=== PATIENT | female | born 1965 | race Caucasian/White ===

== ENCOUNTER 2017-02-24 20:01 | Emergency (ER) | payer SELFPAY ==
[~2017-02-24] VITALS: Ht 162.6 cm; Wt 78.0 kg
[2017-02-24] MEDS ORDERED: KETOROLAC 30 MG/ML VIAL IVP ONE (20:15)
[2017-02-24] MEDS ORDERED: NS IV 1000 ML 1,000 ML IV ONE (20:15)
[2017-02-24] MEDS ORDERED: ASPIRIN 81 MG CHEW (CHILDREN'S ASA) PO ONE (20:15)
[2017-02-24 20:24] LABS: BASOPHILS % (AUTO) 0 % (0-10); EOSINOPHILS # (AUTO) 0.1 10^3/uL (0.0-0.3); EOSINOPHILS % (AUTO) 1 % (0-10); LYMPHOCYTES # (AUTO) 1.1 X 10^3 (1.0-4.0); LYMPHOCYTES % (AUTO) 8 % (12-44); MEAN CORPUSCULAR HEMOGLOBIN 30 PG (25-34); MEAN CORPUSCULAR HGB CONC 34 G/DL (32-36); MEAN CORPUSCULAR VOLUME 88 FL (80-99); MEAN PLATELET VOLUME 9.5 FL (7.4-10.4); MONOCYTES # (AUTO) 0.5 X 10^3 (0.0-1.0); MONOCYTES % (AUTO) 4 % (0-12); NEUTROPHILS # (AUTO) 11.5 X 10^3 (1.8-7.8); NEUTROPHILS % (AUTO) 87 % (42-75); PLATELET COUNT 338 10^3/uL (130-400); RED CELL DISTRIBUTION WIDTH 13.4 % (10.0-14.5); WHITE BLOOD COUNT 13.2 10^3/uL (4.3-11.0)
[2017-02-24 20:27] LABS: PROTHROMBIN TIME PATIENT 12.4 SEC (12.2-14.7)
[2017-02-24 20:37] LABS: ALANINE AMINOTRANSFERASE 21 U/L (0-55); ALBUMIN 4.6 G/DL (3.2-4.5); ANION GAP 15 MMOL/L (5-14); ASPARTATE AMINO TRANSFERASE 15 U/L (5-34); BILIRUBIN,TOTAL 0.7 MG/DL (0.1-1.0); BLOOD UREA NITROGEN 10 MG/DL (7-18); BUN/CREATININE RATIO 10; CALCIUM 9.6 MG/DL (8.5-10.1); CARBON DIOXIDE 20 MMOL/L (21-32); CHLORIDE 98 MMOL/L (98-107); CREATININE SERUM 0.96 MG/DL (0.60-1.30); GFR ESTIMATED > 60; GLUCOSE 385 MG/DL (70-105); MAGNESIUM 1.9 MG/DL (1.8-2.4); POTASSIUM 4.3 MMOL/L (3.6-5.0); SODIUM 133 MMOL/L (135-145); TOTAL PROTEIN 7.8 G/DL (6.4-8.2)
[2017-02-24 20:44] LABS: MYOGLOBIN SERUM 25.1 NG/ML (10.0-92.0)
[2017-02-24] MEDS ORDERED: METF1000 (20:53)
[2017-02-24] MEDS ORDERED: PRAV40TA2 (20:53)
[2017-02-24] MEDS ORDERED: GABA-488 (20:53)
[2017-02-24] MEDS ORDERED: LISI-556 (20:53)
[2017-02-24] MEDS ORDERED: GLIP5TAB26 (20:53)
[2017-02-24] MEDS ORDERED: ESTR0.3T (20:53)
[2017-02-24] MEDS ORDERED: MONT10TA24 (20:53)
[2017-02-24] MEDS ORDERED: CITA20TA7 (20:53)
[2017-02-24] MEDS ORDERED: MELO15TA39 (20:53)
--- NOTE | 2017-02-24 21:05 | Diagnostic Imaging Report ---
EXAMINATION: CHEST (PA AND LATERAL) CLINICAL INDICATION: 51-year-old female, chest pain. Cough. COMPARISON: None. FINDINGS: Heart size and mediastinal contours are unremarkable. There is no identified pneumothorax. There is no pleural effusion. There is somewhat of a focal area of increased attenuation where right-sided ribs overlap on the frontal view which measures 9 mm in size. There is a rounded area of increased attenuation projecting within breast tissue measuring 11 mm in size on the lateral view as well as an adjacent high attenuation nodular focus which measures 4 mm in size. These appear low in position to correlate with the finding on the frontal view. No additional potential focal airspace consolidation noted. IMPRESSION: 1. Focal area of increased attenuation where 2 right-sided ribs overlap at the level of the right midlung measuring 9 mm in size. This very well may relate to artifact and overlap of structures; however, pulmonary nodule would be difficult to exclude. 2. High attenuation nodular foci projecting within the breast on the lateral view. These correlate with benign calcifications on comparison mammography. 3. No definite acute cardiopulmonary abnormality. Dictated by: Dictated on workstation # [id number]
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
[2017-02-24] MEDS ORDERED: AZITHROMYCIN 250 MG TAB (ZITHROMAX) PO ONE (21:30)
[2017-02-24] MEDS ORDERED: HYDROcodone/APAP 5 MG/325 MG (LORTAB) TAB PO ONE (21:30)
[2017-02-24] MEDS ORDERED: AZIT250T5 PO (21:36)
[2017-02-24 21:44] VITALS: BP 131/72
== END 2017-02-24 21:44 | disposition home or self-care (01) ==
LOC: EDUNIT# 20:01 → ER 20:06
DX: R07.89 Other chest pain (principal); D72.829 Elevated white blood cell count, unspecified; R91.1 Solitary pulmonary nodule; R50.9 Fever, unspecified; I10 Essential (primary) hypertension; J44.9 Chronic obstructive pulmonary disease, unspecified; E11.9 Type 2 diabetes mellitus without complications; F17.210 Nicotine dependence, cigarettes, uncomplicated; Z79.84 Long term (current) use of oral hypoglycemic drugs; Z79.899 Other long term (current) drug therapy; Z77.22 Contact with and (suspected) exposure to environmental tobacco smoke (acute) (chronic)
CPT/HCPCS: 36415; 71020; 80053; 83735; 83874; 84484; 85025; 85379; 85610; 85730; 87804; 93005; 93041; 96374

== ENCOUNTER 2017-06-28 22:43 | Emergency (ER) | payer OTHER ==
[~2017-06-28] VITALS: Ht 162.6 cm; Wt 78.0 kg
[~2017-06-28 22:43] MED LIST: AZIT250T5 PO; CITA20TA7; ESTR0.3T; GABA-488; GLIP5TAB26; LISI-556; MELO15TA39; METF1000; MONT10TA24; PRAV40TA2
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
[2017-06-28] MEDS ORDERED: PRD20T PO (23:22)
[2017-06-28 23:36] VITALS: BP 126/85
--- OUTSIDE RECORDS SUMMARY | 2017-06-29 12:24 | XMS REPORT | Continuity of Care Document ---
Author Author [employer] Organization [facility] Address Unknown Phone Unavailable Care Team Providers Care Sanitation Director Name Role Phone [employer] Unavailable Unavailable Problems Problem Status Onset Date Classification Date Reported Comments Source No data available for this section [facility] Medications Medication Details Route Status Patient Instructions Ordering Provider Order Date Source No Known Medications No known medications Active [employer] Allergies, Adverse Reactions, Alerts Substance Category Reaction Severity Reaction type Status Date Reported Comments Source Sulfadiazine Assertion hives , swelling Drug allergy [facility] Immunizations Immunization Date Given Site Status Last Updated Comments Source No data available for this section No data available for this section [facility] [email or web address] Results Vital Signs Encounters Location Location Details Encounter Type Encounter Number Reason For Visit Attending Provider ADM Date DC Date Status Source [facility] [id number] Emergency [id number] Torres Jiménez 09/11/2015 09/11/2015 Active [employer]. Procedures Procedure Code Date Perfomer Comments Source bra[place]io [facility] [place] total hysterectomy [facility] [email or web address] [facility] Plan of Care Social History Assessment and Plan Family History Value Date Source Advance Directives Order Name Results Value Date Source
== END 2017-06-28 23:34 | disposition home or self-care (01) ==
LOC: EDUNIT# 22:43 → ER 22:46
DX: M25.512 Pain in left shoulder (principal); I10 Essential (primary) hypertension; E11.9 Type 2 diabetes mellitus without complications; F32.9 Major depressive disorder, single episode, unspecified; K21.9 Gastro-esophageal reflux disease without esophagitis; J44.9 Chronic obstructive pulmonary disease, unspecified; I25.2 Old myocardial infarction; E78.00 Pure hypercholesterolemia, unspecified; F17.210 Nicotine dependence, cigarettes, uncomplicated; Z87.442 Personal history of urinary calculi; Z90.710 Acquired absence of both cervix and uterus; Z82.49 Family history of ischemic heart disease and other diseases of the circulatory system; Z87.820 Personal history of traumatic brain injury; Z98.51 Tubal ligation status; Z90.89 Acquired absence of other organs; Z79.84 Long term (current) use of oral hypoglycemic drugs
CPT/HCPCS: 99282

== ENCOUNTER 2018-03-09 23:09 | Emergency (ER) | payer OTHER ==
[~2018-03-09] VITALS: Ht 165.1 cm; Wt 81.6 kg
[~2018-03-09 23:09] MED LIST changes: +AZIT250T12 PO; -AZIT250T5 PO; -CITA20TA7; +CITA20TA9; -METF1000; +METF10002; +PRD20T PO
[2018-03-10] MEDS ORDERED: GABAPENTIN 300 MG (NEURONTIN) CAP PO ONE
[2018-03-10] MEDS ORDERED: GABA-488 PO (00:03)
[2018-03-10] MEDS ORDERED: PRD20T PO (00:03)
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
[2018-03-10 00:19] VITALS: BP 143/89
== END 2018-03-10 00:19 | disposition home or self-care (01) ==
LOC: EDUNIT# 23:09 → ER 23:10
DX: M25.512 Pain in left shoulder (principal); J44.9 Chronic obstructive pulmonary disease, unspecified; I25.2 Old myocardial infarction; E78.00 Pure hypercholesterolemia, unspecified; I10 Essential (primary) hypertension; K21.9 Gastro-esophageal reflux disease without esophagitis; E11.9 Type 2 diabetes mellitus without complications; F32.9 Major depressive disorder, single episode, unspecified; Z87.442 Personal history of urinary calculi; Z87.19 Personal history of other diseases of the digestive system; Z85.43 Personal history of malignant neoplasm of ovary; Z88.2 Allergy status to sulfonamides; Z79.52 Long term (current) use of systemic steroids; Z77.22 Contact with and (suspected) exposure to environmental tobacco smoke (acute) (chronic); Z90.710 Acquired absence of both cervix and uterus; Z90.89 Acquired absence of other organs; Z98.51 Tubal ligation status
CPT/HCPCS: 99283

== ENCOUNTER 2018-05-06 21:05 | Inpatient (IN) | payer OTHER ==
[~2018-05-06] VITALS: Ht 165.1 cm; Wt 79.8 kg
[~2018-05-06 21:05] MED LIST changes: +GABA-488 PO
[2018-05-06 21:27] LABS: BASOPHILS % (AUTO) 0 % (0-10); EOSINOPHILS # (AUTO) 0.1 10^3/uL (0.0-0.3); EOSINOPHILS % (AUTO) 1 % (0-10); HEMATOCRIT 44 % (35-52); HEMOGLOBIN 15.3 G/DL (11.5-16.0); LYMPHOCYTES # (AUTO) 2.4 X 10^3 (1.0-4.0); LYMPHOCYTES % (AUTO) 16 % (12-44); MEAN CORPUSCULAR HEMOGLOBIN 31 PG (25-34); MEAN CORPUSCULAR HGB CONC 35 G/DL (32-36); MEAN CORPUSCULAR VOLUME 88 FL (80-99); MEAN PLATELET VOLUME 9.6 FL (7.4-10.4); MONOCYTES % (AUTO) 7 % (0-12); NEUTROPHILS # (AUTO) 11.3 X 10^3 (1.8-7.8); NEUTROPHILS % (AUTO) 76 % (42-75); PLATELET COUNT 331 10^3/uL (130-400); RED BLOOD COUNT 5.01 10^6/uL (4.35-5.85); RED CELL DISTRIBUTION WIDTH 13.4 % (10.0-14.5); WHITE BLOOD COUNT 14.8 10^3/uL (4.3-11.0)
[2018-05-06] MEDS ORDERED: ASPIRIN 81 MG CHEW (CHILDREN'S ASA) PO ONE (21:30)
[2018-05-06] MEDS ORDERED: morphine INJ 10 MG/ML 1ML (SYR OR VIAL) IVP STA ×3 (21:31→22:01)
[2018-05-06] MEDS ORDERED: morphine INJ 10 MG/ML 1ML (SYR OR VIAL) ONE (21:32)
[2018-05-06] MEDS ORDERED: HEParin 1000 UNIT/ML (10ML VIAL) FOR BOLUS ONE ×2 (21:32→22:25)
[2018-05-06] MEDS ORDERED: ONDANSETRON 4 MG/2 ML (SDV) Z0FRAN ONE ×2 (21:32→23:06)
[2018-05-06] MEDS ORDERED: HEParin DRIP 25000 UNIT/500ML 500 ML IV ONE (21:33)
[2018-05-06] MEDS ORDERED: CLOPIDOGREL 300 MG (PLAVIX) TABLET PO ONE (21:33)
[2018-05-06] MEDS ORDERED: NITROGLYCERIN 0.4 MG SL TABS BTL 25'S SL ONE (21:35)
[2018-05-06] MEDS: NITROGLYCERIN 0.4 MG SL TABS BTL 25'S SL PRN ×2 (21:41→22:01)
[2018-05-06 21:43] LABS: BAND NEUTROPHILS 2 %; BASOPHILS % (MANUAL) 0 %; EOSINOPHILS % (MANUAL) 0 %; LYMPHOCYTES % (MANUAL) 18 %; MONOCYTES % (MANUAL) 5 %; NEUTROPHILS % (MANUAL) 75 %; RBC MORPH NORMAL
[2018-05-06] MEDS ORDERED: ONDANSETRON 4 MG/2 ML (SDV) Z0FRAN IVP ONE (21:45)
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
[2018-05-06] MEDS ORDERED: TICAGRELOR 90 MG TABLET (BRILINTA) PO ONE ×2 (21:49→22:00)
--- NOTE | 2018-05-06 21:49 | Diagnostic Imaging Report ---
CHEST 1 VIEW, AP/PA ONLY Indication: Chest pain Comparison: 02/24/2017 Findings: No focal airspace disease in the visualized lungs. Please note that the posterior lower lobes are poorly evaluated by portable radiography. No pleural effusion or pneumothorax. Normal cardiomediastinal silhouette. Impression: No acute cardiopulmonary process by portable radiography. Dictated by: Dictated on workstation # [id number]
[2018-05-06 21:51] LABS: ALANINE AMINOTRANSFERASE 21 U/L (0-55); ALBUMIN 4.3 GM/DL (3.2-4.5); ALKALINE PHOSPHATASE 90 U/L (40-136); AMYLASE 38 U/L (25-125); BILIRUBIN,TOTAL 0.5 MG/DL (0.1-1.0); BUN/CREATININE RATIO 13; CALCIUM 9.7 MG/DL (8.5-10.1); CARBON DIOXIDE 22 MMOL/L (21-32); CHLORIDE 100 MMOL/L (98-107); CREATINE KINASE 71 U/L (29-168); CREATININE SERUM 0.93 MG/DL (0.60-1.30); GFR ESTIMATED > 60; MAGNESIUM 1.7 MG/DL (1.8-2.4); POTASSIUM 4.1 MMOL/L (3.6-5.0); SODIUM 134 MMOL/L (135-145)
[2018-05-06 21:54] LABS: CREATINE KINASE MB 1.7 NG/ML (<6.6); GLUCOSE 433 MG/DL (70-105)
[2018-05-06] MEDS ORDERED: NS IV 1000 ML 1,000 ML IV ONE (21:54)
[2018-05-06] MEDS ORDERED: inSUlin (REGULAR) HUMAN 1 UNIT/0.01 ML (CHARGE PER UNIT) IV ONE (22:00)
[2018-05-06] MEDS ORDERED: HEParin 1000 UNIT/ML (10ML VIAL) FOR BOLUS IV ONE (22:00)
[2018-05-06] MEDS ORDERED: inSUlin (REGULAR) HUMAN 1 UNIT/0.01 ML (CHARGE PER UNIT) ONE (22:02)
[2018-05-06] MEDS ORDERED: MIDAZOLAM 5 MG/5 ML (VERSED) VIAL ONE (22:06)
[2018-05-06] MEDS ORDERED: fentaNYL INJECTION 100 MCG/2 ML AMP ONE (22:06)
[2018-05-06 22:09] LABS: LIPASE 29 U/L (8-78)
[2018-05-06] MEDS ORDERED: ATROPINE INJECTION 1 MG/10 ML SYR (ABBOTT) ONE (22:42)
[2018-05-06] MEDS ORDERED: EPTIFIBATIDE BOLUS 20 ML IV ONE (22:43)
[2018-05-06] MEDS ORDERED: DOPamine DRIP 250 ML IV ONE (22:57)
--- NOTE | 2018-05-06 23:18 | History & Physicial-Cardiolgy ---
HPI-Cardiology Cardiology Consultation: Date of Consultation 05/06/18 Date of Admission Attending Physician Shayla Olivares MD Admitting Physician Amanda Pugh MD Consulting Physician Shayla OLIVARES MD HPI: Time Seen by Provider: 10:15 Chief Complaint: Chest pain This is a 53-year-old lady with active smoking and diabetes who presented with chest pain for at least one hour. She denied any other symptoms. Chest pain was substernal with no radiation. There were no exacerbating or relieving factors. Chest pain was at least 3/10 in the catheter lab. Review of Systems-Cardiology Review of Systems Constitutional: As described under HPI; No As described under HPI, No no symptoms reported, No chills, No fever, No lightheadedness Eyes: No As described under HPI, No no symptoms reported, No blindness, No blurred vision, No contact lenses, No drainage, No decreased acuity, No foreign body sensation, No pain, No vision change Ears/Nose/Throat: No As described under HPI, No no symptoms reported, No chronic hearing loss, No ear discharge, No ear pain, No nasal drainage, No ulcerations Respiratory: No no symptoms reported; As described under HPI; No As described under HPI, No cough, No orthopnea, No shortness of breath, No SOB with excertion Cardiovascular: No no symptoms reported; As described under HPI; No As described under HPI; chest pain; No edema, No irregular heart rate, No lightheadedness, No palpitations Gastrointestinal: No no symptoms reported, No As described under HPI, No abdomen distended, No abdominal pain, No blood streaked bowels, No constipation , No diarrhea, No nausea, No vomiting, No stool coloration changes Genitourinary: No As described under HPI, No burning, No dysuria, No discharge , No frequency, No flank pain, No hematuria, No urgency : Yes : No Skin: No rash, No skin related problems, No ulcerations Psychiatric/Neurological: No anxiety, No depression, No seizure, No focal weakness, No syncope Hematologic: No bleeding abnormalities OEM-Lilxbc-Faqeiu Hx Patient Social History Alcohol Use: Occasionally Uses Recreational Drug Use: No Type Used: Cigarettes 2nd Hand Smoke Exposure: Yes Recent Infectious Disease Expo: No Hospitalization with Isolation: Denies Past Medical History PMH As described under Assessment. Allergies and Home Medications Allergies Uncoded Allergies: SULFA (Adverse Reaction, Severe, Anaphylaxis, 02/24/17) Home Medications Azithromycin 250 Mg Tablet, 250 MG PO DAILY Prescribed by: MONICA UP on 02/24/172135 Gabapentin 300 Mg Capsule, 300 MG PO TID PRN for PAIN-MODERATE TO SEVERE Prescribed by: MONICA UP on 03/10/18 0003 Prednisone 20 Mg Tab, 20 MG PO DAILY Prescribed by: GABRIELA MCINTOSH on 06/28/172321 Prednisone 20 Mg Tab, 20 MG PO DAILY Prescribed by: MONICA UP on 03/10/18 0003 Patient Home Medication List Home Medication List Reviewed: Yes Physical Exam-Cardiology Physical Exam Vital Signs/I&O 05/06/18 05/06/18 05/06/18 05/06/18 21:05 21:05 21:15 22:12 Temp 99.7 99.6 Pulse 86 Resp 16 B/P (MAP) 137/84 (101) 103/63 Pulse Ox 95 96 O2 Delivery Room Air Room Air Nasal Cannula Nasal Cannula O2 Flow Rate 2.00 2.00 Capillary Refill : Less Than 3 Seconds Constitutional: appears stated age; No apparent distress; well-developed, well- nourished HEENT: PERRL; No discharge; hearing is well preserved, oral hygience is good; No ulceration, No xanthelasmas are seen Neck: No carotid bruit; carotid pulses are 2 + bilaterally Respiratory: chest is bilaterally symmetric, lungs clear to auscultation Cardiovascular: regular rate-rhythm, S1 and S2 Gastrointestinal: No tender, No soft, No round, No distended, No pulsatile mass , No organomegaly, No guarding, No rebound, No tenderness, No hernia, No mass, No audible bowel sounds, No abnormal bowel sounds, No abdominal bruits, No spleenomegaly, No other Rectal: deferred Extremities: No normal range of motion, No non-tender, No normal inspection, No pedal edema, No calf tenderness, No normal capillary refill, No pelvis stable , No calf tenderness, No inflammation, No pedal edema, No slow capillary refill , No swelling, No other, No abrasion, No clubbing, No cyanosis, No ecchymosis, No laceration, No no lower extremity edema bilateral, No significant edema, No tenderness, No wound Neurologic/Psychiatric: no motor/sensory deficits, alert, normal mood/affect, oriented x 3, power is 5/5 both on sides Skin: No normal color, No warm/dry, No cyanosis, No cool, No diaphoresis, No damp, No ecchymosis, No jaundice, No mottled, No pallor, No rash, No tattoos/ piercings, No ulcerations, No rash on exposed areas, No ulcerations on exposed areas, No other Data Review Labs Laboratory Tests 05/06/18 21:15: White Blood Count 14.8H, Red Blood Count 5.01, Hemoglobin 15.3, Hematocrit 44, Mean Corpuscular Volume 88, Mean Corpuscular Hemoglobin 31, Mean Corpuscular Hemoglobin Concent 35, Red Cell Distribution Width 13.4, Platelet Count 331, Mean Platelet Volume 9.6, Neutrophils (%) (Auto) 76H, Lymphocytes (%) (Auto) 16 , Monocytes (%) (Auto) 7, Eosinophils (%) (Auto) 1, Basophils (%) (Auto) 0, Neutrophils # (Auto) 11.3H, Lymphocytes # (Auto) 2.4, Monocytes # (Auto) 1.0, Eosinophils # (Auto) 0.1, Basophils # (Auto) 0.0, Neutrophils % (Manual) 75, Lymphocytes % (Manual) 18, Monocytes % (Manual) 5, Eosinophils % (Manual) 0, Basophils % (Manual) 0, Band Neutrophils 2, Blood Morphology Comment NORMAL, Prothrombin Time 13.0, INR Comment 1.0, Activated Partial Thromboplast Time 24, Sodium Level 134L, Potassium Level 4.1, Chloride Level 100, Carbon Dioxide Level 22, Anion Gap 12, Blood Urea Nitrogen 12, Creatinine 0.93, Estimat Glomerular Filtration Rate > 60, BUN/Creatinine Ratio 13, Glucose Level 433*H, Calcium Level 9.7, Magnesium Level 1.7L, Total Bilirubin 0.5, Aspartate Amino Transf (AST/SGOT) 16, Alanine Aminotransferase (ALT/SGPT) 21, Alkaline Phosphatase 90, Total Creatine Kinase 71, Creatine Kinase MB 1.7, Troponin I < 0.30, B-Type Natriuretic Peptide 17.1, Total Protein 7.0, Albumin 4.3, Amylase Level 38, Lipase 29 ECG Impression ECG Initial ECG Impression: Acute CO A/P-Cardiology Assessment/Admission Diagnosis Cardiac shock, transient 2:1 AV block, acute inferior ST elevation CO. Active smoking, diabetes Admission Status: Inpatient Order (span 2 midnights) Reason for Inpatient Admission: Acute inferior CO, cardiac shock Plan Emergent coronary angiography and PCI. IV heparin bolus given. Aspirin and Brilinta bolus given. Patient also received morphine and nitroglycerin. Discussed at length with the patient and all risks and complication explained. Medical consultation for uncontrolled diabetes. Shayla OLIVARES MD May 06, 2018 23:18
--- NOTE | 2018-05-06 23:21 | Cardiac Procedure Note-CS/ASA ---
Pre-Procedure Note Pre-Op Procedure Note H&P Reviewed The H&P was reviewed, patient examined and no changes noted. Date H&P Reviewed: May 06, 2018 Time H&P Reviewed: 10:15 Conscious Sedation Pre-Proced Time Reviewed: 10:15 ASA Class: 3 Airway Mallampati Classification: ([place] appropriate class) I. II. III, IV Lungs Heart ASA score ASA 1: a normal healthy patient ASA 2: a patient with a mild systemic disease (mid diabetes, controlled hypertension, obesity ASA 3: a patient with a severe systemic disease that limits activity (angina , COPD, prior Myocardial infarction) ASA 4: a patient with an incapacitating disease that is a constant threat to life (CHF, renal failure) ASA 5: a moribund patient not expected to survive 24 hrs. (ruptured aneurysm) ASA 6: a declared brain patient whose organs are being harvested. For emergent operations, add the letter E after the classification Grade 1 Sedation Plan: Analgesia, Amnesia, Plan communicated to team members, Discussed options with patient/fam, Discussed risks with patient/fam Note The patient is an appropriate candidate to undergo the planned procedure, sedation, and anesthesia. The patient immediately re-assessed prior to indication. Shayla FLORES MD May 06, 2018 23:21
[2018-05-06] MEDS ORDERED: NITRO DRIP 25000 MCG/D5W 250 ML IV ONE (23:23)
[2018-05-06] MEDS ORDERED: PATIENT MAY USE OWN MEDS, ALL PO SCH (23:30)
--- NOTE | 2018-05-06 23:37 | Coronary Angiography & PCI ---
Coronary Angiography & PCI DATE OF PROCEDURE: 05/06/18 INDICATION: Cardiogenic shock, acute inferior wall TN PREOPERATIVE DIAGNOSIS: Cardiac shock, acute inferior wall TN POSTOPERATIVE DIAGNOSIS: Primary PCI to the proximal RCA. HISTORY: This is a 53-year-old lady with history of diabetes, active smoking who presented with chest burning and chest pain for at least one hour before presentation. Initial EKG showed nondiagnostic ST elevation. This EKG was done at 9:11 p.m. the second EKG was done at 9:26 p.m. which was diagnostic for inferior ST elevation TN. Therefore, the patient was scheduled for coronary angiography. PROCEDURES PERFORMED: 1.Coronary angiography. 2.Left heart catheterization. 3. Aortic arch angiography. 4. PCI to the proximal RCA COMPLICATIONS: None. SPECIMENS: None. ESTIMATED BLOOD LOSS: 10 mL ANESTHESIA: Conscious sedation ANTICOAGULATION: IV heparin, IV Integrilin. CONTRAST: 130 mL. FLUOROSCOPY: 9 minutes. FLOUROSCOPY DOSE: 836 mgy. PROCEDURE DETAILS: The patient is a 53 female and was brought to the manager cath lab after informed consent was taken. All the risks and complications were explained in detail; this included the risk of bleeding, vascular damage, stroke , TN and even . The patient was draped and prepped in the usual sterile fashion. Access was gained in the right femoral artery with a 6 Croat[place] sheath. Primary PCI was done with a JR4 guide catheter. Left coronary angiography was done with a JR4 catheter. Left heart catheterization and arch angiography was performed with a pigtail catheter. FINDINGS: 1.Left main: Patent. 2.LAD: Mild to Moderate diffuse disease in the midsegment. 3.Left circumflex artery: No significant disease. 4.RCA: Total occlusion in the proximal segment. 5.Left heart catheterization: Aortic pressure 104/59 mmHg. LV pressure 86/2 mmHg. LVEDP 12 mmHg. Normal LV function with no gradient across the aortic valve. Mild basal inferior hypokinesis. 6. Aortic arch angiogram: Evidence of dissection or aneurysm. Patent proximal segments of the great arteries including brachycephalic artery, left common carotid artery, left subclavian artery. RECOMMENDATIONS: Primary PCI to the proximal RCA is recommended. INTERVENTION DETAILS: JR4 guide catheter, whisper guidewire, IV heparin and IV Integrilin double bolus for anticoagulation. ACT was done once which was 245 seconds. The lesion was crossed with the whisper wire and initial dilatation was done with a 2.0 x 12mm balloon at nominal pressures. Door to balloon time from diagnostic EKG which was at 9:26 p.m. was 63 minutes. Significant clot burden was noted. Clot burden was also noted in the PL branch. Double bolus of Integrilin was given. Patient received bolus Brilinta in the ER. We then took a Xience Alpine 2.75 x 38 mm stent and deployed it at 16 carlito for 20 seconds. Postdilatation was done by 3.0 noncompliant balloon at 14 and 16 carlito respectively. Excellent results were noted angiographically. During the procedure patient systolic blood pressure was 60 mmHg and she received bolus IV fluids and dopamine. She subsequently responded to dopamine which was then discontinued. This represents cardiogenic shock likely secondary to RV infarction. Patient also developed 2-1 AV block and received half milligram of atropine to which she responded well. At the end of the procedure patient was hemodynamically stable with systolic blood pressure of over 110 mmHg and heart rate sinus rhythm with 1:1 conduction over 60 BPM. Minx closure. CONCLUSIONS: 1. Primary PCI to proximal RCA with drug-eluting stent. Cardiogenic shock and RV infarction. 2. Dual antiplatelet therapy. Echocardiogram in the morning. High-dose Lipitor. Did not start beta christal or DANIEL inhibitor at this point in time. 3. EKG in the morning. Watch electrolytes. Continue IV fluids. Olvin Olivares MD, FACP, FACC, [facility] Interventional Cardiology Shayla OLIVARES MD May 06, 2018 23:37
[2018-05-06] MEDS: NS IV 1000 ML 1,000 ML IV SCH (23:45)
[2018-05-06 23:46] VITALS: BP 104/61
[2018-05-07] VITALS (23 sets, daily range): BP systolic 97–128; BP diastolic 52–77
[2018-05-07 03:42] LABS: HEMOGLOBIN 13.8 G/DL (11.5-16.0); MEAN PLATELET VOLUME 9.8 FL (7.4-10.4); RED BLOOD COUNT 4.62 10^6/uL (4.35-5.85); RED CELL DISTRIBUTION WIDTH 13.3 % (10.0-14.5); WHITE BLOOD COUNT 13.5 10^3/uL (4.3-11.0)
[2018-05-07 04:04] LABS: BUN/CREATININE RATIO 16; CALCIUM 9.1 MG/DL (8.5-10.1); CARBON DIOXIDE 21 MMOL/L (21-32); CHLORIDE 106 MMOL/L (98-107); CREATININE SERUM 0.68 MG/DL (0.60-1.30); GFR ESTIMATED > 60; GLUCOSE 262 MG/DL (70-105); POTASSIUM 4.3 MMOL/L (3.6-5.0); SODIUM 135 MMOL/L (135-145)
[2018-05-07] MEDS: TICAGRELOR 90 MG TABLET (BRILINTA) PO SCH ×2 (09:20→21:54)
[2018-05-07] MEDS: ASPIRIN E.C. 81 MG (ECOTRIN) TAB PO SCH (09:20)
[2018-05-07] MEDS: NS IV 1000 ML 1,000 ML IV SCH ×3 (10:08→22:03)
--- NOTE | 2018-05-07 10:12 | Consultation (CHS) ---
HPI History of Present Illness: Pt presented to ED last night with report of chest discomfort. Pt states she had been having indigestion for a few hours, and had gone upstairs to get ready for bed, but could not seem to get rid of her indigestion. It got a little worse after she ate pizza, beer, and pepsi. She reports that she asked her daughter to bring her to the ED when she was finished taking a bath and the patient went downstairs to have a cigarette, and when she got down to the bottom of the stairs, she began having pain that radiated to her back, she was nauseated, diaphoretic. She presented to the ED, brought by her daughter, and was found to have ST elevation in inferior leads. Dr. Olivares and cath team called for STEMI, promptly arrived, and patient was taken emergently to research laboratory technician. Cardiac Cath findings: 1.Left main: Patent. 2.LAD: Mild to Moderate diffuse disease in the midsegment. 3.Left circumflex artery: No significant disease. 4.RCA: Total occlusion in the proximal segment. 5.Left heart catheterization: Aortic pressure 104/59 mmHg. LV pressure 86/2 mmHg. LVEDP 12 mmHg. Normal LV function with no gradient across the aortic valve. Mild basal inferior hypokinesis. 6. No evidence of dissection. PCI and Angioplasty Performed to proximal RCA with TRAY placement. During the procedure patient systolic blood pressure was 60 mmHg and she received bolus IV fluids and dopamine. She subsequently responded to dopamine which was then discontinued. This represents cardiogenic shock likely secondary to RV infarction. Patient also developed 2-1 AV block and received half milligram of atropine to which she responded well. At the end of the procedure patient was hemodynamically stable with systolic blood pressure of over 110 mmHg and heart rate sinus rhythm with 1:1 conduction over 60 BPM. On arrival the patient's blood glucose was 433. She is a known insulin dependent diabetic, her last HgbA1C in the clinic on 02/27/18 was 8.7. Source: patient, RN/MD, RN notes reviewed, old records Exam Limitations: no limitations Date seen by provider: May 07, 2018 Time Seen by Provider: 13:45 Attending Physician Shayla Olivares MD PCP [place] Pugh MD Consult Date of Admission May 06, 2018 at 23:21 Home Medications Home Medications Reviewed patient Home Medication Reconciliation performed by pharmacy medication reconciliations vending technician and/or nursing. Patients Allergies have been reviewed. Allergies Coded Allergies: Sulfa (Sulfonamide Antibiotics) (Verified Allergy, Severe, ANAPHYLAXIS, 05/07/18) [id number] Hx Patient Social History Marrital Status: single Number of Children: 3 Number of living children: 3 Living Status: lives with daughter Employed/Student: employed Alcohol Use: Occasionally Uses Recreational Drug Use: No Smoking Status: Current Everyday Smoker (1-2 PPD) Type Used: Cigarettes (1-2 PPD) 2nd Hand Smoke Exposure: Yes Recent Foreign Travel: No Contact w/other who traveled: No Recent Hopitalizations: No Recent Infectious Disease Expo: No Physical Abuse Screen: No Sexual Abuse: No Immunizations Up To Date Tetanus Booster (TDap): Unknown Past Medical History CAD Myocardial Infarction - age 32, age 38, age 53 Type II Diabetes with Complication Arthritis Fibromyalgia Hyperlipidemia HTN Chronic Pain Depression Seasonal Allergies 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 Tobacco Abuse Medical Noncompliance Past Surgical Hx: Left Breast Biopsy - Age 15 Tumor Removal, Right Arm Cholecystectomy Tonsillectomy Bilateral Tubal Ligation Hysterectomy - 2005 Bilateral Bone Spurs removed from great toes Right Carpal Tunnel Surgery Left Mastoid Tumor Removed Cardiac Cath with PCI to RCA 05/06/2018 Family Medical History Significant Family History: Heart Disease, Cancer, Diabetes, Other Conditions/ Hx Family History: Cardiovascular disease 19 FATHER, 19 MOTHER, G8 BROTHER FH: esophageal cancer aunt Internal cardiac defibrillator G8 BROTHER Pacemaker G8 BROTHER Review of Systems ([facility]C) Constitutional: see HPI EENTM: no symptoms reported Respiratory: no symptoms reported Cardiovascular: see HPI Gastrointestinal: see HPI Genitourinary: no symptoms reported : No Musculoskeletal: no symptoms reported Skin: no symptoms reported Psychiatric/Neurological: No Symptoms Reported Reviewed Test Results Reviewed Test Results Lab Laboratory Tests Test 05/06/18 21:15 05/07/18 03:15 05/07/18 11:51 05/07/18 16:06 Range/Units White Blood Count 14.8 H 13.5 H 4.3-11.0 10^3/uL Red Blood Count 5.01 4.62 4.35-5.85 10^6/uL Hemoglobin 15.3 13.8 11.5-16.0 G/DL Hematocrit 44 41 35-52 % Mean Corpuscular Volume 88 89 80-99 FL Mean Corpuscular Hemoglobin 31 30 25-34 PG Mean Corpuscular Hemoglobin Concent 35 34 32-36 G/DL Red Cell Distribution Width 13.4 13.3 10.0-14.5 % Platelet Count 331 310 130-400 10^3/uL Mean Platelet Volume 9.6 9.8 7.4-10.4 FL Neutrophils (%) (Auto) 76 H 42-75 % Lymphocytes (%) (Auto) 16 12-44 % Monocytes (%) (Auto) 7 0-12 % Eosinophils (%) (Auto) 1 0-10 % Basophils (%) (Auto) 0 0-10 % Neutrophils # (Auto) 11.3 H 1.8-7.8 X 10^3 Lymphocytes # (Auto) 2.4 1.0-4.0 X 10^3 Monocytes # (Auto) 1.0 0.0-1.0 X 10^3 Eosinophils # (Auto) 0.1 0.0-0.3 10^3/uL Basophils # (Auto) 0.0 0.0-0.1 10^3/uL Neutrophils % (Manual) 75 % Lymphocytes % (Manual) 18 % Monocytes % (Manual) 5 % Eosinophils % (Manual) 0 % Basophils % (Manual) 0 % Band Neutrophils 2 % Blood Morphology Comment NORMAL Prothrombin Time 13.0 12.2-14.7 SEC INR Comment 1.0 0.8-1.4 Activated Partial Thromboplast Time 24 24-35 SEC Sodium Level 134 L 135 135-145 MMOL/L Potassium Level 4.1 4.3 3.6-5.0 MMOL/L Chloride Level 100 106 98-107 MMOL/L Carbon Dioxide Level 22 21 21-32 MMOL/L Anion Gap 12 8 5-14 MMOL/L Blood Urea Nitrogen 12 11 7-18 MG/DL Creatinine 0.93 0.68 0.60-1.30 MG/DL Estimat Glomerular Filtration Rate > 60 > 60 BUN/Creatinine Ratio 13 16 Glucose Level 433 *H 262 H 70-105 MG/DL Calcium Level 9.7 9.1 8.5-10.1 MG/DL Magnesium Level 1.7 L 1.8-2.4 MG/DL Total Bilirubin 0.5 0.1-1.0 MG/DL Aspartate Amino Transf (AST/SGOT) 16 5-34 U/L Alanine Aminotransferase (ALT/SGPT) 21 0-55 U/L Alkaline Phosphatase 90 40-136 U/L Total Creatine Kinase 71 29-168 U/L Creatine Kinase MB 1.7 <6.6 NG/ML Troponin I < 0.30 12.37 *H <0.30 NG/ML B-Type Natriuretic Peptide 17.1 <100.0 PG/ML Total Protein 7.0 6.4-8.2 GM/DL Albumin 4.3 3.2-4.5 GM/DL Amylase Level 38 25-125 U/L Lipase 29 8-78 U/L Serum Alcohol < 10 <10 MG/DL Glucometer 249 H 161 H 70-110 MG/DL Radiology Date of Exam: 05/06/18 CHEST 1 VIEW, AP/PA ONLY CHEST 1 VIEW, AP/PA ONLY Indication: Chest pain Comparison: 02/24/2017 Findings: No focal airspace disease in the visualized lungs. Please note that the posterior lower lobes are poorly evaluated by portable radiography. No pleural effusion or pneumothorax. Normal cardiomediastinal silhouette. Impression: No acute cardiopulmonary process by portable radiography. Physical Exam-([facility]) Physical Exam Vital Signs VS - Last 72 Hours, by Label 05/06/18 05/06/18 05/06/18 05/06/18 21:05 21:05 21:15 22:12 Temp 99.7 99.6 Pulse 86 Resp 16 B/P (MAP) 137/84 (101) 103/63 Pulse Ox 95 96 O2 Delivery Room Air Room Air Nasal Cannula Nasal Cannula O2 Flow Rate 2.00 2.00 05/06/18 05/06/18 05/06/18 05/07/18 23:45 23:46 23:50 00:00 Temp 98.4 Pulse 69 69 73 Resp 22 28 B/P (MAP) 104/61 (75) 104/61 (75) Pulse Ox 95 95 96 O2 Delivery Nasal Cannula Nasal Cannula Nasal Cannula O2 Flow Rate 2.00 2.00 2.00 05/07/18 05/07/18 05/07/18 05/07/18 00:00 00:15 00:30 00:45 Pulse 71 67 66 Resp 28 20 28 B/P (MAP) 99/58 (72) 99/63 (75) 102/54 (70) Pulse Ox 95 96 95 94 O2 Delivery Nasal Cannula Nasal Cannula Nasal Cannula Nasal Cannula O2 Flow Rate 2.00 2.00 2.00 2.00 05/07/18 05/07/18 05/07/18 05/07/18 01:00 01:00 01:15 01:30 Pulse 64 64 70 65 Resp 28 27 B/P (MAP) 116/59 (78) 113/54 (73) 102/57 (72) Pulse Ox 94 96 96 O2 Delivery Nasal Cannula Nasal Cannula Nasal Cannula O2 Flow Rate 2.00 2.00 2.00 05/07/18 05/07/18 05/07/18 05/07/18 01:45 02:00 02:15 03:00 Pulse 66 68 68 61 Resp 25 28 B/P (MAP) 110/57 (74) 107/58 (74) 118/59 (78) 107/58 (74) Pulse Ox 97 97 97 97 O2 Delivery Nasal Cannula Nasal Cannula Nasal Cannula Nasal Cannula O2 Flow Rate 2.00 2.00 2.00 2.00 05/07/18 05/07/18 05/07/18 05/07/18 04:00 04:00 05:00 06:00 Temp 97.6 Pulse 64 63 63 Resp 17 9 27 B/P (MAP) 97/58 (71) 100/55 (70) Pulse Ox 95 97 97 92 O2 Delivery Nasal Cannula Nasal Cannula Nasal Cannula Nasal Cannula O2 Flow Rate 2.00 2.00 2.00 2.00 05/07/18 05/07/18 05/07/18 05/07/18 07:00 08:00 08:00 08:45 Temp 97.9 Pulse 65 66 Resp 20 B/P (MAP) 110/57 (74) Pulse Ox 93 O2 Delivery Room Air Room Air Room Air O2 Flow Rate 05/07/18 05/07/18 05/07/18 05/07/18 09:00 10:00 11:00 12:00 Temp 98.7 Pulse 68 71 69 Resp 27 28 B/P (MAP) 98/52 (67) 117/62 (80) 116/65 (82) Pulse Ox 93 94 94 O2 Delivery Room Air Room Air Room Air Room Air O2 Flow Rate 05/07/18 05/07/18 05/07/18 05/07/18 12:00 12:00 13:00 13:02 Pulse 69 71 73 Resp 26 26 B/P (MAP) 128/69 (88) 120/66 (84) Pulse Ox 95 96 O2 Delivery Room Air Room Air Room Air 05/07/18 14:00 Pulse 87 Resp 14 B/P (MAP) 111/72 (85) Pulse Ox 90 O2 Delivery Room Air Capillary Refill : Less Than 3 Seconds General Appearance: WD/WN, no apparent distress Eyes: Bilateral Eye Normal Inspection, Bilateral Eye EOMI HEENT: normal ENT inspection; No scleral icterus (R), No scleral icterus (L), No photophobia Neck: non-tender, full range of motion, supple, normal inspection Respiratory: chest non-tender, no respiratory distress, no accessory muscle use , wheezing Cardiovascular: normal peripheral pulses, regular rate, rhythm, no edema, no gallop, no murmur Gastrointestinal: normal bowel sounds, non tender, soft, no organomegaly, no pulsatile mass Rectal: deferred Back: normal inspection, no CVA tenderness, no vertebral tenderness Extremities: normal range of motion, non-tender, normal inspection, no pedal edema, no calf tenderness, normal capillary refill Neurologic/Psychiatric: pluck trimmer II-XII nml as tested, no motor/sensory deficits, alert, normal mood/affect, oriented x 3 Skin: normal color, warm/dry Lymphatic: no adenopathy Assessment/Plan Assessment/Plan Assessment & Plan STEMI Right Ventricular Infarct Cardiogenic Shock - resolved AV Block - resolved s/p cardiac cath with TRAY to RCA Type II Diabetes Mellitus with Complication Penitentiary Insulin Use Tobacco Abuse HTN Hyperlipidemia CAD Chronic Pain Postmenopausal on Hormone Replacement Therapy -pt's medication list updated; pt gets many of her medications from the repository at the clinic and they have been filled recently -last HgbA1C 8.7 on 02/27/18 in clinic -hold metformin, glipizide while in the hospital -accuchecks AC and HS, sliding scale B with meals -continue home dose of levemir 50 units at HS -diabetic diet -pt's significant elevation in her sugar on admission likely due to her consumption of pizza, beer, and pepsi ~1 hour before arrival, and she had not taken her insulin yet; she is self admittedly not very compliant with diabetic diet -pt has follow up appt scheduled already with Dr. Pugh on 05/24/18 at 0920 -strongly encouraged pt on tobacco cessation -will defer lipid and blood pressure medications to Dr. Olivares -from a diabetic standpoint, pt is okay for discharge on medications as prior to arrival when cleared for discharge by cardiology and she should keep her appt as scheduled with Dr. Pugh for diabetes management on 05/24 We appreciate the consultation and will continue to see the patient daily until she is discharged. Care turned over to Dr. Ghotra at 1700. Clinical Quality Measures DVT/VTE Risk/Contraindication: Risk Factor Score Per Nursin RFS Level Per Nursing on Admit: 2=Moderate Copy Copies To 1: [place] PUGH MD, MARGARET E DO May 07, 2018 10:12
[2018-05-07] MEDS ORDERED: BENZ-36 PO (10:17)
[2018-05-07] MEDS ORDERED: LISI-556 PO (10:17)
[2018-05-07] MEDS ORDERED: GLIP5TAB26 PO (10:18)
[2018-05-07] MEDS ORDERED: ESTR0.3T PO (10:18)
[2018-05-07] MEDS ORDERED: PRAV40TA2 PO (10:18)
[2018-05-07] MEDS ORDERED: MELO15TA39 PO (10:19)
[2018-05-07] MEDS ORDERED: CITA20TA9 PO (10:20)
[2018-05-07] MEDS ORDERED: METF10002 PO (10:20)
[2018-05-07] MEDS ORDERED: GABA-488 PO (10:25)
[2018-05-07] MEDS ORDERED: MONT10TA24 PO (10:26)
--- NOTE | 2018-05-07 12:23 | Cardiology Progress Note ---
Cardiology SOAP Progress Note Subjective: No further chest pain Objective: I&O/Vital Signs 05/07/18 05/07/18 05/07/18 05/07/18 00:30 00:45 01:00 01:00 Pulse 67 66 64 64 Resp 20 28 26 B/P (MAP) 99/63 (75) 102/54 (70) 116/59 (78) Pulse Ox 95 94 94 O2 Delivery Nasal Cannula Nasal Cannula Nasal Cannula O2 Flow Rate 2.00 2.00 2.00 05/07/18 05/07/18 05/07/18 05/07/18 01:15 01:30 01:45 02:00 Pulse 70 65 66 68 Resp 28 27 26 28 B/P (MAP) 113/54 (73) 102/57 (72) 110/57 (74) 107/58 (74) Pulse Ox 96 96 97 97 O2 Delivery Nasal Cannula Nasal Cannula Nasal Cannula Nasal Cannula O2 Flow Rate 2.00 2.00 2.00 2.00 05/07/18 05/07/18 05/07/18 05/07/18 02:15 03:00 04:00 04:00 Temp 97.6 Pulse 68 61 64 Resp 28 17 B/P (MAP) 118/59 (78) 107/58 (74) 97/58 (71) Pulse Ox 97 97 95 97 O2 Delivery Nasal Cannula Nasal Cannula Nasal Cannula Nasal Cannula O2 Flow Rate 2.00 2.00 2.00 2.00 05/07/18 05/07/18 05/07/18 05/07/18 05:00 06:00 07:00 08:00 Temp 97.9 Pulse 63 63 65 Resp 9 27 B/P (MAP) 100/55 (70) Pulse Ox 97 92 O2 Delivery Nasal Cannula Nasal Cannula Room Air O2 Flow Rate 2.00 2.00 05/07/18 05/07/18 05/07/18 05/07/18 08:00 08:45 09:00 10:00 Pulse 66 68 71 Resp 20 25 27 B/P (MAP) 110/57 (74) 98/52 (67) 117/62 (80) Pulse Ox 93 93 94 O2 Delivery Room Air Room Air Room Air Room Air O2 Flow Rate 05/07/18 05/07/18 11:00 12:00 Pulse 69 Resp 28 B/P (MAP) 116/65 (82) Pulse Ox 94 O2 Delivery Room Air Room Air Weight (Pounds): 179 Weight (Ounces): 8.0 Weight (Calculated Kilograms): 81.196723 Constitutional: appears stated age; No apparent distress; well-developed, well- nourished Respiratory: chest is bilaterally symmetric, lungs clear to auscultation Cardiovascular: regular rate-rhythm, S1 and S2 Gastrointestional: No tender, No soft, No round, No distended, No pulsatile mass, No organomegaly, No guarding, No rebound, No tenderness, No hernia, No mass, No audible bowel sounds, No abnormal bowel sounds, No abdominal bruits, No spleenomegaly, No other Extremities: No normal range of motion, No non-tender, No normal inspection, No pedal edema, No calf tenderness, No normal capillary refill, No pelvis stable , No calf tenderness, No inflammation, No pedal edema, No slow capillary refill , No swelling, No other, No abrasion, No clubbing, No cyanosis, No ecchymosis, No laceration, No no lower extremity edema bilateral, No significant edema, No tenderness, No wound Neurologic/Psychiatric: no motor/sensory deficits, alert, normal mood/affect, oriented x 3, power is 5/5 both on sides Skin: No normal color, No warm/dry, No cyanosis, No cool, No diaphoresis, No damp, No ecchymosis, No jaundice, No mottled, No pallor, No rash, No tattoos/ piercings, No ulcerations, No rash on exposed areas, No ulcerations on exposed areas, No other Results/Procedures: Labs Laboratory Tests 05/06/18 21:15: White Blood Count 14.8H, Red Blood Count 5.01, Hemoglobin 15.3, Hematocrit 44, Mean Corpuscular Volume 88, Mean Corpuscular Hemoglobin 31, Mean Corpuscular Hemoglobin Concent 35, Red Cell Distribution Width 13.4, Platelet Count 331, Mean Platelet Volume 9.6, Neutrophils (%) (Auto) 76H, Lymphocytes (%) (Auto) 16 , Monocytes (%) (Auto) 7, Eosinophils (%) (Auto) 1, Basophils (%) (Auto) 0, Neutrophils # (Auto) 11.3H, Lymphocytes # (Auto) 2.4, Monocytes # (Auto) 1.0, Eosinophils # (Auto) 0.1, Basophils # (Auto) 0.0, Neutrophils % (Manual) 75, Lymphocytes % (Manual) 18, Monocytes % (Manual) 5, Eosinophils % (Manual) 0, Basophils % (Manual) 0, Band Neutrophils 2, Blood Morphology Comment NORMAL, Prothrombin Time 13.0, INR Comment 1.0, Activated Partial Thromboplast Time 24, Sodium Level 134L, Potassium Level 4.1, Chloride Level 100, Carbon Dioxide Level 22, Anion Gap 12, Blood Urea Nitrogen 12, Creatinine 0.93, Estimat Glomerular Filtration Rate > 60, BUN/Creatinine Ratio 13, Glucose Level 433*H, Calcium Level 9.7, Magnesium Level 1.7L, Total Bilirubin 0.5, Aspartate Amino Transf (AST/SGOT) 16, Alanine Aminotransferase (ALT/SGPT) 21, Alkaline Phosphatase 90, Total Creatine Kinase 71, Creatine Kinase MB 1.7, Troponin I < 0.30, B-Type Natriuretic Peptide 17.1, Total Protein 7.0, Albumin 4.3, Amylase Level 38, Lipase 29, Serum Alcohol < 10 05/07/18 03:15: White Blood Count 13.5H, Red Blood Count 4.62, Hemoglobin 13.8, Hematocrit 41, Mean Corpuscular Volume 89, Mean Corpuscular Hemoglobin 30, Mean Corpuscular Hemoglobin Concent 34, Red Cell Distribution Width 13.3, Platelet Count 310, Mean Platelet Volume 9.8, Sodium Level 135, Potassium Level 4.3, Chloride Level 106, Carbon Dioxide Level 21, Anion Gap 8, Blood Urea Nitrogen 11, Creatinine 0.68, Estimat Glomerular Filtration Rate > 60, BUN/Creatinine Ratio 16, Glucose Level 262H, Calcium Level 9.1, Troponin I 12.37*H 05/07/18 11:51: Glucometer 249H A/P: Assessment/Dx: Cardiac shock, transient 2:1 AV block, acute inferior ST elevation DC. Active smoking, diabetes Plan: Emergent coronary angiography and PCI done overnight with PCI with drug-eluting stent to the proximal RCA. Continue long-term aspirin and Brilinta. Continue high-dose statin therapy. Blood pressure still borderline with systolic blood pressure of 98 mmHg. Gradually improving RV infarction associated cardiac shock. Continue IV fluids. Once systolic blood pressure is over 110 mmHg we will gradually start beta christal and DANIEL inhibitor. Echocardiogram pending. Appreciate Dr Madison input about diabetes. Smoking cessation strongly recommended. Critical patient. Thank you for your consultation. Please call me if you have any questions. Olvin Olivares MD, FACP, FACC, FSCAI, FHRS, CCDS Interventional Cardiology Cardiac Electrophysiology Vascular Medicine and Endovascular Interventions Shayla OLIVARES MD May 07, 2018 12:22 pm
[2018-05-07] MEDS ORDERED: inSUlin ASPART (NovoLOG) 1 UNIT/0.01 ML (CHARGE PER UNIT) SC NR (12:30)
[2018-05-07] MEDS ORDERED: INSU100I29 SQ (16:04)
[2018-05-07] MEDS ORDERED: CITA40TA19 PO (16:04)
[2018-05-07] MEDS ORDERED: LIRA0.6P SQ (16:04)
[2018-05-07] MEDS: inSUlin ASPART (NovoLOG) 1 UNIT/0.01 ML (CHARGE PER UNIT) SC SCH ×2 (16:07→21:53)
[2018-05-07] MEDS ORDERED: ATORVASTATIN 80 MG (LIPITOR) TABLET PO SCH (21:00)
[2018-05-07] MEDS ORDERED: NON-FORMULARY MEDICATION 1 EA EA (Insulin Detemir (Levemir Flextouch) 50 UNIT) SQ SCH (21:00)
[2018-05-07] MEDS ORDERED: inSUlin DETERMIR 1 UNIT/0.01 ML (LEVEMIR) CHARGE PER UNIT SQ SCH (21:00)
[2018-05-07] MEDS: GABAPENTIN 300 MG (NEURONTIN) CAP PO SCH (21:54)
[2018-05-08 04:00] VITALS: BP 122/79
[2018-05-08 04:41] LABS: BASOPHILS % (AUTO) 0 % (0-10); EOSINOPHILS # (AUTO) 0.2 10^3/uL (0.0-0.3); EOSINOPHILS % (AUTO) 1 % (0-10); HEMATOCRIT 46 % (35-52); HEMOGLOBIN 15.5 G/DL (11.5-16.0); LYMPHOCYTES % (AUTO) 34 % (12-44); MEAN CORPUSCULAR HEMOGLOBIN 30 PG (25-34); MEAN CORPUSCULAR HGB CONC 33 G/DL (32-36); MEAN CORPUSCULAR VOLUME 90 FL (80-99); MEAN PLATELET VOLUME 9.6 FL (7.4-10.4); MONOCYTES # (AUTO) 1.2 X 10^3 (0.0-1.0); MONOCYTES % (AUTO) 10 % (0-12); NEUTROPHILS # (AUTO) 6.4 X 10^3 (1.8-7.8); NEUTROPHILS % (AUTO) 54 % (42-75); PLATELET COUNT 331 10^3/uL (130-400); RED BLOOD COUNT 5.17 10^6/uL (4.35-5.85); RED CELL DISTRIBUTION WIDTH 13.8 % (10.0-14.5); WHITE BLOOD COUNT 11.8 10^3/uL (4.3-11.0)
[2018-05-08 05:07] LABS: BUN/CREATININE RATIO 12; CALCIUM 9.3 MG/DL (8.5-10.1); CARBON DIOXIDE 23 MMOL/L (21-32); CHLORIDE 110 MMOL/L (98-107); CREATININE SERUM 0.77 MG/DL (0.60-1.30); GFR ESTIMATED > 60; GLUCOSE 82 MG/DL (70-105); MAGNESIUM 2.3 MG/DL (1.8-2.4); POTASSIUM 3.8 MMOL/L (3.6-5.0); SODIUM 143 MMOL/L (135-145)
[2018-05-08] MEDS: inSUlin ASPART (NovoLOG) 1 UNIT/0.01 ML (CHARGE PER UNIT) SC SCH (06:12)
[2018-05-08 08:00] VITALS: BP 108/53
[2018-05-08] MEDS ORDERED: MELOXICAM 7.5 MG (MOBIC) TABLET PO SCH (08:00)
[2018-05-08] MEDS ORDERED: NON-FORMULARY MEDICATION 1 EA EA (Citalopram Hydrobromide (Celexa) 40 MG) PO SCH (09:00)
[2018-05-08] MEDS ORDERED: MONTELUKAST 10 MG (SINGULAIR) TAB PO SCH (09:00)
[2018-05-08] MEDS ORDERED: NON-FORMULARY MEDICATION 1 EA EA (Meloxicam 15 MG) PO SCH (09:00)
[2018-05-08] MEDS ORDERED: lisINopril 5 MG (PRINIVIL) TABLET PO SCH (09:00)
[2018-05-08] MEDS: ASPIRIN E.C. 81 MG (ECOTRIN) TAB PO SCH (09:08)
[2018-05-08] MEDS: TICAGRELOR 90 MG TABLET (BRILINTA) PO SCH (09:08)
[2018-05-08] MEDS: GABAPENTIN 300 MG (NEURONTIN) CAP PO SCH ×2 (09:08→14:35)
--- NOTE | 2018-05-08 11:23 | Progress Note (SOAP) ---
Subjective Subjective/Events-last exam Feeling well. Wanting to go home. Review of Systems Date Seen by Provider: May 08, 2018 Time Seen by Provider: 10:00 Objective Exam Last Set of Vital Signs Vital Signs Date Time Temp Pulse Resp B/P (MAP) Pulse Ox O2 Delivery O2 Flow Rate FiO2 05/08/18 08:00 97.2 81 20 108/53 (71) 95 Room Air 05/07/18 09:00 Capillary Refill : Less Than 3 Seconds I&O Intake and Output 05/08/18 00:00 Intake Total 3890 ml Output Total 1400 ml Balance 2490 ml Intake Oral 2890 ml IV Total 1000 ml Output Urine Total 1400 ml # Voids 4 # Bowel Movements 2 Daily Weight Change Yes, 2-13 lbs General: Alert, Oriented X3, Cooperative Psych/Mental Status: Mental Status NL, Mood NL Results/Procedures Lab Laboratory Tests 05/07/18 11:51: Glucometer 249H 05/07/18 16:06: Glucometer 161H 05/07/18 21:14: Glucometer 282H 05/08/18 04:11: White Blood Count 11.8H, Red Blood Count 5.17, Hemoglobin 15.5, Hematocrit 46, Mean Corpuscular Volume 90, Mean Corpuscular Hemoglobin 30, Mean Corpuscular Hemoglobin Concent 33, Red Cell Distribution Width 13.8, Platelet Count 331, Mean Platelet Volume 9.6, Neutrophils (%) (Auto) 54, Lymphocytes (%) (Auto) 34, Monocytes (%) (Auto) 10, Eosinophils (%) (Auto) 1, Basophils (%) (Auto) 0, Neutrophils # (Auto) 6.4, Lymphocytes # (Auto) 4.0, Monocytes # (Auto) 1.2H, Eosinophils # (Auto) 0.2, Basophils # (Auto) 0.0, Sodium Level 143, Potassium Level 3.8, Chloride Level 110H, Carbon Dioxide Level 23, Anion Gap 10, Blood Urea Nitrogen 9, Creatinine 0.77, Estimat Glomerular Filtration Rate > 60, BUN/ Creatinine Ratio 12, Glucose Level 82, Calcium Level 9.3, Magnesium Level 2.3 05/08/18 05:54: Glucometer 93 Microbiology 05/07/18 MRSA Screen - Final, Complete MRSA not isolated Radiology Date of Exam: 05/06/18 CHEST 1 VIEW, AP/PA ONLY CHEST 1 VIEW, AP/PA ONLY Indication: Chest pain Comparison: 02/24/2017 Findings: No focal airspace disease in the visualized lungs. Please note that the posterior lower lobes are poorly evaluated by portable radiography. No pleural effusion or pneumothorax. Normal cardiomediastinal silhouette. Impression: No acute cardiopulmonary process by portable radiography. Assessment/Plan Assessment/Plan Assessment & Plan STEMI Right Ventricular Infarct Cardiogenic Shock - resolved AV Block - resolved s/p cardiac cath with TRAY to RCA Type II Diabetes Mellitus with Complication Custodial Insulin Use Tobacco Abuse HTN Hyperlipidemia CAD Chronic Pain Postmenopausal on Hormone Replacement Therapy -pt's medication list updated; pt gets many of her medications from the repository at the clinic and they have been filled recently -last HgbA1C 8.7 on 02/27/18 in clinic -hold metformin, glipizide while in the hospital -accuchecks AC and HS, sliding scale B with meals -continue home dose of levemir 50 units at HS -diabetic diet -pt's significant elevation in her sugar on admission likely due to her consumption of pizza, beer, and pepsi ~1 hour before arrival, and she had not taken her insulin yet; she is self admittedly not very compliant with diabetic diet -pt has follow up appt scheduled already with Dr. Pugh on 05/24/18 at 0920 -strongly encouraged pt on tobacco cessation -will defer lipid and blood pressure medications to Dr. Olivares -from a diabetic standpoint, pt is okay for discharge on medications as prior to arrival when cleared for discharge by cardiology and she should keep her appt as scheduled with Dr. Pugh for diabetes management on 05/24 We appreciate the consultation and will continue to see the patient daily until she is discharged. Care turned over to Dr. Perez at 1700. 05/08/18 - OK to DC from a medical standpoint. Clinical Quality Measures DVT/VTE Risk/Contraindication: Risk Factor Score Per Nursin RFS Level Per Nursing on Admit: 2=Moderate PINEDA PEREZ DO May 08, 2018 11:23
[2018-05-08 12:00] VITALS: BP 132/78
[2018-05-08] MEDS ORDERED: lisINopril 5 MG (PRINIVIL) TABLET PO NR (14:15)
[2018-05-08] MEDS ORDERED: CLOPIDOGREL 75 MG (PLAVIX) TABLET PO NR (14:15)
[2018-05-08] MEDS ORDERED: CLOP75TA69 PO (14:41)
[2018-05-08] MEDS ORDERED: METO-351 PO (14:43)
[2018-05-08 15:00] VITALS: BP 132/78
--- NOTE | 2018-05-08 16:40 | Discharge Inst-Post CATH ---
Discharge Inst-CATH Post Cardiac Cath D/C Inst Follow Up/Plan Follow-up with cardiology in one week. CARDIAC CATH DISCHARGE INSTRUCTIONS *Hold Metformin for 48 hours post heart cath. ACTIVITY * Go Home directly and rest. * Limit activity of the leg (or wrist if it was used) for 7 days including aerobics, swimming, jogging, bicycling, etc. * Restrict stair-climbing for 7 days if possible, if not, climb up with your non -cath leg, then bring together on the same step. * Avoid lifting, pushing, pulling or excessive movement of the affected extremity for 7 days. * Customary sexual activity may be resumed after 2 days-use caution not to use a position that strains or causes pain to the affected extremity. * No driving for 24 hours. * NO SMOKING. * Avoid straining for bowel movements for 7 days. * Gentle walking on level ground is allowed. * Returning to work will depend on the type of procedure and the results. Your doctor will discuss this with you. CALL YOUR DOCTOR FOR ANY OF THE FOLLOWING: *If bleeding from the puncture site occurs- Apply gentle pressure to site with clean cloth and call your doctor or EMS. * If a knot or lump forms under the skin, increases in size, or causes pain. * If bruising appears to be worsening or moving further down your leg instead of disappearing. * Temperature above 101 F. CARE OF YOUR GROIN INCISION; * Bruising or purple discoloration of the skin near the puncture site is common. * You may shower only, no bathtub bathing for 5 days. Be careful to avoid slipping as your leg may feel stiff. * If a closure device was used on your femoral artery, please see the attached guide regarding care of the device and your leg. * REMOVE the dressing from your groin the next day after your procedure in the shower. CARE OF YOUR WRIST INCISION; * Bruising or purple discoloration of the skin near the puncture site is common. * You may shower. * DO NOT submerge wrist. * Remove dressing in 24 hours. Shayla FLORES MD May 08, 2018 4:40 pm
--- NOTE | 2018-05-08 16:44 | Cardiology Discharge Summary ---
Diagnosis/Chief Complaint Date of Admission May 06, 2018 at 11:21 pm Date of Discharge May 08, 2018 Admission Diagnosis Cardiogenic shock, acute inferior WA Final/Discharge Diagnosis Acute WA Chief Complaint/HPI Chief Complaint/HPI This is a 53-year-old lady with active smoking and diabetes who presented with chest pain for at least one hour. She denied any other symptoms. Chest pain was substernal with no radiation. There were no exacerbating or relieving factors. Chest pain was at least 3/10 in the catheter lab. Discharge Summary Procedures Coronary angiography showed occluded proximal RCA treated with drug-eluting stent. Cardiogenic shock with systolic blood pressure 60 mmHg. Likely secondary to RV infarction. Improved with IV fluids and dopamine. Discharge Physical Examination Stable cardiovascular respiratory examination. Normal peripheral pulses. Hospital Course Patient gradually improved with EKG resolution. Improved hemodynamics. Will start on low dose beta christal and lisinopril. Pending Labs Laboratory Tests 05/08/18 11:29: Glucometer 212 Discussion & Recommendations Discussion Discharge took over 30 minutes to complete. Discharge instructions discussed at length with the patient including importance of aspirin and Plavix. Smoking cessation was strongly recommended. Follow-up with cardiology in one week. Treatment of diabetes was also recommended. Follow up appt.: Dr. Olivares in one week. Primary care physician in one week. Dicharge Diet: Cardiac Diet Activity as Tolerated: Yes Home Medications Reviewed patient Home Medication Reconciliation performed by pharmacy medication reconciliations tax map technician and/or nursing. Patients Allergies have been reviewed. Discharge Home Medications: Reviewed and agree with Discharge Medication list on patient's Discharge Instruction sheet Condition at discharge Stable. Instructions to patient/family Follow-up with cardiology in one week. Clinical Quality Measures DVT/VTE Risk/Contraindication: Risk Factor Score Per Nursin RFS Level Per Nursing on Admit: 2=Moderate Shayla OLIVARES MD May 08, 2018 4:44 pm
== END 2018-05-08 15:00 | disposition home or self-care (01) | DRG 246 ==
LOC: EDUNIT# 21:05 → ER 21:06 → CATH 21:41 → ICU 23:21 → 4TH 05-07 14:20
PROVIDERS: ADMIT Internal Medicine Interventional Cardiology; ATTEND Internal Medicine Interventional Cardiology
PROC: 027034Z Dilation of Coronary Artery, One Artery with Drug-eluting Intraluminal Device, Percutaneous Approach (ICD-10-PCS; principal; 2018-05-06)
PROC: 4A023N7 Measurement of Cardiac Sampling and Pressure, Left Heart, Percutaneous Approach (ICD-10-PCS; 2018-05-06)
PROC: B2101ZZ Fluoroscopy of Single Coronary Artery using Low Osmolar Contrast (ICD-10-PCS; 2018-05-06)
PROC: B3101ZZ Fluoroscopy of Thoracic Aorta using Low Osmolar Contrast (ICD-10-PCS; 2018-05-06)
DX: I21.19 ST elevation (STEMI) myocardial infarction involving other coronary artery of inferior wall (principal); R57.0 Cardiogenic shock; E11.9 Type 2 diabetes mellitus without complications; F17.210 Nicotine dependence, cigarettes, uncomplicated; J44.9 Chronic obstructive pulmonary disease, unspecified; I10 Essential (primary) hypertension; E78.00 Pure hypercholesterolemia, unspecified; Z85.43 Personal history of malignant neoplasm of ovary; K21.9 Gastro-esophageal reflux disease without esophagitis; K58.9 Irritable bowel syndrome, unspecified; M79.7 Fibromyalgia; M41.9 Scoliosis, unspecified; Z79.4 Long term (current) use of insulin; E78.5 Hyperlipidemia, unspecified; I25.10 Atherosclerotic heart disease of native coronary artery without angina pectoris; Z79.890 Hormone replacement therapy
CPT/HCPCS: 36221; 36415; 71045; 80048; 80053; 80320; 82150; 82550; 82553; 82962; 83690; 83735; 83880; 84484; 85007; 85025; 85027; 85347; 85610; 85730; 87081; 93005; 93041; 93306; 93458; 96374; 96375

== ENCOUNTER 2018-10-11 13:30 | Emergency (ER) | payer OTHER ==
[~2018-10-11] VITALS: Ht 165.1 cm; Wt 81.2 kg
[~2018-10-11 13:30] MED LIST changes: +BENZ-36 PO; +CITA20TA9 PO; +CITA40TA19 PO; +CLOP75TA69 PO; +ESTR0.3T PO; +GLIP5TAB26 PO; +INSU100I29 SQ; +LIRA0.6P SQ; +LISI-556 PO; +MELO15TA39 PO; +METF-399; +METF-399 PO; -METF10002; +METO-351 PO; +MONT10TA24 PO; +PRAV40TA2 PO
[2018-10-11] MEDS ORDERED: ASPIRIN 81 MG CHEW (CHILDREN'S ASA) PO ONE (13:45)
[2018-10-11 13:58] LABS: BASOPHILS % (AUTO) 0 % (0-10); EOSINOPHILS # (AUTO) 0.1 10^3/uL (0.0-0.3); EOSINOPHILS % (AUTO) 1 % (0-10); HEMATOCRIT 44 % (35-52); HEMOGLOBIN 15.2 G/DL (11.5-16.0); LYMPHOCYTES % (AUTO) 35 % (12-44); MEAN CORPUSCULAR HEMOGLOBIN 30 PG (25-34); MEAN CORPUSCULAR HGB CONC 34 G/DL (32-36); MEAN CORPUSCULAR VOLUME 89 FL (80-99); MEAN PLATELET VOLUME 9.2 FL (7.4-10.4); MONOCYTES # (AUTO) 0.8 X 10^3 (0.0-1.0); MONOCYTES % (AUTO) 9 % (0-12); NEUTROPHILS # (AUTO) 4.7 X 10^3 (1.8-7.8); NEUTROPHILS % (AUTO) 55 % (42-75); PLATELET COUNT 340 10^3/uL (130-400); RED CELL DISTRIBUTION WIDTH 13.6 % (10.0-14.5); WHITE BLOOD COUNT 8.5 10^3/uL (4.3-11.0)
[2018-10-11 14:08] LABS: INR 0.9 (0.8-1.4); PROTHROMBIN TIME PATIENT 12.2 SEC (12.2-14.7)
[2018-10-11 14:16] LABS: ALANINE AMINOTRANSFERASE 15 U/L (0-55); ALBUMIN 4.4 GM/DL (3.2-4.5); ALKALINE PHOSPHATASE 83 U/L (40-136); BILIRUBIN,TOTAL 0.3 MG/DL (0.1-1.0); BUN/CREATININE RATIO 13; CALCIUM 9.7 MG/DL (8.5-10.1); CARBON DIOXIDE 22 MMOL/L (21-32); CHLORIDE 105 MMOL/L (98-107); CREATININE SERUM 0.79 MG/DL (0.60-1.30); GFR ESTIMATED > 60; GLUCOSE 208 MG/DL (70-105); LIPASE 26 U/L (8-78); MAGNESIUM 1.8 MG/DL (1.8-2.4); POTASSIUM 4.1 MMOL/L (3.6-5.0); SODIUM 138 MMOL/L (135-145); TOTAL PROTEIN 7.2 GM/DL (6.4-8.2)
[2018-10-11 14:22] LABS: MYOGLOBIN SERUM 26.8 NG/ML (10.0-92.0)
--- NOTE | 2018-10-11 14:23 | Diagnostic Imaging Report ---
Portable erect AP chest at 1:53. Indication: Chest pain. Findings: The heart size is within normal limits and stable when compared to 05/06/2018. The small nodular density overlying the right midlung seen previously is again evident and no different. This finding also seems unchanged when compared to the prior exam of 02/24/2017. Consequently I do suspect that this is a benign process. If further imaging is desired, then CT of the chest would be recommended. If the CT chest exam is not performed, then a short-term (6 month) followup chest exam should be obtained. There is no evidence for failure, pneumonia or pleural effusion. Mediastinum is not widened. The osseous structures are intact. Impression: 1. There is no evidence for an acute cardiopulmonary abnormality. 2. The nodular density overlying the periphery of the right midlung seen previously is again evident and no different. Considerations and recommendations as above. Dictated by: Dictated on workstation # [id number]
[2018-10-11] MEDS ORDERED: KETOROLAC 30 MG/ML VIAL IVP ONE (16:00)
--- NOTE | 2018-10-11 16:24 | ED Chest Pain ---
General Chief Complaint: Chest Pain Stated Complaint: CHEST PAIN Nursing Triage Note: Pt has cc of chest pain. Pt stated she was lifting groceries at the time the chest pain started. She stated it is midline on upper part of chest. Pt stated she had heart attack may 06 of this year. Pt stated that her pain is at 6.5 and she has a headache. Nursing Sepsis Screen: No Definite Risk Source: patient Exam Limitations: no limitations History of Present Illness Date Seen by Provider: Oct 11, 2018 Time Seen by Provider: 13:33 Initial Comments This 53-year-old woman presents to the emergency room with complaints of chest pain started about one hour prior to arrival. Pain is across her chest and into her back. It is worse with deep breathing and with palpation. Pain started while she was picking up a case of water. Patient is rather concerned about her pain because she had an [place] in May. She was instructed to present to the emergency room promptly if she ever had any chest pain again. Patient continues to smoke. She denies cough or fever. Allergies and Home Medications Allergies Coded Allergies: Sulfa (Sulfonamide Antibiotics) (Verified Allergy, Severe, ANAPHYLAXIS, 05/07/18) Home Medications Benzonatate 100 Mg Capsule, 100 MG PO TID, (Reported) Citalopram Hydrobromide 40 Mg Tablet, 40 MG PO DAILY, (Reported) Clopidogrel Bisulfate 75 Mg Tablet, 75 MG PO DAILY Prescribed by: NASIMA GOMZE on 05/08/18 1441 Estrogens, Conjugated 0.3 Mg Tablet, 0.3 MG PO DAILY, (Reported) Gabapentin 300 Mg Capsule, 300 MG PO TID, (Reported) Glipizide 5 Mg Tab.er.24, 5 MG PO DAILY, (Reported) Insulin Detemir 100 Unit/1 Ml Insuln.pen, 50 UNIT SQ HS, (Reported) Liraglutide 0.6 Mg/0.1 Ml Pen.injctr, 1.8 MG SQ DAILY, (Reported) Lisinopril 5 Mg Tablet, 5 MG PO DAILY, (Reported) Meloxicam 15 Mg Tablet, 15 MG PO DAILY, (Reported) Metformin HCl 1,000 Mg Tablet, 1,000 MG PO BID, (Reported) Metoprolol Succinate 25 Mg Tab.er.24h, 12.5 MG PO DAILY Prescribed by: NASIMA GOMEZ on 05/08/18 1443 Montelukast Sodium 10 Mg Tablet, 10 MG PO DAILY, (Reported) Pravastatin Sodium 40 Mg Tablet, 40 MG PO HS, (Reported) Patient Home Medication List Home Medication List Reviewed: Yes Review of Systems Review of Systems Constitutional: no symptoms reported EENTM: No Symptoms Reported Respiratory: See HPI Cardiovascular: No Symptoms Reported Gastrointestinal: No Symptoms Reported Genitourinary: No Symptoms Reported Musculoskeletal: see HPI Skin: no symptoms reported Psychiatric/Neurological: No Symptoms Reported Endocrine: No Symptoms Reported Hematologic/Lymphatic: No Symptoms Reported Past Kkcnzyh-Icmzxr-Ukgavt Hx Past Med/Social Hx: Reviewed and Corrections made Patient Social History Alcohol Use: Denies Use Recreational Drug Use: No Type Used: Cigarettes 2nd Hand Smoke Exposure: Yes Recent Foreign Travel: No Contact w/Someone Who Travel: No Recent Infectious Disease Expo: No Recent Hopitalizations: No Physical Abuse: No Sexual Abuse: No Mistreated: No Fear: No Immunizations Up To Date Tetanus Booster (TDap): Unknown PED Vaccines UTD: No Seasonal Allergies Seasonal Allergies: Yes Past Medical History Surgeries: Yes (Heart cath, Hammer toes, Mastoid Tumor, R Carpal Tunnel ; HYST/ BSO) Cardiac, Coronary Stent, Gallbladder, Hysterectomy, Oophorectomy, Orthopedic, Tonsillectomy, Tubal Ligation Respiratory: Yes Asthma, COPD Currently Using CPAP: No Currently Using BIPAP: No Cardiac: Yes Coronary Artery Disease, Heart Attack, High Cholesterol, Hypertension Neurological: Yes (Head injury from baseball bat/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 ) Concussion 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 (Ovarian CA) 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, 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 Genitourinary: Yes Kidney Stones Gastrointestinal: Yes Gastroesophageal Reflux, Irritable Bowel Musculoskeletal: Yes Arthritis, Fibromyalgia, Scoliosis, Chronic Back Pain Endocrine: Yes (DM Type II) Diabetes, Non-Insulin dep HEENT: Yes (MASTOID TUMOR) Hearing Impairment: Deaf Cancer: Yes (mastoid tumor) Ovarian Did You Recieve Any Treatments: Yes What Type of Treatment Did You: Surgical Intervention Psychosocial: Yes Depression Integumentary: No Blood Disorders: No Family Medical History Cardiovascular disease 19 FATHER, 19 MOTHER, G8 BROTHER FH: esophageal cancer aunt Internal cardiac defibrillator G8 BROTHER Pacemaker G8 BROTHER Heart Disease, Cancer, Diabetes, Other Conditions/Hx Physical Exam Vital Signs Vital Signs - First Documented 10/11/18 13:35 Temp 98.7 Pulse 97 Resp 14 B/P (MAP) 129/81 (97) Pulse Ox 98 O2 Delivery Room Air Capillary Refill : Less Than 3 Seconds Height, Weight, BMI Height: 5'5.00" Weight: 179lbs. 0.0oz. 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 II-XII Norm as Tested Skin: Normal Color, Warm/Dry Progress/Results/Core Measures Results/Orders Lab Results Laboratory Tests Test 10/11/18 13:43 Range/Units White Blood Count 8.5 4.3-11.0 10^3/uL Red Blood Count 5.00 4.35-5.85 10^6/uL Hemoglobin 15.2 11.5-16.0 G/DL Hematocrit 44 35-52 % Mean Corpuscular Volume 89 80-99 FL Mean Corpuscular Hemoglobin 30 25-34 PG Mean Corpuscular Hemoglobin Concent 34 32-36 G/DL Red Cell Distribution Width 13.6 10.0-14.5 % Platelet Count 340 130-400 10^3/uL Mean Platelet Volume 9.2 7.4-10.4 FL Neutrophils (%) (Auto) 55 42-75 % Lymphocytes (%) (Auto) 35 12-44 % Monocytes (%) (Auto) 9 0-12 % Eosinophils (%) (Auto) 1 0-10 % Basophils (%) (Auto) 0 0-10 % Neutrophils # (Auto) 4.7 1.8-7.8 X 10^3 Lymphocytes # (Auto) 3.0 1.0-4.0 X 10^3 Monocytes # (Auto) 0.8 0.0-1.0 X 10^3 Eosinophils # (Auto) 0.1 0.0-0.3 10^3/uL Basophils # (Auto) 0.0 0.0-0.1 10^3/uL Prothrombin Time 12.2 12.2-14.7 SEC INR Comment 0.9 0.8-1.4 Activated Partial Thromboplast Time 26 24-35 SEC D-Dimer 0.33 0.00-0.49 UG/ML Sodium Level 138 135-145 MMOL/L Potassium Level 4.1 3.6-5.0 MMOL/L Chloride Level 105 98-107 MMOL/L Carbon Dioxide Level 22 21-32 MMOL/L Anion Gap 11 5-14 MMOL/L Blood Urea Nitrogen 10 7-18 MG/DL Creatinine 0.79 0.60-1.30 MG/DL Estimat Glomerular Filtration Rate > 60 BUN/Creatinine Ratio 13 Glucose Level 208 H 70-105 MG/DL Calcium Level 9.7 8.5-10.1 MG/DL Corrected Calcium 9.4 8.5-10.1 MG/DL Magnesium Level 1.8 1.8-2.4 MG/DL Total Bilirubin 0.3 0.1-1.0 MG/DL Aspartate Amino Transf (AST/SGOT) 10 5-34 U/L Alanine Aminotransferase (ALT/SGPT) 15 0-55 U/L Alkaline Phosphatase 83 40-136 U/L Myoglobin 26.8 10.0-92.0 NG/ML Troponin I < 0.30 <0.30 NG/ML C-Reactive Protein High Sensitivity 0.19 0.00-0.50 MG/DL B-Type Natriuretic Peptide 65.9 <100.0 PG/ML Total Protein 7.2 6.4-8.2 GM/DL Albumin 4.4 3.2-4.5 GM/DL Lipase 26 8-78 U/L My Orders Orders - MONICA OLIVEIRA MD [facility] C Reactive Protein (10/11/18 14:49) Fibrin Degradation Products (10/11/18 14:49) Ketorolac Injection (Toradol Injection) (10/11/18 16:00) Medications Given in ED Current Medications Medications Dose Ordered Sig/Virgil Route Start Time Stop Time Status Last Admin Dose Admin Aspirin 324 mg ONCE ONCE PO 10/11/18 13:45 10/11/18 13:46 DC 10/11/18 13:55 324 MG Ketorolac Tromethamine 15 mg ONCE ONCE IVP 10/11/18 16:00 10/11/18 16:01 DC 10/11/18 16:19 15 MG Vital Signs/I&O 10/11/18 10/11/18 10/11/18 13:35 13:35 16:31 Temp 98.7 98.7 Pulse 97 83 Resp 14 20 B/P (MAP) 129/81 (97) 135/51 (79) Pulse Ox 98 96 O2 Delivery Room Air Room Air Room Air Blood Pressure Mean: 97 Progress Progress Note : Progress Note Nature of patient's pain was non-cardiac. Cardiopulmonary workup was negative except for presence of pulmonary nodule which appears stable from prior imaging. This was discussed with patient and follow-up was recommended. Toradol was given for patient's pain. Initial ECG Impression Date: Oct 11, 2018 Initial ECG Impression Time: 13:33 Initial ECG Rate: 98 Initial ECG Rhythm: Normal Sinus Initial ECG Intervals: Normal Comment Normal sinus rhythm with no ST elevation or depression. No abnormal intervals or axis deviation. Diagnostic Imaging Diagonstic Imaging: Xray Plain Films/CT/US/NM/MRI: chest Comments Chest x-ray viewed by me and report reviewed. See report below: NAME: LUZ DE GUZMAN [facility] REC#: [id number] PT STATUS: REG ER : 1965 PHYSICIAN: YARA SINGLETON APRN ADMIT DATE: 10/11/18/ER Draft Date of Exam:10/11/18 CHEST 1 VIEW, AP/PA ONLY Portable erect AP chest at 1:53. Indication: Chest pain. Findings: The heart size is within normal limits and stable when compared to 05/06/2018. The small nodular density overlying the right midlung seen previously is again evident and no different. This finding also seems unchanged when compared to the prior exam of 02/24/2017. Consequently I do suspect that this is a benign process. If further imaging is desired, then CT of the chest would be recommended. If the CT chest exam is not performed, then a short-term (6 month) followup chest exam should be obtained. There is no evidence for failure, pneumonia or pleural effusion. Mediastinum is not widened. The osseous structures are intact. Impression: 1. There is no evidence for an acute cardiopulmonary abnormality. 2. The nodular density overlying the periphery of the right midlung seen previously is again evident and no different. Considerations and recommendations as above. Dictated on workstation # [id number] Dict: 10/11/18 1412 Trans: 10/11/18 1423 [facility] [id number] Interpreted by: NANETTE ZUNIGA MD Departure Impression Primary Impression: Chest wall pain Additional Impression: Pulmonary nodule Disposition: HOME, SELF-CARE Condition: Improved Departure-Patient Inst. Decision time for Depature: 16:21 Referrals: [place] PEREZ MD (PCP/Family) Primary Care Physician Patient Instructions: Chest Pain That Is Not Caused by the Heart (DC), Single Pulmonary Nodule Add. Discharge Instructions: The nature of your chest pain is not consistent with chest pain caused by heart disease. Follow-up with your associate professor of medicine for further evaluation. You have a stable pulmonary nodule identified on your chest x-ray which was also present 2017. This has not changed and is likely benign. However, you should discuss this finding with your primary care provider. At a minimum, a repeat chest x-ray should be performed in 6 months to assess stability. Please make an appointment to see your primary care provider within the next 1-2 weeks. Return to care if you have worsening symptoms. You may treat your pain with ibuprofen up to 600 mg every 6 hours as needed. Take with food or milk to avoid stomach irritation. For pain not controlled by ibuprofen, consider adding Tylenol (acetaminophen) up to 1000 mg every 6 hours as needed. All discharge instructions reviewed with patient and/or family. Voiced understanding. Copy Copies To 1: Shayla FLORES MD Copies To 2: [place] PEREZ MD, JOSHUA T MD Oct 11, 2018 16:24
[2018-10-11 16:31] VITALS: BP 135/51
== END 2018-10-11 16:31 | disposition home or self-care (01) ==
LOC: EDUNIT# 13:30 → ER 13:31
DX: R07.89 Other chest pain (principal); R91.8 Other nonspecific abnormal finding of lung field; J44.9 Chronic obstructive pulmonary disease, unspecified; I25.10 Atherosclerotic heart disease of native coronary artery without angina pectoris; I25.2 Old myocardial infarction; I10 Essential (primary) hypertension; E78.00 Pure hypercholesterolemia, unspecified; E11.9 Type 2 diabetes mellitus without complications; F32.9 Major depressive disorder, single episode, unspecified; K21.9 Gastro-esophageal reflux disease without esophagitis; Z85.43 Personal history of malignant neoplasm of ovary; Z87.19 Personal history of other diseases of the digestive system; Z82.49 Family history of ischemic heart disease and other diseases of the circulatory system; Z79.4 Long term (current) use of insulin; Z79.02 Long term (current) use of antithrombotics/antiplatelets; Z80.0 Family history of malignant neoplasm of digestive organs; Z88.2 Allergy status to sulfonamides; Z87.442 Personal history of urinary calculi; Z77.22 Contact with and (suspected) exposure to environmental tobacco smoke (acute) (chronic); Z98.890 Other specified postprocedural states; Z95.5 Presence of coronary angioplasty implant and graft; Z95.9 Presence of cardiac and vascular implant and graft, unspecified; Z90.710 Acquired absence of both cervix and uterus; Z98.51 Tubal ligation status; Z90.89 Acquired absence of other organs
CPT/HCPCS: 36415; 71045; 80053; 83690; 83735; 83874; 83880; 84484; 85025; 85379; 85610; 85730; 86141; 93005; 93041; 96374

== ENCOUNTER 2018-11-20 21:24 | Emergency (ER) | payer OTHER ==
--- OUTSIDE RECORDS SUMMARY | 2018-11-20 21:30 | XMS REPORT ---
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 Active 406060437 Problem Type 2 diabetes mellitus with unspecified complications E11.8 Active 74749981 Problem Diabetes E11.[address] elevation myocardial infarction (STEMI), unspecified artery I21.[address] elevation myocardial infarction involving right coronary artery I21.11 Active 769914418 Problem Tobacco use Z72.0 Active 523353098 Problem Essential hypertension I10 Active 68258284 Problem Pain of left shoulder joint on movement M25.512 Active 508438820 Problem Moderate episode of recurrent major depressive disorder F33.1 Active 180252864 Problem Osteoarthritis M19.90 Active 525684751 Problem HTN (hypertension) I10 Active 88954272 Problem History of postmenopausal HRT Z92.29 Active 422753373 Problem Chronic diarrhea K52.9 Active 187307634 Problem Primary insomnia F51.01 Active 5551851 Problem Environmental allergies Z91.09 Active 591365446 Problem Depressed F32.9 Active 83728143 Problem Hyperlipidemia, unspecified hyperlipidemia type E78.5 Active 40235789 Problem Fibromyalgia M79.7 Active 55800256 Problem Other chronic pain G89.29 Active 40712742 ALLERGIES No Information ENCOUNTERS Encounter Location Date Diagnosis [facility] [id number] [address] Oct, [facility] [id number] [address] Sep, [facility] [id number] [place] [address] 71861- 8138 Sep, [facility] [id number] [place] [address] 50478- 1503 Sep, Diabetes E11.9 ; Gastroenteritis K52.9 and Unspecified abdominal pain R10.9 [facility] [id number] [place] [address] 60531- 4502 Aug, Encounter for immunization Z23 [place] [address] [address] Aug, Coronary artery disease with other form of angina pectoris, unspecified vessel or lesion type, unspecified whether [place] or transplanted heart I25.118 and Hyperlipidemia, unspecified hyperlipidemia type E78.5 [facility] [id number] [place] [address] 87308- 8142 Jun, [place] [address] [address]43- 1721 Jun, Type 2 diabetes mellitus with unspecified complications E11.8 [facility] [id number] [place] [address] 73231- 9713 May, Diabetes E11.9 [facility] [place] [id number] [place] [address] 71193- 9015 May, Diabetes E11.9 [facility] [place] [id number] [place] [address] 92569- 4118 May, [facility] [place] [id number] [place] [address] 23141- 0444 May, Pain in left shoulder M25.512 [facility] [place] [id number] [place] [address] 66605- 5729 May, Type 2 diabetes mellitus with unspecified complications E11.[address] elevation myocardial infarction involving right coronary artery I21.11 [place] [id number] [place] [address] 12816- 4447 May, [facility] [address] [address] March, Pelvic pain R10.2 [place] [id number] [place] [address] 72683- 0741 March, Type 2 diabetes mellitus with unspecified complications E11.8 ; Mixed hyperlipidemia E78.2 ; Essential hypertension I10 and Other chronic pain G89.29 [facility] [id number] [place] [address] 42569- 9696 March, Pain of left shoulder joint on movement M25.512 ; Type 2 diabetes mellitus with unspecified complications E11.8 ; FCI 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 ; Tobacco use Z72.0 and Moderate episode of recurrent major depressive disorder F33.1 [facility] [id number] [place] [address] 88962- 5314 March, [facility] [id number] [place] [address] 56755- 8023 Jan, Type 2 diabetes mellitus with unspecified complications E11.8 ; Mixed hyperlipidemia E78.2 and Essential hypertension I10 [facility] [id number] [place] [address] 24555- 2487 Dec, [facility] [id number] [place] [address] 21455- 3455 Nov, [facility] [place] [id number] [place] [address] 40468- 7026 Nov, Acute nasopharyngitis J00 [place] [id number] [place] [address] 95001- 0700 Sep, 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 ; Type 2 diabetes mellitus with unspecified complications E11.8 ; Mixed hyperlipidemia E78.2 ; Essential hypertension I10 ; Pain in left shoulder M25.512 ; Other chronic pain G89.29 ; Tobacco use Z72.0 and Depressed F32.9 [place] [id number] [place] [address] 67276- 4198 Sep, Encounter for immunization Z23 [facility] [id number] [address] 9589 Aug, Environmental allergies Z91.09 [facility] [address] [address] 98[address] Aug, [facility] [address], [place] [address] Jul, [facility] [id number] [place] [address] 60755- 1252 Jun, Diabetes E11.9 [facility] [id number] [place] [address] 90840- 9049 Jun, Acute pain of left shoulder M25.512 [facility] [address], [place] [address] 118[address] March, Diabetes E11.9 ; Abnormal chest xray R93.8 ; HTN ( hypertension) I10 ; Fibromyalgia M79.7 ; Primary insomnia F51.01 ; Osteoarthritis M19.90 ; Depressed F32.9 ; Postmenopausal HRT (hormone replacement therapy) Z79.890 ; Environmental allergies Z91.09 and Hyperlipidemia , unspecified hyperlipidemia type E78.5 [place] [id number] [place] [address] 13917- 2253 March, Diabetes E11.9 [facility] [address], [place] [address] 0679 March, Diabetes E11.9 [facility] [address], [place] [address] 5[address] Jan, Diabetes E11.9 ; HTN (hypertension) I10 ; Fibromyalgia M79.7 ; Primary insomnia F51.01 ; Osteoarthritis M19.90 ; Depressed F32.9 ; Postmenopausal HRT (hormone replacement therapy) Z79.890 ; Environmental allergies Z91.09 ; Hyperlipidemia, unspecified hyperlipidemia type E78.5 and Abnormal chest xray R93.8 [facility] [address], [place] [address] 67[address] Jan, [facility] [id number] [place] [address] 89684- 4987 Sep, Diabetes E11.9 ; Osteoarthritis M19.90 ; HTN (hypertension) I10 ; History of postmenopausal HRT Z92.29 ; Joint pain M25.50 ; Fatigue R53.83 ; Depressed F32.9 ; Chronic diarrhea K52.9 ; Fibromyalgia M79.7 ; Primary insomnia F51.01 ; Environmental allergies Z91.09 and Exhaustion R53.83 [address] [id number] [place] [address] 76888- 6541 Aug, Viral gastroenteritis A08.[address] 13685- 5276 May, [address] [address]28- 5511 May, Bronchitis J40 ; Diabetes E11.9 and HTN (hypertension) I10 [address] 25328- 6572 March, Joint pain M25.50 [address] [id number] [place] [address] 50749- 9621 March, Diabetes E11.9 ; HTN (hypertension) I10 ; Osteoarthritis M19.90 ; History of postmenopausal HRT Z92.29 ; Joint pain M25.50 ; Fatigue R53.83 ; Depressed F32.9 ; Postmenopausal HRT (hormone replacement therapy) Z79.890 ; Fibromyalgia M79.7 ; Shoulder pain M25.519 ; Environmental allergies Z91.09 and Primary insomnia F51.01 [id number] [place] [address] 48794- 8949 March, [address] 71922- 5491 Jan, [place] [id number] [place] [address] 93026- 0193 Jan, Joint pain M25.[address] 05068- 1213 Jan, 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 and Impingement syndrome, shoulder, left M75.42 [place] [id number] [place] [address] 86280- 3637 31 Jan, 2016 [facility] [id number] [place] [address] 60576- 5691 Dec, [facility] [id number] [place] [address] 22766- 9260 Dec, Joint pain M25.50 and Shoulder pain M25.519 [facility] [place] [id number] [place] [address] 67059- 5632 Dec, [place] [id number] [place] [address] 11618- 9824 Dec, [place] [id number] [place] [address] 16425- 0644 Dec, Upper respiratory infection J06.9 ; Shoulder pain, left M25.512 and Cold sore B00.1 [place] [id number] [place] [address] 53586- 5980 Dec, Shoulder pain, left M25.512 [facility] [id number] [place] [address] 94934- 5703 15 Dec, 2015 Left hip pain M25.552 ; HTN (hypertension) I10 ; Diabetes E11.9 ; Osteoarthritis M19.90 ; History of postmenopausal HRT Z92.29 ; Depressed F32.9 ; Postmenopausal HRT (hormone replacement therapy) Z79.890 ; Fibromyalgia M79.7 and Sciatica of left side M54.32 [facility] [address] [place] [address] 66732- 5841 Dec, HTN (hypertension) I10 ; Diabetes E11.9 ; Osteoarthritis M19.90 ; History of postmenopausal HRT Z92.29 ; Joint pain M25.50 ; Depressed F32.9 ; Chronic diarrhea K52.9 ; Postmenopausal HRT (hormone replacement therapy ) Z79.890 and Fibromyalgia M79.7 [place] [id number] [place] [address] 39477- 2904 07 Nov, 2015 [place] [address] 36129- 7833 Oct, [place] [id number] [place] [address] 64873- 6874 Oct, Elevated glucose R73.09 [place] [address] 77181- 8201 Oct, Elevated glucose R73.09 and Vitamin D deficiency E55.[address] 81685- 3020 Oct, Diabetes E11.9 ; HTN (hypertension) I10 ; Osteoarthritis M19.90 ; History of postmenopausal HRT Z92.29 ; Joint pain M25.50 ; Fatigue R53.83 ; Depressed F32.9 ; Hypercholesteremia E78.0 and COPD (chronic obstructive pulmonary disease) J44.9 [place] [id number] [place] [address] 37784- 4049 16 Aug, 2015 [place] [id number] [place] [address] 74097- 1470 Jul, Other specified menopausal and postmenopausal disorder 627.8 ; Obstructive chronic bronchitis, with (acute) exacerbation 491.21 ; Other and unspecified hyperlipidemia 272.4 ; Diarrhea 787.91 ; Diabetes mellitus without mention of complication, type II or unspecified type, not stated as uncontrolled 250.00 ; Hormone replacement therapy V07.4 ; Insomnia 780.52 ; Hypercholesterolemia 272.0 and Chronic pain 338.29 [place] [id number] [place] [address] 63263- 0939 Jul, [place] [id number] [place] [address] 64799- 4821 Apr, Unspecified breast screening V76.10 [address] [id number] [place] [address] 52884- 9976 14 Jan, 2015 [facility] [place] [facility] [address] [id number] [place] [address]- 8022 Jan, [facility] [place] [facility] [address] [id number] [place] [address]- 7629 Dec, [facility] [place] [facility] [address] [id number] [place] [address]- 8156 Dec, 2014 [facility] [place] [facility] [address] [id number] [place] [address]- 0800 Dec, 2014 [facility] [place] [facility] [address] [id number] [place] [address]- 8870 Dec, [facility] [place] [facility] [address] [id number] [place] [address]- 0266 Dec, [facility] [place] [facility] [address] [facility] [id number] [place] [address]- 0786 Dec, [facility] [place] [facility] [address] [id number] [place] [address]- 1006 Dec, 2014 [facility] [place] [facility] [address] [id number] [place] [address]- 3598 Dec, [facility] [place] [facility] [address] [facility] [id number] [place] [address]- 9709 Nov, [facility] [place] [facility] [address] [facility] [id number] [place] [address]- 1761 Nov, [facility] [place] [facility] [address] [id number] [place] [address]- 4218 Oct, [facility] [place] [facility] [address] [id number] [place] [address]- 2811 Oct, [facility] [place] [facility] [address] [id number] [place] [address]- 8022 Sep, [facility] [place] [facility] [address] [id number] [place] [address]- 8391 Sep, [facility] [place] [facility] [address] [id number] [place] [address]- 8945 Sep, [facility] [place] [facility] [address] [id number] [place] 4443 Sep, [facility] [place] [facility] [address] [id number] [place] [address]- 9617 May, [facility] [place] [facility] [address] [id number] [place] [address]- 8360 May, [facility] [place] [facility] [address] [id number] [place] [address]- 5983 May, [facility] [place] [facility] [address] [id number] [place] [address]- 0984 May, [facility] [place] [facility] [address] [id number] [place] [address]- 7840 Apr, [facility] [place] [facility] [address] [id number] [place] [address]- 3259 Apr, [facility] [place] [facility] [address] [id number] [place] [address]- 4484 Apr, [facility] [place] [facility] [address] [id number] [place] [address]- 3395 Apr, [facility] [place] [facility] [address] [id number] [place] [address]- 3781 Apr, [facility] [place] [facility] [address] [id number] [place] [address]- 7232 Apr, [facility] [place] [facility] [address] [id number] [place] [address]- 9968 Apr, [facility] [place] [facility] [address] [id number] [place] [address] March, [facility] [place] [facility] [address] [id number] [place] [address]- 5159 March, [facility] [place] [facility] [address] [id number] [place] [address]- 6795 March, [facility] [place] [facility] [address] [id number] [place] [address] 2546 Dec, [facility] [place] [facility] [address] [id number] [place] [address]- 7526 Dec, [facility] [place] [facility] [address] [id number] [place] [address]- 4926 Nov, [facility] [place] [facility] [address] [id number] [place] [address]- 3831 Nov, [facility] [place] [facility] [address] [id number] [place] [address]- 4824 Nov, [facility] [place] [facility] [address] [id number] [place] [address]- 4611 Nov, [facility] [place] [facility] [address] [id number] [place] [address]- 8522 Sep, [facility] [place] [facility] [address] [id number] [place] [address]- 3852 Sep, [facility] [place] [facility] [address] [id number] [place] [address]- 8713 Jul, [facility] [place] [facility] [address] [id number] [place] [address]- 9637 Jun, [facility] [place] [facility] [address] [id number] [place] [address]- 9568 Jun, [facility] [place] [facility] [address] [id number] [place] [address]- 0427 Jun, [facility] [place] [facility] [address] [id number] [place] [address]- 2166 Jun, [facility] [place] [facility] [address] [id number] [place] [address]- 7456 Jun, [facility] [place] [facility] [address] [id number] [place] [address]- 2546 Jun, [facility] [place] [facility] [address] [id number] [place] [address]- 0220 May, [facility] [address] [facility] [id number] [place] [address]- 7140 May, [facility] [address] [facility] [id number] [address]- 7820 May, [facility] [address] [facility] [id number], [place] [address]- 5544 May, [facility] [address] [facility] [id number], [place] [address]- 2533 May, IMMUNIZATIONS No Known Immunizations SOCIAL HISTORY Never Assessed REASON FOR VISIT Case Mgmt note PLAN OF CARE VITAL SIGNS MEDICATIONS Unknown Medications RESULTS No Results PROCEDURES No Known procedures INSTRUCTIONS MEDICATIONS ADMINISTERED No Known Medications MEDICAL (GENERAL) HISTORY Type Description Date Medical History coronary artery disease Medical History myocardial infarction ages 32 & 38 Medical History type II diabetes Medical History Arthritis Medical History fibromyalgia Medical History hyperlipidemia Surgical History left breast biopsy age 15 Surgical History tumor removed from right arm Surgical History cholecystectomy Surgical History tonsillectomy Surgical History tubal ligation Surgical History hysterectomy 2005 Surgical History orthopedic surgery-bone spurs (B) great toes Surgical History right carpal tunnel Surgical History left mastoid tumor removed Surgical History Cath with stent placement 05/2018 Hospitalization History surgeries Hospitalization History Heart attack 05/2018
--- OUTSIDE RECORDS SUMMARY | 2018-11-20 21:31 | XMS REPORT ---
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 Active 522471719 Problem Type 2 diabetes mellitus with unspecified complications E11.8 Active 85704866 Problem Diabetes E11.[address] elevation myocardial infarction (STEMI), unspecified artery I21.[address] elevation myocardial infarction involving right coronary artery I21.11 Active 612230123 Problem Tobacco use Z72.0 Active 455007777 Problem Essential hypertension I10 Active 97509213 Problem Pain of left shoulder joint on movement M25.512 Active 302941737 Problem Moderate episode of recurrent major depressive disorder F33.1 Active 237449054 Problem Osteoarthritis M19.90 Active 533521612 Problem HTN (hypertension) I10 Active 69139020 Problem History of postmenopausal HRT Z92.29 Active 183898943 Problem Chronic diarrhea K52.9 Active 198184878 Problem Primary insomnia F51.01 Active 7468473 Problem Environmental allergies Z91.09 Active 993232177 Problem Depressed F32.9 Active 69764080 Problem Hyperlipidemia, unspecified hyperlipidemia type E78.5 Active 12325567 Problem Fibromyalgia M79.7 Active 18482893 Problem Other chronic pain G89.29 Active 58963316 ALLERGIES Substance Reaction Event Type Date Status Sulfamethoxazole-Trimethoprim Unknown Drug Allergy Sep, Active Pravastatin Sodium Myalgias/takes med anyway Drug Allergy Sep, Active ENCOUNTERS Encounter Location Date Diagnosis [facility] [address] [facility] [id number] [address] Sep, [facility] [id number] [place] [address] 36382- 8939 Sep, [place] [id number] [place] [address] 72602- 1489 Sep, Diabetes E11.9 ; Gastroenteritis K52.9 and Unspecified abdominal pain R10.9 [place] [id number] [place] [address] 45012- 3682 Aug, Encounter for immunization Z23 [place] [address] [address]- [address] Aug, Coronary artery disease with other form of angina pectoris, unspecified vessel or lesion type, unspecified whether mechoopda or transplanted heart I25.118 and Hyperlipidemia, unspecified hyperlipidemia type E78.5 [place] [address] 9[address]92- 9805 Jun, [place] [address] 01533- 9071 Jun, Type 2 diabetes mellitus with unspecified complications E11.8 [place] [id number] [place] [address] 02670- 0305 May, Diabetes E11.9 [place] [id number] [place] [address] 01668- 7314 May, Diabetes E11.9 [place] [id number] [place] [address] 66436- 3228 May, [place] [id number] [place] [address] 02538- 8392 May, Pain in left shoulder M25.512 [place] [id number] [place] [address] 76474- 9477 May, Type 2 diabetes mellitus with unspecified complications E11.[address] elevation myocardial infarction involving right coronary artery I21.11 [place] [id number] [place] [address] 24569- 4632 May, [facility] [id number] [place] [address] 95280 -6052 March, Pelvic pain R10.2 [place] [id number] [place] [address] 33865- 0942 March, Type 2 diabetes mellitus with unspecified complications E11.8 ; Mixed hyperlipidemia E78.2 ; Essential hypertension I10 and Other chronic pain G89.29 [place] [address] 41323- [address] March, Pain of left shoulder joint on movement M25.512 ; Type 2 diabetes mellitus with unspecified complications E11.8 ; FPC 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 ; Tobacco use Z72.0 and Moderate episode of recurrent major depressive disorder F33.1 [place] [address] 43001- 7997 March, [place] [id number] [place] [address] 00015- 5544 Jan, Type 2 diabetes mellitus with unspecified complications E11.8 ; Mixed hyperlipidemia E78.2 and Essential hypertension I10 [place] [id number] [place] [address] 47416- 6261 Dec, [place] [id number] [place] [address] 34340- 7455 Nov, [place] [id number] [place] [address] 53550- 2519 Nov, Acute nasopharyngitis J00 [place] [address] 42266- 0458 Sep, FPC 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 ; Type 2 diabetes mellitus with unspecified complications E11.8 ; Mixed hyperlipidemia E78.2 ; Essential hypertension I10 ; Pain in left shoulder M25.512 ; Other chronic pain G89.29 ; Tobacco use Z72.0 and Depressed F32.9 [place] [id number] [place] [address] 68559- 1941 Sep, Encounter for immunization Z23 [place] [address] [address] Aug, Environmental allergies Z91.09 [facility] [id number] [place] [address] 13846- 0932 Aug, [facility] [address] [address] Jul, [facility] [id number] [place] [address] 29479- 0678 Jun, Diabetes E11.9 [facility] [address] [place] [address] 70901- 1961 Jun, Acute pain of left shoulder M25.512 [place] [address] [place] [address] 92589- 6041 March, Diabetes E11.9 ; Abnormal chest xray R93.8 ; HTN ( hypertension) I10 ; Fibromyalgia M79.7 ; Primary insomnia F51.01 ; Osteoarthritis M19.90 ; Depressed F32.9 ; Postmenopausal HRT (hormone replacement therapy) Z79.890 ; Environmental allergies Z91.09 and Hyperlipidemia , unspecified hyperlipidemia type E78.5 [place] [address] [place] [address] 21305- 8479 March, Diabetes E11.9 [place] [address] [place] [address] 11105- 6928 March, [address]9 [facility] [address] [place] [address] 67886- 3519 Jan, Diabetes E11.9 ; HTN (hypertension) I10 ; Fibromyalgia M79.7 ; Primary insomnia F51.01 ; Osteoarthritis M19.90 ; Depressed F32.9 ; Postmenopausal HRT (hormone replacement therapy) Z79.890 ; Environmental allergies Z91.09 ; Hyperlipidemia, unspecified hyperlipidemia type E78.5 and Abnormal chest xray R93.8 [place] [address] [address] Jan, [place] [id number] [place] [address] 53705- 3574 Sep, Diabetes E11.9 ; Osteoarthritis M19.90 ; HTN (hypertension) I10 ; History of postmenopausal HRT Z92.29 ; Joint pain M25.50 ; Fatigue R53.83 ; Depressed F32.9 ; Chronic diarrhea K52.9 ; Fibromyalgia M79.7 ; Primary insomnia F51.01 ; Environmental allergies Z91.09 and Exhaustion R53.83 [place] [address] 77259- 5770 Aug, Viral gastroenteritis A08.[address] 22655- 3428 May, [place] [address] 69625- 9467 May, Bronchitis J40 ; Diabetes E11.9 and HTN (hypertension) I10 [address] 90057- 7629 March, Joint pain M25.[address] 05598- 0767 March, Diabetes E11.9 ; HTN (hypertension) I10 ; Osteoarthritis M19.90 ; History of postmenopausal HRT Z92.29 ; Joint pain M25.50 ; Fatigue R53.83 ; Depressed F32.9 ; Postmenopausal HRT (hormone replacement therapy) Z79.890 ; Fibromyalgia M79.7 ; Shoulder pain M25.519 ; Environmental allergies Z91.09 and Primary insomnia F51.01 [place] [id number] [place] [address] 69041- 1351 March, [place] [address] 03541- 7200 Jan, [place] [id number] [place] [address] 90581- 1207 Jan, Joint pain M25.50 [place] [address] 41887- 6591 Jan, 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 and Impingement syndrome, shoulder, left M75.42 [place] [id number] [place] [address] 41115- 6253 31 Jan, 2016 [place] [id number] [place] [address] 32572- 6415 Dec, [place] [address] 00736- 3621 Dec, Joint pain M25.50 and Shoulder pain M25.519 [place] [id number] [place] [address] 21351- 9742 Dec, [place] [address] 90387- 9238 Dec, [place] [address] 02415- 6944 Dec, Upper respiratory infection J06.9 ; Shoulder pain, left M25.512 and Cold sore B00.1 [place] [id number] [place] [address] 31065- 8343 Dec, Shoulder pain, left M25.512 [place] [id number] [place] [address] 80910- 1099 15 Dec, 2015 Left hip pain M25.552 ; HTN (hypertension) I10 ; Diabetes E11.9 ; Osteoarthritis M19.90 ; History of postmenopausal HRT Z92.29 ; Depressed F32.9 ; Postmenopausal HRT (hormone replacement therapy) Z79.890 ; Fibromyalgia M79.7 and Sciatica of left side M54.32 [place] [id number] [place] [address] 78209- 8322 Dec, HTN (hypertension) I10 ; Diabetes E11.9 ; Osteoarthritis M19.90 ; History of postmenopausal HRT Z92.29 ; Joint pain M25.50 ; Depressed F32.9 ; Chronic diarrhea K52.9 ; Postmenopausal HRT (hormone replacement therapy ) Z79.890 and Fibromyalgia M79.7 [place] [id number] [place] [address] 48330- 0619 Nov, [place] [address] 73256- 3001 Oct, [place] [address] 82465- 5486 Oct, Elevated glucose R73.[address] 70801- 7569 Oct, Elevated glucose R73.09 and Vitamin D deficiency E55.[address] 71889- 7254 Oct, Diabetes E11.9 ; HTN (hypertension) I10 ; Osteoarthritis M19.90 ; History of postmenopausal HRT Z92.29 ; Joint pain M25.50 ; Fatigue R53.83 ; Depressed F32.9 ; Hypercholesteremia E78.0 and COPD (chronic obstructive pulmonary disease) J44.9 [place] [id number] [place] [address] 31645- 2989 16 Aug, [address] 52632- 2125 Jul, Other specified menopausal and postmenopausal disorder 627.8 ; Obstructive chronic bronchitis, with (acute) exacerbation 491.21 ; Other and unspecified hyperlipidemia 272.4 ; Diarrhea 787.91 ; Diabetes mellitus without mention of complication, type II or unspecified type, not stated as uncontrolled 250.00 ; Hormone replacement therapy V07.4 ; Insomnia 780.52 ; Hypercholesterolemia 272.0 and Chronic pain 338.29 [place] [id number] [place] [address] 93808- 2802 Jul, [address] 87447- 8047 Apr, Unspecified breast screening V76.[address] 53576- 0239 14 Jan, 2015 [facility] [place] [facility] [address] [id number] [place] [address]- [address] 13 Jan, 2015 [facility] [place] [facility] [address] [id number] [place] [address]- 6879 Dec, [facility] [place] [facility] [address] [id number] [place] [address]- 0076 Dec, [facility] [place] [facility] [address] [id number] [place] [address]- 8933 Dec, [facility] [place] [facility] [address] [id number] [place] [address]- 1677 Dec, [facility] [place] [facility] [address] [id number] [place] [address]- 5355 Dec, [facility] [place] [facility] [address] [id number] [place] [address]- 0847 Dec, [facility] [place] [facility] [address] [id number] [place] [address]- 6413 Dec, [facility] [place] [facility] [address] [id number] [place] [address]- 1154 Dec, [facility] [place] [facility] [address] [id number] [place] [address]- 1279 Nov, [facility] [place] [facility] [address] [id number] [place] [address]- 4031 Nov, [facility] [place] [facility] [address] [id number] [place] [address]- 0765 Oct, [facility] [place] [facility] [address] [id number] [place] [address]- 4829 Oct, [facility] [place] [facility] [address] [id number] [place] [address]- 5428 Sep, [facility] [place] [facility] [address] [id number] [place] [address]- 4141 Sep, [facility] [place] [facility] [address] [id number] [place] [address]- 5918 Sep, [facility] [place] [facility] [address] [id number] [place] [address]- 9076 Sep, [facility] [place] [facility] [address] [id number] [place] [address]- 7639 May, [facility] [place] [facility] [address] [id number] [place] [address]- 5428 May, [facility] [place] [facility] [address] [id number] [place] [address]- 1150 May, [facility] [place] [facility] [address] [id number] [place] [address]- 1715 May, [facility] [place] [facility] [address] [id number] [place] [address]- 8532 Apr, [facility] [place] [facility] [address] [id number] [place] [address]- 9657 Apr, [facility] [place] [facility] [address] [id number] [place] [address]- 8492 Apr, [facility] [place] [facility] [address] [id number] [place] [address]- 9461 Apr, [facility] [place] [facility] [address] [id number] [place] [address]- 8795 Apr, [facility] [place] [facility] [address] [id number] [place] [address]- 8687 Apr, [facility] [place] [facility] [address] [id number] [place] [address]- 0781 Apr, [facility] [place] [facility] [address] [id number] [place] [address]- 9705 March, [facility] [place] [facility] [address] [id number] [place] [address]- 1159 March, [facility] [place] [facility] [address] [id number] [place] [address]- 0059 March, [facility] [place] [facility] [address] [id number] [place] [address]- 3343 Dec, [facility] [place] [facility] [address] [id number] [place] [address]- 8077 Dec, [facility] [place] [facility] [address] [id number] [place] [address]- 0961 Nov, [facility] [place] [facility] [address] [id number] [place] [address]- 4996 Nov, [facility] [place] [facility] [address] [id number] [place] [address]- 1892 Nov, [facility] [place] [facility] [address] [id number] [place] [address]- 6323 Nov, [facility] [place] [facility] [address] [id number] [place] [address]- 5795 Sep, [facility] [place] [facility] [address] [id number] [place] [address]- 2945 Sep, [facility] [place] [facility] [address] [id number] [place] [address]- 0390 Jul, [facility] [place] [facility] [address] [id number] [place] [address]- 1074 Jun, [facility] [place] [facility] [address] [id number] [place] [address]- 1764 Jun, [facility] [place] [facility] [address] [id number] [place] [address]- 7395 Jun, [facility] [place] [facility] [address] [id number] [place] [address]- 0001 Jun, [facility] [place] [facility] [address] [id number] [place] [address]- 1591 Jun, [facility] [place] [facility] [address] [id number] [place] [address]- 5691 Jun, [facility] [place] [facility] [address] [id number] [place] [address]- 2032 May, [facility] [address] [facility] [id number] [address] May, [facility] [address] [facility] [id number] [address] 8832 May, [facility] [address] [facility] [id number], [place] [address]- [address]151 May, [facility] [address] [facility] [id number], [place] [address]- 7679 May, IMMUNIZATIONS No Known Immunizations SOCIAL HISTORY Never Assessed REASON FOR VISIT Diarrhea x2days Jose GOODWIN , no energy/ headache x 2days Jose GOODWIN , A1C done in visit Jose GOODWIN PLAN OF CARE Activity Details Follow Up 3 Months Reason: VITAL SIGNS Height 64 in 2018-09-16 Weight 177.1 lbs 2018-09-16 Temperature 97.7 degrees Fahrenheit 2018-09-16 Heart Rate 108 bpm 2018-09-16 Respiratory Rate 20 2018-09-16 BMI 30.40 kg/m2 2018-09-16 Blood pressure systolic 138 mmHg 2018-09-16 Blood pressure diastolic 82 mmHg 2018-09-16 MEDICATIONS Medication Instructions Dosage Frequency Start Date End Date Duration Status Metoprolol Succinate ER Active Glucocard Expression Test - subcutaneously 3 times a day to check blood sugar 8h Jul, Active Victoza 18 MG/3ML Subcutaneous Once a day 1.8 24h 90 days Active Aspirin 81 81 MG Orally Once a day 1 tablet 24h Active Clopidogrel Bisulfate 75 MG Orally daily 1 tablet 24h Active Mucinex 600 MG Orally every 12 hrs 1 tablet as needed 12h Not- Taking Glucocard Expression Monitor w/Device as directed Jul, Active Gabapentin 100 mg Orally 2 times a day 2 capsules 12h March, 30 days Active GlipiZIDE ER 5 mg Orally Once a day TAKE ONE TABLET BY MOUTH ONCE DAILY 24h Active Levemir FlexTouch 100 UNIT/ML Subcutaneous twice a day inject 25 units 12h March, Active NovoFine 32G X 6 MM subcutaneously 3 times a day as directed 8h Jun, 90 days Active NyQuil Not-Taking Premarin 0.3 MG TAKE ONE TABLET BY MOUTH ONCE DAILY (MUST HAVE APPOINTMENT FOR REFILL) Active Celexa 40 MG Orally Once a day 1 tablet 24h 30 days Active Atorvastatin Calcium Active Lisinopril 5 mg Orally daily TAKE ONE TABLET BY MOUTH ONCE DAILY 24h Active Meloxicam 15 MG TAKE ONE TABLET BY MOUTH ONCE DAILY (MUST HAVE APPOINTMENT FOR REFILL) 30 Active Montelukast Sodium 10 mg TAKE ONE TABLET BY MOUTH ONCE DAILY (MUST HAVE APPOINTMENT FOR REFILL) 30 Active Metformin HCl 1000 MG Orally 2 times a day TAKE ONE TABLET BY MOUTH TWICE DAILY WITH MEALS 12h 30 Active RESULTS Name Result Date Reference Range A1C (IN HOUSE) 2018-09-16 A1C IN HOUSE 8.2 4.3 - 5.6 % Previous A1c 12.2 Lot [id number] Exp date 01/2020 PROCEDURES Procedure Date Ordered Result Body Site GLYCATED HEMOGLOBIN TEST Sep 16, 2018 INSTRUCTIONS MEDICATIONS ADMINISTERED No Known Medications MEDICAL [...]
--- OUTSIDE RECORDS SUMMARY | 2018-11-20 21:31 | XMS REPORT ---
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 Active 675086942 Problem Type 2 diabetes mellitus with unspecified complications E11.8 Active 95010792 Problem Diabetes E11.[address] elevation myocardial infarction (STEMI), unspecified artery I21.[address] elevation myocardial infarction involving right coronary artery I21.11 Active 141047910 Problem Tobacco use Z72.0 Active 036743956 Problem Essential hypertension I10 Active 57552671 Problem Pain of left shoulder joint on movement M25.512 Active 495356960 Problem Moderate episode of recurrent major depressive disorder F33.1 Active 731908874 Problem Osteoarthritis M19.90 Active 362953452 Problem HTN (hypertension) I10 Active 74935214 Problem History of postmenopausal HRT Z92.29 Active 869619682 Problem Chronic diarrhea K52.9 Active 820269474 Problem Primary insomnia F51.01 Active 9667765 Problem Environmental allergies Z91.09 Active 725274099 Problem Depressed F32.9 Active 68890168 Problem Hyperlipidemia, unspecified hyperlipidemia type E78.5 Active 14035803 Problem Fibromyalgia M79.7 Active 28053939 Problem Other chronic pain G89.29 Active 10639565 ALLERGIES No Information ENCOUNTERS Encounter Location Date Diagnosis [facility] [id number], [place] [address] Sep, [facility] [id number], [place] [address] Sep, [facility] [id number] [place] [address] 97338- 8448 Sep, Diabetes E11.9 ; Gastroenteritis K52.9 and Unspecified abdominal pain R10.9 [facility] [id number] [place] [address] 17997- 5877 Aug, Encounter for immunization Z23 [facility] [id number] [place] [address] 45235- 2351 Aug, Coronary artery disease with other form of angina pectoris, unspecified vessel or lesion type, unspecified whether [place] or transplanted heart I25.118 and Hyperlipidemia, unspecified hyperlipidemia type E78.5 [facility] [id number] [place] [address] 05459- 4206 Jun, [facility] [id number] [place] [address] 21703- 1663 Jun, Type 2 diabetes mellitus with unspecified complications E11.8 [place] [address] [address]- 2037 May, Diabetes E11.9 [facility] [id number] [place] [address] 69093- 1309 May, Diabetes E11.9 [facility] [id number] [place] [address] 99993- 8597 May, [facility] [id number] [place] [address] 77976- 0987 May, Pain in left shoulder M25.512 [facility] [id number] [place] [address] 90449- 4345 May, Type 2 diabetes mellitus with unspecified complications E11.[address] elevation myocardial infarction involving right coronary artery I21.11 [facility] [id number] [place] [address] 13548- 3424 09 May, 2018 [facility] [id number] [place] [address] 59602 -8659 March, Pelvic pain R10.2 [facility] [address] [address]- 6682 March, Type 2 diabetes mellitus with unspecified complications E11.8 ; Mixed hyperlipidemia E78.2 ; Essential hypertension I10 and Other chronic pain G89.29 [place] [address] 60266- 9799 March, Pain of left shoulder joint on movement M25.512 ; Type 2 diabetes mellitus with unspecified complications E11.8 ; 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 ; Tobacco use Z72.0 and Moderate episode of recurrent major depressive disorder F33.1 [place] [address] 45251- 1705 March, [place] [address] 36225- 0502 Jan, Type 2 diabetes mellitus with unspecified complications E11.8 ; Mixed hyperlipidemia E78.2 and Essential hypertension I10 [place] [address] 46013- 4594 Dec, [place] [address] 43870- 5601 Nov, [place] [address] 52248- 5350 Nov, Acute nasopharyngitis J00 [place] [address] 75023- 5720 Sep, alf 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 ; Type 2 diabetes mellitus with unspecified complications E11.8 ; Mixed hyperlipidemia E78.2 ; Essential hypertension I10 ; Pain in left shoulder M25.512 ; Other chronic pain G89.29 ; Tobacco use Z72.0 and Depressed F32.9 [place] [address] 63753- 7089 Sep, Encounter for immunization Z23 [place] [address] 30417- 7646 Aug, Environmental allergies Z91.09 [place] [address], [place] [address] Aug, [facility] [address], [place] [address] Jul, [facility] [address], [place] [address] 6886 Jun, Diabetes E11.9 [facility] [id number] [address] Jun, Acute pain of left shoulder M25.512 [facility] [address], [place] [address] 13[address] March, Diabetes E11.9 ; Abnormal chest xray R93.8 ; HTN ( hypertension) I10 ; Fibromyalgia M79.7 ; Primary insomnia F51.01 ; Osteoarthritis M19.90 ; Depressed F32.9 ; Postmenopausal HRT (hormone replacement therapy) Z79.890 ; Environmental allergies Z91.09 and Hyperlipidemia , unspecified hyperlipidemia type E78.5 [facility] [address], [place] [address] 7448 March, Diabetes E11.9 [facility] [address], [place] [address] 9074 March, Diabetes E11.9 [facility] [address] [place] [address] Jan, Diabetes E11.9 ; HTN (hypertension) I10 ; Fibromyalgia M79.7 ; Primary insomnia F51.01 ; Osteoarthritis M19.90 ; Depressed F32.9 ; Postmenopausal HRT (hormone replacement therapy) Z79.890 ; Environmental allergies Z91.09 ; Hyperlipidemia, unspecified hyperlipidemia type E78.5 and Abnormal chest xray R93.8 [facility] [address], [place] [address] 5[address] Jan, [facility] [id number], [place] [address] 4177 Sep, Diabetes E11.9 ; Osteoarthritis M19.90 ; HTN (hypertension) I10 ; History of postmenopausal HRT Z92.29 ; Joint pain M25.50 ; Fatigue R53.83 ; Depressed F32.9 ; Chronic diarrhea K52.9 ; Fibromyalgia M79.7 ; Primary insomnia F51.01 ; Environmental allergies Z91.09 and Exhaustion R53.83 [place] [id number] [place] [address] 74508- 8942 Aug, Viral gastroenteritis A08.[address] [address]- 9076 May, [place] [address] 83229- 6502 May, Bronchitis J40 ; Diabetes E11.9 and HTN (hypertension) I10 [id number] [place] [address] 41686- 7290 March, Joint pain M25.[address] 5[address]25- 1053 March, Diabetes E11.9 ; HTN (hypertension) I10 ; Osteoarthritis M19.90 ; History of postmenopausal HRT Z92.29 ; Joint pain M25.50 ; Fatigue R53.83 ; Depressed F32.9 ; Postmenopausal HRT (hormone replacement therapy) Z79.890 ; Fibromyalgia M79.7 ; Shoulder pain M25.519 ; Environmental allergies Z91.09 and Primary insomnia F51.01 [place] [id number] [place] [address] 08604- 5997 March, [place] [facility] [id number] [place] [address] 93478- 3370 Jan, [place] [address] 51212- 0327 Jan, Joint pain M25.50 [facility] [id number] [place] [address] 96281- 1441 Jan, 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 and Impingement syndrome, shoulder, left M75.42 [place] [address], [place] [address]- 95[address] 31 Jan, 2016 [facility] [id number] [place] [address] 87967- 7233 28 Jan, 2016 [facility] [address] [place] [address] 62263- 7536 Dec, Joint pain M25.50 and Shoulder pain M25.519 [place] [id number] [place] [address] 96959- 7420 Dec, [place] [facility] [id number] [place] [address] 35464- 2761 Dec, [place] [id number] [place] [address] 56939- 0263 Dec, Upper respiratory infection J06.9 ; Shoulder pain, left M25.512 and Cold sore B00.1 [place] [address] [place] [address] 52045- 9191 Dec, Shoulder pain, left M25.512 [place] [address] [place] [address] 88648- 6549 15 Dec, 2015 Left hip pain M25.552 ; HTN (hypertension) I10 ; Diabetes E11.9 ; Osteoarthritis M19.90 ; History of postmenopausal HRT Z92.29 ; Depressed F32.9 ; Postmenopausal HRT (hormone replacement therapy) Z79.890 ; Fibromyalgia M79.7 and Sciatica of left side M54.32 [facility] [address] [place] [address] 47196- 6581 02 Dec, 2015 HTN (hypertension) I10 ; Diabetes E11.9 ; Osteoarthritis M19.90 ; History of postmenopausal HRT Z92.29 ; Joint pain M25.50 ; Depressed F32.9 ; Chronic diarrhea K52.9 ; Postmenopausal HRT (hormone replacement therapy ) Z79.890 and Fibromyalgia M79.7 [place] [address] [place] [address] 19639- 0739 Nov, [place] [address] [place] [address] 71884- 3258 Oct, [address] 81911- 2121 Oct, Elevated glucose R73.09 [place] [id number] [place] [address] 87540- 4286 Oct, Elevated glucose R73.09 and Vitamin D deficiency E55.9 [place] [address] [place] [address] 70443- 0711 Oct, Diabetes E11.9 ; HTN (hypertension) I10 ; Osteoarthritis M19.90 ; History of postmenopausal HRT Z92.29 ; Joint pain M25.50 ; Fatigue R53.83 ; Depressed F32.9 ; Hypercholesteremia E78.0 and COPD (chronic obstructive pulmonary disease) J44.[address] 88077- 9589 Aug, [address] [id number] [place] [address] 49752- 0445 Jul, Other specified menopausal and postmenopausal disorder 627.8 ; Obstructive chronic bronchitis, with (acute) exacerbation 491.21 ; Other and unspecified hyperlipidemia 272.4 ; Diarrhea 787.91 ; Diabetes mellitus without mention of complication, type II or unspecified type, not stated as uncontrolled 250.00 ; Hormone replacement therapy V07.4 ; Insomnia 780.52 ; Hypercholesterolemia 272.0 and Chronic pain 338.29 [place] [address] [place] [address] 37906- 3812 11 Jul, 2015 [place] [id number] [place] [address] 49743- 6173 Apr, Unspecified breast screening V76.10 [place] [id number] [place] [address] 50593- 6198 14 Jan, 2015 [place] [id number] [place] [address] 18359- 6757 13 Jan, 2015 [facility] [place] [facility] [address] [id number] [place] [address]- 1720 Dec, 2014 [facility] [place] [facility] [address] [id number] [place] [address]- 2377 Dec, 2014 [facility] [place] [facility] [address] [id number] [place] [address]- 8946 Dec, 2014 [facility] [place] [facility] [address] [id number] [place] [address]- 8787 Dec, 2014 [facility] [place] [facility] [address] [id number] [place] [address]- 7500 Dec, 2014 [facility] [place] [facility] [address] [id number] [place] [address]- 1415 Dec, 2014 [facility] [place] [facility] [address] [id number] [place] 9520 Dec, 2014 [facility] [place] [facility] [address] [id number] [place] [address]- 8234 Dec, [facility] [place] [facility] [address] [id number] [place] [address]- 6663 Nov, [facility] [place] [facility] [address] [id number] [place] [address]- 4125 Nov, [facility] [place] [facility] [address] [facility] [id number] [place] [address]- 5842 Oct, [facility] [place] [facility] [address] [id number] [place] [address]- 9071 Oct, [facility] [place] [facility] [address] [id number] [place] [address]- 4112 Sep, [facility] [place] [facility] [address] [id number] [place] [address]- 4314 Sep, [facility] [place] [facility] [address] [facility] [id number] [place] [address]- 0263 Sep, [facility] [place] [facility] [address] [id number] [place] [address]- 6185 Sep, [facility] [place] [facility] [address] [id number] [place] [address]- 0341 May, [facility] [place] [facility] [address] [id number] [place] 3730 May, [facility] [place] [facility] [address] [id number] [place] [address]- 0778 May, [facility] [place] [facility] [address] [id number] [place] [address]- 9554 May, [facility] [place] [facility] [address] [id number] [place] [address]- 1420 Apr, [facility] [place] [facility] [address] [id number] [place] [address]- 7712 Apr, [facility] [place] [facility] [address] [id number] [place] [address]- 5671 Apr, [facility] [place] [facility] [address] [id number] [place] [address]- 2121 Apr, [facility] [place] [facility] [address] [id number] [place] [address]- 6845 Apr, [facility] [place] [facility] [address] [id number] [place] [address]- 1912 Apr, [facility] [place] [facility] [address] [id number] [place] [address]- 0648 Apr, [facility] [place] [facility] [address] [id number] [place] [address]- 1912 March, [facility] [place] [facility] [address] [id number] [place] [address]- 1836 March, [facility] [place] [facility] [address] [id number] [place] [address]- 7751 March, [facility] [place] [facility] [address] [id number] [place] [address]- 4804 Dec, [facility] [place] [facility] [address] [id number] [place] [address] 2545 Dec, [facility] [address] [id number] [place] [address]- 7566 Nov, [facility] [place] [facility] [address] [id number] [place] [address] 2546 Nov, [facility] [place] [facility] [address] [id number] [place] [address]- 5847 Nov, [facility] [place] [facility] [address] [id number] [place] [address]- 3041 Nov, [facility] [place] [facility] [address] [id number] [place] [address]- 9918 Sep, [facility] [place] [facility] [address] [id number] [place] [address]- 8836 Sep, [facility] [place] [facility] [address] [id number] [place] [address]- 9872 Jul, [facility] [place] [facility] [address] [id number] [place] [address]- 1527 Jun, [facility] [place] [facility] [address] [id number] [place] [address]- 2301 Jun, [facility] [place] [facility] [address] [id number] [place] [address]- 9324 Jun, [facility] [place] [facility] [address] [id number] [place] [address]- 3793 Jun, [facility] [place] [facility] [address] [id number] [place] [address]- 1784 Jun, [facility] [place] [facility] [address] [id number] [place] [address]- 0760 Jun, [facility] [place] [facility] [address] [id number] [place] [address]- 2546 May, [facility] [place] [facility] [address] [id number] [place] [address]- 1644 May, [facility] [address] [facility] [id number] [place] [address]- 7368 May, [facility] [address] [facility] [id number] [address]- 1640 May, [facility] [address] [facility] [id number] [place] [address]- 4446 May, IMMUNIZATIONS No Known Immunizations SOCIAL HISTORY Never Assessed REASON FOR VISIT PLAN OF CARE VITAL SIGNS MEDICATIONS Medication Instructions Dosage Frequency Start Date End Date Duration Status Glucocard Expression Test - subcutaneously 3 times a day DX: E11.8 to check blood sugar Jul, Active RESULTS No Results PROCEDURES No Known procedures [...] Surgical History tubal ligation Surgical History hysterectomy 2006 Surgical History orthopedic surgery-bone spurs (B) great toes Surgical History right carpal tunnel Surgical History left mastoid tumor removed Surgical History Cath with stent placement 05/2018 Hospitalization History surgeries Hospitalization History Heart attack 05/2018
--- OUTSIDE RECORDS SUMMARY | 2018-11-20 21:32 | XMS REPORT ---
Author Author CANDELARIO FRAZIER Organization [facility] Address [address] 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 312373389 Problem Other chronic pain G89.29 Active 44169328 Problem Tobacco use Z72.[address] elevation myocardial infarction involving right coronary artery I21.11 Active 622676852 Problem Moderate episode of recurrent major depressive disorder F33.1 Active 614330590 Problem Type 2 diabetes mellitus with unspecified complications E11.8 Active 82985085 Problem Mixed hyperlipidemia E78.2 Active 214490977 Problem Pain of left shoulder joint on movement M25.512 Active 302789987 Problem Essential hypertension I10 Active 95591717 Problem Chronic diarrhea K52.9 Active 119803228 Problem Osteoarthritis M19.[address] elevation myocardial infarction (STEMI), unspecified artery I21.3 Active 523667835 Problem History of postmenopausal HRT Z92.29 Active 992976806 Problem Fibromyalgia M79.7 Active 69404564 Problem Primary insomnia F51.01 Active 8963760 Problem HTN (hypertension) I10 Active 93930664 Problem Environmental allergies Z91.09 Active 470711866 Problem Depressed F32.9 Active 60929175 Problem Hyperlipidemia, unspecified hyperlipidemia type E78.5 Active 32359762 ALLERGIES No Information ENCOUNTERS Encounter Location Date Diagnosis [facility] [address] [place] [address]208- 4216 Aug, Coronary artery disease with other form of angina pectoris, unspecified vessel or lesion type, unspecified whether [place] or transplanted heart I25.118 and Hyperlipidemia, unspecified hyperlipidemia type E78.5 [facility] [id number] [address] Jun, [facility] [address] [place] [address] Jun, Type 2 diabetes mellitus with unspecified complications E11.8 [facility] [id number] [place] [address] 64843- 9388 May, Diabetes E11.9 [facility] [id number] [place] [address] 62877- 8435 May, Diabetes E11.9 [facility] [id number] [place] [address] 89446- 6540 May, [facility] [id number] [place] [address] 83905- 4185 May, Pain in left shoulder M25.512 [facility] [id number] [place] [address] 49984- 1384 May, Type 2 diabetes mellitus with unspecified complications E11.[address] elevation myocardial infarction involving right coronary artery I21.11 [facility] [id number] [place] [address] 12782- 0048 May, [facility] [id number] [place] [address] 43845 -8924 March, Pelvic pain R10.2 [facility] [address], [place] [address] March, Type 2 diabetes mellitus with unspecified complications E11.8 ; Mixed hyperlipidemia E78.2 ; Essential hypertension I10 and Other chronic pain G89.29 [facility] [address] [place] [address] 59037- 4730 March, Pain of left shoulder joint on movement M25.512 ; Type 2 diabetes mellitus with unspecified complications E11.8 ; 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 ; Tobacco use Z72.0 and Moderate episode of recurrent major depressive disorder F33.1 [facility] [address] [place] [address] 27635- 2263 March, [facility] [address] [place] [address] 63154- 9539 Jan, Type 2 diabetes mellitus with unspecified complications E11.8 ; Mixed hyperlipidemia E78.2 and Essential hypertension I10 [facility] [id number] [place] [address] 28223- 5328 Dec, [facility] [id number] [place] [address] 41861- 3633 Nov, [facility] [id number] [place] [address] 37345- 4972 Nov, Acute nasopharyngitis J00 [facility] [id number] [place] [address] 69752- 3193 Sep, half-way 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 ; Type 2 diabetes mellitus with unspecified complications E11.8 ; Mixed hyperlipidemia E78.2 ; Essential hypertension I10 ; Pain in left shoulder M25.512 ; Other chronic pain G89.29 ; Tobacco use Z72.0 and Depressed F32.9 [facility] [id number] [place] [address] 69345- 3847 10 Sep, 2017 Encounter for immunization Z23 [facility] [id number] [place] [address] 86684- 0565 11 Aug, 2017 Environmental allergies Z91.09 [facility] [id number] [place] [address] 90399- 2380 Aug, [facility] [id number] [place] [address] 07062- 6887 Jul, [facility] [id number] [place] [address] 06342- 6691 Jun, Diabetes E11.9 [facility] [id number] [place] [address] 76744- 0899 Jun, Acute pain of left shoulder M25.512 [facility] [id number] [place] [address] 34359- 0126 March, Diabetes E11.9 ; Abnormal chest xray R93.8 ; HTN ( hypertension) I10 ; Fibromyalgia M79.7 ; Primary insomnia F51.01 ; Osteoarthritis M19.90 ; Depressed F32.9 ; Postmenopausal HRT (hormone replacement therapy) Z79.890 ; Environmental allergies Z91.09 and Hyperlipidemia , unspecified hyperlipidemia type E78.5 [facility] [id number] [place] [address] 33458- 9044 March, Diabetes E11.9 [place] [facility] [address] 55782- 3565 March, Diabetes E11.9 [place] [facility] [address] 36243- 3066 Jan, Diabetes E11.9 ; HTN (hypertension) I10 ; Fibromyalgia M79.7 ; Primary insomnia F51.01 ; Osteoarthritis M19.90 ; Depressed F32.9 ; Postmenopausal HRT (hormone replacement therapy) Z79.890 ; Environmental allergies Z91.09 ; Hyperlipidemia, unspecified hyperlipidemia type E78.5 and Abnormal chest xray R93.8 [place] [address] 94215- 6487 Jan, [place] [facility] [address] 81108- 5778 Sep, Diabetes E11.9 ; Osteoarthritis M19.90 ; HTN (hypertension) I10 ; History of postmenopausal HRT Z92.29 ; Joint pain M25.50 ; Fatigue R53.83 ; Depressed F32.9 ; Chronic diarrhea K52.9 ; Fibromyalgia M79.7 ; Primary insomnia F51.01 ; Environmental allergies Z91.09 and Exhaustion R53.83 [place] [address] 71329- 4652 Aug, Viral gastroenteritis A08.4 [id number] [place] [address] 89548- 2070 May, [place] [address] 92840- 7161 May, Bronchitis J40 ; Diabetes E11.9 and HTN (hypertension) I10 [facility] [id number] [place] [address] 27279- 8349 March, Joint pain M25.50 [facility] [id number] [place] [address] 18625- 1017 March, Diabetes E11.9 ; HTN (hypertension) I10 ; Osteoarthritis M19.90 ; History of postmenopausal HRT Z92.29 ; Joint pain M25.50 ; Fatigue R53.83 ; Depressed F32.9 ; Postmenopausal HRT (hormone replacement therapy) Z79.890 ; Fibromyalgia M79.7 ; Shoulder pain M25.519 ; Environmental allergies Z91.09 and Primary insomnia F51.01 [facility] [id number] [place] [address] 42992- 4881 March, [place] [address] 37564- 9890 Jan, [facility] [id number] [place] [address] 97770- 4115 Jan, Joint pain M25.50 [facility] [address] 64919- 9820 Jan, 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512 and Cold sore B00.1 [place] [address] [place] [address] 27548- 8212 Dec, Shoulder pain, left M25.512 [facility] [id number] [place] [address] 68432- 5863 15 Dec, 2015 Left hip pain M25.552 ; HTN (hypertension) I10 ; Diabetes E11.9 ; Osteoarthritis M19.90 ; History of postmenopausal HRT Z92.29 ; Depressed F32.9 ; Postmenopausal HRT (hormone replacement therapy) Z79.890 ; Fibromyalgia M79.7 and Sciatica of left side M54.32 [id number] [place] [address] 09488- 2946 Dec, HTN (hypertension) I10 ; Diabetes E11.9 ; Osteoarthritis M19.90 ; History of postmenopausal HRT Z92.29 ; Joint pain M25.50 ; Depressed F32.9 ; Chronic diarrhea K52.9 ; Postmenopausal HRT (hormone replacement therapy ) Z79.890 and Fibromyalgia M79.7 [place] [address] [place] [address] 87828- 0619 Nov, [facility] [id number] [place] [address] 81877- 8211 Oct, [facility] [id number] [place] [address] 96273- 0160 Oct, Elevated glucose R73.[address] 42099- 2278 Oct, Elevated glucose R73.09 and Vitamin D deficiency E55.9 [facility] [id number] [place] [address] 75244- 7648 Oct, Diabetes E11.9 ; HTN (hypertension) I10 ; Osteoarthritis M19.90 ; History of postmenopausal HRT Z92.29 ; Joint pain M25.50 ; Fatigue R53.83 ; Depressed F32.9 ; Hypercholesteremia E78.0 and COPD (chronic obstructive pulmonary disease) J44.9 [facility] [id number] [place] [address] 15570- 6862 16 Aug, 2015 [place] [id number] [place] [address] 49537- 3510 Jul, Other specified menopausal and postmenopausal disorder 627.8 ; Obstructive chronic bronchitis, with (acute) exacerbation 491.21 ; Other and unspecified hyperlipidemia 272.4 ; Diarrhea 787.91 ; Diabetes mellitus without mention of complication, type II or unspecified type, not stated as uncontrolled 250.00 ; Hormone replacement therapy V07.4 ; Insomnia 780.52 ; Hypercholesterolemia 272.0 and Chronic pain 338.29 [place] [address] 91264- 6626 Jul, [place] [address] 66230- 6360 Apr, Unspecified breast screening V76.10 [place] [id number] [place] [address] 02447- 0599 14 Jan, 2015 [place] [id number] [place] [address] 96610- 8772 Jan, [facility] [place] [id number] [place] [address] 32356- 8779 Dec, [place] [place] [id number] [place] [address] 92210- 8377 Dec, [place] [address] 06907- 8062 Dec, [place] [place] [id number] [place] [address] 19947- 0373 Dec, [place] [id number] [place] [address] 73803- 5096 Dec, [facility] [place] [facility] [address] [id number] [place] [address]- 1630 Dec, [facility] [place] [facility] [address] [id number] [place] [address]- 0990 Dec, [facility] [place] [facility] [address] [id number] [place] [address]- 2805 Dec, [facility] [place] [facility] [address] [id number] [place] [address]- 6808 Nov, [facility] [place] [facility] [address] [id number] [place] [address]- 6370 Nov, [facility] [place] [facility] [address] [id number] [place] [address]- 5594 Oct, [facility] [place] [facility] [address] [id number] [place] [address]- 2246 Oct, [facility] [place] [facility] [address] [id number] [place] [address]- 0705 Sep, [facility] [place] [facility] [address] [id number] [place] [address]- 2652 Sep, [facility] [place] [facility] [address] [id number] [place] [address]- 5589 Sep, [facility] [place] [facility] [address] [id number] [place] [address]- 7144 Sep, [facility] [place] [facility] [address] [id number] [place] [address]- 3313 May, [facility] [place] [facility] [address] [id number] [place] [address]- 1347 May, [facility] [place] [facility] [address] [id number] [place] [address]- 2474 May, [facility] [place] [facility] [address] [id number] [place] [address]- 9079 May, [facility] [place] [facility] [address] [id number] [place] [address]- 3690 Apr, [facility] [place] [facility] [address] [id number] [place] [address]- 9402 Apr, [facility] [place] [facility] [address] [id number] [place]- 0846 Apr, [facility] [place] [facility] [address] [id number] [place] [address]- 8570 Apr, [facility] [place] [facility] [address] [id number] [place] [address]- 7083 Apr, [facility] [place] [facility] [address] [id number] [place] [address]- 7340 Apr, [facility] [place] [facility] [address] [id number] [place] [address]- 7549 Apr, [facility] [place] [facility] [address] [id number] [place] [address]- 4995 March, [facility] [place] [facility] [address] [id number] [place] [address]- 2669 March, [facility] [place] [facility] [address] [id number] [place] [address]- 2485 March, [facility] [place] [facility] [address] [id number] [place] [address]- 0968 Dec, [facility] [place] [facility] [address] [id number] [place] [address]- 5439 Dec, [facility] [place] [facility] [address] [id number] [place] [address]- 2083 Nov, [facility] [place] [facility] [address] [id number] [place] [address]- 2032 Nov, [facility] [place] [facility] [address] [id number] [place] [address]- 2293 Nov, [facility] [place] [facility] [address] [id number] [place] [address]- 7508 Nov, [facility] [place] [facility] [address] [place] [address] 2546 Sep, [facility] [address] [place] [address]- 7299 Sep, [facility] [address] [place] [address]- 4466 Jul, [facility] [address] [place] [address]- 4721 Jun, [facility] [address] [place] [address]- 0137 Jun, [facility] [address] [place] [address] 40593- 9407 Jun, [facility] [address] [place] [address]- 1261 Jun, [facility] [address] [place] [address] 75938- 9395 Jun, [facility] [address] [place] [address]- 6898 Jun, [facility] [address] [place] [address]- 6028 May, [facility] [address] [place] [address]- 0369 May, [facility] [address] [place] [address]- 4222 May, [facility] [address] [place] [address]- 4550 May, [facility] [address] 8352 May, IMMUNIZATIONS No Known Immunizations SOCIAL HISTORY Never Assessed REASON FOR VISIT PT Evaluation PLAN OF CARE Activity Details Follow Up 1 Week Reason:F/U PT VITAL SIGNS MEDICATIONS Unknown Medications RESULTS No Results PROCEDURES Procedure Date Ordered Result Body Site THERAPEUTIC EXERCISES May 17, 2018 PT EVAL LOW COMPLEX 20 MIN May 17, 2018 INSTRUCTIONS MEDICATIONS ADMINISTERED No Known Medications [...]
--- OUTSIDE RECORDS SUMMARY | 2018-11-20 21:32 | XMS REPORT ---
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 Active 043277874 Problem Moderate episode of recurrent major depressive disorder F33.1 Active 936478454 Problem Pain of left shoulder joint on movement M25.512 Active 725938930 Problem Mixed hyperlipidemia E78.2 Active 408003110 Problem Other chronic pain G89.29 Active 85295943 Problem Essential hypertension I10 Active 96196078 Problem Type 2 diabetes mellitus with unspecified complications E11.8 Active 38650323 Problem History of postmenopausal HRT Z92.29 Active 846575350 Problem Chronic diarrhea K52.9 Active 490411388 Problem Depressed F32.9 Active 12474804 Problem Fibromyalgia M79.7 Active 29445827 Problem Osteoarthritis M19.90 Active 496034223 Problem Primary insomnia F51.01 Active 7432642 Problem HTN (hypertension) I10 Active 32416624 Problem Environmental allergies Z91.09 Active 372270397 ALLERGIES No Information ENCOUNTERS Encounter Location Date Diagnosis [facility] [id number], [place] [address] Aug, [facility] [address], [place] [address] Jun, [facility] [address], [place] [address] 14 Jun, 2018 Type 2 diabetes mellitus with unspecified complications E11.8 [facility] [id number], [place] [address] May, Diabetes E11.9 [facility] [address], [place] [address] May, Diabetes E11.9 [facility] [address], [place] [address] May, [facility] [address] [place] [address] May, [facility] [id number] [place] [address]- 2449 May, Type 2 diabetes mellitus with unspecified complications E11.8 [facility] [id number] [place] [address]393- 8007 May, [facility] [id number] [place] [address] March, Pelvic pain R10.2 [facility] [id number] [place] [address]39- 1686 March, Type 2 diabetes mellitus with unspecified complications E11.8 ; Mixed hyperlipidemia E78.2 ; Essential hypertension I10 and Other chronic pain G89.29 [place] [id number] [place] [address]241- 4016 March, Pain of left shoulder joint on movement M25.512 ; Type 2 diabetes mellitus with unspecified complications E11.8 ; termination clerk 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 ; Tobacco use Z72.0 and Moderate episode of recurrent major depressive disorder F33.1 [place] [facility] [address], [place] [address] March, [facility] [id number] [place] [address] 40570- 8461 Jan, Type 2 diabetes mellitus with unspecified complications E11.8 ; Mixed hyperlipidemia E78.2 and Essential hypertension I10 [place] [facility] [address] [place] [address] 26950- 0570 Dec, [facility] [id number] [place] [address] 13214- 6882 Nov, [facility] [facility] [address] [address] Nov, Acute nasopharyngitis J00 [facility] [facility] [id number] [place] [address]32- 0225 Sep, half-way 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 ; Type 2 diabetes mellitus with unspecified complications E11.8 ; Mixed hyperlipidemia E78.2 ; Essential hypertension I10 ; Pain in left shoulder M25.512 ; Other chronic pain G89.29 ; Tobacco use Z72.0 and Depressed F32.9 [place] [address] [address]- [address] Sep, Encounter for immunization Z23 [address] [address] [address]- 2794 Aug, Environmental allergies Z91.09 [address] [address] [address]- 1655 Aug, [facility] [facility] [address] [address]- [address] Jul, [facility] [id number] [place] [address]23- 6976 Jun, Diabetes E11.9 [place] [address] [address]- [address]2 Jun, Acute pain of left shoulder M25.512 [place] [address] [address]- 95[address] March, Diabetes E11.9 ; Abnormal chest xray R93.8 ; HTN ( hypertension) I10 ; Fibromyalgia M79.7 ; Primary insomnia F51.01 ; Osteoarthritis M19.90 ; Depressed F32.9 ; Postmenopausal HRT (hormone replacement therapy) Z79.890 ; Environmental allergies Z91.09 and Hyperlipidemia , unspecified hyperlipidemia type E78.5 [place] [address] [place] [address] March, Diabetes E11.9 [facility] [id number] [place] [address] 63342- 6326 March, Diabetes E11.9 [facility] [facility] [id number] [place] [address] 19026- 3744 Jan, Diabetes E11.9 ; HTN (hypertension) I10 ; Fibromyalgia M79.7 ; Primary insomnia F51.01 ; Osteoarthritis M19.90 ; Depressed F32.9 ; Postmenopausal HRT (hormone replacement therapy) Z79.890 ; Environmental allergies Z91.09 ; Hyperlipidemia, unspecified hyperlipidemia type E78.5 and Abnormal chest xray R93.8 [facility] [id number] [place] [address] 97994- 4778 Jan, [facility] [facility] [id number] [place] [address] 24873- 3916 Sep, Diabetes E11.9 ; Osteoarthritis M19.90 ; HTN (hypertension) I10 ; History of postmenopausal HRT Z92.29 ; Joint pain M25.50 ; Fatigue R53.83 ; Depressed F32.9 ; Chronic diarrhea K52.9 ; Fibromyalgia M79.7 ; Primary insomnia F51.01 ; Environmental allergies Z91.09 and Exhaustion R53.83 [facility] [facility] [id number] [place] [address] 46326- 7659 Aug, Viral gastroenteritis A08.4 [facility] [id number] [place] [address] 39271- 5457 May, [facility] [id number] [place] [address] 9[address]98- 9610 May, Bronchitis J40 ; Diabetes E11.9 and HTN (hypertension) I10 [place] [id number] [place] [address] 19922- 8872 March, Joint pain M25.50 [facility] [facility] [id number] [place] [address] 86259- 5060 March, Diabetes E11.9 ; HTN (hypertension) I10 ; Osteoarthritis M19.90 ; History of postmenopausal HRT Z92.29 ; Joint pain M25.50 ; Fatigue R53.83 ; Depressed F32.9 ; Postmenopausal HRT (hormone replacement therapy) Z79.890 ; Fibromyalgia M79.7 ; Shoulder pain M25.519 ; Environmental allergies Z91.09 and Primary insomnia F51.01 [address] [address] [address]- 0819 March, [place] [address] [address]- 9884 Jan, [place] [address] 8[address]- 9019 Jan, Joint pain M25.50 [place] [address] [address]- 2893 Jan, 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 and Impingement syndrome, shoulder, left M75.42 [place] [address] [address]283- 8846 Dec, [place] [address] 81262- 9106 Dec, [place] [address] 02775- 3754 Dec, Joint pain M25.50 and Shoulder pain M25.519 [address] [address] [address]13- 8212 Dec, [place] [facility] [address] 17467- 6109 Dec, [place] [address] 36018- 9453 Dec, Upper respiratory infection J06.9 ; Shoulder pain, left M25.512 and Cold sore B00.1 [place] [address] 0[address]89- 0710 Dec, Shoulder pain, left M25.512 [place] [id number] [place] [address] 39871- 5686 15 Dec, 2015 Left hip pain M25.552 ; HTN (hypertension) I10 ; Diabetes E11.9 ; Osteoarthritis M19.90 ; History of postmenopausal HRT Z92.29 ; Depressed F32.9 ; Postmenopausal HRT (hormone replacement therapy) Z79.890 ; Fibromyalgia M79.7 and Sciatica of left side M54.32 [place] [address] 240[address]- 8120 02 Dec, 2015 HTN (hypertension) I10 ; Diabetes E11.9 ; Osteoarthritis M19.90 ; History of postmenopausal HRT Z92.29 ; Joint pain M25.50 ; Depressed F32.9 ; Chronic diarrhea K52.9 ; Postmenopausal HRT (hormone replacement therapy ) Z79.890 and Fibromyalgia M79.[address] [address]- [address] Nov, [place] [address] 76992- 0382 Oct, [place] [address] 67379- 8559 Oct, Elevated glucose R73.[address] [address]- 4996 Oct, Elevated glucose R73.09 and Vitamin D deficiency E55.9 [place] [address] 49370- 4304 Oct, Diabetes E11.9 ; HTN (hypertension) I10 ; Osteoarthritis M19.90 ; History of postmenopausal HRT Z92.29 ; Joint pain M25.50 ; Fatigue R53.83 ; Depressed F32.9 ; Hypercholesteremia E78.0 and COPD (chronic obstructive pulmonary disease) J44.9 [place] [address] [address] 29882- 7888 Aug, [place] [address] [address] [address] Jul, Other specified menopausal and postmenopausal disorder 627.8 ; Obstructive chronic bronchitis, with (acute) exacerbation 491.21 ; Other and unspecified hyperlipidemia 272.4 ; Diarrhea 787.91 ; Diabetes mellitus without mention of complication, type II or unspecified type, not stated as uncontrolled 250.00 ; Hormone replacement therapy V07.4 ; Insomnia 780.52 ; Hypercholesterolemia 272.0 and Chronic pain 338.29 [facility] [id number] [place] [address] 16593- 8236 11 Jul, 2015 [facility] [id number] [place] [address] 85498- 3754 Apr, Unspecified breast screening V76.10 [facility] [id number] [place] [address] 60144- 4392 14 Jan, 2015 [facility] [id number] [place] [address] 56511- 5797 Jan, [facility] [id number] [place] [address] 52110- 7280 Dec, [facility] [id number] [place] [address] 83304- 8132 Dec, [facility] [id number] [place] [address] 64953257- 2976 Dec, [facility] [address] [place] [address] 44949- 5716 Dec, [facility] [id number] [place] [address] [id number]- 5292 Dec, [facility] [id number] [place] [address] 66498- 6272 Dec, [facility] [id number] [place] [address] 305485- 4356 Dec, [facility] [address] [place] [address] 18326- 8756 Dec, [facility] [place] [facility] [address] [id number] [place] [address]- 5528 Nov, [facility] [place] [facility] [address] [id number] [place] [address]- 5365 Nov, [facility] [place] [facility] [address] [id number] [place] [address]- 5102 Oct, [facility] [place] [facility] [address] [id number] [place] [address]- 4107 Oct, [facility] [place] [facility] [address] [id number] [place] [address]- 2643 Sep, [facility] [place] [facility] [address] [id number] [place] [address]- 0839 Sep, [facility] [place] [facility] [address] [id number] [place] [address]- 5596 Sep, [facility] [place] [facility] [address] [id number] [place] [address]- 6892 Sep, [facility] [place] [facility] [address] [id number] [place] [address]- 2562 May, [facility] [place] [facility] [address] [id number] [place] [address]- 2540 May, [facility] [place] [facility] [address] [id number] [place] [address]- 2941 May, [facility] [place] [facility] [address] [id number] [place] [address]- 1727 May, [facility] [place] [facility] [address] [id number] [place] [address]- 2875 Apr, [facility] [place] [facility] [address] [id number] [place] [address]- 8643 Apr, [facility] [place] [facility] [address] [id number] [place] [address]- 8536 Apr, [facility] [place] [facility] [address] [id number] [place] [address]- 8446 Apr, [facility] [place] [facility] [address] [id number] [place] [address] Apr, [facility] [place] [facility] [address] [id number] [place] [address]- 5877 Apr, [facility] [place] [facility] [address] [id number] [place] [address]- 3227 Apr, [facility] [place] [facility] [address] [id number] [place] [address]- 8328 March, [facility] [place] [facility] [address] [id number] [place] [address]- 2992 March, [facility] [place] [facility] [address] [id number] [place] [address]- 9498 March, [facility] [place] [facility] [address] [id number] [place] [address]- 1200 Dec, [facility] [place] [facility] [address] [id number] [place] [address]- 5256 Dec, [facility] [place] [facility] [address] [id number] [place] [address]- 8671 Nov, [facility] [place] [facility] [address] [id number] [place] [address]- 3818 Nov, [facility] [place] [facility] [address] [id number] [place] [address]- 3852 Nov, [facility] [place] [facility] [address] [id number] [place] [address]- 7223 Nov, [facility] [place] [facility] [address] [id number] [place] [address]- 0969 Sep, [facility] [place] [facility] [address] [id number] [place] [address]- 9487 Sep, [facility] [place] [facility] [address] [id number] [place] [address]- 8929 Jul, [facility] [place] [facility] [id number], [place] [address]- 4448 Jun, [facility] [id number], [place] [address]- 8969 Jun, [facility] [address], [place] [address]- 7401 Jun, [facility] [address], [place] [address]- 3666 Jun, [facility] [address], [place] [address]- 1512 Jun, [facility] [address], [place] [address]- 7026 Jun, [facility] [address], [place] [address]- 0665 May, [facility] [address], [place] [address]- 1303 May, [facility] [address], [place] [address]- 0638 May, [facility] [address], [place] [address]- 5614 May, [facility] [id number], [place] [address]- 5148 May, IMMUNIZATIONS No Known Immunizations SOCIAL HISTORY Never Assessed REASON FOR VISIT Refill request PLAN OF CARE VITAL SIGNS MEDICATIONS Medication Instructions Dosage Frequency Start Date End Date Duration Status Gabapentin 100 mg Orally 2 times a day 2 capsules 12h March, 30 days Active RESULTS No Results PROCEDURES No Known [...]
--- OUTSIDE RECORDS SUMMARY | 2018-11-20 21:32 | XMS REPORT ---
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 Active 255380361 Problem Type 2 diabetes mellitus with unspecified complications E11.8 Active 19889895 Problem Diabetes E11.[address] elevation myocardial infarction (STEMI), unspecified artery I21.[address] elevation myocardial infarction involving right coronary artery I21.11 Active 098502944 Problem Tobacco use Z72.0 Active 857691832 Problem Essential hypertension I10 Active 72411349 Problem Pain of left shoulder joint on movement M25.512 Active 292512470 Problem Moderate episode of recurrent major depressive disorder F33.1 Active 304150277 Problem Osteoarthritis M19.90 Active 976350367 Problem HTN (hypertension) I10 Active 10730876 Problem History of postmenopausal HRT Z92.29 Active 445245697 Problem Chronic diarrhea K52.9 Active 919593840 Problem Primary insomnia F51.01 Active 3931061 Problem Environmental allergies Z91.09 Active 380234332 Problem Depressed F32.9 Active 52940423 Problem Hyperlipidemia, unspecified hyperlipidemia type E78.5 Active 92334419 Problem Fibromyalgia M79.7 Active 58771235 Problem Other chronic pain G89.29 Active 20641073 ALLERGIES No Information ENCOUNTERS Encounter Location Date Diagnosis [facility] [address] [facility] [id number] [address] Sep, [facility] [address] [facility] [id number] [address] Sep, Diabetes E11.9 ; Gastroenteritis K52.9 and Unspecified abdominal pain R10.9 [place] [id number] [address] Aug, Encounter for immunization Z23 [place] [address] [place] [id number] [place] [address]- [address] Aug, Coronary artery disease with other form of angina pectoris, unspecified vessel or lesion type, unspecified whether mechoopda or transplanted heart I25.118 and Hyperlipidemia, unspecified hyperlipidemia type E78.5 [place] [address] [place] [id number] [place] [address] 98466- 4955 Jun, [place] [address] [place] [id number] [place] [address] 62219- 8150 Jun, Type 2 diabetes mellitus with unspecified complications E11.8 [place] [address] [place] [id number] [place] [address] 19872- 4794 May, Diabetes E11.9 [place] [address] [place] [id number] [place] [address] 93731- 2482 May, Diabetes E11.9 [place] [address] [place] [id number] [place] [address] 24531- 5282 May, [place] [address] [place] [id number] [place] [address] 39145- 8301 May, Pain in left shoulder M25.512 [place] [address] [place] [id number] [place] [address] 44864- 9385 May, Type 2 diabetes mellitus with unspecified complications E11.[address] elevation myocardial infarction involving right coronary artery I21.11 [place] [address] [address] May, [facility] [address] [place] [id number] [place] [address]10 -6240 March, Pelvic pain R10.2 [facility] [id number] [place] [address] 96065- 7018 March, Type 2 diabetes mellitus with unspecified complications E11.8 ; Mixed hyperlipidemia E78.2 ; Essential hypertension I10 and Other chronic pain G89.29 [place] [address] [address]- [address] March, Pain of left shoulder joint on movement M25.512 ; Type 2 diabetes mellitus with unspecified complications E11.8 ; [facility] 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 ; Tobacco use Z72.0 and Moderate episode of recurrent major depressive disorder F33.1 [place] [address] 8[address]82- 1284 March, [place] [address] 56957- 8651 Jan, Type 2 diabetes mellitus with unspecified complications E11.8 ; Mixed hyperlipidemia E78.2 and Essential hypertension I10 [place] [address] 46054- 6239 Dec, [place] [address] 40385- 8798 Nov, [place] [address] 67233- 6150 Nov, Acute nasopharyngitis J00 [place] [address] 58322- 3487 Sep, [facility] 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 ; Type 2 diabetes mellitus with unspecified complications E11.8 ; Mixed hyperlipidemia E78.2 ; Essential hypertension I10 ; Pain in left shoulder M25.512 ; Other chronic pain G89.29 ; Tobacco use Z72.0 and Depressed F32.9 [place] [address] 71572- 5375 Sep, Encounter for immunization Z23 [place] [address] 43691- 0893 Aug, Environmental allergies Z91.09 [place] [address] 50296- 7319 Aug, [place] [address] [address] Jul, [place] [id number] [place] [address] 30262- 0146 Jun, Diabetes E11.9 [place] [id number] [place] [address] 98272- 9849 Jun, Acute pain of left shoulder M25.512 [place] [address] [place] [address] 82798- 5275 March, Diabetes E11.9 ; Abnormal chest xray R93.8 ; HTN ( hypertension) I10 ; Fibromyalgia M79.7 ; Primary insomnia F51.01 ; Osteoarthritis M19.90 ; Depressed F32.9 ; Postmenopausal HRT (hormone replacement therapy) Z79.890 ; Environmental allergies Z91.09 and Hyperlipidemia , unspecified hyperlipidemia type E78.5 [place] [address] [place] [id number] [place] [address] 40135- 2660 March, Diabetes E11.9 [place] [address] [place] [address] 91905- 6547 March, Diabetes E11.9 [place] [address] [place] [address] 37058- 2509 Jan, Diabetes E11.9 ; HTN (hypertension) I10 ; Fibromyalgia M79.7 ; Primary insomnia F51.01 ; Osteoarthritis M19.90 ; Depressed F32.9 ; Postmenopausal HRT (hormone replacement therapy) Z79.890 ; Environmental allergies Z91.09 ; Hyperlipidemia, unspecified hyperlipidemia type E78.5 and Abnormal chest xray R93.8 [place] [address] [address] Jan, [place] [address] [place] [id number] [place] [address] 26962- 4899 Sep, Diabetes E11.9 ; Osteoarthritis M19.90 ; HTN (hypertension) I10 ; History of postmenopausal HRT Z92.29 ; Joint pain M25.50 ; Fatigue R53.83 ; Depressed F32.9 ; Chronic diarrhea K52.9 ; Fibromyalgia M79.7 ; Primary insomnia F51.01 ; Environmental allergies Z91.09 and Exhaustion R53.83 [place] [address] 99187- 5759 Aug, Viral gastroenteritis A08.4 [place] [address] [place] [id number] [place] [address] 35973- 8003 May, [place] [address] 58838- 0992 May, Bronchitis J40 ; Diabetes E11.9 and HTN (hypertension) I10 [address] [address]- [address] March, Joint pain M25.50 [place] [address] 90108- 6264 March, Diabetes E11.9 ; HTN (hypertension) I10 ; Osteoarthritis M19.90 ; History of postmenopausal HRT Z92.29 ; Joint pain M25.50 ; Fatigue R53.83 ; Depressed F32.9 ; Postmenopausal HRT (hormone replacement therapy) Z79.890 ; Fibromyalgia M79.7 ; Shoulder pain M25.519 ; Environmental allergies Z91.09 and Primary insomnia F51.01 [place] [address] [place] [id number] [place] [address] 48985- 9283 March, [place] [address] 71229- 4171 Jan, [place] [address] 19825- 6851 Jan, Joint pain M25.50 [place] [address] 45818- 3622 Jan, 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 and Impingement syndrome, shoulder, left M75.42 [place] [address] [place] [id number] [place] [address] 55112- 7810 Dec, [place] [address] [address] Dec, [facility] [address] [place] [id number] [place] [address] 58947- 3105 Dec, Joint pain M25.50 and Shoulder pain M25.519 [facility] [address] [place] [id number] [place] [address] 61362- 3659 Dec, [facility] [address] [place] [id number] [place] [address] 68221- 4923 Dec, [facility] [address] [place] [id number] [place] [address] 80170- 6043 Dec, Upper respiratory infection J06.9 ; Shoulder pain, left M25.512 and Cold sore B00.1 [place] [address] [place] [id number] [place] [address] 51280- 9705 Dec, Shoulder pain, left M25.512 [facility] [address] [place] [id number] [place] [address] 77100- 2528 15 Dec, 2015 Left hip pain M25.552 ; HTN (hypertension) I10 ; Diabetes E11.9 ; Osteoarthritis M19.90 ; History of postmenopausal HRT Z92.29 ; Depressed F32.9 ; Postmenopausal HRT (hormone replacement therapy) Z79.890 ; Fibromyalgia M79.7 and Sciatica of left side M54.32 [place] [address] [place] [address] 38590- 8013 Dec, HTN (hypertension) I10 ; Diabetes E11.9 ; Osteoarthritis M19.90 ; History of postmenopausal HRT Z92.29 ; Joint pain M25.50 ; Depressed F32.9 ; Chronic diarrhea K52.9 ; Postmenopausal HRT (hormone replacement therapy ) Z79.890 and Fibromyalgia M79.7 [facility] [address] [place] [address] 04180- 8226 Nov, [facility] [address] [place] [address] 23955- 9340 Oct, [place] [id number] [place] [address] 53799- 3569 Oct, Elevated glucose R73.[address] 62763- 4309 Oct, Elevated glucose R73.09 and Vitamin D deficiency E55.[address] 70395- 3451 Oct, Diabetes E11.9 ; HTN (hypertension) I10 ; Osteoarthritis M19.90 ; History of postmenopausal HRT Z92.29 ; Joint pain M25.50 ; Fatigue R53.83 ; Depressed F32.9 ; Hypercholesteremia E78.0 and COPD (chronic obstructive pulmonary disease) J44.[address] 85498- 5421 16 Aug, [address] 87094- 0394 Jul, Other specified menopausal and postmenopausal disorder 627.8 ; Obstructive chronic bronchitis, with (acute) exacerbation 491.21 ; Other and unspecified hyperlipidemia 272.4 ; Diarrhea 787.91 ; Diabetes mellitus without mention of complication, type II or unspecified type, not stated as uncontrolled 250.00 ; Hormone replacement therapy V07.4 ; Insomnia 780.52 ; Hypercholesterolemia 272.0 and Chronic pain 338.29 [place] [id number] [place] [address] 89481- 1551 Jul, [address] 68186- 1130 Apr, Unspecified breast screening V76.[address] 61982- 9106 14 Jan, [address] 53573- 7852 13 Jan, 2015 [place] [id number] [place] [address] 05081- 3873 Dec, [facility] [place] [facility] [address] [id number] [place] [address]- 4641 Dec, 2014 [facility] [place] [facility] [address] [id number] [place] [address] Dec, 2014 [facility] [place] [facility] [address] [id number] [place] [address]- 7627 Dec, 2014 [facility] [place] [facility] [address] [id number] [place] [address]- 9553 Dec, 2014 [facility] [place] [facility] [address] [id number] [place] [address]- 6958 Dec, 2014 [facility] [place] [facility] [address] [id number] [place] [address]- 0165 Dec, 2014 [facility] [place] [facility] [address] [id number] [place] [address]- 2381 Dec, 2014 [facility] [place] [facility] [address] [id number] [place] [address]- 7632 Nov, [facility] [place] [facility] [address] [id number] [place] [address]- 1136 Nov, [facility] [place] [facility] [address] [id number] [place] [address]- 2672 Oct, [facility] [place] [facility] [address] [id number] [place] [address]- 0643 Oct, [facility] [place] [facility] [address] [id number] [place] [address]- 2884 Sep, [facility] [place] [facility] [address] [id number] [place] [address]- 9126 Sep, [facility] [place] [facility] [address] [id number] [place] [address]- 9803 Sep, [facility] [place] [facility] [address] [id number] [place] [address]- 1865 Sep, [facility] [place] [facility] [address] [id number] [place] [address]- 0009 May, [facility] [place] [facility] [address] [id number] [place] [address]- 7440 May, [facility] [place] [facility] [address] [id number] [place] 288[address] May, [facility] [place] [facility] [address] [id number] [place] [address]- 3288 May, [facility] [place] [facility] [address] [id number] [place] [address]- 7781 Apr, [facility] [place] [facility] [address] [id number] [place] [address]- 1298 Apr, [facility] [place] [facility] [address] [id number] [place] [address]- 7215 Apr, [facility] [place] [facility] [address] [id number] [place] [address]- 5765 Apr, [facility] [place] [facility] [address] [id number] [place] [address]- 6965 Apr, [facility] [place] [facility] [address] [id number] [place] [address]- 4681 Apr, [facility] [place] [facility] [address] [id number] [place] [address]- 6942 Apr, [facility] [place] [facility] [address] [id number] [place] [address]- 5961 March, [facility] [place] [facility] [address] [id number] [place] [address]- 0899 March, [facility] [place] [facility] [address] [id number] [place] [address]- 1404 March, [facility] [place] [facility] [address] [id number] [place] 7190 Dec, [facility] [place] [facility] [address] [id number] [place] [address]- 6876 Dec, [facility] [place] [facility] [address] [id number] [place] [address]- 1687 Nov, [facility] [address] [id number] [place] [address]- 8176 Nov, [facility] [place] [facility] [address] [id number] [place] [address]- 2899 Nov, [facility] [place] [facility] [address] [id number] [place] [address]- 9138 Nov, [facility] [place] [facility] [address] [id number] [place] [address]- 8515 Sep, [facility] [place] [facility] [address] [id number] [place] [address]- 8915 Sep, [facility] [place] [facility] [address] [id number] [place] [address]- 7685 Jul, [facility] [place] [facility] [address] [id number] [place] [address]- 3329 Jun, [facility] [place] [facility] [address] [id number] [place] [address]- 9987 Jun, [facility] [place] [facility] [address] [id number] [place] [address]- 9667 Jun, [facility] [place] [facility] [address] [id number] [place] [address]- 8516 Jun, [facility] [place] [facility] [address] [id number] [place] [address]- 8346 Jun, [facility] [place] [facility] [address] [id number] [place] [address]- 6116 Jun, [facility] [place] [facility] [address] [id number] [place] [address]- 1284 May, [facility] [place] [facility] [address] [id number] [place] [address]- 2546 May, [facility] [place] [facility] [address] [id number] [place] [address]- 3791 May, [facility] [address] [facility] [id number] [place] [address]- 3053 May, [facility] [address] [facility] [id number] [place] [address]- 3166 May, IMMUNIZATIONS No Known Immunizations SOCIAL HISTORY Never Assessed REASON FOR VISIT Medication refill request PLAN OF CARE VITAL SIGNS MEDICATIONS [...]
--- OUTSIDE RECORDS SUMMARY | 2018-11-20 21:33 | XMS REPORT ---
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 Active 775633239 Problem Moderate episode of recurrent major depressive disorder F33.1 Active 265534555 Problem Pain of left shoulder joint on movement M25.512 Active 562628751 Problem Mixed hyperlipidemia E78.2 Active 181346112 Problem Other chronic pain G89.29 Active 12538494 Problem Essential hypertension I10 Active 84155981 Problem Type 2 diabetes mellitus with unspecified complications E11.8 Active 89920411 Problem History of postmenopausal HRT Z92.29 Active 084233610 Problem Chronic diarrhea K52.9 Active 979987732 Problem Depressed F32.9 Active 03944361 Problem Fibromyalgia M79.7 Active 04279599 Problem Osteoarthritis M19.90 Active 834650679 Problem Primary insomnia F51.01 Active 2331319 Problem HTN (hypertension) I10 Active 56860725 Problem Environmental allergies Z91.09 Active 519365201 ALLERGIES No Information ENCOUNTERS Encounter Location Date Diagnosis [facility] [id number], [place] [address] Aug, [facility] [address], [place] [address] Jun, [facility] [address], [place] [address] 14 Jun, 2018 Type 2 diabetes mellitus with unspecified complications E11.8 [facility] [address], [place] [address] May, Diabetes E11.9 [facility] [address], [place] [address] May, Diabetes E11.9 [facility] [address], [place] [address] May, [facility] [address], [place] [address] May, [facility] [id number] [place] [address]27- 1448 May, Type 2 diabetes mellitus with unspecified complications E11.8 [place] [id number] [place] [address]- [address] May, [facility] [id number] [place] [address] March, Pelvic pain R10.2 [place] [id number] [place] [address] 84369- 9035 March, Type 2 diabetes mellitus with unspecified complications E11.8 ; Mixed hyperlipidemia E78.2 ; Essential hypertension I10 and Other chronic pain G89.29 [place] [address] [place] [address] 48696- 6355 March, Pain of left shoulder joint on movement M25.512 ; Type 2 diabetes mellitus with unspecified complications E11.8 ; 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 ; Tobacco use Z72.0 and Moderate episode of recurrent major depressive disorder F33.1 [place] [address], [place] [address] March, [facility] [id number] [place] [address] 58167- 8985 Jan, Type 2 diabetes mellitus with unspecified complications E11.8 ; Mixed hyperlipidemia E78.2 and Essential hypertension I10 [place] [address] [place] [address] 83036- 8740 Dec, [place] [id number] [place] [address] 87734- 8037 Nov, [place] [address] [address]- [address] Nov, Acute nasopharyngitis J00 [place] [id number] [place] [address] 01090- 2926 Sep, skilled nursing 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 ; Type 2 diabetes mellitus with unspecified complications E11.8 ; Mixed hyperlipidemia E78.2 ; Essential hypertension I10 ; Pain in left shoulder M25.512 ; Other chronic pain G89.29 ; Tobacco use Z72.0 and Depressed F32.9 [place] [address] [address]- [address] Sep, Encounter for immunization Z23 [place] [address] [address]- [address] Aug, Environmental allergies Z91.09 [place] [address] [address]- 7427 Aug, [place] [address] [address]- 77[address] Jul, [place] [id number] [place] [address] 05389- 0809 Jun, Diabetes E11.9 [place] [address] 74854- 1727 Jun, Acute pain of left shoulder M25.512 [place] [address] [address]- 9616 March, Diabetes E11.9 ; Abnormal chest xray R93.8 ; HTN ( hypertension) I10 ; Fibromyalgia M79.7 ; Primary insomnia F51.01 ; Osteoarthritis M19.90 ; Depressed F32.9 ; Postmenopausal HRT (hormone replacement therapy) Z79.890 ; Environmental allergies Z91.09 and Hyperlipidemia , unspecified hyperlipidemia type E78.5 [place] [address] [place] [address] March, Diabetes E11.9 [place] [id number] [place] [address] 60930- 7018 March, Diabetes E11.9 [place] [id number] [place] [address] 73450- 2872 Jan, Diabetes E11.9 ; HTN (hypertension) I10 ; Fibromyalgia M79.7 ; Primary insomnia F51.01 ; Osteoarthritis M19.90 ; Depressed F32.9 ; Postmenopausal HRT (hormone replacement therapy) Z79.890 ; Environmental allergies Z91.09 ; Hyperlipidemia, unspecified hyperlipidemia type E78.5 and Abnormal chest xray R93.8 [place] [id number] [place] [address] 71380- 2074 Jan, [place] [id number] [place] [address] 00933- 0183 Sep, Diabetes E11.9 ; Osteoarthritis M19.90 ; HTN (hypertension) I10 ; History of postmenopausal HRT Z92.29 ; Joint pain M25.50 ; Fatigue R53.83 ; Depressed F32.9 ; Chronic diarrhea K52.9 ; Fibromyalgia M79.7 ; Primary insomnia F51.01 ; Environmental allergies Z91.09 and Exhaustion R53.83 [place] [id number] [place] [address] 12760- 1473 Aug, Viral gastroenteritis A08.4 [place] [id number] [place] [address] 85531- 6640 May, [place] [id number] [place] [address] 73265- 4342 May, Bronchitis J40 ; Diabetes E11.9 and HTN (hypertension) I10 [place] [id number] [place] [address] 67581- 7334 March, Joint pain M25.50 [place] [id number] [place] [address] 01708- 0374 March, Diabetes E11.9 ; HTN (hypertension) I10 ; Osteoarthritis M19.90 ; History of postmenopausal HRT Z92.29 ; Joint pain M25.50 ; Fatigue R53.83 ; Depressed F32.9 ; Postmenopausal HRT (hormone replacement therapy) Z79.890 ; Fibromyalgia M79.7 ; Shoulder pain M25.519 ; Environmental allergies Z91.09 and Primary insomnia F51.01 [place] [address] [address]- [address] March, [place] [address] [address]84- 9808 Jan, [place] [address] 01696- 6932 Jan, Joint pain M25.50 [place] [address] [address]89- 9400 Jan, 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 and Impingement syndrome, shoulder, left M75.42 [place] [address] 42[address]- 3647 Dec, [place] [address] 33175- 0600 Dec, [place] [address] 61327- 7776 Dec, Joint pain M25.50 and Shoulder pain M25.519 [place] [address] 69456- 3441 Dec, [place] [address] 96153- 1307 Dec, [place] [address] 57955- 8351 Dec, Upper respiratory infection J06.9 ; Shoulder pain, left M25.512 and Cold sore B00.1 [place] [address] 54539- 1495 Dec, Shoulder pain, left M25.512 [place] [id number] [place] [address] 18800- 9184 15 Dec, 2015 Left hip pain M25.552 ; HTN (hypertension) I10 ; Diabetes E11.9 ; Osteoarthritis M19.90 ; History of postmenopausal HRT Z92.29 ; Depressed F32.9 ; Postmenopausal HRT (hormone replacement therapy) Z79.890 ; Fibromyalgia M79.7 and Sciatica of left side M54.32 [place] [address] 99937- 1445 02 Dec, 2015 HTN (hypertension) I10 ; Diabetes E11.9 ; Osteoarthritis M19.90 ; History of postmenopausal HRT Z92.29 ; Joint pain M25.50 ; Depressed F32.9 ; Chronic diarrhea K52.9 ; Postmenopausal HRT (hormone replacement therapy ) Z79.890 and Fibromyalgia M79.[address] [address]- [address]69 Nov, [place] [address] 80486- 3080 Oct, [place] [address] 54081- 7781 Oct, Elevated glucose R73.[address] [address]857- 3356 Oct, Elevated glucose R73.09 and Vitamin D deficiency E55.9 [place] [address] 41388- 9146 Oct, Diabetes E11.9 ; HTN (hypertension) I10 ; Osteoarthritis M19.90 ; History of postmenopausal HRT Z92.29 ; Joint pain M25.50 ; Fatigue R53.83 ; Depressed F32.9 ; Hypercholesteremia E78.0 and COPD (chronic obstructive pulmonary disease) J44.9 [place] [address] [address]97- 3[address] Aug, [place] [address] Jul, Other specified menopausal and postmenopausal disorder 627.8 ; Obstructive chronic bronchitis, with (acute) exacerbation 491.21 ; Other and unspecified hyperlipidemia 272.4 ; Diarrhea 787.91 ; Diabetes mellitus without mention of complication, type II or unspecified type, not stated as uncontrolled 250.00 ; Hormone replacement therapy V07.4 ; Insomnia 780.52 ; Hypercholesterolemia 272.0 and Chronic pain 338.29 [facility] [id number] [place] [address] 72661- 9200 11 Jul, 2015 [facility] [id number] [place] [address] 31390- 5636 Apr, Unspecified breast screening V76.10 [facility] [id number] [place] [address] 43904- 7237 14 Jan, 2015 [facility] [id number] [place] [address] 72710- 5720 Jan, [facility] [id number] [place] [address] 92915- 1729 Dec, [facility] [id number] [place] [address] 88548- 1004 Dec, [facility] [id number] [place] [address] 20647289- 1186 Dec, [facility] [address] [place] [address] 94855- 0476 Dec, [facility] [id number] [place] [address] [id number]- 5948 Dec, [facility] [id number] [place] [address] 67199- 7491 Dec, [facility] [id number] [place] [address] 479453- 6536 Dec, [facility] [address] [place] [address] 20611- 8716 Dec, [facility] [place] [facility] [address] [id number] [place] [address]- 4687 Nov, [facility] [place] [facility] [address] [id number] [place] [address]- 5156 Nov, [facility] [place] [facility] [address] [id number] [place] [address]- 0378 Oct, [facility] [place] [facility] [address] [id number] [place] [address]- 1377 Oct, [facility] [place] [facility] [address] [id number] [place] [address]- 6899 Sep, [facility] [place] [facility] [address] [id number] [place] [address]- 9610 Sep, [facility] [place] [facility] [address] [id number] [place] [address]- 5511 Sep, [facility] [place] [facility] [address] [id number] [place] [address]- 3294 Sep, [facility] [place] [facility] [address] [id number] [place] [address]- 5326 May, [facility] [place] [facility] [address] [id number] [place] [address]- 0017 May, [facility] [place] [facility] [address] [id number] [place] [address]- 5499 May, [facility] [place] [facility] [address] [id number] [place] [address]- 6251 May, [facility] [place] [facility] [address] [id number] [place] [address]- 0137 Apr, [facility] [place] [facility] [address] [id number] [place] [address]- 9739 Apr, [facility] [place] [facility] [address] [id number] [place] [address]- 1112 Apr, [facility] [place] [facility] [address] [id number] [place] [address]- 5876 Apr, [facility] [place] [facility] [address] [id number] [place] [address] Apr, [facility] [place] [facility] [address] [id number] [place] [address]- 5052 Apr, [facility] [place] [facility] [address] [id number] [place] [address]- 2922 Apr, [facility] [place] [facility] [address] [id number] [place] [address]- 3989 March, [facility] [place] [facility] [address] [id number] [place] [address]- 9222 March, [facility] [place] [facility] [address] [id number] [place] [address]- 6175 March, [facility] [place] [facility] [address] [id number] [place] [address]- 5244 Dec, [facility] [place] [facility] [address] [id number] [place] [address]- 1820 Dec, [facility] [place] [facility] [address] [id number] [place] [address]- 1401 Nov, [facility] [place] [facility] [address] [id number] [place] [address]- 2527 Nov, [facility] [place] [facility] [address] [id number] [place] [address]- 3055 Nov, [facility] [place] [facility] [address] [id number] [place] [address]- 3787 Nov, [facility] [place] [facility] [address] [id number] [place] [address]- 8699 Sep, [facility] [place] [facility] [address] [id number] [place] [address]- 6224 Sep, [facility] [place] [facility] [address] [id number] [place] [address]- 7221 Jul, [facility] [place] [facility] [address] [facility] [id number], [place] [address]- 7193 Jun, [facility] [address] [facility] [id number], [place] [address]- 8180 Jun, [facility] [address] [facility] [id number], [place] [address]- 2818 Jun, [facility] [address] [facility] [id number], [place] [address]- 9623 Jun, [facility] [address] [facility] [id number], [place] [address]- 6916 Jun, [facility] [address] [facility] [id number], [place] [address]- 7996 Jun, [facility] [address] [facility] [id number], [place] [address]- 7149 May, [facility] [address], [place] [address]- 6263 May, [facility] [id number], [place] [address]- 1168 May, [facility] [id number], [place] [address]- 7938 May, [facility] [id number], [place] [address]- 6016 May, IMMUNIZATIONS No Known Immunizations SOCIAL HISTORY Never Assessed REASON FOR VISIT PALS IN-Yun/Roberto PLAN OF CARE VITAL SIGNS MEDICATIONS Unknown [...]
--- OUTSIDE RECORDS SUMMARY | 2018-11-20 21:33 | XMS REPORT ---
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 Active 132231650 Problem Moderate episode of recurrent major depressive disorder F33.1 Active 857964482 Problem Pain of left shoulder joint on movement M25.512 Active 927178211 Problem Mixed hyperlipidemia E78.2 Active 442452391 Problem Other chronic pain G89.29 Active 28030264 Problem Essential hypertension I10 Active 92507583 Problem Type 2 diabetes mellitus with unspecified complications E11.8 Active 68789285 Problem History of postmenopausal HRT Z92.29 Active 584345672 Problem Chronic diarrhea K52.9 Active 415831106 Problem Depressed F32.9 Active 38351686 Problem Fibromyalgia M79.7 Active 66932418 Problem Osteoarthritis M19.90 Active 271248118 Problem Primary insomnia F51.01 Active 0602913 Problem HTN (hypertension) I10 Active 42655569 Problem Environmental allergies Z91.09 Active 202152382 ALLERGIES No Information ENCOUNTERS Encounter Location Date Diagnosis [facility] [id number] [address] Aug, [facility] [address], [place] [address] Jun, [facility] [address], [place] [address] 14 Jun, 2018 Type 2 diabetes mellitus with unspecified complications E11.8 [facility] [address], [place] [address] May, Diabetes E11.9 [facility] [address] [address] May, Diabetes E11.9 [facility] [address] [address] May, [facility] [address] [address] May, [facility] [id number] [place] [address]903- 6677 May, Type 2 diabetes mellitus with unspecified complications E11.8 [facility] [id number] [place] [address] 98400- 8958 May, [facility] [address] [place] [address]199 March, Pelvic pain R10.2 [facility] [id number] [place] [address]88- 9765 March, Type 2 diabetes mellitus with unspecified complications E11.8 ; Mixed hyperlipidemia E78.2 ; Essential hypertension I10 and Other chronic pain G89.29 [facility] [address] [place] [address] 85557- 4849 March, Pain of left shoulder joint on movement M25.512 ; Type 2 diabetes mellitus with unspecified complications E11.8 ; light industrial 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 ; Tobacco use Z72.0 and Moderate episode of recurrent major depressive disorder F33.1 [facility] [address] [address] March, [facility] [id number] [place] [address] 04841- 7740 Jan, Type 2 diabetes mellitus with unspecified complications E11.8 ; Mixed hyperlipidemia E78.2 and Essential hypertension I10 [facility] [address] [place] [address] 38181- 3831 Dec, [facility] [id number] [place] [address] 48485- 1175 Nov, [facility] [address] [address] Nov, Acute nasopharyngitis J00 [facility] [id number] [place] [address] 26284- 5407 Sep, residential 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 ; Type 2 diabetes mellitus with unspecified complications E11.8 ; Mixed hyperlipidemia E78.2 ; Essential hypertension I10 ; Pain in left shoulder M25.512 ; Other chronic pain G89.29 ; Tobacco use Z72.0 and Depressed F32.9 [facility] [address] [address]- [address] Sep, Encounter for immunization Z23 [facility] [address] [address]- [address] Aug, Environmental allergies Z91.09 [facility] [address] [address]- 6721 Aug, [facility] [address] [address]- 4217 Jul, [facility] [id number] [place] [address] 52918- 8868 Jun, Diabetes E11.9 [facility] [address] 07704- 7264 Jun, Acute pain of left shoulder M25.512 [facility] [address] 83475- 1258 March, Diabetes E11.9 ; Abnormal chest xray R93.8 ; HTN ( hypertension) I10 ; Fibromyalgia M79.7 ; Primary insomnia F51.01 ; Osteoarthritis M19.90 ; Depressed F32.9 ; Postmenopausal HRT (hormone replacement therapy) Z79.890 ; Environmental allergies Z91.09 and Hyperlipidemia , unspecified hyperlipidemia type E78.5 [facility] [address] [place] [address] March, Diabetes E11.9 [facility] [id number] [place] [address] 68196- 6076 March, Diabetes E11.9 [facility] [id number] [place] [address] 61217- 7944 Jan, Diabetes E11.9 ; HTN (hypertension) I10 ; Fibromyalgia M79.7 ; Primary insomnia F51.01 ; Osteoarthritis M19.90 ; Depressed F32.9 ; Postmenopausal HRT (hormone replacement therapy) Z79.890 ; Environmental allergies Z91.09 ; Hyperlipidemia, unspecified hyperlipidemia type E78.5 and Abnormal chest xray R93.8 [facility] [id number] [place] [address] 42775- 9041 Jan, [facility] [id number] [place] [address] 20180- 0231 Sep, Diabetes E11.9 ; Osteoarthritis M19.90 ; HTN (hypertension) I10 ; History of postmenopausal HRT Z92.29 ; Joint pain M25.50 ; Fatigue R53.83 ; Depressed F32.9 ; Chronic diarrhea K52.9 ; Fibromyalgia M79.7 ; Primary insomnia F51.01 ; Environmental allergies Z91.09 and Exhaustion R53.83 [facility] [id number] [place] [address] 96691- 2285 Aug, Viral gastroenteritis A08.4 [facility] [id number] [place] [address] 01743- 0914 May, [facility] [id number] [place] [address] 34510- 7599 May, Bronchitis J40 ; Diabetes E11.9 and HTN (hypertension) I10 [facility] [id number] [place] [address] 85725- 3323 March, Joint pain M25.50 [facility] [id number] [place] [address] 28547- 9559 March, Diabetes E11.9 ; HTN (hypertension) I10 ; Osteoarthritis M19.90 ; History of postmenopausal HRT Z92.29 ; Joint pain M25.50 ; Fatigue R53.83 ; Depressed F32.9 ; Postmenopausal HRT (hormone replacement therapy) Z79.890 ; Fibromyalgia M79.7 ; Shoulder pain M25.519 ; Environmental allergies Z91.09 and Primary insomnia F51.01 [address] [facility] [address] 9[address]34- 2254 March, [facility] [address] 03775- 6557 Jan, [facility] [address] 07929- 4390 Jan, Joint pain M25.50 [facility] [address] 38251- 8246 Jan, 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 and Impingement syndrome, shoulder, left M75.42 [facility] [address] 94575- 1483 Dec, [facility] [address] 41[address]- 5552 Dec, [facility] [address] 07522- 3812 Dec, Joint pain M25.50 and Shoulder pain M25.519 [facility] [address] 25729- 9365 Dec, [facility] [address] 32652- 4491 Dec, [facility] [address] 42596- 6627 Dec, Upper respiratory infection J06.9 ; Shoulder pain, left M25.512 and Cold sore B00.1 [facility] [address] 85863- 0540 Dec, Shoulder pain, left M25.512 [facility] [id number] [place] [address] 48371- 5419 15 Dec, 2015 Left hip pain M25.552 ; HTN (hypertension) I10 ; Diabetes E11.9 ; Osteoarthritis M19.90 ; History of postmenopausal HRT Z92.29 ; Depressed F32.9 ; Postmenopausal HRT (hormone replacement therapy) Z79.890 ; Fibromyalgia M79.7 and Sciatica of left side M54.32 [facility] [address] 82685- 2282 02 Dec, 2015 HTN (hypertension) I10 ; Diabetes E11.9 ; Osteoarthritis M19.90 ; History of postmenopausal HRT Z92.29 ; Joint pain M25.50 ; Depressed F32.9 ; Chronic diarrhea K52.9 ; Postmenopausal HRT (hormone replacement therapy ) Z79.890 and Fibromyalgia M79.[address] [address]- [address] Nov, [facility] [address] 28162- 9701 Oct, [facility] [address] 39443- 3234 Oct, Elevated glucose R73.[address] 8[address]50- 1103 Oct, Elevated glucose R73.09 and Vitamin D deficiency E55.9 [facility] [address] 87475- 1286 Oct, Diabetes E11.9 ; HTN (hypertension) I10 ; Osteoarthritis M19.90 ; History of postmenopausal HRT Z92.29 ; Joint pain M25.50 ; Fatigue R53.83 ; Depressed F32.9 ; Hypercholesteremia E78.0 and COPD (chronic obstructive pulmonary disease) J44.9 [address] 92953- 5529 Aug, [facility] [address] [address] Jul, Other specified menopausal and postmenopausal disorder 627.8 ; Obstructive chronic bronchitis, with (acute) exacerbation 491.21 ; Other and unspecified hyperlipidemia 272.4 ; Diarrhea 787.91 ; Diabetes mellitus without mention of complication, type II or unspecified type, not stated as uncontrolled 250.00 ; Hormone replacement therapy V07.4 ; Insomnia 780.52 ; Hypercholesterolemia 272.0 and Chronic pain 338.29 [facility] [id number] [place] [address] 99033- 2991 11 Jul, 2015 [facility] [id number] [place] [address] 92369- 5862 Apr, Unspecified breast screening V76.10 [facility] [id number] [place] [address] 13424- 1783 14 Jan, 2015 [facility] [id number] [place] [address] 88722- 8226 Jan, [facility] [id number] [place] [address] 51848- 2595 Dec, [facility] [id number] [place] [address] 00920- 9725 Dec, [facility] [id number] [place] [address] [id number]- 2696 Dec, [facility] [address] [place] [address] 04637- 6716 Dec, [facility] [id number] [place] [address] [id number]- 5944 Dec, [facility] [id number] [place] [address] 52722- 5855 Dec, [facility] [id number] [place] [address] 968162- 7656 Dec, [facility] [address] [place] [address] 74444- 9596 Dec, [facility] [place] [facility] [address] [id number] [place] [address]- 5279 Nov, [facility] [place] [facility] [address] [id number] [place] [address]- 1915 Nov, [facility] [place] [facility] [address] [id number] [place] [address]- 4442 Oct, [facility] [place] [facility] [address] [id number] [place] [address]- 2803 Oct, [facility] [place] [facility] [address] [id number] [place] [address]- 9180 Sep, [facility] [place] [facility] [address] [id number] [place] [address]- 6807 Sep, [facility] [place] [facility] [address] [id number] [place] [address]- 5256 Sep, [facility] [place] [facility] [address] [id number] [place] [address]- 7576 Sep, [facility] [place] [facility] [address] [id number] [place] [address]- 7177 May, [facility] [place] [facility] [address] [id number] [place] [address]- 3027 May, [facility] [place] [facility] [address] [id number] [place] [address]- 1196 May, [facility] [place] [facility] [address] [id number] [place] [address]- 8126 May, [facility] [place] [facility] [address] [id number] [place] [address]- 8984 Apr, [facility] [place] [facility] [address] [id number] [place] [address]- 4133 Apr, [facility] [place] [facility] [address] [id number] [place] [address]- 6450 Apr, [facility] [place] [facility] [address] [id number] [place] [address]- 4536 Apr, [facility] [place] [facility] [address] [id number] [place] [address] Apr, [facility] [place] [facility] [address] [id number] [place] [address]- 3273 Apr, [facility] [place] [facility] [address] [id number] [place] [address]- 5564 Apr, [facility] [place] [facility] [address] [id number] [place] [address]- 6471 March, [facility] [place] [facility] [address] [id number] [place] [address]- 8272 March, [facility] [place] [facility] [address] [id number] [place] [address]- 4686 March, [facility] [place] [facility] [address] [id number] [place] [address]- 1253 Dec, [facility] [place] [facility] [address] [id number] [place] [address]- 0345 Dec, [facility] [place] [facility] [address] [id number] [place] [address]- 7234 Nov, [facility] [place] [facility] [address] [id number] [place] [address]- 6921 Nov, [facility] [place] [facility] [address] [id number] [place] [address]- 8382 Nov, [facility] [place] [facility] [address] [id number] [place] [address]- 9155 Nov, [facility] [place] [facility] [address] [id number] [place] [address]- 9920 Sep, [facility] [place] [facility] [address] [id number] [place] [address]- 3081 Sep, [facility] [place] [facility] [address] [id number] [place] [address]- 5333 Jul, [facility] [place] [facility] [id number] [address]- 8114 Jun, [facility] [id number], [place] [address]- 7431 Jun, [facility] [address] [facility] [id number] [address]- 7652 Jun, [facility] [address] [place] [address]- 4780 Jun, [facility] [address] [place] [address]- 6459 Jun, [facility] [address] [place] [address]- 0512 Jun, [facility] [address] [place] [address]- 4032 May, [facility] [address], [place] [address]- 7170 May, [facility] [address] [place] [address]- 6573 May, [facility] [address] [place] [address]- 2553 May, [facility] [id number], [place] [address]- 2730 May, IMMUNIZATIONS No Known Immunizations SOCIAL HISTORY Never Assessed REASON FOR VISIT PALS PLAN OF CARE VITAL SIGNS MEDICATIONS Medication Instructions Dosage Frequency Start Date End Date Duration Status Victoza 18 MG/3ML Subcutaneous Once a day 1.8 24h 90 days Active NovoFine 32G X 6 MM subcutaneously 3 times a day as directed 8h Jun, 90 days Active Levemir FlexTouch 100 UNIT/ML Subcutaneous twice a day inject 25 units 12h March, Active RESULTS No Results PROCEDURES No Known [...]
--- OUTSIDE RECORDS SUMMARY | 2018-11-20 21:33 | XMS REPORT ---
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 890011064 Problem Moderate episode of recurrent major depressive disorder F33.1 Active 428808769 Problem Pain of left shoulder joint on movement M25.512 Active 336714180 Problem Mixed hyperlipidemia E78.2 Active 959532522 Problem Other chronic pain G89.29 Active 44490158 Problem Essential hypertension I10 Active 62042157 Problem Type 2 diabetes mellitus with unspecified complications E11.8 Active 55351253 Problem History of postmenopausal HRT Z92.29 Active 490204101 Problem Chronic diarrhea K52.9 Active 520663300 Problem Depressed F32.9 Active 04253917 Problem Fibromyalgia M79.7 Active 84441973 Problem Osteoarthritis M19.90 Active 957984620 Problem Primary insomnia F51.01 Active 9149942 Problem HTN (hypertension) I10 Active 96398520 Problem Environmental allergies Z91.09 Active [id number] ALLERGIES No Information ENCOUNTERS Encounter Location Date Diagnosis [facility] [id number], [place] [address] Aug, [facility] [address], [place] [address] Jun, [facility] [address], [place] [address] 14 Jun, 2018 Type 2 diabetes mellitus with unspecified complications E11.8 [facility] [address], [place] [address] May, Diabetes E11.9 [facility] [address], [place] [address] May, Diabetes E11.9 [facility] [address], [place] [address] May, [facility] [address], [place] [address] May, [facility] [id number] [place] [address]223- 5034 May, Type 2 diabetes mellitus with unspecified complications E11.8 [facility] [id number] [place] [address] 15348- 0961 May, [facility] [address] [place] [address]199 -[address] March, Pelvic pain R10.2 [facility] [id number] [place] [address] 50910- 4663 March, Type 2 diabetes mellitus with unspecified complications E11.8 ; Mixed hyperlipidemia E78.2 ; Essential hypertension I10 and Other chronic pain G89.29 [facility] [address] [place] [address] 14148- 1752 March, Pain of left shoulder joint on movement M25.512 ; Type 2 diabetes mellitus with unspecified complications E11.8 ; 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 ; Tobacco use Z72.0 and Moderate episode of recurrent major depressive disorder F33.1 [facility] [address], [place] [address] March, [facility] [id number] [place] [address] 84643- 4869 Jan, Type 2 diabetes mellitus with unspecified complications E11.8 ; Mixed hyperlipidemia E78.2 and Essential hypertension I10 [facility] [address] [place] [address] 84663- 1432 Dec, [facility] [id number] [place] [address] 19438- 6252 Nov, [facility] [address] [address]- [address] Nov, Acute nasopharyngitis J00 [facility] [id number] [place] [address] 33283- 7717 Sep, [facility] 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 ; Type 2 diabetes mellitus with unspecified complications E11.8 ; Mixed hyperlipidemia E78.2 ; Essential hypertension I10 ; Pain in left shoulder M25.512 ; Other chronic pain G89.29 ; Tobacco use Z72.0 and Depressed F32.9 [facility] [address] [address]- 2673 Sep, Encounter for immunization Z23 [facility] [facility] [address] [address]- [address] Aug, Environmental allergies Z91.09 [facility] [address] [address]16- 8099 Aug, [facility] [address] [address]32- 08[address] Jul, [facility] [id number] [place] [address] 43594- 5696 Jun, Diabetes E11.9 [facility] [address] 32031- 4858 Jun, Acute pain of left shoulder M25.512 [facility] [address] 35791- 7111 March, Diabetes E11.9 ; Abnormal chest xray R93.8 ; HTN ( hypertension) I10 ; Fibromyalgia M79.7 ; Primary insomnia F51.01 ; Osteoarthritis M19.90 ; Depressed F32.9 ; Postmenopausal HRT (hormone replacement therapy) Z79.890 ; Environmental allergies Z91.09 and Hyperlipidemia , unspecified hyperlipidemia type E78.5 [facility] [address] [place] [address] March, Diabetes E11.9 [facility] [id number] [place] [address] 75570- 2024 March, Diabetes E11.9 [facility] [id number] [place] [address] 82561- 1360 Jan, Diabetes E11.9 ; HTN (hypertension) I10 ; Fibromyalgia M79.7 ; Primary insomnia F51.01 ; Osteoarthritis M19.90 ; Depressed F32.9 ; Postmenopausal HRT (hormone replacement therapy) Z79.890 ; Environmental allergies Z91.09 ; Hyperlipidemia, unspecified hyperlipidemia type E78.5 and Abnormal chest xray R93.8 [facility] [id number] [place] [address] 62385- 4182 Jan, [facility] [id number] [place] [address] 01181- 1082 Sep, Diabetes E11.9 ; Osteoarthritis M19.90 ; HTN (hypertension) I10 ; History of postmenopausal HRT Z92.29 ; Joint pain M25.50 ; Fatigue R53.83 ; Depressed F32.9 ; Chronic diarrhea K52.9 ; Fibromyalgia M79.7 ; Primary insomnia F51.01 ; Environmental allergies Z91.09 and Exhaustion R53.83 [facility] [id number] [place] [address] 68952- 3102 Aug, Viral gastroenteritis A08.4 [facility] [id number] [place] [address] 42640- 0129 May, [facility] [id number] [place] [address] 20892- 2114 May, Bronchitis J40 ; Diabetes E11.9 and HTN (hypertension) I10 [facility] [id number] [place] [address] 05688- 5481 March, Joint pain M25.50 [facility] [id number] [place] [address] 79299- 6181 March, Diabetes E11.9 ; HTN (hypertension) I10 ; Osteoarthritis M19.90 ; History of postmenopausal HRT Z92.29 ; Joint pain M25.50 ; Fatigue R53.83 ; Depressed F32.9 ; Postmenopausal HRT (hormone replacement therapy) Z79.890 ; Fibromyalgia M79.7 ; Shoulder pain M25.519 ; Environmental allergies Z91.09 and Primary insomnia F51.01 [facility] [facility] [address] 99269- 3034 March, [facility] [address] 84400- 1220 Jan, [facility] [address] 55242- 7827 Jan, Joint pain M25.50 [facility] [address] 97035- 3830 Jan, 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 and Impingement syndrome, shoulder, left M75.42 [facility] [facility] [address] 68111- 9423 Dec, [facility] [address] 48836- 3542 Dec, [facility] [address] 48799- 2909 Dec, Joint pain M25.50 and Shoulder pain M25.519 [facility] [facility] [address] 28877- 2142 Dec, [facility] [address] 54983- 8579 Dec, [facility] [address] 54359- 6129 Dec, Upper respiratory infection J06.9 ; Shoulder pain, left M25.512 and Cold sore B00.1 [facility] [address] 65014- 7279 Dec, Shoulder pain, left M25.512 [facility] [id number] [place] [address] 29746- 2842 15 Dec, 2015 Left hip pain M25.552 ; HTN (hypertension) I10 ; Diabetes E11.9 ; Osteoarthritis M19.90 ; History of postmenopausal HRT Z92.29 ; Depressed F32.9 ; Postmenopausal HRT (hormone replacement therapy) Z79.890 ; Fibromyalgia M79.7 and Sciatica of left side M54.32 [facility] [address] 75272- 3919 02 Dec, 2015 HTN (hypertension) I10 ; Diabetes E11.9 ; Osteoarthritis M19.90 ; History of postmenopausal HRT Z92.29 ; Joint pain M25.50 ; Depressed F32.9 ; Chronic diarrhea K52.9 ; Postmenopausal HRT (hormone replacement therapy ) Z79.890 and Fibromyalgia M79.[address] [address]- 1139 Nov, [facility] [address] 67244- 7374 Oct, [facility] [address] 22244- 4097 Oct, Elevated glucose R73.[address] 35710- 3105 Oct, Elevated glucose R73.09 and Vitamin D deficiency E55.9 [place] [address] 60251- 1804 Oct, Diabetes E11.9 ; HTN (hypertension) I10 ; Osteoarthritis M19.90 ; History of postmenopausal HRT Z92.29 ; Joint pain M25.50 ; Fatigue R53.83 ; Depressed F32.9 ; Hypercholesteremia E78.0 and COPD (chronic obstructive pulmonary disease) J44.9 [place] [address] 83257- 2435 Aug, [facility] [address] [address] [address] Jul, Other specified menopausal and postmenopausal disorder 627.8 ; Obstructive chronic bronchitis, with (acute) exacerbation 491.21 ; Other and unspecified hyperlipidemia 272.4 ; Diarrhea 787.91 ; Diabetes mellitus without mention of complication, type II or unspecified type, not stated as uncontrolled 250.00 ; Hormone replacement therapy V07.4 ; Insomnia 780.52 ; Hypercholesterolemia 272.0 and Chronic pain 338.29 [facility] [id number] [place] [address] 76237- 4351 11 Jul, 2015 [facility] [id number] [place] [address] 72466- 1886 Apr, Unspecified breast screening V76.10 [facility] [id number] [place] [address] 17201- 2758 14 Jan, 2015 [facility] [id number] [place] [address] 77584- 0650 Jan, [facility] [id number] [place] [address] 97909- 5176 Dec, [facility] [id number] [place] [address] 44777- 3591 Dec, [facility] [id number] [place] [address] [id number]- 9746 Dec, [facility] [address] [place] [address] 32713- 4066 Dec, [facility] [id number] [place] [address] [id number]- 5563 Dec, [facility] [id number] [place] [address] 25915- 6981 Dec, [facility] [id number] [place] [address] 695676- 3936 Dec, [facility] [address] [place] [address] 35484- 3286 Dec, [facility] [place] [facility] [address] [id number] [place] [address]- 4977 Nov, [facility] [place] [facility] [address] [id number] [place] [address]- 2009 Nov, [facility] [place] [facility] [address] [id number] [place] [address]- 9200 Oct, [facility] [place] [facility] [address] [id number] [place] [address]- 8006 Oct, [facility] [place] [facility] [address] [id number] [place] [address]- 3460 Sep, [facility] [place] [facility] [address] [id number] [place] [address]- 2902 Sep, [facility] [place] [facility] [address] [id number] [place] [address]- 1105 Sep, [facility] [place] [facility] [address] [id number] [place] [address]- 9581 Sep, [facility] [place] [facility] [address] [id number] [place] [address]- 2352 May, [facility] [place] [facility] [address] [id number] [place] [address]- 6561 May, [facility] [place] [facility] [address] [id number] [place] [address]- 1987 May, [facility] [place] [facility] [address] [id number] [place] [address]- 9454 May, [facility] [place] [facility] [address] [id number] [place] [address]- 2180 Apr, [facility] [place] [facility] [address] [id number] [place] [address]- 8635 Apr, [facility] [place] [facility] [address] [id number] [place] [address]- 6193 Apr, [facility] [place] [facility] [address] [id number] [place] [address]- 7476 Apr, [facility] [place] [facility] [address] [id number] [place] [address] Apr, [facility] [place] [facility] [address] [id number] [place] [address]- 3719 Apr, [facility] [place] [facility] [address] [id number] [place] [address]- 2319 Apr, [facility] [place] [facility] [address] [id number] [place] [address]- 9359 March, [facility] [place] [facility] [address] [id number] [place] [address]- 5007 March, [facility] [place] [facility] [address] [id number] [place] [address]- 5527 March, [facility] [place] [facility] [address] [id number] [place] [address]- 6039 Dec, [facility] [place] [facility] [address] [id number] [place] [address]- 1731 Dec, [facility] [place] [facility] [address] [id number] [place] [address]- 2627 Nov, [facility] [place] [facility] [address] [id number] [place] [address]- 3565 Nov, [facility] [place] [facility] [address] [id number] [place] [address]- 3103 Nov, [facility] [place] [facility] [address] [id number] [place] [address]- 3010 Nov, [facility] [place] [facility] [address] [id number] [place] [address]- 7457 Sep, [facility] [place] [facility] [address] [id number] [place] [address]- 9047 Sep, [facility] [place] [facility] [address] [id number] [place] [address]- 2020 Jul, [facility] [place] [facility] [id number], [place] [address]- 0668 Jun, [facility] [address] [facility] [id number] [address]- 9501 Jun, [facility] [address] [facility] [id number], [place] [address]- 9306 Jun, [facility] [address] [facility] [id number], [place] [address]- 0347 Jun, [facility] [address] [facility] [id number], [place] [address]- 1917 Jun, [facility] [address] [facility] [id number], [place] [address]- 1467 Jun, [facility] [address] [facility] [id number], [place] [address]- 9345 May, [facility] [address], [place] [address]- 9296 May, [facility] [id number], [place] [address]- 8890 May, [facility] [id number], [place] [address]- 8288 May, [facility] [id number], [place] [address]- 2339 May, IMMUNIZATIONS No Known Immunizations SOCIAL HISTORY Never Assessed REASON FOR VISIT eye exam PLAN OF CARE VITAL SIGNS MEDICATIONS Unknown [...]
--- OUTSIDE RECORDS SUMMARY | 2018-11-20 21:34 | XMS REPORT ---
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 Active 287806322 Problem Moderate episode of recurrent major depressive disorder F33.1 Active 304442282 Problem Pain of left shoulder joint on movement M25.512 Active 588436068 Problem Mixed hyperlipidemia E78.2 Active 030317459 Problem Other chronic pain G89.29 Active 22640939 Problem Essential hypertension I10 Active 32968862 Problem Type 2 diabetes mellitus with unspecified complications E11.8 Active 37537834 Problem History of postmenopausal HRT Z92.29 Active 882535495 Problem Chronic diarrhea K52.9 Active 735134710 Problem Depressed F32.9 Active 19382035 Problem Fibromyalgia M79.7 Active 67914392 Problem Osteoarthritis M19.90 Active 120640953 Problem Primary insomnia F51.01 Active 8461430 Problem HTN (hypertension) I10 Active 27640807 Problem Environmental allergies Z91.09 Active 141742548 ALLERGIES No Information ENCOUNTERS Encounter Location Date Diagnosis [facility] [id number], [place] [address] Aug, [facility] [address], [place] [address] Jun, [facility] [address], [place] [address] 14 Jun, 2018 Type 2 diabetes mellitus with unspecified complications E11.8 [facility] [address], [place] [address] May, Diabetes E11.9 [facility] [address], [place] [address] May, Diabetes E11.9 [facility] [address], [place] [address] May, [facility] [address], [place] [address] May, [facility] [id number] [place] [address] 09072- 6390 May, Type 2 diabetes mellitus with unspecified complications E11.8 [facility] [id number] [place] [address] 28225- 8085 May, [facility] [id number] [place] [address]190 -[address]154 March, Pelvic pain R10.2 [facility] [id number] [place] [address] 62404- 5620 March, Type 2 diabetes mellitus with unspecified complications E11.8 ; Mixed hyperlipidemia E78.2 ; Essential hypertension I10 and Other chronic pain G89.29 [facility] [address] [place] [address] 85767- 7306 March, Pain of left shoulder joint on movement M25.512 ; Type 2 diabetes mellitus with unspecified complications E11.8 ; manager intermediate 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 ; Tobacco use Z72.0 and Moderate episode of recurrent major depressive disorder F33.1 [facility] [address], [place] [address] March, [facility] [id number] [place] [address] 22371- 2017 Jan, Type 2 diabetes mellitus with unspecified complications E11.8 ; Mixed hyperlipidemia E78.2 and Essential hypertension I10 [facility] [address] [place] [address] 18336- 7686 Dec, [facility] [id number] [place] [address] 99699- 7013 Nov, [facility] [address] [address]- 2361 Nov, Acute nasopharyngitis J00 [facility] [id number] [place] [address] 15817- 5846 Sep, group home 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 ; Type 2 diabetes mellitus with unspecified complications E11.8 ; Mixed hyperlipidemia E78.2 ; Essential hypertension I10 ; Pain in left shoulder M25.512 ; Other chronic pain G89.29 ; Tobacco use Z72.0 and Depressed F32.9 [facility] [address] [address]- [address] Sep, Encounter for immunization Z23 [facility] [address] [address]- 7079 Aug, Environmental allergies Z91.09 [facility] [address] 60662- 8958 Aug, [facility] [address] 64189- 6631 Jul, [facility] [id number] [place] [address] 52249- 3540 Jun, Diabetes E11.9 [facility] [address] 78290- 3823 Jun, Acute pain of left shoulder M25.512 [facility] [address] 33597- 3671 March, Diabetes E11.9 ; Abnormal chest xray R93.8 ; HTN ( hypertension) I10 ; Fibromyalgia M79.7 ; Primary insomnia F51.01 ; Osteoarthritis M19.90 ; Depressed F32.9 ; Postmenopausal HRT (hormone replacement therapy) Z79.890 ; Environmental allergies Z91.09 and Hyperlipidemia , unspecified hyperlipidemia type E78.5 [facility] [address] [place] [address] March, Diabetes E11.9 [facility] [id number] [place] [address] 56453- 5318 March, Diabetes E11.9 [facility] [id number] [place] [address] 66444- 8589 Jan, Diabetes E11.9 ; HTN (hypertension) I10 ; Fibromyalgia M79.7 ; Primary insomnia F51.01 ; Osteoarthritis M19.90 ; Depressed F32.9 ; Postmenopausal HRT (hormone replacement therapy) Z79.890 ; Environmental allergies Z91.09 ; Hyperlipidemia, unspecified hyperlipidemia type E78.5 and Abnormal chest xray R93.8 [facility] [id number] [place] [address] 72015- 4187 Jan, [facility] [id number] [place] [address] 66273- 4623 Sep, Diabetes E11.9 ; Osteoarthritis M19.90 ; HTN (hypertension) I10 ; History of postmenopausal HRT Z92.29 ; Joint pain M25.50 ; Fatigue R53.83 ; Depressed F32.9 ; Chronic diarrhea K52.9 ; Fibromyalgia M79.7 ; Primary insomnia F51.01 ; Environmental allergies Z91.09 and Exhaustion R53.83 [facility] [id number] [place] [address] 52257- 5956 Aug, Viral gastroenteritis A08.4 [facility] [id number] [place] [address] 78446- 9243 May, [facility] [id number] [place] [address] 86371- 3215 May, Bronchitis J40 ; Diabetes E11.9 and HTN (hypertension) I10 [facility] [id number] [place] [address] 53417- 3813 March, Joint pain M25.50 [facility] [id number] [place] [address] 19812- 4032 March, Diabetes E11.9 ; HTN (hypertension) I10 ; Osteoarthritis M19.90 ; History of postmenopausal HRT Z92.29 ; Joint pain M25.50 ; Fatigue R53.83 ; Depressed F32.9 ; Postmenopausal HRT (hormone replacement therapy) Z79.890 ; Fibromyalgia M79.7 ; Shoulder pain M25.519 ; Environmental allergies Z91.09 and Primary insomnia F51.01 [facility] [address] 8[address]32- [address] March, [facility] [address] 60135- 7824 Jan, [facility] [address] 06052- 5146 Jan, Joint pain M25.50 [facility] [address] 22956- 2014 Jan, 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 and Impingement syndrome, shoulder, left M75.42 [facility] [address] 50137- 3926 Dec, [facility] [address] 18135- 1007 Dec, [facility] [address] 51944- 8706 Dec, Joint pain M25.50 and Shoulder pain M25.519 [facility] [address] 15631- 1919 Dec, [facility] [address] 66511- 2385 Dec, [facility] [address] 70171- 2614 Dec, Upper respiratory infection J06.9 ; Shoulder pain, left M25.512 and Cold sore B00.1 [facility] [address] 26864- 9364 Dec, Shoulder pain, left M25.512 [facility] [id number] [place] [address] 19610- 4400 15 Dec, 2015 Left hip pain M25.552 ; HTN (hypertension) I10 ; Diabetes E11.9 ; Osteoarthritis M19.90 ; History of postmenopausal HRT Z92.29 ; Depressed F32.9 ; Postmenopausal HRT (hormone replacement therapy) Z79.890 ; Fibromyalgia M79.7 and Sciatica of left side M54.32 [facility] [address] 64135- 6038 02 Dec, 2015 HTN (hypertension) I10 ; Diabetes E11.9 ; Osteoarthritis M19.90 ; History of postmenopausal HRT Z92.29 ; Joint pain M25.50 ; Depressed F32.9 ; Chronic diarrhea K52.9 ; Postmenopausal HRT (hormone replacement therapy ) Z79.890 and Fibromyalgia M79.[address] [address]- 1712 Nov, [facility] [address] 70917- 9223 Oct, [facility] [address] 18157- 6723 Oct, Elevated glucose R73.[address] 44951- 6774 Oct, Elevated glucose R73.09 and Vitamin D deficiency E55.9 [facility] [address] 18519- 6110 Oct, Diabetes E11.9 ; HTN (hypertension) I10 ; Osteoarthritis M19.90 ; History of postmenopausal HRT Z92.29 ; Joint pain M25.50 ; Fatigue R53.83 ; Depressed F32.9 ; Hypercholesteremia E78.0 and COPD (chronic obstructive pulmonary disease) J44.9 [facility] [address] 05803- 0475 Aug, [facility] [address] [address] [address] Jul, Other specified menopausal and postmenopausal disorder 627.8 ; Obstructive chronic bronchitis, with (acute) exacerbation 491.21 ; Other and unspecified hyperlipidemia 272.4 ; Diarrhea 787.91 ; Diabetes mellitus without mention of complication, type II or unspecified type, not stated as uncontrolled 250.00 ; Hormone replacement therapy V07.4 ; Insomnia 780.52 ; Hypercholesterolemia 272.0 and Chronic pain 338.29 [facility] [id number] [place] [address] 24459- 0433 11 Jul, 2015 [facility] [id number] [place] [address] 73433- 0154 Apr, Unspecified breast screening V76.10 [facility] [id number] [place] [address] 09598- 3395 14 Jan, 2015 [facility] [id number] [place] [address] 13839- 1572 Jan, [facility] [id number] [place] [address] 78504- 2187 Dec, [facility] [id number] [place] [address] 45653- 4130 Dec, [facility] [id number] [place] [address] [id number]- 2946 Dec, [facility] [address] [place] [address] 46742- 1026 Dec, [facility] [id number] [place] [address] [id number]- 1847 Dec, [facility] [id number] [place] [address] 83207- 6975 Dec, [facility] [id number] [place] [address] 586914- 4146 Dec, [facility] [address] [place] [address] 34047- 8196 Dec, [facility] [place] [facility] [address] [id number] [place] [address]- 3066 Nov, [facility] [place] [facility] [address] [id number] [place] [address]- 2826 Nov, [facility] [place] [facility] [address] [id number] [place] [address]- 6843 Oct, [facility] [place] [facility] [address] [id number] [place] [address]- 7716 Oct, [facility] [place] [facility] [address] [id number] [place] [address]- 5072 Sep, [facility] [place] [facility] [address] [id number] [place] [address]- 8991 Sep, [facility] [place] [facility] [address] [id number] [place] [address]- 0449 Sep, [facility] [place] [facility] [address] [id number] [place] [address]- 7602 Sep, [facility] [place] [facility] [address] [id number] [place] [address]- 1758 May, [facility] [place] [facility] [address] [id number] [place] [address]- 4876 May, [facility] [place] [facility] [address] [id number] [place] [address]- 4140 May, [facility] [place] [facility] [address] [id number] [place] [address]- 1864 May, [facility] [place] [facility] [address] [id number] [place] [address]- 2336 Apr, [facility] [place] [facility] [address] [id number] [place] [address]- 1937 Apr, [facility] [place] [facility] [address] [id number] [place] [address]- 2768 Apr, [facility] [place] [facility] [address] [id number] [place] [address]- 5766 Apr, [facility] [place] [facility] [address] [id number] [place] 2435 Apr, [facility] [place] [facility] [address] [id number] [place] [address]- 2737 Apr, [facility] [place] [facility] [address] [id number] [place] [address]- 2955 Apr, [facility] [place] [facility] [address] [id number] [place] [address]- 6408 March, [facility] [place] [facility] [address] [id number] [place] [address]- 4857 March, [facility] [place] [facility] [address] [id number] [place] [address]- 9955 March, [facility] [place] [facility] [address] [id number] [place] [address]- 9005 Dec, [facility] [place] [facility] [address] [id number] [place] [address]- 7316 Dec, [facility] [place] [facility] [address] [id number] [place] [address]- 7901 Nov, [facility] [place] [facility] [address] [id number] [place] [address]- 4178 Nov, [facility] [place] [facility] [address] [id number] [place] [address]- 1116 Nov, [facility] [place] [facility] [address] [id number] [place] [address]- 5851 Nov, [facility] [place] [facility] [address] [id number] [place] [address]- 3117 Sep, [facility] [place] [facility] [address] [id number] [place] [address]- 7748 Sep, [facility] [place] [facility] [address] [id number] [place] [address]- 8319 Jul, [facility] [place] [facility] [id number], [place] [address]- 6018 Jun, [facility] [id number], [place] [address]- 8380 Jun, [facility] [address] [facility] [id number], [place] [address]- 0066 Jun, [facility] [id number], [place] [address]- 7307 Jun, [facility] [address] [facility] [id number], [place] [address]- 3327 Jun, [facility] [address], [place] [address]- 3122 Jun, [facility] [address], [place] [address]- 5880 May, [facility] [address], [place] [address]- 0013 May, [facility] [address], [place] [address]- 5616 May, [facility] [address], [place] [address]- 3481 May, [facility] [id number], [place] [address]- 0895 May, IMMUNIZATIONS No Known Immunizations SOCIAL HISTORY Never Assessed REASON FOR VISIT PALS- Victoza/Levemir PLAN OF CARE VITAL SIGNS MEDICATIONS Medication [...]
--- OUTSIDE RECORDS SUMMARY | 2018-11-20 21:34 | XMS REPORT ---
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 Active 479600302 Problem Moderate episode of recurrent major depressive disorder F33.1 Active 460657813 Problem Pain of left shoulder joint on movement M25.512 Active 002190367 Problem Mixed hyperlipidemia E78.2 Active 196120321 Problem Other chronic pain G89.29 Active 79135119 Problem Essential hypertension I10 Active 54677053 Problem Type 2 diabetes mellitus with unspecified complications E11.8 Active 10210207 Problem History of postmenopausal HRT Z92.29 Active 145244424 Problem Chronic diarrhea K52.9 Active 895265483 Problem Depressed F32.9 Active 84345667 Problem Fibromyalgia M79.7 Active 02364023 Problem Osteoarthritis M19.90 Active 509674081 Problem Primary insomnia F51.01 Active 9919037 Problem HTN (hypertension) I10 Active 07720858 Problem Environmental allergies Z91.09 Active 385197192 ALLERGIES No Information ENCOUNTERS Encounter Location Date Diagnosis [facility] [id number], [place] [address] Jul, [facility] [address], [place] [address] Jun, [facility] [address], [place] [address] 14 Jun, 2018 Type 2 diabetes mellitus with unspecified complications E11.8 [facility] [id number], [place] [address] May, Diabetes E11.9 [facility] [address], [place] [address] May, Diabetes E11.9 [facility] [address] [address] May, [facility] [address], [place] [address] May, [facility] [id number] [place] [address]267- 5206 May, Type 2 diabetes mellitus with unspecified complications E11.8 [facility] [id number] [place] [address] 28773- 2879 May, [facility] [id number] [place] [address] March, Pelvic pain R10.2 [facility] [id number] [place] [address] 59319- 4070 March, Type 2 diabetes mellitus with unspecified complications E11.8 ; Mixed hyperlipidemia E78.2 ; Essential hypertension I10 and Other chronic pain G89.29 [facility] [id number] [place] [address]3768- 2770 March, Pain of left shoulder joint on movement M25.512 ; Type 2 diabetes mellitus with unspecified complications E11.8 ; churn tender 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 ; Tobacco use Z72.0 and Moderate episode of recurrent major depressive disorder F33.1 [facility] [address], [place] [address] March, [facility] [id number] [place] [address] 68873- 1667 Jan, Type 2 diabetes mellitus with unspecified complications E11.8 ; Mixed hyperlipidemia E78.2 and Essential hypertension I10 [facility] [id number] [place] [address] 14639- 6242 Dec, [facility] [id number] [place] [address] 17225- 4915 Nov, [facility] [address] [address]- [address] Nov, Acute nasopharyngitis J00 [facility] [id number] [place] [address] 13152- 1454 Sep, skilled nursing 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 ; Type 2 diabetes mellitus with unspecified complications E11.8 ; Mixed hyperlipidemia E78.2 ; Essential hypertension I10 ; Pain in left shoulder M25.512 ; Other chronic pain G89.29 ; Tobacco use Z72.0 and Depressed F32.9 [facility] [address] [address]- [address] Sep, Encounter for immunization Z23 [facility] [address] [address] Aug, Environmental allergies Z91.09 [facility] [address] [address]- 8642 Aug, [facility] [address] [address]- 6973 Jul, [facility] [id number] [place] [address] 84422- 5167 Jun, Diabetes E11.9 [facility] [address] [address]- 1987 Jun, Acute pain of left shoulder M25.512 [facility] [address] [address]- 0127 March, Diabetes E11.9 ; Abnormal chest xray R93.8 ; HTN ( hypertension) I10 ; Fibromyalgia M79.7 ; Primary insomnia F51.01 ; Osteoarthritis M19.90 ; Depressed F32.9 ; Postmenopausal HRT (hormone replacement therapy) Z79.890 ; Environmental allergies Z91.09 and Hyperlipidemia , unspecified hyperlipidemia type E78.5 [facility] [address] [place] [address] March, Diabetes E11.9 [facility] [id number] [place] [address] 46636- 2583 March, Diabetes E11.9 [facility] [id number] [place] [address] 99712- 0295 Jan, Diabetes E11.9 ; HTN (hypertension) I10 ; Fibromyalgia M79.7 ; Primary insomnia F51.01 ; Osteoarthritis M19.90 ; Depressed F32.9 ; Postmenopausal HRT (hormone replacement therapy) Z79.890 ; Environmental allergies Z91.09 ; Hyperlipidemia, unspecified hyperlipidemia type E78.5 and Abnormal chest xray R93.8 [facility] [id number] [place] [address] 00774- 6112 Jan, [facility] [id number] [place] [address] 61300- 2697 Sep, Diabetes E11.9 ; Osteoarthritis M19.90 ; HTN (hypertension) I10 ; History of postmenopausal HRT Z92.29 ; Joint pain M25.50 ; Fatigue R53.83 ; Depressed F32.9 ; Chronic diarrhea K52.9 ; Fibromyalgia M79.7 ; Primary insomnia F51.01 ; Environmental allergies Z91.09 and Exhaustion R53.83 [facility] [id number] [place] [address] 52184- 9657 Aug, Viral gastroenteritis A08.4 [facility] [id number] [place] [address] 74919- 0722 May, [facility] [id number] [place] [address] 36511- 0323 May, Bronchitis J40 ; Diabetes E11.9 and HTN (hypertension) I10 [facility] [id number] [place] [address] 72827- 5131 March, Joint pain M25.50 [facility] [id number] [place] [address] 87235- 5606 March, Diabetes E11.9 ; HTN (hypertension) I10 ; Osteoarthritis M19.90 ; History of postmenopausal HRT Z92.29 ; Joint pain M25.50 ; Fatigue R53.83 ; Depressed F32.9 ; Postmenopausal HRT (hormone replacement therapy) Z79.890 ; Fibromyalgia M79.7 ; Shoulder pain M25.519 ; Environmental allergies Z91.09 and Primary insomnia F51.01 [place] [facility] [address] [address]- 8391 March, [facility] [address] 63322- 4504 Jan, [facility] [address] 84350- 0834 Jan, Joint pain M25.50 [facility] [facility] [address] 49046- 5329 Jan, 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 and Impingement syndrome, shoulder, left M75.42 [facility] [address] [address]44- 3093 Dec, [facility] [address] 29143- 7490 Dec, [facility] [address] 12623- 6253 Dec, Joint pain M25.50 and Shoulder pain M25.519 [facility] [address] 39963- 0656 Dec, [facility] [address] 23545- 5098 Dec, [facility] [address] 16371- 9174 Dec, Upper respiratory infection J06.9 ; Shoulder pain, left M25.512 and Cold sore B00.1 [facility] [address] [address]64- 5513 Dec, Shoulder pain, left M25.512 [facility] [id number] [place] [address] 34395- 2806 15 Dec, 2015 Left hip pain M25.552 ; HTN (hypertension) I10 ; Diabetes E11.9 ; Osteoarthritis M19.90 ; History of postmenopausal HRT Z92.29 ; Depressed F32.9 ; Postmenopausal HRT (hormone replacement therapy) Z79.890 ; Fibromyalgia M79.7 and Sciatica of left side M54.32 [facility] [address] 69558- 5358 02 Dec, 2015 HTN (hypertension) I10 ; Diabetes E11.9 ; Osteoarthritis M19.90 ; History of postmenopausal HRT Z92.29 ; Joint pain M25.50 ; Depressed F32.9 ; Chronic diarrhea K52.9 ; Postmenopausal HRT (hormone replacement therapy ) Z79.890 and Fibromyalgia M79.[address] [address]- [address] Nov, [facility] [address] 68038- 2114 Oct, [facility] [address] 85114- 9396 Oct, Elevated glucose R73.[address] [address]63- 0990 Oct, Elevated glucose R73.09 and Vitamin D deficiency E55.9 [facility] [address] 34523- 8368 Oct, Diabetes E11.9 ; HTN (hypertension) I10 ; Osteoarthritis M19.90 ; History of postmenopausal HRT Z92.29 ; Joint pain M25.50 ; Fatigue R53.83 ; Depressed F32.9 ; Hypercholesteremia E78.0 and COPD (chronic obstructive pulmonary disease) J44.9 [facility] [address] 62912- 4749 Aug, [facility] [address] [address] Jul, Other specified menopausal and postmenopausal disorder 627.8 ; Obstructive chronic bronchitis, with (acute) exacerbation 491.21 ; Other and unspecified hyperlipidemia 272.4 ; Diarrhea 787.91 ; Diabetes mellitus without mention of complication, type II or unspecified type, not stated as uncontrolled 250.00 ; Hormone replacement therapy V07.4 ; Insomnia 780.52 ; Hypercholesterolemia 272.0 and Chronic pain 338.29 [facility] [id number] [place] [address] 42733- 5415 11 Jul, 2015 [facility] [id number] [place] [address] 88051- 9777 Apr, Unspecified breast screening V76.10 [facility] [id number] [place] [address] 30703- 8136 14 Jan, 2015 [facility] [id number] [place] [address] 78718- 9457 Jan, [facility] [id number] [place] [address] 18998- 8509 Dec, [facility] [id number] [place] [address] 21026- 6411 Dec, [facility] [id number] [place] [address] 16764726- 1856 Dec, [facility] [id number] [place] [address] 13232- 4886 Dec, [facility] [id number] [place] [address] 90677242- 3325 Dec, [facility] [id number] [place] [address] 05612- 2809 Dec, [facility] [id number] [place] [address] 303927- 8246 Dec, [facility] [id number] [place] [address] 38445- 8896 Dec, [facility] [place] [facility] [address] [id number] [place] [address]- 9186 Nov, [facility] [place] [facility] [address] [id number] [place] [address]- 2818 Nov, [facility] [place] [facility] [address] [id number] [place] [address]- 0161 Oct, [facility] [place] [facility] [address] [id number] [place] [address]- 2264 Oct, [facility] [place] [facility] [address] [id number] [place] [address]- 2820 Sep, [facility] [place] [facility] [address] [id number] [place] [address]- 1430 Sep, [facility] [place] [facility] [address] [id number] [place] [address]- 8754 Sep, [facility] [place] [facility] [address] [id number] [place] [address]- 1528 Sep, [facility] [place] [facility] [address] [id number] [place] [address]- 3465 May, [facility] [place] [facility] [address] [id number] [place] [address]- 8329 May, [facility] [place] [facility] [address] [id number] [place] [address]- 1534 May, [facility] [place] [facility] [address] [id number] [place] [address]- 6345 May, [facility] [place] [facility] [address] [id number] [place] [address]- 7851 Apr, [facility] [place] [facility] [address] [id number] [place] [address]- 2619 Apr, [facility] [place] [facility] [address] [id number] [place] [address]- 5358 Apr, [facility] [place] [facility] [address] [id number] [place] [address]- 2376 Apr, [facility] [place] [facility] [address] [id number] [place] [address] Apr, [facility] [place] [facility] [address] [id number] [place] [address]- 9241 Apr, [facility] [place] [facility] [address] [id number] [place] [address]- 7682 Apr, [facility] [place] [facility] [address] [id number] [place] [address]- 0173 March, [facility] [place] [facility] [address] [id number] [place] [address]- 6663 March, [facility] [place] [facility] [address] [id number] [place] [address]- 9569 March, [facility] [place] [facility] [address] [id number] [place] [address]- 6100 Dec, [facility] [place] [facility] [address] [id number] [place] [address]- 4968 Dec, [facility] [place] [facility] [address] [id number] [place] [address]- 8923 Nov, [facility] [place] [facility] [address] [id number] [place] [address]- 4151 Nov, [facility] [place] [facility] [address] [id number] [place] [address]- 2393 Nov, [facility] [place] [facility] [address] [id number] [place] [address]- 4001 Nov, [facility] [place] [facility] [address] [id number] [place] [address]- 3051 Sep, [facility] [place] [facility] [address] [id number] [place] [address]- 5146 Sep, [facility] [place] [facility] [address] [id number] [place] [address]- 9883 Jul, [facility] [place] [facility] [id number], [place] [address]- 7095 Jun, [facility] [address] [facility] [id number] [address]- 8774 Jun, [facility] [address] [facility] [id number], [place] [address]- 0229 Jun, [facility] [address] [facility] [id number], [place] [address]- 1674 Jun, [facility] [address] [facility] [id number], [place] [address]- 3339 Jun, [facility] [address] [facility] [id number], [place] [address]- 8589 Jun, [facility] [address] [facility] [id number], [place] [address]- 4551 May, [facility] [address], [place] [address]- 5349 May, [facility] [id number], [place] [address]- 4361 May, [facility] [id number], [place] [address]- 5220 May, [facility] [id number], [place] [address]- 9968 May, IMMUNIZATIONS No Known Immunizations SOCIAL HISTORY Never Assessed REASON FOR VISIT Medical Letter PLAN OF CARE VITAL SIGNS MEDICATIONS Unknown [...]
--- OUTSIDE RECORDS SUMMARY | 2018-11-20 21:34 | XMS REPORT ---
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 Active 904290635 Problem Moderate episode of recurrent major depressive disorder F33.1 Active 722939035 Problem Pain of left shoulder joint on movement M25.512 Active 308671582 Problem Mixed hyperlipidemia E78.2 Active 727052106 Problem Other chronic pain G89.29 Active 81200789 Problem Essential hypertension I10 Active 70446878 Problem Type 2 diabetes mellitus with unspecified complications E11.8 Active 33314169 Problem History of postmenopausal HRT Z92.29 Active 223510397 Problem Chronic diarrhea K52.9 Active 069061110 Problem Depressed F32.9 Active 20968534 Problem Fibromyalgia M79.7 Active 56665989 Problem Osteoarthritis M19.90 Active 311369687 Problem Primary insomnia F51.01 Active 1803343 Problem HTN (hypertension) I10 Active 29421256 Problem Environmental allergies Z91.09 Active 916070670 ALLERGIES Substance Reaction Event Type Date Status Sulfamethoxazole-Trimethoprim Unknown Drug Allergy March, Active Pravastatin Sodium Myalgias/takes med anyway Drug Allergy March, Active ENCOUNTERS Encounter Location Date Diagnosis [facility] [address] [facility] [id number] [address] 17 Jul, 2018 [facility] [address] [facility] [id number], [place] [address] Jun, [facility] [address] [facility] [id number], [place] [address] Jun, Type 2 diabetes mellitus with unspecified complications E11.8 [facility] [address], [place] [address] May, Diabetes E11.9 [facility] [id number] [place] [address] 15638- 9180 May, Diabetes E11.9 [facility] [id number] [place] [address] 62669- 8136 May, [facility] [id number] [place] [address] 12843- 7761 May, [facility] [id number] [place] [address] 43220- 5541 May, Type 2 diabetes mellitus with unspecified complications E11.8 [facility] [id number] [place] [address] 90783- 4999 May, [facility] [id number] [place] [address] 87788 -8868 March, Pelvic pain R10.2 [facility] [id number] [place] [address] 69537- 8956 March, Type 2 diabetes mellitus with unspecified complications E11.8 ; Mixed hyperlipidemia E78.2 ; Essential hypertension I10 and Other chronic pain G89.29 [place] [id number] [place] [address] 83413- 0731 March, Pain of left shoulder joint on movement M25.512 ; Type 2 diabetes mellitus with unspecified complications E11.8 ; [facility] 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 ; Tobacco use Z72.0 and Moderate episode of recurrent major depressive disorder F33.1 [facility] [id number] [place] [address] 64063- 2570 March, [facility] [id number] [place] [address] 34862- 4487 Jan, Type 2 diabetes mellitus with unspecified complications E11.8 ; Mixed hyperlipidemia E78.2 and Essential hypertension I10 [place] [id number] [place] [address] 25164- 5508 Dec, [place] [address] 23792- 0867 Nov, [place] [address] [id number] [place] [address] 75869- 2111 Nov, Acute nasopharyngitis J00 [place] [id number] [place] [address] 08894- 1848 Sep, 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 ; Type 2 diabetes mellitus with unspecified complications E11.8 ; Mixed hyperlipidemia E78.2 ; Essential hypertension I10 ; Pain in left shoulder M25.512 ; Other chronic pain G89.29 ; Tobacco use Z72.0 and Depressed F32.9 [place] [address] [id number] [place] [address] 37874- 1412 10 Sep, 2017 Encounter for immunization Z23 [place] [id number] [place] [address] 84654- 3724 11 Aug, 2017 Environmental allergies Z91.09 [place] [address] 96157- 0072 Aug, [place] [address] [id number] [place] [address] 59719- 7751 Jul, [place] [id number] [place] [address] 96059- 5391 Jun, Diabetes E11.9 [place] [address] [id number] [place] [address] 68567- 7913 Jun, Acute pain of left shoulder M25.512 [place] [address] 01968- 1232 March, Diabetes E11.9 ; Abnormal chest xray R93.8 ; HTN ( hypertension) I10 ; Fibromyalgia M79.7 ; Primary insomnia F51.01 ; Osteoarthritis M19.90 ; Depressed F32.9 ; Postmenopausal HRT (hormone replacement therapy) Z79.890 ; Environmental allergies Z91.09 and Hyperlipidemia , unspecified hyperlipidemia type E78.5 [place] [id number] [place] [address] 94240- 1076 March, Diabetes E11.9 [place] [id number] [place] [address] 32996- 8471 March, Diabetes E11.9 [place] [address] 71277- 4348 Jan, Diabetes E11.9 ; HTN (hypertension) I10 ; Fibromyalgia M79.7 ; Primary insomnia F51.01 ; Osteoarthritis M19.90 ; Depressed F32.9 ; Postmenopausal HRT (hormone replacement therapy) Z79.890 ; Environmental allergies Z91.09 ; Hyperlipidemia, unspecified hyperlipidemia type E78.5 and Abnormal chest xray R93.8 [place] [id number] [place] [address] 59077- 7276 Jan, [place] [id number] [place] [address] 84479- 3515 Sep, Diabetes E11.9 ; Osteoarthritis M19.90 ; HTN (hypertension) I10 ; History of postmenopausal HRT Z92.29 ; Joint pain M25.50 ; Fatigue R53.83 ; Depressed F32.9 ; Chronic diarrhea K52.9 ; Fibromyalgia M79.7 ; Primary insomnia F51.01 ; Environmental allergies Z91.09 and Exhaustion R53.83 [place] [address] [address] [id number] [place] [address] 89674- 8212 Aug, Viral gastroenteritis A08.4 [place] [address] [id number] [place] [address] 98821- 2140 May, [place] [id number] [place] [address] 71531- 3689 May, Bronchitis J40 ; Diabetes E11.9 and HTN (hypertension) I10 [place] [id number] [place] [address] 78821- 1991 March, Joint pain M25.50 [facility] [id number] [place] [address] 82343- 1404 March, Diabetes E11.9 ; HTN (hypertension) I10 ; Osteoarthritis M19.90 ; History of postmenopausal HRT Z92.29 ; Joint pain M25.50 ; Fatigue R53.83 ; Depressed F32.9 ; Postmenopausal HRT (hormone replacement therapy) Z79.890 ; Fibromyalgia M79.7 ; Shoulder pain M25.519 ; Environmental allergies Z91.09 and Primary insomnia F51.01 [facility] [address] 67386- 6277 March, [place] [address] 03809- 8136 Jan, [place] [address] 02383- 0544 Jan, Joint pain M25.50 [place] [address] 10804- 0510 Jan, 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 and Impingement syndrome, shoulder, left M75.42 [place] [address] 51799- 0905 Dec, [place] [address] [id number] [place] [address] 21907- 4772 Dec, [place] [address] [address] [id number] [place] [address] 45992- 1236 Dec, Joint pain M25.50 and Shoulder pain M25.519 [place] [address] [address] [id number] [place] [address] 48319- 1994 Dec, [place] [address] 34992- 7413 Dec, [place] [address] 05939- 6111 03 Jan, 2016 Upper respiratory infection J06.9 ; Shoulder pain, left M25.512 and Cold sore B00.1 [place] [address] [address] [id number] [place] [address] 29310- 4403 29 Dec, 2015 Shoulder pain, left M25.512 [place] [address] [address] [id number] [place] [address] 12469- 0993 15 Dec, 2015 Left hip pain M25.552 ; HTN (hypertension) I10 ; Diabetes E11.9 ; Osteoarthritis M19.90 ; History of postmenopausal HRT Z92.29 ; Depressed F32.9 ; Postmenopausal HRT (hormone replacement therapy) Z79.890 ; Fibromyalgia M79.7 and Sciatica of left side M54.32 [place] [address] 60288- 6701 02 Dec, 2015 HTN (hypertension) I10 ; Diabetes E11.9 ; Osteoarthritis M19.90 ; History of postmenopausal HRT Z92.29 ; Joint pain M25.50 ; Depressed F32.9 ; Chronic diarrhea K52.9 ; Postmenopausal HRT (hormone replacement therapy ) Z79.890 and Fibromyalgia M79.7 [place] [address] [address] [id number] [place] [address] 47430- 1298 Nov, [place] [address] 56786- 1540 Oct, [place] [address] [id number] [place] [address] 33896- 2560 Oct, Elevated glucose R73.09 [place] [address] [address] [id number] [place] [address] 12372- 9681 Oct, Elevated glucose R73.09 and Vitamin D deficiency E55.9 [place] [address] [address] [id number] [place] [address] 64532- 7138 Oct, Diabetes E11.9 ; HTN (hypertension) I10 ; Osteoarthritis M19.90 ; History of postmenopausal HRT Z92.29 ; Joint pain M25.50 ; Fatigue R53.83 ; Depressed F32.9 ; Hypercholesteremia E78.0 and COPD (chronic obstructive pulmonary disease) J44.9 [place] [address] [id number] [address] 16 Aug, 2015 [facility] [id number] [place] [address] 23313- 9588 11 Jul, 2015 Other specified menopausal and postmenopausal disorder 627.8 ; Obstructive chronic bronchitis, with (acute) exacerbation 491.21 ; Other and unspecified hyperlipidemia 272.4 ; Diarrhea 787.91 ; Diabetes mellitus without mention of complication, type II or unspecified type, not stated as uncontrolled 250.00 ; Hormone replacement therapy V07.4 ; Insomnia 780.52 ; Hypercholesterolemia 272.0 and Chronic pain 338.29 [facility] [id number] [place] [address] 04555- 2390 11 Jul, 2015 [place] [address] [id number] [place] [address] 33575- 5386 Apr, Unspecified breast screening V76.10 [place] [address] [id number] [place] [address] 38284- 5823 14 Jan, 2015 [facility] [id number] [place] [address] 53910- 2610 13 Jan, 2015 [facility] [id number] [place] [address] 47908- 0917 Dec, [facility] [id number] [place] [address] 73761- 8771 Dec, [facility] [id number] [place] [address] 01265- 1986 Dec, [facility] [id number] [place] [address] 23588- 1306 Dec, [facility] [id number] [place] [address] 18508- 9630 Dec, [facility] [id number] [place] [address] 23173- 5686 Dec, [facility] [id number] [place] [address] 94989- 0889 Dec, [facility] [place] [facility] [address] [id number] [place] [address]- 8154 Dec, [facility] [place] [facility] [address] [id number] [place] [address]- 1088 Nov, [facility] [place] [facility] [address] [id number] [place] [address] Nov, [facility] [place] [facility] [address] [id number] [place] [address]- 5217 Oct, [facility] [place] [facility] [address] [id number] [place] [address]- 9361 Oct, [facility] [place] [facility] [address] [id number] [place] [address]- 1801 Sep, [facility] [place] [facility] [address] [id number] [place] [address]- 7101 Sep, [facility] [place] [facility] [address] [id number] [place] [address]- 7442 Sep, [facility] [place] [facility] [address] [id number] [place] [address]- 3925 Sep, [facility] [place] [facility] [address] [id number] [place] [address]- 1891 May, [facility] [place] [facility] [address] [id number] [place] [address]- 3727 May, [facility] [place] [facility] [address] [id number], [place] [address]- 7633 May, [facility] [place] [facility] [address] [id number] [place] [address]- 9412 May, [facility] [place] [facility] [address] [id number] [place] [address]- 7208 Apr, [facility] [place] [facility] [address] [id number] [place] [address]- 5548 Apr, [facility] [place] [facility] [address] [id number] [place] [address]- 8335 Apr, [facility] [place] [facility] [address] [id number] [place] [address]- 0918 Apr, [facility] [place] [facility] [address] [id number] [place] [address]- 0506 Apr, [facility] [place] [facility] [address] [id number] [place] [address]- 8169 Apr, [facility] [place] [facility] [address] [id number] [place] [address]- 0878 Apr, [facility] [place] [facility] [address] [id number] [place] [address]- 4578 March, [facility] [place] [facility] [address] [id number] [place] [address]- 9308 March, [facility] [place] [facility] [address] [id number] [place] [address]- 8397 March, [facility] [place] [facility] [address] [id number] [place] [address]- 4952 Dec, [facility] [place] [facility] [address] [id number] [place] [address]- 8988 Dec, [facility] [place] [facility] [address] [id number] [place] [address]- 2668 Nov, [facility] [place] [facility] [address] [id number] [place] [address]- 3508 Nov, [facility] [place] [facility] [address] [id number] [place] [address]- 9154 Nov, [facility] [place] [facility] [address] [id number] [place] [address]- 2002 Nov, [facility] [place] [facility] [address] [id number] [place] [address] Sep, [facility] [place] [facility] [address] [id number] [place] [address]- 2773 Sep, [facility] [place] [facility] [address] [facility] [id number][place] [address]16 Jul, [facility] [address] [address]- 9177 Jun, [facility] [address] [facility] [id number][place] 1511 Jun, [facility] [address] [facility] [id number], [place] [address]- 9484 Jun, [facility] [address] [facility] [id number], [place] [address]- 0907 Jun, [facility] [id number] [place] [address] 18020- 9029 Jun, [facility] [address], [place] [address]- 8353 Jun, [facility] [address], [place] [address]- 2433 May, [facility] [address], [place] [address]- 1922 May, [facility] [address], [place] [address]- 7704 May, [facility] [address], [place] [address]- 5902 May, [facility] [id number] [address]- 6616 May, IMMUNIZATIONS No Known Immunizations SOCIAL HISTORY Never Assessed REASON FOR VISIT Abdominal pain Pt c/o lower abdominal pain since yesterday with pain after urination PLAN OF CARE Activity Details Follow Up prn Reason: VITAL SIGNS Height 64 in 2018-04-01 Weight 164.8 lbs 2018-04-01 Temperature 96.9 degrees Fahrenheit 2018-04-01 Heart Rate 88 bpm 2018-04-01 Respiratory Rate 20 2018-04-01 BMI 28.28 kg/m2 2018-04-01 Blood pressure systolic 126 mmHg 2018-04-01 Blood pressure diastolic 76 mmHg 2018-04-01 MEDICATIONS Medication Instructions Dosage Frequency Start Date End Date Duration Status Glucocard Expression Monitor w/Device as directed Jul, Active Metformin HCl 1000 MG Orally 2 times a day TAKE ONE TABLET BY MOUTH TWICE DAILY WITH MEALS 12h 30 Active NyQuil Not-Taking Levemir FlexTouch 100 UNIT/ML Subcutaneous Once a day inject 50 units 24h March, 90 days Active Celexa 40 MG Orally Once a day 1 tablet 24h 30 days Active Pyridium 200 mg Orally Three times a day 1 tablet after meals 8h March, Apr, 03 days Active Meloxicam 15 mg Orally daily TAKE ONE TABLET BY MOUTH ONCE DAILY 24h Active Montelukast Sodium 10 mg TAKE ONE TABLET BY MOUTH ONCE DAILY (MUST HAVE APPOINTMENT FOR REFILL) 30 Active NovoFine 32G X 6 MM subcutaneously 2 times a day as directed 12h Jun, 90 days Active Pravastatin Sodium 40 mg Orally Once a day TAKE ONE TABLET BY MOUTH AT BEDTIME (AVOID GRAPEFRUIT JUICE) 24h Active GlipiZIDE ER 5 mg Orally Once a day TAKE ONE TABLET BY MOUTH ONCE DAILY 24h Active Gabapentin 100 mg Orally Three times a day 1 capsule 8h March, Active Macrobid 100 mg Orally every 12 hrs 1 capsule with food 12h March, Apr, 7 day(s) Active Glucocard Expression Test - subcutaneously 3 times a day to check blood sugar 8h Jul, Active Mucinex 600 MG Orally every 12 hrs 1 tablet as needed 12h Not- Taking Lisinopril 5 mg Orally daily TAKE ONE TABLET BY MOUTH ONCE DAILY 24h Active Victoza 18 MG/3ML Subcutaneous Once a day 1.8 24h 90 days Active Premarin 0.3 MG TAKE ONE TABLET BY MOUTH ONCE DAILY (MUST HAVE APPOINTMENT FOR REFILL) Active RESULTS No Results PROCEDURES Procedure Date Ordered Result Body Site URINALYSIS, AUTO, W/O SCOPE April 01, 2018 URINE CULTURE/COLONY COUNT April 01, 2018 INSTRUCTIONS MEDICATIONS ADMINISTERED No Known Medications [...]
--- OUTSIDE RECORDS SUMMARY | 2018-11-20 21:35 | XMS REPORT ---
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 Active 179858281 Problem Moderate episode of recurrent major depressive disorder F33.1 Active 993626242 Problem Pain of left shoulder joint on movement M25.512 Active 999998381 Problem Mixed hyperlipidemia E78.2 Active 607353299 Problem Other chronic pain G89.29 Active 45545228 Problem Essential hypertension I10 Active 14874594 Problem Type 2 diabetes mellitus with unspecified complications E11.8 Active 42531123 Problem History of postmenopausal HRT Z92.29 Active 214176231 Problem Chronic diarrhea K52.9 Active 573611605 Problem Depressed F32.9 Active 30572951 Problem Fibromyalgia M79.7 Active 41164523 Problem Osteoarthritis M19.90 Active 477463526 Problem Primary insomnia F51.01 Active 4453488 Problem HTN (hypertension) I10 Active 77165284 Problem Environmental allergies Z91.09 Active 930580985 ALLERGIES Substance Reaction Event Type Date Status Sulfamethoxazole-Trimethoprim Unknown Drug Allergy March, Active Pravastatin Sodium Myalgias/takes med anyway Drug Allergy March, Active ENCOUNTERS Encounter Location Date Diagnosis [facility] [address] [facility] [id number] [address] Jul, [facility] [address] [id number], [place] [address] 15 Jun, 2018 [facility] [address] [facility] [id number], [place] [address] Jun, Type 2 diabetes mellitus with unspecified complications E11.8 [facility] [address], [place] [address] May, Diabetes E11.9 [facility] [address], [place] [address] May, Diabetes E11.9 [facility] [id number] [place] [address] 22593- 1686 May, [facility] [id number] [place] [address] 60781- 5572 May, [facility] [id number] [place] [address] 90571- 5247 May, Type 2 diabetes mellitus with unspecified complications E11.8 [place] [address] [id number] [address] May, [facility] [id number] [place] [address]7067 -3380 March, Pelvic pain R10.2 [facility] [id number] [place] [address] 06985- 4070 March, Type 2 diabetes mellitus with unspecified complications E11.8 ; Mixed hyperlipidemia E78.2 ; Essential hypertension I10 and Other chronic pain G89.29 [place] [address], [place] [address] March, Pain of left shoulder joint on movement M25.512 ; Type 2 diabetes mellitus with unspecified complications E11.8 ; 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 ; Tobacco use Z72.0 and Moderate episode of recurrent major depressive disorder F33.1 [facility] [id number] [place] [address] 89795- 9813 March, [facility] [address], [place] [address] 18[address] Jan, Type 2 diabetes mellitus with unspecified complications E11.8 ; Mixed hyperlipidemia E78.2 and Essential hypertension I10 [place] [id number] [place] [address] 00124- 1891 Dec, [place] [address] [address]- 4471 Nov, [place] [id number] [place] [address] 71930- 0059 Nov, Acute nasopharyngitis J00 [place] [address] 06672- 9633 Sep, 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 ; Type 2 diabetes mellitus with unspecified complications E11.8 ; Mixed hyperlipidemia E78.2 ; Essential hypertension I10 ; Pain in left shoulder M25.512 ; Other chronic pain G89.29 ; Tobacco use Z72.0 and Depressed F32.9 [place] [id number] [place] [address] 49143- 9328 Sep, Encounter for immunization Z23 [place] [address] [address]- 9307 Aug, Environmental allergies Z91.09 [place] [address] 04713- 5178 Aug, [place] [id number] [place] [address] 78588- 0543 Jul, [place] [id number] [place] [address] 48897- 9084 Jun, Diabetes E11.9 [place] [id number] [place] [address] 28753- 6749 Jun, Acute pain of left shoulder M25.512 [place] [address] 37096- 0758 March, Diabetes E11.9 ; Abnormal chest xray R93.8 ; HTN ( hypertension) I10 ; Fibromyalgia M79.7 ; Primary insomnia F51.01 ; Osteoarthritis M19.90 ; Depressed F32.9 ; Postmenopausal HRT (hormone replacement therapy) Z79.890 ; Environmental allergies Z91.09 and Hyperlipidemia , unspecified hyperlipidemia type E78.5 [place] [id number] [place] [address] 29654- 8502 March, Diabetes E11.9 [place] [id number] [place] [address] 93683- 4122 March, Diabetes E11.9 [place] [address] 38979- 8512 Jan, Diabetes E11.9 ; HTN (hypertension) I10 ; Fibromyalgia M79.7 ; Primary insomnia F51.01 ; Osteoarthritis M19.90 ; Depressed F32.9 ; Postmenopausal HRT (hormone replacement therapy) Z79.890 ; Environmental allergies Z91.09 ; Hyperlipidemia, unspecified hyperlipidemia type E78.5 and Abnormal chest xray R93.8 [place] [id number] [place] [address] 20026- 4869 Jan, [place] [id number] [place] [address] 56542- 6701 Sep, Diabetes E11.9 ; Osteoarthritis M19.90 ; HTN (hypertension) I10 ; History of postmenopausal HRT Z92.29 ; Joint pain M25.50 ; Fatigue R53.83 ; Depressed F32.9 ; Chronic diarrhea K52.9 ; Fibromyalgia M79.7 ; Primary insomnia F51.01 ; Environmental allergies Z91.09 and Exhaustion R53.83 [place] [id number] [place] [address] 33627- 4473 Aug, Viral gastroenteritis A08.4 [place] [id number] [place] [address] 65820- 3372 May, [place] [id number] [place] [address] 01403- 3619 May, Bronchitis J40 ; Diabetes E11.9 and HTN (hypertension) I10 [place] [id number] [place] [address] 52548- 1579 March, Joint pain M25.50 [place] [id number] [place] [address] 76295- 7095 March, Diabetes E11.9 ; HTN (hypertension) I10 ; Osteoarthritis M19.90 ; History of postmenopausal HRT Z92.29 ; Joint pain M25.50 ; Fatigue R53.83 ; Depressed F32.9 ; Postmenopausal HRT (hormone replacement therapy) Z79.890 ; Fibromyalgia M79.7 ; Shoulder pain M25.519 ; Environmental allergies Z91.09 and Primary insomnia F51.01 [place] [address] 82356- 5999 March, [place] [address] 06295- 4738 Jan, [place] [address] 75744- 0017 Jan, Joint pain M25.50 [place] [address] 07443- 6103 Jan, 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 and Impingement syndrome, shoulder, left M75.42 [place] [address] 39611- 6603 Dec, [place] [address] 53777- 3139 Dec, [place] [address] 25759- 9913 Dec, Joint pain M25.50 and Shoulder pain M25.519 [place] [id number] [place] [address] 87928- 8566 Dec, [place] [address] 46558- 5758 Dec, [place] [address] 97847- 3090 03 Jan, 2016 Upper respiratory infection J06.9 ; Shoulder pain, left M25.512 and Cold sore B00.1 [place] [address] [place] [address] 79083- 2456 29 Dec, 2015 Shoulder pain, left M25.512 [place] [id number] [place] [address] 91796- 8886 15 Dec, 2015 Left hip pain M25.552 ; HTN (hypertension) I10 ; Diabetes E11.9 ; Osteoarthritis M19.90 ; History of postmenopausal HRT Z92.29 ; Depressed F32.9 ; Postmenopausal HRT (hormone replacement therapy) Z79.890 ; Fibromyalgia M79.7 and Sciatica of left side M54.32 [place] [id number] [place] [address] 95656- 9157 02 Dec, 2015 HTN (hypertension) I10 ; Diabetes E11.9 ; Osteoarthritis M19.90 ; History of postmenopausal HRT Z92.29 ; Joint pain M25.50 ; Depressed F32.9 ; Chronic diarrhea K52.9 ; Postmenopausal HRT (hormone replacement therapy ) Z79.890 and Fibromyalgia M79.7 [place] [id number] [place] [address] 04883- 2222 Nov, [place] [id number] [place] [address] 96076- 4941 Oct, [place] [id number] [place] [address] 34652- 9926 Oct, Elevated glucose R73.09 [place] [id number] [place] [address] 04683- 8231 Oct, Elevated glucose R73.09 and Vitamin D deficiency E55.9 [place] [id number] [place] [address] 04052- 8083 Oct, Diabetes E11.9 ; HTN (hypertension) I10 ; Osteoarthritis M19.90 ; History of postmenopausal HRT Z92.29 ; Joint pain M25.50 ; Fatigue R53.83 ; Depressed F32.9 ; Hypercholesteremia E78.0 and COPD (chronic obstructive pulmonary disease) J44.9 [place] [address] [place] [address]- [address]86 16 Aug, 2015 [facility] [address] [place] [address] 62329- 9963 11 Jul, 2015 Other specified menopausal and postmenopausal disorder 627.8 ; Obstructive chronic bronchitis, with (acute) exacerbation 491.21 ; Other and unspecified hyperlipidemia 272.4 ; Diarrhea 787.91 ; Diabetes mellitus without mention of complication, type II or unspecified type, not stated as uncontrolled 250.00 ; Hormone replacement therapy V07.4 ; Insomnia 780.52 ; Hypercholesterolemia 272.0 and Chronic pain 338.29 [facility] [id number] [place] [address] 03985- 9898 11 Jul, 2015 [facility] [id number] [place] [address] 00980- 3409 11 Apr, 2015 Unspecified breast screening V76.10 [place] [id number] [place] [address] 19890- 3181 14 Jan, 2015 [facility] [address] [place] [address] 39764- 3543 Jan, [facility] [id number] [place] [address] 86083- 6168 Dec, [facility] [address], [place] [address]- 1716 Dec, [facility] [address], [place] [address]- 8956 Dec, [facility] [address], [place] [address]- 2546 Dec, [facility] [address] [place] [address] 76484- 0056 Dec, [facility] [address], [place] [address]- 6526 Dec, [facility] [address] [place] [address] 46748- 3966 Dec, [facility] [place] [facility] [address] [id number] [place] [address]- 5931 Dec, [facility] [place] [facility] [address] [id number] [place] [address]- 1750 Nov, [facility] [place] [facility] [address] [id number] [place] [address]- 7058 Nov, [facility] [place] [facility] [address] [id number] [place] [address]- 9249 Oct, [facility] [place] [facility] [address] [id number] [place] [address]90 Oct, [facility] [place] [facility] [address] [id number] [place] [address]- 2065 Sep, [facility] [place] [facility] [address] [id number] [place] [address]- 6163 Sep, [facility] [place] [facility] [address] [id number] [place] [address]- 7339 Sep, [facility] [place] [facility] [address] [id number] [place] [address]- 2883 Sep, [facility] [place] [facility] [address] [id number] [place] [address]- 5868 May, [facility] [place] [facility] [address] [id number] [place] [address]- 5807 May, [facility] [place] [facility] [address] [id number] [place] [address]- 8710 May, [facility] [place] [facility] [address] [id number] [place] [address]- 4648 May, [facility] [place] [facility] [address] [id number] [place] [address]- 2701 Apr, [facility] [place] [facility] [address] [id number] [place] [address]- 2329 Apr, [facility] [place] [facility] [address] [id number] [place] [address]- 1769 Apr, [facility] [place] [facility] [address] [id number] [place] [address]- 4859 Apr, [facility] [place] [facility] [address] [id number] [place] [address]- 3331 Apr, [facility] [place] [facility] [address] [id number] [place] [address]- 5113 Apr, [facility] [place] [facility] [address] [id number] [place] [address]- 8321 Apr, [facility] [place] [facility] [address] [id number] [place] [address]- 1411 March, [facility] [place] [facility] [address] [id number] [place] [address]- 1622 March, [facility] [place] [facility] [address] [id number] [place] [address]- 0133 March, [facility] [place] [facility] [address] [id number] [place] [address]- 0023 Dec, [facility] [place] [facility] [address] [id number] [place] [address]- 4862 Dec, [facility] [place] [facility] [address] [id number] [place] [address]- 0152 Nov, [facility] [place] [facility] [address] [id number] [place] [address]- 4956 Nov, [facility] [place] [facility] [address] [id number] [place] [address]- 2255 Nov, [facility] [place] [facility] [address] [id number] [place] [address]- 5711 Nov, [facility] [place] [facility] [address] [id number] [place] [address]- 8834 Sep, [facility] [place] [facility] [address] [id number] [place] [address]- 0805 Sep, [facility] [place] [facility] [address] [id number], [place] [address]- 3127 Jul, [facility] [address], [place] [address]- 1368 Jun, [facility] [address], [place] [address]- 6395 Jun, [facility] [address], [place] [address]- 9053 Jun, [facility] [address], [place] [address]- 0997 Jun, [facility] [address], [place] [address]- 2078 Jun, [facility] [address], [place] [address]- 0485 Jun, [facility] [address], [place] [address]- 3001 May, [facility] [address], [place] [address]- 3157 May, [facility] [address], [place] [address]- 4673 May, [facility] [address] [place] [address]- 7610 May, [facility] [id number], [place] [address]- 5443 May, IMMUNIZATIONS No Known Immunizations SOCIAL HISTORY Never Assessed REASON FOR VISIT hospital f/u , pain on left shoulder -- jac mike PLAN OF CARE Activity Details Follow Up Has KAVON mahoney appt with Lexy Reason: VITAL SIGNS Height 64 in 2018-03-23 Weight 168.0 lbs 2018-03-23 Temperature 98.0 degrees Fahrenheit 2018-03-23 Heart Rate 80 bpm 2018-03-23 Respiratory Rate 20 2018-03-23 BMI 28.83 kg/m2 2018-03-23 Blood pressure systolic 138 mmHg 2018-03-23 Blood pressure diastolic 86 mmHg 2018-03-23 MEDICATIONS Medication Instructions Dosage Frequency Start Date End Date Duration Status Levemir FlexTouch 100 UNIT/ML Subcutaneous Once a day inject 50 units 24h March, 90 days Active Meloxicam 15 mg Orally daily TAKE ONE TABLET BY MOUTH ONCE DAILY 24h 30 Active Pravastatin Sodium 40 mg Orally Once a day TAKE ONE TABLET BY MOUTH AT BEDTIME (AVOID GRAPEFRUIT JUICE) 24h 30 Active GlipiZIDE ER 5 mg Orally Once a day TAKE ONE TABLET BY MOUTH ONCE DAILY 24h 30 Active NyQuil Active Glucocard Expression Test - subcutaneously 3 times a day to check blood sugar 8h Jul, Active Glucocard Expression Monitor w/Device as directed Jul, Active Lisinopril 5 mg Orally daily TAKE ONE TABLET BY MOUTH ONCE DAILY 24h 30 Active Montelukast Sodium 10 MG TAKE ONE TABLET BY MOUTH ONCE DAILY (MUST HAVE APPOINTMENT FOR REFILL) 30 Active Premarin 0.3 MG TAKE ONE TABLET BY MOUTH ONCE DAILY (MUST HAVE APPOINTMENT FOR REFILL) 30 Active Celexa 40 MG Orally Once a day 1 tablet 24h 30 days Active Mucinex 600 MG Orally every 12 hrs 1 tablet as needed 12h Active Metformin HCl 1000 MG Orally 2 times a day TAKE ONE TABLET BY MOUTH TWICE DAILY WITH MEALS 12h 30 Active NovoFine 32G X 6 MM subcutaneously 2 times a day as directed 12h Jun, 90 days Active Victoza 18 MG/3ML Subcutaneous Once a day 1.8 24h 90 days Active Gabapentin 100 mg Orally Three times a day 1 capsule 8h March, Active RESULTS Name Result Date Reference Range Xray : Shoulder, Left 2 view (IN HOUSE) 2018-03-23 PROCEDURES Procedure Date Ordered Result Body Site X-RAY EXAM OF SHOULDER March 23, 2018 INSTRUCTIONS MEDICATIONS ADMINISTERED No Known Medications [...]
--- OUTSIDE RECORDS SUMMARY | 2018-11-20 21:35 | XMS REPORT ---
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 176818833 Problem Moderate episode of recurrent major depressive disorder F33.1 Active 062180739 Problem Pain of left shoulder joint on movement M25.512 Active 037826881 Problem Mixed hyperlipidemia E78.2 Active 103517148 Problem Other chronic pain G89.29 Active 95928644 Problem Essential hypertension I10 Active 67255011 Problem Type 2 diabetes mellitus with unspecified complications E11.8 Active 93860995 Problem History of postmenopausal HRT Z92.29 Active 218820103 Problem Chronic diarrhea K52.9 Active 314558275 Problem Depressed F32.9 Active 00933178 Problem Fibromyalgia M79.7 Active 57391885 Problem Osteoarthritis M19.90 Active 399030977 Problem Primary insomnia F51.01 Active 4494669 Problem HTN (hypertension) I10 Active 34117257 Problem Environmental allergies Z91.09 Active 103163400 ALLERGIES No Information ENCOUNTERS Encounter Location Date Diagnosis [facility] [id number], [place] [address] Jul, [facility] [address] [address] Jun, [facility] [address], [place] [address] 14 Jun, 2018 Type 2 diabetes mellitus with unspecified complications E11.8 [facility] [id number], [place] [address] May, Diabetes E11.9 [facility] [address] [address] May, Diabetes E11.9 [facility] [address] [address] May, [facility] [address], [place] [address] May, [facility] [id number] [place] [address]52- 8699 May, Type 2 diabetes mellitus with unspecified complications E11.8 [place] [id number] [place] [address] 64605- 3116 May, [facility] [address] [place] [address] March, Pelvic pain R10.2 [place] [id number] [place] [address] 16663- 1139 March, Type 2 diabetes mellitus with unspecified complications E11.8 ; Mixed hyperlipidemia E78.2 ; Essential hypertension I10 and Other chronic pain G89.29 [place] [address] [place] [address] 07451- 0674 March, Pain of left shoulder joint on movement M25.512 ; Type 2 diabetes mellitus with unspecified complications E11.8 ; 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 ; Tobacco use Z72.0 and Moderate episode of recurrent major depressive disorder F33.1 [place] [address], [place] [address] March, [facility] [id number] [place] [address] 40705- 0162 Jan, Type 2 diabetes mellitus with unspecified complications E11.8 ; Mixed hyperlipidemia E78.2 and Essential hypertension I10 [place] [address] [place] [address] 99414- 4954 Dec, [place] [id number] [place] [address] 48816- 6535 Nov, [place] [address] [address]06- 6777 Nov, Acute nasopharyngitis J00 [place] [id number] [place] [address] 42619- 2193 Sep, [facility] 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 ; Type 2 diabetes mellitus with unspecified complications E11.8 ; Mixed hyperlipidemia E78.2 ; Essential hypertension I10 ; Pain in left shoulder M25.512 ; Other chronic pain G89.29 ; Tobacco use Z72.0 and Depressed F32.9 [place] [address] [address]- [address] Sep, Encounter for immunization Z23 [place] [address] [address]- 4989 Aug, Environmental allergies Z91.09 [place] [address] 71190- 5767 Aug, [place] [address] 97013- 7329 Jul, [place] [id number] [place] [address] 86516- 5697 Jun, Diabetes E11.9 [place] [address] 83091- 0301 Jun, Acute pain of left shoulder M25.512 [place] [address] 74314- 5567 March, Diabetes E11.9 ; Abnormal chest xray R93.8 ; HTN ( hypertension) I10 ; Fibromyalgia M79.7 ; Primary insomnia F51.01 ; Osteoarthritis M19.90 ; Depressed F32.9 ; Postmenopausal HRT (hormone replacement therapy) Z79.890 ; Environmental allergies Z91.09 and Hyperlipidemia , unspecified hyperlipidemia type E78.5 [place] [address] [place] [address] 6170 March, Diabetes E11.9 [place] [id number] [place] [address] 85854- 4237 March, Diabetes E11.9 [place] [id number] [place] [address] 15272- 8630 Jan, Diabetes E11.9 ; HTN (hypertension) I10 ; Fibromyalgia M79.7 ; Primary insomnia F51.01 ; Osteoarthritis M19.90 ; Depressed F32.9 ; Postmenopausal HRT (hormone replacement therapy) Z79.890 ; Environmental allergies Z91.09 ; Hyperlipidemia, unspecified hyperlipidemia type E78.5 and Abnormal chest xray R93.8 [place] [id number] [place] [address] 08725- 4021 Jan, [place] [id number] [place] [address] 01244- 6509 Sep, Diabetes E11.9 ; Osteoarthritis M19.90 ; HTN (hypertension) I10 ; History of postmenopausal HRT Z92.29 ; Joint pain M25.50 ; Fatigue R53.83 ; Depressed F32.9 ; Chronic diarrhea K52.9 ; Fibromyalgia M79.7 ; Primary insomnia F51.01 ; Environmental allergies Z91.09 and Exhaustion R53.83 [place] [id number] [place] [address] 56939- 4688 Aug, Viral gastroenteritis A08.4 [place] [id number] [place] [address] 74772- 6397 May, [place] [id number] [place] [address] 05666- 0263 May, Bronchitis J40 ; Diabetes E11.9 and HTN (hypertension) I10 [place] [id number] [place] [address] 81407- 4584 March, Joint pain M25.50 [place] [id number] [place] [address] 71567- 8068 March, Diabetes E11.9 ; HTN (hypertension) I10 ; Osteoarthritis M19.90 ; History of postmenopausal HRT Z92.29 ; Joint pain M25.50 ; Fatigue R53.83 ; Depressed F32.9 ; Postmenopausal HRT (hormone replacement therapy) Z79.890 ; Fibromyalgia M79.7 ; Shoulder pain M25.519 ; Environmental allergies Z91.09 and Primary insomnia F51.01 [place] [address] [address]- [address] March, [place] [address] 89798- 9919 Jan, [place] [address] 54643- 8874 Jan, Joint pain M25.50 [place] [address] 89554- 2866 Jan, 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 and Impingement syndrome, shoulder, left M75.42 [place] [address] 35043- 5447 Dec, [place] [address] 08971- 1247 Dec, [place] [address] 14344- 2110 Dec, Joint pain M25.50 and Shoulder pain M25.519 [place] [address] 75241- 3327 Dec, [place] [address] 18630- 1010 Dec, [place] [address] 22022- 9304 Dec, Upper respiratory infection J06.9 ; Shoulder pain, left M25.512 and Cold sore B00.1 [place] [address] 91035- 2649 Dec, Shoulder pain, left M25.512 [place] [id number] [place] [address] 32813- 1631 15 Dec, 2015 Left hip pain M25.552 ; HTN (hypertension) I10 ; Diabetes E11.9 ; Osteoarthritis M19.90 ; History of postmenopausal HRT Z92.29 ; Depressed F32.9 ; Postmenopausal HRT (hormone replacement therapy) Z79.890 ; Fibromyalgia M79.7 and Sciatica of left side M54.32 [place] [address] 45501- 9439 02 Dec, 2015 HTN (hypertension) I10 ; Diabetes E11.9 ; Osteoarthritis M19.90 ; History of postmenopausal HRT Z92.29 ; Joint pain M25.50 ; Depressed F32.9 ; Chronic diarrhea K52.9 ; Postmenopausal HRT (hormone replacement therapy ) Z79.890 and Fibromyalgia M79.[address] [address]181- 2675 Nov, [place] [address] 75145- 3418 Oct, [place] [address] 23424- 8411 Oct, Elevated glucose R73.[address] 29537- 9470 Oct, Elevated glucose R73.09 and Vitamin D deficiency E55.9 [place] [address] 29104- 8610 Oct, Diabetes E11.9 ; HTN (hypertension) I10 ; Osteoarthritis M19.90 ; History of postmenopausal HRT Z92.29 ; Joint pain M25.50 ; Fatigue R53.83 ; Depressed F32.9 ; Hypercholesteremia E78.0 and COPD (chronic obstructive pulmonary disease) J44.9 [place] [address] 67825- 1398 Aug, [place] [address] [address] Jul, Other specified menopausal and postmenopausal disorder 627.8 ; Obstructive chronic bronchitis, with (acute) exacerbation 491.21 ; Other and unspecified hyperlipidemia 272.4 ; Diarrhea 787.91 ; Diabetes mellitus without mention of complication, type II or unspecified type, not stated as uncontrolled 250.00 ; Hormone replacement therapy V07.4 ; Insomnia 780.52 ; Hypercholesterolemia 272.0 and Chronic pain 338.29 [facility] [id number] [place] [address] 62158- 5277 11 Jul, 2015 [facility] [id number] [place] [address] 16922- 3843 Apr, Unspecified breast screening V76.10 [facility] [id number] [place] [address] 55331- 9063 14 Jan, 2015 [facility] [id number] [place] [address] 31466- 0981 Jan, [facility] [id number] [place] [address] 68682- 4046 Dec, [facility] [id number] [place] [address] 04417- 8879 Dec, [facility] [id number] [place] [address] 01391414- 8356 Dec, [facility] [address] [place] [address] 88706- 0146 Dec, [facility] [id number] [place] [address] 48028247- 5876 Dec, [facility] [id number] [place] [address] 54140- 2676 Dec, [facility] [id number] [place] [address] 016326- 6326 Dec, [facility] [address] [place] [address] 03117- 7766 Dec, [facility] [place] [facility] [address] [id number] [place] [address]- 6532 Nov, [facility] [place] [facility] [address] [id number] [place] [address]- 2204 Nov, [facility] [place] [facility] [address] [id number] [place] [address]- 2579 Oct, [facility] [place] [facility] [address] [id number] [place] [address]- 8928 Oct, [facility] [place] [facility] [address] [id number] [place] [address]- 3645 Sep, [facility] [place] [facility] [address] [id number] [place] [address]- 6333 Sep, [facility] [place] [facility] [address] [id number] [place] [address]- 3980 Sep, [facility] [place] [facility] [address] [id number] [place] [address]- 8340 Sep, [facility] [place] [facility] [address] [id number] [place] [address]- 6399 May, [facility] [place] [facility] [address] [id number] [place] [address]- 7464 May, [facility] [place] [facility] [address] [id number] [place] [address]- 4077 May, [facility] [place] [facility] [address] [id number] [place] [address]- 3743 May, [facility] [place] [facility] [address] [id number] [place] [address]- 6459 Apr, [facility] [place] [facility] [address] [id number] [place] [address]- 5458 Apr, [facility] [place] [facility] [address] [id number] [place] [address]- 2468 Apr, [facility] [place] [facility] [address] [id number] [place] [address]- 2886 Apr, [facility] [place] [facility] [address] [id number] [place] [address]79 Apr, [facility] [place] [facility] [address] [id number] [place] [address]- 8594 Apr, [facility] [place] [facility] [address] [id number] [place] [address]- 7473 Apr, [facility] [place] [facility] [address] [id number] [place] [address]- 9539 March, [facility] [place] [facility] [address] [id number] [place] [address]- 3665 March, [facility] [place] [facility] [address] [id number] [place] [address]- 6395 March, [facility] [place] [facility] [address] [id number] [place] [address]- 8298 Dec, [facility] [place] [facility] [address] [id number] [place] [address]- 5428 Dec, [facility] [place] [facility] [address] [id number] [place] [address]- 3792 Nov, [facility] [place] [facility] [address] [id number] [place] [address]- 6692 Nov, [facility] [place] [facility] [address] [id number] [place] [address]- 5442 Nov, [facility] [place] [facility] [address] [id number] [place] [address]- 1069 Nov, [facility] [place] [facility] [address] [id number] [place] [address]- 8130 Sep, [facility] [place] [facility] [address] [id number] [place] [address]- 0782 Sep, [facility] [place] [facility] [address] [id number] [place] [address]- 5446 Jul, [facility] [place] [facility] [id number] [address]- 4764 Jun, [facility] [address] [facility] [id number] [address]- 2418 Jun, [facility] [address] [facility] [id number], [place] [address]- 5190 Jun, [facility] [address] [facility] [id number], [place] [address]- 0017 Jun, [facility] [address] [facility] [id number], [place] [address]- 2604 Jun, [facility] [address] [facility] [id number], [place] [address]- 1834 Jun, [facility] [address] [facility] [id number], [place] [address]- 4022 May, [facility] [address], [place] [address]- 8219 May, [facility] [address], [place] [address]- 6401 May, [facility] [address], [place] [address]- 3606 May, [facility] [id number], [place] [address]- 0373 May, IMMUNIZATIONS No Known Immunizations SOCIAL HISTORY Never Assessed REASON FOR VISIT Requests return call PLAN OF CARE VITAL SIGNS MEDICATIONS Medication Instructions Dosage Frequency Start Date End Date Duration Status Montelukast Sodium 10 mg TAKE ONE TABLET BY MOUTH ONCE DAILY (MUST HAVE APPOINTMENT FOR REFILL) 30 Active Premarin 0.3 MG TAKE ONE TABLET BY MOUTH ONCE DAILY (MUST HAVE APPOINTMENT FOR REFILL) Active Pravastatin Sodium 40 mg Orally Once a day TAKE ONE TABLET BY MOUTH AT BEDTIME (AVOID GRAPEFRUIT JUICE) 24h Active Metformin HCl 1000 MG Orally 2 times a day TAKE ONE TABLET BY MOUTH TWICE DAILY WITH MEALS 12h 30 Active Lisinopril 5 mg Orally daily TAKE ONE TABLET BY MOUTH ONCE DAILY 24h Active Meloxicam 15 mg Orally daily TAKE ONE TABLET BY MOUTH ONCE DAILY 24h Active GlipiZIDE ER 5 mg Orally Once a day TAKE ONE TABLET BY MOUTH ONCE DAILY 24h Active RESULTS No Results PROCEDURES No Known [...]
--- OUTSIDE RECORDS SUMMARY | 2018-11-20 21:36 | XMS REPORT ---
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 818816434 Problem Moderate episode of recurrent major depressive disorder F33.1 Active 183774595 Problem Pain of left shoulder joint on movement M25.512 Active 971530603 Problem Mixed hyperlipidemia E78.2 Active 458788052 Problem Other chronic pain G89.29 Active 39415260 Problem Essential hypertension I10 Active 02245960 Problem Type 2 diabetes mellitus with unspecified complications E11.8 Active 67386872 Problem History of postmenopausal HRT Z92.29 Active 976316837 Problem Chronic diarrhea K52.9 Active 579415688 Problem Depressed F32.9 Active 96056285 Problem Fibromyalgia M79.7 Active 04931339 Problem Osteoarthritis M19.90 Active 753997987 Problem Primary insomnia F51.01 Active 0035129 Problem HTN (hypertension) I10 Active 73117292 Problem Environmental allergies Z91.09 Active 844427401 ALLERGIES No Information ENCOUNTERS Encounter Location Date Diagnosis [facility] [address] [facility] [id number] [address] Jun, [facility] [id number] [address] May, [facility] [id number] [address] May, [facility] [id number] [address] May, Type 2 diabetes mellitus with unspecified complications E11.8 [facility] [address] [address] May, [facility] [id number] [place] [address]111 March, Pelvic pain R10.2 [facility] [id number] [place] [address] 39761- 7124 March, Type 2 diabetes mellitus with unspecified complications E11.8 ; Mixed hyperlipidemia E78.2 ; Essential hypertension I10 and Other chronic pain G89.29 [facility] [id number] [place] [address] 86357- 5324 March, Pain of left shoulder joint on movement M25.512 ; Type 2 diabetes mellitus with unspecified complications E11.8 ; 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 ; Tobacco use Z72.0 and Moderate episode of recurrent major depressive disorder F33.1 [place] [id number] [place] [address] 18441- 6698 March, [facility] [id number] [place] [address] 86461- 3218 Jan, Type 2 diabetes mellitus with unspecified complications E11.8 ; Mixed hyperlipidemia E78.2 and Essential hypertension I10 [facility] [id number] [place] [address] 99789- 9196 Dec, [facility] [id number] [place] [address] 79139- 0101 Nov, [facility] [id number] [place] [address] 91681- 8444 Nov, Acute nasopharyngitis J00 [place] [id number] [place] [address] 70665- 8355 Sep, jail 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 ; Type 2 diabetes mellitus with unspecified complications E11.8 ; Mixed hyperlipidemia E78.2 ; Essential hypertension I10 ; Pain in left shoulder M25.512 ; Other chronic pain G89.29 ; Tobacco use Z72.0 and Depressed F32.9 [place] [address] [address] 10 Sep, 2017 Encounter for immunization Z23 [place] [id number] [place] [address] 59559- 9444 11 Aug, 2017 Environmental allergies Z91.09 [place] [id number] [place] [address] 21941- 2770 Aug, [place] [id number] [place] [address] 63400- 4470 Jul, [place] [id number] [place] [address] 20399- 5955 Jun, Diabetes E11.9 [place] [id number] [place] [address] 38018- 8221 Jun, Acute pain of left shoulder M25.512 [place] [id number] [place] [address] 75901- 5068 March, Diabetes E11.9 ; Abnormal chest xray R93.8 ; HTN ( hypertension) I10 ; Fibromyalgia M79.7 ; Primary insomnia F51.01 ; Osteoarthritis M19.90 ; Depressed F32.9 ; Postmenopausal HRT (hormone replacement therapy) Z79.890 ; Environmental allergies Z91.09 and Hyperlipidemia , unspecified hyperlipidemia type E78.5 [place] [address] [address]34 March, Diabetes E11.9 [place] [id number] [place] [address] 78211- 3080 March, Diabetes E11.9 [place] [id number] [place] [address] 62675- 4018 Jan, Diabetes E11.9 ; HTN (hypertension) I10 ; Fibromyalgia M79.7 ; Primary insomnia F51.01 ; Osteoarthritis M19.90 ; Depressed F32.9 ; Postmenopausal HRT (hormone replacement therapy) Z79.890 ; Environmental allergies Z91.09 ; Hyperlipidemia, unspecified hyperlipidemia type E78.5 and Abnormal chest xray R93.8 [place] [id number] [place] [address] 31514- 2248 Jan, [place] [address] 61416- 8331 Sep, Diabetes E11.9 ; Osteoarthritis M19.90 ; HTN (hypertension) I10 ; History of postmenopausal HRT Z92.29 ; Joint pain M25.50 ; Fatigue R53.83 ; Depressed F32.9 ; Chronic diarrhea K52.9 ; Fibromyalgia M79.7 ; Primary insomnia F51.01 ; Environmental allergies Z91.09 and Exhaustion R53.83 [place] [address] [address]304- 5115 Aug, Viral gastroenteritis A08.[address] [address]59- [address]267 May, [address] [address]00- 6430 May, Bronchitis J40 ; Diabetes E11.9 and HTN (hypertension) I10 [address] 24891- 9120 March, Joint pain M25.50 [place] [id number] [place] [address] 44576- 6645 March, Diabetes E11.9 ; HTN (hypertension) I10 ; Osteoarthritis M19.90 ; History of postmenopausal HRT Z92.29 ; Joint pain M25.50 ; Fatigue R53.83 ; Depressed F32.9 ; Postmenopausal HRT (hormone replacement therapy) Z79.890 ; Fibromyalgia M79.7 ; Shoulder pain M25.519 ; Environmental allergies Z91.09 and Primary insomnia F51.[address] 62[address]- 8215 March, [address] 03536- 8685 Jan, [place] [id number] [place] [address] 24650- 1651 Jan, Joint pain M25.50 [place] [id number] [place] [address] 97832- 0223 Jan, 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 and Impingement syndrome, shoulder, left M75.42 [place] [id number] [place] [address] 54431- 5294 Dec, [place] [id number] [place] [address] 45839- 9423 Dec, [place] [address] 71559- 3210 Dec, Joint pain M25.50 and Shoulder pain M25.519 [place] [id number] [place] [address] 98724- 1800 Dec, [place] [id number] [place] [address] 26976- 5603 Dec, [place] [id number] [place] [address] 70189- 2638 Dec, Upper respiratory infection J06.9 ; Shoulder pain, left M25.512 and Cold sore B00.1 [place] [id number] [place] [address] 35101- 5244 Dec, Shoulder pain, left M25.512 [place] [id number] [place] [address] 73192- 4027 15 Dec, 2015 Left hip pain M25.552 ; HTN (hypertension) I10 ; Diabetes E11.9 ; Osteoarthritis M19.90 ; History of postmenopausal HRT Z92.29 ; Depressed F32.9 ; Postmenopausal HRT (hormone replacement therapy) Z79.890 ; Fibromyalgia M79.7 and Sciatica of left side M54.32 [place] [id number] [place] [address] 17715- 0865 02 Dec, 2015 HTN (hypertension) I10 ; Diabetes E11.9 ; Osteoarthritis M19.90 ; History of postmenopausal HRT Z92.29 ; Joint pain M25.50 ; Depressed F32.9 ; Chronic diarrhea K52.9 ; Postmenopausal HRT (hormone replacement therapy ) Z79.890 and Fibromyalgia M79.7 [place] [id number] [place] [address] 01344- 1315 Nov, [address] 20810- 6503 Oct, [address] 36883- 9204 Oct, Elevated glucose R73.[address] 63317- 8714 Oct, Elevated glucose R73.09 and Vitamin D deficiency E55.[address] 04304- 0101 Oct, Diabetes E11.9 ; HTN (hypertension) I10 ; Osteoarthritis M19.90 ; History of postmenopausal HRT Z92.29 ; Joint pain M25.50 ; Fatigue R53.83 ; Depressed F32.9 ; Hypercholesteremia E78.0 and COPD (chronic obstructive pulmonary disease) J44.9 [place] [id number] [place] [address] 04727- 6152 Aug, [place] [id number] [place] [address] 74527- 8958 Jul, Other specified menopausal and postmenopausal disorder 627.8 ; Obstructive chronic bronchitis, with (acute) exacerbation 491.21 ; Other and unspecified hyperlipidemia 272.4 ; Diarrhea 787.91 ; Diabetes mellitus without mention of complication, type II or unspecified type, not stated as uncontrolled 250.00 ; Hormone replacement therapy V07.4 ; Insomnia 780.52 ; Hypercholesterolemia 272.0 and Chronic pain 338.29 [place] [id number] [place] [address] 10516- 8859 Jul, [address] [place] [address]- 9672 Apr, Unspecified breast screening V76.10 [facility] [address] [facility] [id number] [place] [address]- 0388 14 Jan, 2015 [facility] [address] [facility] [id number] [place] [address]- 6779 Jan, [facility] [address] [facility] [id number] [place] [address]- 0868 Dec, [facility] [address] [facility] [id number] [place] [address]- 7087 Dec, [facility] [address] [facility] [id number] [place] [address]- 4026 Dec, [facility] [id number] [place] [address]- 2819 Dec, [facility] [address] [place] [address]- 4114 Dec, [facility] [id number] [place] [address]- 9954 Dec, [facility] [address] [place] [address]- 7970 Dec, [facility] [id number] [place] [address]- 8440 Dec, [facility] [address] [facility] [id number] [place] [address]- 6611 Nov, [facility] [address] [facility] [id number] [place] [address] Nov, [facility] [address] [facility] [id number] [place] [address]706 Oct, [facility] [place] [facility] [address] [facility] [id number] [place] [address]75 Oct, [facility] [id number] [address]- 9619 Sep, [facility] [place] [facility] [address] [id number] [place] [address]- 9939 Sep, [facility] [place] [facility] [address] [id number] [place] [address] Sep, [facility] [place] [facility] [address] [id number] [place] [address]- 2796 Sep, [facility] [place] [facility] [address] [id number] [place] [address]- 0792 May, [facility] [place] [facility] [address] [id number] [place] [address]- 9308 May, [facility] [place] [facility] [address] [id number] [place] [address]- 7914 May, [facility] [place] [facility] [address] [id number] [place] [address]- 2110 May, [facility] [place] [facility] [address] [id number] [place] [address]- 3427 Apr, [facility] [place] [facility] [address] [id number] [place] [address]- 5891 Apr, [facility] [place] [facility] [address] [id number] [place] [address]- 0386 Apr, [facility] [place] [facility] [address] [id number] [place] [address]- 7475 Apr, [facility] [place] [facility] [address] [id number] [place] [address]- 5709 Apr, [facility] [place] [facility] [address] [id number] [place] [address]- 9240 Apr, [facility] [place] [facility] [address] [id number] [place] [address]- 5075 Apr, [facility] [place] [facility] [address] [id number] [place] [address]- 3399 March, [facility] [place] [facility] [address] [id number] [place] [address]- 4288 March, [facility] [address] [id number] [place] [address]- 5787 March, [facility] [place] [facility] [address] [id number] [place] [address] 2546 Dec, [facility] [address] [id number] [place] [address]- 9340 Dec, [facility] [place] [facility] [address] [id number] [place] [address]- 7853 Nov, [facility] [address] [id number] [place] [address]- 8890 Nov, [facility] [address] [id number] [place] [address]- 8985 Nov, [facility] [address] [id number] [place] [address]- 7581 Nov, [facility] [address] [id number] [place] [address]- 2409 Sep, [facility] [address] [id number] [place] [address]- 0694 Sep, [facility] [address] [id number] [place] [address]- 5547 Jul, [facility] [place] [facility] [address] [id number] [place] [address]- 2072 Jun, [facility] [place] [facility] [address] [id number] [place] [address]- 8329 Jun, [facility] [place] [facility] [address] [id number] [place] [address]- 7417 Jun, [facility] [place] [facility] [address] [id number] [place] [address]- 3656 Jun, [facility] [place] [facility] [address] [id number] [place] [address]- 9054 Jun, [facility] [address] [facility] [id number] [place] [address]- 2356 Jun, [facility] [address] [facility] [id number] [place] [address]- 3267 May, [facility] [address] [facility] [id number] [place] [address]- 3976 May, [facility] [address] [facility] [id number] [place] [address]- 3923 May, [facility] [address] [facility] [id number] [place] [address]- 9477 May, [facility] [address] [facility] [id number] [place] [address]- 4216 May, IMMUNIZATIONS No Known Immunizations SOCIAL HISTORY Never Assessed REASON FOR VISIT Lab (walk-in) PLAN OF CARE VITAL SIGNS MEDICATIONS Unknown Medications RESULTS No Results PROCEDURES Procedure Date Ordered Result Body Site LIPID PANEL February 01, 2018 ASSAY OF URINE CREATININE February 01, 2018 VENIPUNCT, ROUTINE* February 01, 2018 COMPREHEN METABOLIC PANEL February 01, 2018 MICROALBUMIN, QUANTITATIVE February 01, 2018 Hemoglobin Test Send Out 0 dollar February 01, 2018 COMPLETE CBC W/AUTO DIFF WBC February 01, 2018 INSTRUCTIONS MEDICATIONS ADMINISTERED No Known [...]
--- OUTSIDE RECORDS SUMMARY | 2018-11-20 21:36 | XMS REPORT ---
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 Active 876398547 Problem Moderate episode of recurrent major depressive disorder F33.1 Active 695988333 Problem Pain of left shoulder joint on movement M25.512 Active 413664490 Problem Mixed hyperlipidemia E78.2 Active 371634510 Problem Other chronic pain G89.29 Active 54952383 Problem Essential hypertension I10 Active 62251481 Problem Type 2 diabetes mellitus with unspecified complications E11.8 Active 29250200 Problem History of postmenopausal HRT Z92.29 Active 006631893 Problem Chronic diarrhea K52.9 Active 513997315 Problem Depressed F32.9 Active 14462251 Problem Fibromyalgia M79.7 Active 81252396 Problem Osteoarthritis M19.90 Active 064847138 Problem Primary insomnia F51.01 Active 4802619 Problem HTN (hypertension) I10 Active 46910128 Problem Environmental allergies Z91.09 Active 037130369 ALLERGIES No Information ENCOUNTERS Encounter Location Date Diagnosis [facility] [id number] [address] Jul, [facility] [id number] [address] May, Diabetes E11.9 [facility] [address] [address] May, Diabetes E11.9 [facility] [id number] [address] May, [facility] [id number] [address] May, [facility] [id number] [place] [address] May, Type 2 diabetes mellitus with unspecified complications E11.8 [facility] [id number] [place] [address] May, [facility] [id number] [place] [address] March, Pelvic pain R10.2 [facility] [facility] [id number] [place] [address] March, Type 2 diabetes mellitus with unspecified complications E11.8 ; Mixed hyperlipidemia E78.2 ; Essential hypertension I10 and Other chronic pain G89.29 [facility] [id number] [place] [address] 48[address] March, Pain of left shoulder joint on movement M25.512 ; Type 2 diabetes mellitus with unspecified complications E11.8 ; 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 ; Tobacco use Z72.0 and Moderate episode of recurrent major depressive disorder F33.1 [facility] [address] [address] March, [facility] [id number] [place] [address]- 56[address] Jan, Type 2 diabetes mellitus with unspecified complications E11.8 ; Mixed hyperlipidemia E78.2 and Essential hypertension I10 [facility] [address] [address] Dec, [facility] [id number] [place] [address]695- 8886 Nov, [facility] [address] [address] Nov, Acute nasopharyngitis J00 [facility] [id number] [place] [address]- 0155 Sep, 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 ; Type 2 diabetes mellitus with unspecified complications E11.8 ; Mixed hyperlipidemia E78.2 ; Essential hypertension I10 ; Pain in left shoulder M25.512 ; Other chronic pain G89.29 ; Tobacco use Z72.0 and Depressed F32.9 [place] [address] [address] Sep, Encounter for immunization Z23 [place] [address] [address] Aug, Environmental allergies Z91.09 [facility] [address] [address] Aug, [facility] [address] [address] Jul, [facility] [address] [address] Jun, Diabetes E11.9 [place] [address] [address] Jun, Acute pain of left shoulder M25.512 [facility] [address] [address] March, Diabetes E11.9 ; Abnormal chest xray R93.8 ; HTN ( hypertension) I10 ; Fibromyalgia M79.7 ; Primary insomnia F51.01 ; Osteoarthritis M19.90 ; Depressed F32.9 ; Postmenopausal HRT (hormone replacement therapy) Z79.890 ; Environmental allergies Z91.09 and Hyperlipidemia , unspecified hyperlipidemia type E78.5 [place] [address] [address] March, Diabetes E11.9 [place] [address] [address] March, Diabetes E11.9 [place] [address] [address] Jan, Diabetes E11.9 ; HTN (hypertension) I10 ; Fibromyalgia M79.7 ; Primary insomnia F51.01 ; Osteoarthritis M19.90 ; Depressed F32.9 ; Postmenopausal HRT (hormone replacement therapy) Z79.890 ; Environmental allergies Z91.09 ; Hyperlipidemia, unspecified hyperlipidemia type E78.5 and Abnormal chest xray R93.8 [address] [id number] [place] [address] Jan, [address] [address] Sep, Diabetes E11.9 ; Osteoarthritis M19.90 ; HTN (hypertension) I10 ; History of postmenopausal HRT Z92.29 ; Joint pain M25.50 ; Fatigue R53.83 ; Depressed F32.9 ; Chronic diarrhea K52.9 ; Fibromyalgia M79.7 ; Primary insomnia F51.01 ; Environmental allergies Z91.09 and Exhaustion R53.83 [facility] [place] [id number] [place] [address]- 38[address] Aug, Viral gastroenteritis A08.[address] [address] May, [address] [address] May, Bronchitis J40 ; Diabetes E11.9 and HTN (hypertension) I10 [place] [id number] [place] [address]- [address] March, Joint pain M25.[address] [address] March, Diabetes E11.9 ; HTN (hypertension) I10 ; Osteoarthritis M19.90 ; History of postmenopausal HRT Z92.29 ; Joint pain M25.50 ; Fatigue R53.83 ; Depressed F32.9 ; Postmenopausal HRT (hormone replacement therapy) Z79.890 ; Fibromyalgia M79.7 ; Shoulder pain M25.519 ; Environmental allergies Z91.09 and Primary insomnia F51.01 [facility] [id number] [place] [address]- 8[address] March, [facility] [address] [address] Jan, [facility] [address] [address]- [address] Jan, Joint pain M25.50 [place] [address] [address]- [address] Jan, 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 and Impingement syndrome, shoulder, left M75.42 [place] [address] [address]- [address] Dec, [place] [address] [address] Dec, [place] [address] [address]- [address] Dec, Joint pain M25.50 and Shoulder pain M25.519 [place] [address] 18[address]- [address] Dec, [place] [address] [address]- [address] Dec, [place] [address] [address] Dec, Upper respiratory infection J06.9 ; Shoulder pain, left M25.512 and Cold sore B00.1 [facility] [id number] [place] [address] 6[address]- 5030 Dec, Shoulder pain, left M25.512 [place] [address] [address]- [address] 15 Dec, 2015 Left hip pain M25.552 ; HTN (hypertension) I10 ; Diabetes E11.9 ; Osteoarthritis M19.90 ; History of postmenopausal HRT Z92.29 ; Depressed F32.9 ; Postmenopausal HRT (hormone replacement therapy) Z79.890 ; Fibromyalgia M79.7 and Sciatica of left side M54.32 [place] [id number] [place] [address] 31187- 7880 02 Dec, 2015 HTN (hypertension) I10 ; Diabetes E11.9 ; Osteoarthritis M19.90 ; History of postmenopausal HRT Z92.29 ; Joint pain M25.50 ; Depressed F32.9 ; Chronic diarrhea K52.9 ; Postmenopausal HRT (hormone replacement therapy ) Z79.890 and Fibromyalgia M79.7 [place] [id number] [place] [address]653- 4990 Nov, [place] [address] [address] Oct, [address] [address]- [address]79 Oct, Elevated glucose R73.[address] [address]- [address] Oct, Elevated glucose R73.09 and Vitamin D deficiency E55.[address] 65[address]- 0716 Oct, Diabetes E11.9 ; HTN (hypertension) I10 ; Osteoarthritis M19.90 ; History of postmenopausal HRT Z92.29 ; Joint pain M25.50 ; Fatigue R53.83 ; Depressed F32.9 ; Hypercholesteremia E78.0 and COPD (chronic obstructive pulmonary disease) J44.9 [place] [id number] [place] [address]- [address]24 Aug, [address] [address]- [address] Jul, Other specified menopausal and postmenopausal disorder 627.8 ; Obstructive chronic bronchitis, with (acute) exacerbation 491.21 ; Other and unspecified hyperlipidemia 272.4 ; Diarrhea 787.91 ; Diabetes mellitus without mention of complication, type II or unspecified type, not stated as uncontrolled 250.00 ; Hormone replacement therapy V07.4 ; Insomnia 780.52 ; Hypercholesterolemia 272.0 and Chronic pain 338.29 [facility] [address] [address] 11 Jul, 2015 [facility] [address], [place] [address] Apr, Unspecified breast screening V76.10 [facility] [address], [place] [address]- 101[address] Jan, [facility] [address], [place] [address]- 9[address] Jan, [facility] [address], [place] [address]- 4[address] Dec, [facility] [address], [place] [address]- [address] Dec, [facility] [address], [place] [address]- 8569 Dec, [facility] [address], [place] [address]- 22[address] Dec, [facility] [address] [address]- 264[address] Dec, [facility] [address], [place] [address]- 8608 Dec, [facility] [address], [place] [address]- 3641 Dec, [facility] [id number], [place] [address]- 7295 Dec, [facility] [address] [address] Nov, [facility] [id number] [address] Nov, [facility] [id number] [address] Oct, [facility] [place] [facility] [address] [id number] [place] [address]- 6075 Oct, [facility] [place] [facility] [address] [id number] [place] [address]- 2613 Sep, [facility] [place] [facility] [address] [id number] [place] [address]- 3271 Sep, [facility] [place] [facility] [address] [id number] [place] [address]- 3267 Sep, [facility] [place] [facility] [address] [id number] [place] [address]- 5234 Sep, [facility] [place] [facility] [address] [id number] [place] [address]- 4421 May, [facility] [place] [facility] [address] [id number] [place] [address]- 0340 May, [facility] [place] [facility] [address] [id number] [place] [address]- 4322 May, [facility] [place] [facility] [address] [id number] [place] [address]- 5848 May, [facility] [place] [facility] [address] [facility] [id number] [place] [address]- 6307 Apr, [facility] [place] [facility] [address] [id number] [place] [address]- 4255 Apr, [facility] [place] [facility] [address] [id number] [place] [address]- 4424 Apr, [facility] [place] [facility] [address] [id number] [place] [address] Apr, [facility] [place] [facility] [address] [id number] [place] [address]- 9774 Apr, [facility] [place] [facility] [address] [id number] [place] [address] Apr, [facility] [place] [facility] [address] [id number] [place] [address]- 7006 Apr, [facility] [place] [facility] [address] [id number] [place] [address]- 6395 March, [facility] [place] [facility] [address] [id number] [place] [address]- 0416 March, [facility] [place] [facility] [address] [id number] [place] [address]- 9236 March, [facility] [place] [facility] [address] [id number] [place] [address]- 9348 Dec, [facility] [place] [facility] [address] [id number] [place] [address]- 3874 Dec, [facility] [place] [facility] [address] [id number] [place] [address] Nov, [facility] [place] [facility] [address] [id number] [place] [address]- 6664 Nov, [facility] [place] [facility] [address] [id number] [place] [address]- 5601 Nov, [facility] [place] [facility] [address] [id number] [place] [address]- 6734 Nov, [facility] [place] [facility] [address] [id number] [place] [address]- 4674 Sep, [facility] [place] [facility] [address] [id number] [place] [address]- 5463 Sep, [facility] [place] [facility] [address] [id number] [place] [address]- 4477 Jul, [facility] [place] [facility] [address] [id number] [place] [address]- 9674 Jun, [facility] [place] [facility] [address] [id number] [place] [address]- 7274 Jun, [facility] [place] [facility] [address] [id number] [address]- [address] Jun, [facility] [address] [facility] [id number] [address]- [address] Jun, [facility] [id number] [address]- 8[address] Jun, [facility] [id number] [address]- 7655 Jun, [facility] [address], [place] [address]- 0474 May, [facility] [id number], [place] [address]- 8333 May, [facility] [id number] [address]- 5399 May, [facility] [id number], [place] [address]- 6[address] May, [facility] [id number], [place] [address]- 2309 May, IMMUNIZATIONS No Known Immunizations SOCIAL HISTORY Never Assessed REASON FOR VISIT Refill request PLAN OF CARE VITAL SIGNS MEDICATIONS Unknown [...]
--- OUTSIDE RECORDS SUMMARY | 2018-11-20 21:37 | XMS REPORT ---
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 Active 455576927 Problem Moderate episode of recurrent major depressive disorder F33.1 Active 110662267 Problem Pain of left shoulder joint on movement M25.512 Active 042311370 Problem Mixed hyperlipidemia E78.2 Active 412341947 Problem Other chronic pain G89.29 Active 51509256 Problem Essential hypertension I10 Active 07583177 Problem Type 2 diabetes mellitus with unspecified complications E11.8 Active 95328820 Problem History of postmenopausal HRT Z92.29 Active 981032664 Problem Chronic diarrhea K52.9 Active 164597667 Problem Depressed F32.9 Active 77975337 Problem Fibromyalgia M79.7 Active 34256961 Problem Osteoarthritis M19.90 Active 406426375 Problem Primary insomnia F51.01 Active 8333979 Problem HTN (hypertension) I10 Active 44582883 Problem Environmental allergies Z91.09 Active 541294747 ALLERGIES Substance Reaction Event Type Date Status Sulfamethoxazole-Trimethoprim Unknown Drug Allergy Sep, Active Pravastatin Sodium Myalgias/takes med anyway Drug Allergy Sep, Active ENCOUNTERS Encounter Location Date Diagnosis [facility] [address] [facility] [id number] [address] Jun, [facility] [address] [id number] [address] May, [facility] [address] [facility] [place] [facility] [id number] [address] May, [facility] [id number] [place] [address]457- 8253 May, [facility] [address] [address] May, Type 2 diabetes mellitus with unspecified complications E11.8 [facility] [id number] [place] [address]- 3507 May, [facility] [address] [address] March, Pelvic pain R10.2 [place] [address] [address] March, Type 2 diabetes mellitus with unspecified complications E11.8 ; Mixed hyperlipidemia E78.2 ; Essential hypertension I10 and Other chronic pain G89.29 [place] [address] [address]- [address] March, Pain of left shoulder joint on movement M25.512 ; Type 2 diabetes mellitus with unspecified complications E11.8 ; senior care 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 ; Tobacco use Z72.0 and Moderate episode of recurrent major depressive disorder F33.1 [facility] [id number] [place] [address] 24173- 0822 March, [facility] [id number] [place] [address] 06756- 3963 Jan, Type 2 diabetes mellitus with unspecified complications E11.8 ; Mixed hyperlipidemia E78.2 and Essential hypertension I10 [facility] [id number] [place] [address] 06014- 8633 Dec, [facility] [address] [address]- [address] Nov, [facility] [id number] [place] [address] 38607- 5030 Nov, Acute nasopharyngitis J00 [facility] [address] [place] [address] Sep, compensation advisor 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 ; Type 2 diabetes mellitus with unspecified complications E11.8 ; Mixed hyperlipidemia E78.2 ; Essential hypertension I10 ; Pain in left shoulder M25.512 ; Other chronic pain G89.29 ; Tobacco use Z72.0 and Depressed F32.9 [place] [address] [address]- [address] Sep, Encounter for immunization Z23 [place] [address] [address]- [address] 11 Aug, 2017 Environmental allergies Z91.09 [place] [address] [address]- 12[address] Aug, [place] [address] [address]- [address] Jul, [place] [address] [address]- [address]97 Jun, Diabetes E11.9 [place] [address] [address]- 7[address] Jun, Acute pain of left shoulder M25.512 [place] [id number] [place] [address] 36266- 9278 March, Diabetes E11.9 ; Abnormal chest xray R93.8 ; HTN ( hypertension) I10 ; Fibromyalgia M79.7 ; Primary insomnia F51.01 ; Osteoarthritis M19.90 ; Depressed F32.9 ; Postmenopausal HRT (hormone replacement therapy) Z79.890 ; Environmental allergies Z91.09 and Hyperlipidemia , unspecified hyperlipidemia type E78.5 [place] [address] [address]- 3[address] March, Diabetes E11.9 [place] [id number] [place] [address] 56322- 6686 March, Diabetes E11.9 [place] [address] 68[address]- 4[address] Jan, Diabetes E11.9 ; HTN (hypertension) I10 ; Fibromyalgia M79.7 ; Primary insomnia F51.01 ; Osteoarthritis M19.90 ; Depressed F32.9 ; Postmenopausal HRT (hormone replacement therapy) Z79.890 ; Environmental allergies Z91.09 ; Hyperlipidemia, unspecified hyperlipidemia type E78.5 and Abnormal chest xray R93.8 [place] [id number] [place] [address] 59[address]- 4579 Jan, [place] [address] [address]65- 387[address] Sep, Diabetes E11.9 ; Osteoarthritis M19.90 ; HTN (hypertension) I10 ; History of postmenopausal HRT Z92.29 ; Joint pain M25.50 ; Fatigue R53.83 ; Depressed F32.9 ; Chronic diarrhea K52.9 ; Fibromyalgia M79.7 ; Primary insomnia F51.01 ; Environmental allergies Z91.09 and Exhaustion R53.83 [place] [address] 65[address]- 8751 Aug, Viral gastroenteritis A08.[address] [address]- [address] May, [place] [address] 9[address]10- [address] May, Bronchitis J40 ; Diabetes E11.9 and HTN (hypertension) I10 [place] [id number] [place] [address] 68282- 3965 March, Joint pain M25.[address] [address]- [address]68 March, Diabetes E11.9 ; HTN (hypertension) I10 ; Osteoarthritis M19.90 ; History of postmenopausal HRT Z92.29 ; Joint pain M25.50 ; Fatigue R53.83 ; Depressed F32.9 ; Postmenopausal HRT (hormone replacement therapy) Z79.890 ; Fibromyalgia M79.7 ; Shoulder pain M25.519 ; Environmental allergies Z91.09 and Primary insomnia F51.01 [facility] [id number] [place] [address] 63707- 3559 March, [facility] [address] [address]- [address] Jan, [facility] [id number] [place] [address] 24234- 1801 Jan, Joint pain M25.50 [place] [address] [address]- 0510 Jan, 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 and Impingement syndrome, shoulder, left M75.42 [place] [address] 00229- 2864 Dec, [place] [address] 88313- 0207 Dec, [facility] [address] 7[address]99- 6207 Dec, Joint pain M25.50 and Shoulder pain M25.519 [place] [id number] [place] [address] 90746- 7975 Dec, [place] [id number] [place] [address] 97887- 8925 Dec, [place] [id number] [place] [address] 11142- 4298 Dec, Upper respiratory infection J06.9 ; Shoulder pain, left M25.512 and Cold sore B00.1 [facility] [id number] [place] [address] 14453- 7519 Dec, Shoulder pain, left M25.512 [facility] [id number] [place] [address] 91330- 0080 15 Dec, 2015 Left hip pain M25.552 ; HTN (hypertension) I10 ; Diabetes E11.9 ; Osteoarthritis M19.90 ; History of postmenopausal HRT Z92.29 ; Depressed F32.9 ; Postmenopausal HRT (hormone replacement therapy) Z79.890 ; Fibromyalgia M79.7 and Sciatica of left side M54.[address] 0[address]88- 5986 Dec, HTN (hypertension) I10 ; Diabetes E11.9 ; Osteoarthritis M19.90 ; History of postmenopausal HRT Z92.29 ; Joint pain M25.50 ; Depressed F32.9 ; Chronic diarrhea K52.9 ; Postmenopausal HRT (hormone replacement therapy ) Z79.890 and Fibromyalgia M79.[address] [address]- 6705 Nov, [address] 94183- 7446 Oct, [address] 26025- 6100 Oct, Elevated glucose R73.[address] 61018- 4395 Oct, Elevated glucose R73.09 and Vitamin D deficiency E55.[address] 36419- 1631 Oct, Diabetes E11.9 ; HTN (hypertension) I10 ; Osteoarthritis M19.90 ; History of postmenopausal HRT Z92.29 ; Joint pain M25.50 ; Fatigue R53.83 ; Depressed F32.9 ; Hypercholesteremia E78.0 and COPD (chronic obstructive pulmonary disease) J44.9 [place] [id number] [place] [address] 94360- 3115 Aug, [address] 03189- 5481 Jul, Other specified menopausal and postmenopausal disorder 627.8 ; Obstructive chronic bronchitis, with (acute) exacerbation 491.21 ; Other and unspecified hyperlipidemia 272.4 ; Diarrhea 787.91 ; Diabetes mellitus without mention of complication, type II or unspecified type, not stated as uncontrolled 250.00 ; Hormone replacement therapy V07.4 ; Insomnia 780.52 ; Hypercholesterolemia 272.0 and Chronic pain 338.29 [facility] [address] [address] 11 Jul, 2015 [facility] [address] [id number] [address] 4797 Apr, Unspecified breast screening V76.10 [facility] [id number] [place] [address] 12542- 7912 14 Jan, 2015 [facility] [address] [address]- 0589 Jan, [facility] [id number] [place] [address] 45999- 0714 Dec, [facility] [address] [id number] [address]- [address] Dec, [facility] [id number] [place] [address] 80959- 3559 Dec, [facility] [address] [address]- 8659 Dec, [facility] [address] [address]- 9273 Dec, [facility] [address] [address]- 7727 Dec, [facility] [address] [address]- 9055 Dec, [facility] [address] [address]- 5419 Dec, [facility] [address] [address] Nov, [facility] [address] [address] Nov, [facility] [address] [address]- 0623 Oct, [facility] [place] [facility] [address] [id number] [place] [address]- 5447 Oct, [facility] [place] [facility] [address] [id number] [place] [address]- 7587 Sep, [facility] [place] [facility] [address] [id number] [place] [address]- 7266 Sep, [facility] [place] [facility] [address] [id number] [place] [address]- 2239 Sep, [facility] [place] [facility] [address] [id number] [place] [address]- 9299 Sep, [facility] [place] [facility] [address] [id number] [place] [address]- 5986 May, [facility] [place] [facility] [address] [id number] [place] [address]- 2600 May, [facility] [place] [facility] [address] [id number] [place] [address]- 2844 May, [facility] [place] [facility] [address] [id number] [place] [address]- 5635 May, [facility] [place] [facility] [address] [facility] [place] [id number] [place] [address]- 7288 Apr, [facility] [place] [facility] [address] [id number] [place] [address]- 5032 Apr, [facility] [place] [facility] [address] [id number] [place] [address]- 4662 Apr, [facility] [place] [facility] [address] [id number] [place] [address]- 8237 Apr, [facility] [place] [facility] [address] [id number] [place] [address]- 5951 Apr, [facility] [place] [facility] [address] [facility] [place] [id number] [place] [address]- 1380 Apr, [facility] [place] [facility] [address] [id number] [place] [address]- 0580 Apr, [facility] [place] [facility] [address] [id number] [place] [address]- 0478 March, [facility] [place] [facility] [address] [id number] [place] [address]- 0436 March, [facility] [place] [facility] [address] [id number] [place] [address]- 9646 March, [facility] [place] [facility] [address] [id number] [place] [address]- 3678 Dec, [facility] [place] [facility] [address] [id number] [place] [address]- 9500 Dec, [facility] [place] [facility] [address] [id number] [place] [address]- 9736 Nov, [facility] [place] [facility] [address] [id number] [place] [address]- 5662 Nov, [facility] [place] [facility] [address] [id number] [place] [address]- 9202 Nov, [facility] [place] [facility] [address] [id number] [place] [address]- 1063 Nov, [facility] [place] [facility] [address] [id number] [place] [address]- 0059 Sep, [facility] [place] [facility] [address] [id number] [place] [address]- 0136 Sep, [facility] [place] [facility] [address] [id number] [place] [address]- 2546 Jul, [facility] [place] [facility] [address] [id number] [place] [address]- 2546 Jun, [facility] [place] [facility] [address] [id number] [place] [address]- 2546 Jun, [facility] [place] [facility] [address] [id number] [place] [address]- 1996 Jun, [facility] [id number] [address]- 7559 Jun, [facility] [address] [address]- 4842 Jun, [facility] [address] [address] Jun, [facility] [address] [address]- 3934 May, [facility] [address] [address]- 3395 May, [facility] [address] [place] [address] 652205- 9231 May, [facility] [address], [place] [address]- 9761 May, [facility] [address], [place] [address]- 5[address] May, IMMUNIZATIONS No Known Immunizations SOCIAL HISTORY Never Assessed REASON FOR VISIT Transition of Care: having difficulty with pain in left shoulder, ongoing issues since June kevin guzman PLAN OF CARE Activity Details Follow Up 3 Months with Lexy JACOBSON/[facility] Reason: VITAL SIGNS Height 64 in 2017-09-22 Weight 180.5 lbs 2017-09-22 Temperature 98.2 degrees Fahrenheit 2017-09-22 Heart Rate 84 bpm 2017-09-22 Respiratory Rate 20 2017-09-22 BMI 30.98 kg/m2 2017-09-22 Blood pressure systolic 136 mmHg 2017-09-22 Blood pressure diastolic 84 mmHg 2017-09-22 MEDICATIONS Medication Instructions Dosage Frequency Start Date End Date Duration Status Pravastatin Sodium 40 mg Orally Once a day TAKE ONE TABLET BY MOUTH AT BEDTIME (AVOID GRAPEFRUIT JUICE) 24h 30 Active NovoFine 32G X 6 MM subcutaneously 2 times a day as directed 12h Jun, 90 days Active Proventil HFA 108 (90 Base) MCG/ACT Inhalation every 4 hrs 2 puffs as needed 4h May, Not-Taking GlipiZIDE ER 5 mg Orally Once a day TAKE ONE TABLET BY MOUTH ONCE DAILY 24h 30 Active Lisinopril 5 mg Orally daily TAKE ONE TABLET BY MOUTH ONCE DAILY 24h 30 Active Glucocard Expression Monitor w/Device as directed Jul, Active Cyclobenzaprine HCl 10 mg Orally Three times a day 1 tablet as needed 8h Jun, Active Victoza 18 MG/3ML Subcutaneous Once a day 1.8 24h 90 days Active Glucocard Expression Test - subcutaneously 3 times a day to check blood sugar 8h Jul, Active Levemir FlexTouch 100 UNIT/ML Subcutaneous Once a day inject 50 units 24h March, 90 days Active Montelukast Sodium 10 MG TAKE ONE TABLET BY MOUTH ONCE DAILY 30 Active Celexa 20 mg Orally Once a day 1 tablet 24h 30 days Active Nortriptyline HCl 75 MG Orally at bedtime 1 capsule Jan, 30 day(s) Not-Taking Metformin HCl 1000 MG Orally 2 times a day TAKE ONE TABLET BY MOUTH TWICE DAILY WITH MEALS 12h 30 Active Meloxicam 15 mg Orally daily TAKE ONE TABLET BY MOUTH ONCE DAILY 24h 30 Active Premarin 0.3 MG TAKE ONE TABLET BY MOUTH ONCE DAILY 30 Active Gabapentin 300 MG Orally Three times a day 1 capsule 8h 30 Active RESULTS No Results PROCEDURES No Known [...]
--- OUTSIDE RECORDS SUMMARY | 2018-11-20 21:37 | XMS REPORT ---
Author Author ESCOBAR DOMINGUEZ Organization [facility] Address [address] [place] [address] Care Team Providers Care Ledger Poster Name Role Phone ANGELICA ESCOBAR Unavailable PROBLEMS Type Condition ICD9-CM Code AWF15-AW Code Onset Dates Condition Status SNOMED Code Problem HTN (hypertension) I10 Active 24288556 Problem Fibromyalgia M79.7 Active 81513844 Problem Diabetes E11.9 Active 954647584 Problem Other and unspecified hyperlipidemia 272.4 Active 56066743 Problem Hyperlipidemia, unspecified hyperlipidemia type E78.5 Active 75016047 Problem Primary insomnia F51.01 Active 8797352 Problem Shoulder pain M25.519 Active 67957860 Problem Fever, unspecified fever cause R50.9 Active 147882253 Problem Environmental allergies Z91.09 Active 520357653 Problem Depressed F32.9 Active 46259735 Problem Chronic diarrhea K52.9 Active 405311761 Problem History of postmenopausal HRT Z92.29 Active 496066548 Problem Osteoarthritis M19.90 Active 017153092 Problem Fatigue R53.83 Active 63001280 Problem Joint pain M25.50 Active 87557552 ALLERGIES No Information SOCIAL HISTORY Never Assessed PLAN OF CARE VITAL SIGNS MEDICATIONS Medication Instructions Dosage Frequency Start Date End Date Duration Status Lantus 100 UNIT/ML Subcutaneous every morning 50 units Jan, 30 days Active RESULTS No Results PROCEDURES No Known procedures IMMUNIZATIONS No Known Immunizations MEDICAL (GENERAL) HISTORY Type Description Date Medical [...] tunnel Surgical History left mastoid tumor removed Hospitalization History surgeries
--- OUTSIDE RECORDS SUMMARY | 2018-11-20 21:37 | XMS REPORT ---
Author Author ESCOBAR DOMINGUEZ Organization [facility] Address [address] [place] [address] Care Team Providers Care Pot Firer Name Role Phone ESCOBAR DOMINGUEZ Unavailable PROBLEMS Type Condition ICD9-CM Code JGS06-KZ Code Onset Dates Condition Status SNOMED Code Problem HTN (hypertension) I10 Active 25013007 Problem Fibromyalgia M79.7 Active 25461781 Problem Diabetes E11.9 Active 522017155 Problem Other and unspecified hyperlipidemia 272.4 Active 83087459 Problem Hyperlipidemia, unspecified hyperlipidemia type E78.5 Active 80892413 Problem Primary insomnia F51.01 Active 3360535 Problem Shoulder pain M25.519 Active 08390575 Problem Fever, unspecified fever cause R50.9 Active 048630937 Problem Environmental allergies Z91.09 Active 568240836 Problem Depressed F32.9 Active 58532548 Problem Chronic diarrhea K52.9 Active 854039104 Problem History of postmenopausal HRT Z92.29 Active 787276735 Problem Osteoarthritis M19.90 Active 718408306 Problem Fatigue R53.83 Active 45316992 Problem Joint pain M25.50 Active 93162207 ALLERGIES No Information SOCIAL HISTORY Never Assessed PLAN OF CARE VITAL SIGNS MEDICATIONS Unknown Medications RESULTS No Results PROCEDURES Procedure Date Ordered Result Body Site CHEST X-RAY March 23, 2017 IMMUNIZATIONS No Known Immunizations MEDICAL (GENERAL) HISTORY [...]
--- OUTSIDE RECORDS SUMMARY | 2018-11-20 21:37 | XMS REPORT ---
Author Author ESCOBAR DOMINGUEZ Organization [facility] Address [address] [place] [address] Care Team Providers Care [employer] Chemistry Teacher Name Role Phone ANGELICA ESCOBAR Unavailable PROBLEMS Type Condition ICD9-CM Code FHF90-MP Code Onset Dates Condition Status SNOMED Code Problem HTN (hypertension) I10 Active 31307938 Problem Fibromyalgia M79.7 Active 72567228 Problem Diabetes E11.9 Active 749060377 Problem Other and unspecified hyperlipidemia 272.4 Active 23438735 Problem Hyperlipidemia, unspecified hyperlipidemia type E78.5 Active 19554904 Problem Primary insomnia F51.01 Active 9290061 Problem Shoulder pain M25.519 Active 09760478 Problem Fever, unspecified fever cause R50.9 Active 868549613 Problem Environmental allergies Z91.09 Active 299356580 Problem Depressed F32.9 Active 85163647 Problem Chronic diarrhea K52.9 Active 640065151 Problem History of postmenopausal HRT Z92.29 Active 652222233 Problem Osteoarthritis M19.90 Active 883654280 Problem Fatigue R53.83 Active 31121845 Problem Joint pain M25.50 Active 46390320 ALLERGIES No Information SOCIAL HISTORY Never Assessed PLAN OF CARE VITAL SIGNS MEDICATIONS Medication Instructions Dosage Frequency Start Date End Date Duration Status Levemir FlexTouch 100 UNIT/ML Subcutaneous Once a day inject 50 units 24h March, 30 days Active RESULTS No Results [...]
--- OUTSIDE RECORDS SUMMARY | 2018-11-20 21:38 | XMS REPORT ---
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 314150427 Problem Essential hypertension I10 Active 74312407 Problem Other chronic pain G89.29 Active 46838861 Problem Tobacco use Z72.0 Active 219143016 Problem Osteoarthritis M19.90 Active 456736638 Problem HTN (hypertension) I10 Active 22531469 Problem History of postmenopausal HRT Z92.29 Active 371053082 Problem Depressed F32.9 Active 22867700 Problem Chronic diarrhea K52.9 Active 122292435 Problem Fibromyalgia M79.7 Active 80939761 ALLERGIES No Information ENCOUNTERS Encounter Location Date Diagnosis [facility] [address] [address] May, [facility] [id number] [place] [address] Jan, Type 2 diabetes mellitus with unspecified complications E11.8 ; Mixed hyperlipidemia E78.2 and Essential hypertension I10 [facility] [id number] [place] [address]60- [address] Dec, [facility] [id number], [place] [address] Nov, [facility] [id number] [place] [address]18- 1379 Nov, Acute nasopharyngitis J00 [place] [address] [address]- [address] Sep, 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 ; Type 2 diabetes mellitus with unspecified complications E11.8 ; Mixed hyperlipidemia E78.2 ; Essential hypertension I10 ; Pain in left shoulder M25.512 ; Other chronic pain G89.29 ; Tobacco use Z72.0 and Depressed F32.9 [place] [id number] [place] [address] 26894- 3359 10 Sep, 2017 Encounter for immunization Z23 [place] [address] [address]- [address] 11 Aug, 2017 Environmental allergies Z91.09 [place] [address] [address]- [address] Aug, [place] [address] 7[address]- 2899 Jul, [place] [address] [address]- 8549 Jun, Diabetes E11.9 [place] [id number] [place] [address] 25376- 5522 Jun, Acute pain of left shoulder M25.512 [place] [id number] [place] [address] 80040- 0311 March, Diabetes E11.9 ; Abnormal chest xray R93.8 ; HTN ( hypertension) I10 ; Fibromyalgia M79.7 ; Primary insomnia F51.01 ; Osteoarthritis M19.90 ; Depressed F32.9 ; Postmenopausal HRT (hormone replacement therapy) Z79.890 ; Environmental allergies Z91.09 and Hyperlipidemia , unspecified hyperlipidemia type E78.5 [place] [id number] [place] [address]99- 3921 March, Diabetes E11.9 [place] [address] 77092- 2318 March, Diabetes E11.9 [place] [id number] [place] [address] 66956- 9448 Jan, Diabetes E11.9 ; HTN (hypertension) I10 ; Fibromyalgia M79.7 ; Primary insomnia F51.01 ; Osteoarthritis M19.90 ; Depressed F32.9 ; Postmenopausal HRT (hormone replacement therapy) Z79.890 ; Environmental allergies Z91.09 ; Hyperlipidemia, unspecified hyperlipidemia type E78.5 and Abnormal chest xray R93.8 [place] [id number] [place] [address] 46361- 3622 Jan, [place] [address] 75256- 1581 Sep, Diabetes E11.9 ; Osteoarthritis M19.90 ; HTN (hypertension) I10 ; History of postmenopausal HRT Z92.29 ; Joint pain M25.50 ; Fatigue R53.83 ; Depressed F32.9 ; Chronic diarrhea K52.9 ; Fibromyalgia M79.7 ; Primary insomnia F51.01 ; Environmental allergies Z91.09 and Exhaustion R53.83 [place] [address] 51567- 1859 Aug, Viral gastroenteritis A08.4 [place] [id number] [place] [address] 48419- 0418 May, [place] [id number] [place] [address] 56905- 8074 May, Bronchitis J40 ; Diabetes E11.9 and HTN (hypertension) I10 [place] [id number] [place] [address] 64079- 7216 March, Joint pain M25.50 [place] [address] 28104- 2609 March, Diabetes E11.9 ; HTN (hypertension) I10 ; Osteoarthritis M19.90 ; History of postmenopausal HRT Z92.29 ; Joint pain M25.50 ; Fatigue R53.83 ; Depressed F32.9 ; Postmenopausal HRT (hormone replacement therapy) Z79.890 ; Fibromyalgia M79.7 ; Shoulder pain M25.519 ; Environmental allergies Z91.09 and Primary insomnia F51.01 [place] [id number] [place] [address] 15437- 7259 March, [place] [address] 03676- 0554 Jan, [place] [address] 28340- 9491 Jan, Joint pain M25.50 [place] [address] 22687- 7405 Jan, 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 and Impingement syndrome, shoulder, left M75.42 [place] [address] 32477- 6075 Dec, [place] [address] 60530- 9187 Dec, [place] [address] 22287- 6737 Dec, Joint pain M25.50 and Shoulder pain M25.519 [place] [id number] [place] [address] 70321- 9877 Dec, [place] [address] 18593- 3056 Dec, [place] [address] 02873- 3891 Dec, Upper respiratory infection J06.9 ; Shoulder pain, left M25.512 and Cold sore B00.1 [place] [id number] [place] [address] 96753- 4041 Dec, Shoulder pain, left M25.512 [place] [address] 39236- 4448 Dec, Left hip pain M25.552 ; HTN (hypertension) I10 ; Diabetes E11.9 ; Osteoarthritis M19.90 ; History of postmenopausal HRT Z92.29 ; Depressed F32.9 ; Postmenopausal HRT (hormone replacement therapy) Z79.890 ; Fibromyalgia M79.7 and Sciatica of left side M54.[address] [address]- [address]99 02 Dec, 2015 HTN (hypertension) I10 ; Diabetes E11.9 ; Osteoarthritis M19.90 ; History of postmenopausal HRT Z92.29 ; Joint pain M25.50 ; Depressed F32.9 ; Chronic diarrhea K52.9 ; Postmenopausal HRT (hormone replacement therapy ) Z79.890 and Fibromyalgia M79.[address] [address]- 1443 Nov, [address] 7[address]33- 8550 Oct, [address] [address]185- 5809 Oct, Elevated glucose R73.[address] 38583- 6376 Oct, Elevated glucose R73.09 and Vitamin D deficiency E55.[address] 82838- 7680 Oct, Diabetes E11.9 ; HTN (hypertension) I10 ; Osteoarthritis M19.90 ; History of postmenopausal HRT Z92.29 ; Joint pain M25.50 ; Fatigue R53.83 ; Depressed F32.9 ; Hypercholesteremia E78.0 and COPD (chronic obstructive pulmonary disease) J44.[address] [address]- 2645 Aug, [address] 94461- 1345 11 Jul, 2015 Other specified menopausal and postmenopausal disorder 627.8 ; Obstructive chronic bronchitis, with (acute) exacerbation 491.21 ; Other and unspecified hyperlipidemia 272.4 ; Diarrhea 787.91 ; Diabetes mellitus without mention of complication, type II or unspecified type, not stated as uncontrolled 250.00 ; Hormone replacement therapy V07.4 ; Insomnia 780.52 ; Hypercholesterolemia 272.0 and Chronic pain 338.29 [facility] [address], [place] [address] 11 Jul, 2015 [facility] [id number] [place] [address] 32473- 3893 Apr, Unspecified breast screening V76.10 [facility] [address], [place] [address] 5[address] Jan, [facility] [id number] [place] [address] 91423- 1821 Jan, [facility] [id number], [place] [address] 8759 Dec, [facility] [address], [place] [address]- 3926 Dec, [facility] [address], [place] [address]- 8818 Dec, [facility] [address], [place] [address]- 6120 Dec, [facility] [address], [place] [address]- 6014 Dec, [facility] [address], [place] [address]- 5198 Dec, [facility] [address] [address] Dec, [facility] [address] [address] Dec, [facility] [address] [address] Nov, [facility] [address] [place] [address] Nov, [facility] [place] [facility] [address] [id number] [place] [address]- 6688 Oct, [facility] [place] [facility] [address] [id number] [place] [address]- 2926 Oct, [facility] [place] [facility] [address] [id number] [place] [address]- 7341 Sep, [facility] [place] [facility] [address] [id number] [place] [address]- 5578 Sep, [facility] [place] [facility] [address] [id number] [place] [address]- 5784 Sep, [facility] [place] [facility] [address] [id number] [place] [address]- 9436 Sep, [facility] [place] [facility] [address] [id number] [place] [address]- 7931 May, [facility] [place] [facility] [address] [id number] [place] [address]- 7819 May, [facility] [place] [facility] [address] [id number] [place] [address]- 4822 May, [facility] [place] [facility] [address] [id number] [place] [address]- 7502 May, [facility] [place] [facility] [address] [id number] [place] [address]- 0596 Apr, [facility] [place] [facility] [address] [id number] [place] [address]- 1780 Apr, [facility] [place] [facility] [address] [id number] [place] [address]- 9130 Apr, [facility] [place] [facility] [address] [id number] [place] [address]- 5365 Apr, [facility] [place] [facility] [address] [id number] [place] [address]- 4352 Apr, [facility] [place] [facility] [address] [id number] [place] [address]- 0759 Apr, [facility] [place] [facility] [address] [id number] [place] [address]- 1280 Apr, [facility] [place] [facility] [address] [id number] [place] [address]- 3145 March, [facility] [place] [facility] [address] [id number] [place] [address]- 4109 March, [facility] [place] [facility] [address] [id number] [place] [address]- 4431 March, [facility] [place] [facility] [address] [id number] [place] [address]- 8240 Dec, [facility] [place] [facility] [address] [id number] [place] [address]- 4116 Dec, [facility] [place] [facility] [address] [id number] [place] [address]- 1383 Nov, [facility] [place] [facility] [address] [id number] [place] [address]- 3354 Nov, [facility] [place] [facility] [address] [id number] [place] [address]- 2479 Nov, [facility] [place] [facility] [address] [id number] [place] [address]- 6693 Nov, [facility] [place] [facility] [address] [id number], [place] [address]- 1743 Sep, [facility] [place] [facility] [address] [id number] [place] [address]- 0150 Sep, [facility] [place] [facility] [address] [id number] [place] [address]- 5776 Jul, [facility] [place] [facility] [address] [id number], [place] [address]- 3728 Jun, [facility] [place] [facility] [address] [id number], [place] [address]- 1811 Jun, [facility] [id number], [place] [address]- 4016 Jun, [facility] [address], [place] [address]- 1889 Jun, [facility] [address], [place] [address]- 4948 Jun, [facility] [address], [place] [address]- 9701 Jun, [facility] [address], [place] [address]- 9567 May, [facility] [address], [place] [address]- 9529 May, [facility] [address], [place] [address]- 0270 May, [facility] [address], [place] [address]- 1006 May, [facility] [id number], [place] [address]- 6142 May, IMMUNIZATIONS No Known Immunizations SOCIAL HISTORY Never Assessed REASON FOR VISIT PLAN OF CARE VITAL SIGNS MEDICATIONS Medication Instructions Dosage Frequency Start Date End Date Duration Status Lisinopril 5 MG TAKE ONE TABLET BY MOUTH ONCE DAILY 30 Active Meloxicam 15 MG TAKE ONE TABLET BY MOUTH ONCE DAILY 30 Active Singulair 10 mg Orally Once a day 1 tablet by Oral route 1 time per day 24h Dec, 30 days Active Premarin 0.3 MG TAKE ONE TABLET BY MOUTH ONCE DAILY 30 Active GlipiZIDE ER 5 MG TAKE ONE TABLET BY MOUTH ONCE DAILY 30 Active Citalopram Hydrobromide 20 MG TAKE ONE TABLET BY MOUTH ONCE DAILY 30 Active Pravastatin Sodium 40 MG TAKE ONE TABLET BY MOUTH AT BEDTIME (AVOID GRAPEFRUIT JUICE) 30 Active RESULTS No Results PROCEDURES No [...]
--- OUTSIDE RECORDS SUMMARY | 2018-11-20 21:38 | XMS REPORT ---
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 Active 012051483 Problem Moderate episode of recurrent major depressive disorder F33.1 Active 711932414 Problem Pain of left shoulder joint on movement M25.512 Active 147921383 Problem Mixed hyperlipidemia E78.2 Active 638688153 Problem Other chronic pain G89.29 Active 30463636 Problem Essential hypertension I10 Active 86741648 Problem Type 2 diabetes mellitus with unspecified complications E11.8 Active 33000566 Problem History of postmenopausal HRT Z92.29 Active 765373352 Problem Chronic diarrhea K52.9 Active 673379706 Problem Depressed F32.9 Active 87883484 Problem Fibromyalgia M79.7 Active 68857104 Problem Osteoarthritis M19.90 Active 793016445 Problem Primary insomnia F51.01 Active 2544795 Problem HTN (hypertension) I10 Active 68273752 Problem Environmental allergies Z91.09 Active 388369059 ALLERGIES No Information ENCOUNTERS Encounter Location Date Diagnosis [facility] [address] [facility] [id number] [address] May, [facility] [id number], [place] [address] May, [facility] [address] [id number], [place] [address] Apr, [facility] [address] [id number], [place] [address] March, Pelvic pain R10.2 [place] [id number] [place] [address]99- [address] March, Type 2 diabetes mellitus with unspecified complications E11.8 ; Mixed hyperlipidemia E78.2 ; Essential hypertension I10 and Other chronic pain G89.29 [place] [id number] [place] [address]18- 8387 March, Pain of left shoulder joint on movement M25.512 ; Type 2 diabetes mellitus with unspecified complications E11.8 ; halfway 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 ; Tobacco use Z72.0 and Moderate episode of recurrent major depressive disorder F33.1 [place] [address] [address] March, [place] [id number] [place] [address]22- 8618 Jan, Type 2 diabetes mellitus with unspecified complications E11.8 ; Mixed hyperlipidemia E78.2 and Essential hypertension I10 [place] [id number] [place] [address] 70070- 1784 Dec, [place] [address] [address] Nov, [place] [id number] [place] [address] 60556- 1014 Nov, Acute nasopharyngitis J00 [place] [address] [address]- [address] Sep, 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 ; Type 2 diabetes mellitus with unspecified complications E11.8 ; Mixed hyperlipidemia E78.2 ; Essential hypertension I10 ; Pain in left shoulder M25.512 ; Other chronic pain G89.29 ; Tobacco use Z72.0 and Depressed F32.9 [place] [id number] [place] [address] 59723- 3687 10 Sep, 2017 Encounter for immunization Z23 [place] [address] [address]- [address] Aug, Environmental allergies Z91.09 [facility] [address], [place] [address] Aug, [facility] [id number] [place] [address] Jul, [facility] [address], [place] [address] Jun, Diabetes E11.9 [facility] [id number] [place] [address] 05347- 8485 Jun, Acute pain of left shoulder M25.512 [place] [id number] [place] [address] 39104- 2276 March, Diabetes E11.9 ; Abnormal chest xray R93.8 ; HTN ( hypertension) I10 ; Fibromyalgia M79.7 ; Primary insomnia F51.01 ; Osteoarthritis M19.90 ; Depressed F32.9 ; Postmenopausal HRT (hormone replacement therapy) Z79.890 ; Environmental allergies Z91.09 and Hyperlipidemia , unspecified hyperlipidemia type E78.5 [place] [address], [place] [address] March, Diabetes E11.9 [place] [id number] [place] [address] 99894- 9279 March, Diabetes E11.9 [place] [address], [place] [address] Jan, Diabetes E11.9 ; HTN (hypertension) I10 ; Fibromyalgia M79.7 ; Primary insomnia F51.01 ; Osteoarthritis M19.90 ; Depressed F32.9 ; Postmenopausal HRT (hormone replacement therapy) Z79.890 ; Environmental allergies Z91.09 ; Hyperlipidemia, unspecified hyperlipidemia type E78.5 and Abnormal chest xray R93.8 [place] [id number] [place] [address] 39592- 0976 Jan, [facility] [id number] [place] [address] 08348- 5173 Sep, Diabetes E11.9 ; Osteoarthritis M19.90 ; HTN (hypertension) I10 ; History of postmenopausal HRT Z92.29 ; Joint pain M25.50 ; Fatigue R53.83 ; Depressed F32.9 ; Chronic diarrhea K52.9 ; Fibromyalgia M79.7 ; Primary insomnia F51.01 ; Environmental allergies Z91.09 and Exhaustion R53.83 [place] [address] [address]- [address] Aug, Viral gastroenteritis A08.[address] [address]- [address]259 May, [address] [address]- [address] May, Bronchitis J40 ; Diabetes E11.9 and HTN (hypertension) I10 [address] [address]- 132[address] March, Joint pain M25.50 [place] [address] [address]79- 21[address] March, Diabetes E11.9 ; HTN (hypertension) I10 ; Osteoarthritis M19.90 ; History of postmenopausal HRT Z92.29 ; Joint pain M25.50 ; Fatigue R53.83 ; Depressed F32.9 ; Postmenopausal HRT (hormone replacement therapy) Z79.890 ; Fibromyalgia M79.7 ; Shoulder pain M25.519 ; Environmental allergies Z91.09 and Primary insomnia F51.01 [place] [id number] [place] [address] 47468- 7741 March, [place] [address] 9[address]- 7740 Jan, [address] 47[address]- 1086 Jan, Joint pain M25.50 [place] [id number] [place] [address] 38485- 2617 Jan, 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 and Impingement syndrome, shoulder, left M75.42 [place] [id number] [place] [address] 79690- 5755 31 Jan, 2016 [place] [id number] [place] [address] 40125- 7133 28 Jan, 2016 [place] [id number] [place] [address] 57106- 6591 Dec, Joint pain M25.50 and Shoulder pain M25.519 [place] [id number] [place] [address] 51576- 0789 Dec, [place] [address] 03989- [address]696 Dec, [place] [id number] [place] [address] 02408- 4674 Dec, Upper respiratory infection J06.9 ; Shoulder pain, left M25.512 and Cold sore B00.1 [place] [id number] [place] [address] 15294- 7828 Dec, Shoulder pain, left M25.512 [place] [id number] [place] [address] 74458- 8037 15 Dec, 2015 Left hip pain M25.552 ; HTN (hypertension) I10 ; Diabetes E11.9 ; Osteoarthritis M19.90 ; History of postmenopausal HRT Z92.29 ; Depressed F32.9 ; Postmenopausal HRT (hormone replacement therapy) Z79.890 ; Fibromyalgia M79.7 and Sciatica of left side M54.32 [place] [address] [place] [address] 57198- 8193 02 Dec, 2015 HTN (hypertension) I10 ; Diabetes E11.9 ; Osteoarthritis M19.90 ; History of postmenopausal HRT Z92.29 ; Joint pain M25.50 ; Depressed F32.9 ; Chronic diarrhea K52.9 ; Postmenopausal HRT (hormone replacement therapy ) Z79.890 and Fibromyalgia M79.7 [place] [id number] [place] [address] 47057- 4873 Nov, [place] [id number] [place] [address] 21345- 6457 Oct, [place] [id number] [place] [address] 96928- 5189 Oct, Elevated glucose R73.09 [place] [address] 31250- 3022 Oct, Elevated glucose R73.09 and Vitamin D deficiency E55.9 [place] [address] 09310- 7425 Oct, Diabetes E11.9 ; HTN (hypertension) I10 ; Osteoarthritis M19.90 ; History of postmenopausal HRT Z92.29 ; Joint pain M25.50 ; Fatigue R53.83 ; Depressed F32.9 ; Hypercholesteremia E78.0 and COPD (chronic obstructive pulmonary disease) J44.9 [place] [id number] [place] [address] 46875- 5463 Aug, [address] 7[address]- 2351 Jul, Other specified menopausal and postmenopausal disorder 627.8 ; Obstructive chronic bronchitis, with (acute) exacerbation 491.21 ; Other and unspecified hyperlipidemia 272.4 ; Diarrhea 787.91 ; Diabetes mellitus without mention of complication, type II or unspecified type, not stated as uncontrolled 250.00 ; Hormone replacement therapy V07.4 ; Insomnia 780.52 ; Hypercholesterolemia 272.0 and Chronic pain 338.29 [place] [id number] [place] [address] 74049- 6617 Jul, [place] [address] 15527- 5147 Apr, Unspecified breast screening V76.10 [place] [id number] [place] [address] 57844- 6138 14 Jan, 2015 [place] [address] [place] [address]- 0490 Jan, [facility] [place] [facility] [address] [id number] [place] [address]- 1529 Dec, [facility] [place] [facility] [address] [id number] [place] [address] Dec, 2014 [facility] [place] [facility] [address] [id number] [place] [address]- 4503 Dec, 2014 [facility] [place] [facility] [address] [id number] [place] [address]- 2735 Dec, [facility] [place] [facility] [address] [id number] [place] [address]- 0084 Dec, 2014 [facility] [place] [facility] [address] [id number] [place] [address]- 5765 Dec, [facility] [place] [facility] [address] [id number] [place] [address]- 0784 Dec, [facility] [place] [facility] [address] [id number] [place] [address]- 3954 Dec, [facility] [place] [facility] [address] [id number] [place] [address]- 5047 Nov, [facility] [place] [facility] [address] [id number] [place] [address]- 8488 Nov, [facility] [place] [facility] [address] [id number] [place] [address]- 1607 Oct, [facility] [place] [facility] [address] [id number], [place] [address]- 3765 Oct, [facility] [place] [facility] [address] [id number] [place] [address] Sep, [facility] [place] [facility] [address] [id number] [place] [address]- 4039 Sep, [facility] [place] [facility] [address] [id number] [place] [address]- 0057 Sep, [facility] [place] [facility] [address] [id number] [place] [address]- 3105 Sep, [facility] [place] [facility] [address] [id number] [place] [address]- 4466 May, [facility] [place] [facility] [address] [id number] [place] [address]- 5578 May, [facility] [place] [facility] [address] [id number] [place] [address]- 2771 May, [facility] [place] [facility] [address] [id number] [place] [address]- 8137 May, [facility] [place] [facility] [address] [id number] [place] [address]- 0683 Apr, [facility] [place] [facility] [address] [id number] [place] [address]- 5286 Apr, [facility] [place] [facility] [address] [id number] [place] [address]- 1598 Apr, [facility] [place] [facility] [address] [id number] [place] [address]- 1053 Apr, [facility] [place] [facility] [address] [id number] [place] [address]- 4151 Apr, [facility] [place] [facility] [address] [id number] [place] [address]- 7882 Apr, [facility] [place] [facility] [address] [id number] [place] [address]- 7565 Apr, [facility] [place] [facility] [address] [id number] [place] [address]- 9699 March, [facility] [place] [facility] [address] [id number] [place] [address]- 3421 March, [facility] [place] [facility] [address] [id number] [place] [address]- 8480 March, [facility] [place] [facility] [address] [id number] [place] [address]- 1334 Dec, [facility] [place] [facility] [address] [id number] [place] [address]- 4142 Dec, [facility] [place] [facility] [address] [id number] [place] [address] Nov, [facility] [place] [facility] [address] [id number] [place] [address]- 5408 Nov, [facility] [place] [facility] [address] [id number] [place] [address]- 3729 Nov, [facility] [place] [facility] [address] [id number] [place] [address]- 2895 Nov, [facility] [place] [facility] [address] [id number] [place] [address]- 5389 Sep, [facility] [place] [facility] [address] [id number] [place] [address]- 9229 Sep, [facility] [place] [facility] [address] [id number] [place] [address]- 8789 Jul, [facility] [place] [facility] [address] [id number] [place] [address]- 8017 Jun, [facility] [place] [facility] [address] [id number] [place] [address]- 1677 Jun, [facility] [place] [facility] [address] [id number] [place] [address]- 4580 Jun, [facility] [place] [facility] [address] [id number] [place] [address]- 0066 Jun, [facility] [place] [facility] [address] [id number] [place] [address]- 5397 Jun, [facility] [place] [facility] [address] [id number] [place] [address]- 3098 Jun, [facility] [place] [facility] [address] [id number] [place] [address]- 7221 May, [facility] [place] [facility] [address] [facility] [id number] [place] [address]- 7231 May, [facility] [address] [facility] [id number] [place] [address]- 0890 May, [facility] [address] [facility] [id number] [place] [address]- 6225 May, [facility] [address] [facility] [id number] [place] [address]- 1872 May, IMMUNIZATIONS No Known Immunizations SOCIAL HISTORY Never Assessed REASON FOR VISIT work note PLAN OF CARE VITAL SIGNS MEDICATIONS [...]
--- OUTSIDE RECORDS SUMMARY | 2018-11-20 21:39 | XMS REPORT ---
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 Name Role Phone ASHERROLAND Ríos Unavailable PROBLEMS Type Condition ICD9-CM Code JUO03-KT Code Onset Dates Condition Status SNOMED Code Problem Hyperlipidemia, unspecified hyperlipidemia type E78.5 Active 01176998 Problem Tobacco use Z72.0 Active 082592688 Problem [facility] 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 Active 950820508 Problem Moderate episode of recurrent major depressive disorder F33.1 Active 477403448 Problem Pain of left shoulder joint on movement M25.512 Active 820446824 Problem Mixed hyperlipidemia E78.2 Active 017380629 Problem Other chronic pain G89.29 Active 05078735 Problem Essential hypertension I10 Active 25953942 Problem Type 2 diabetes mellitus with unspecified complications E11.8 Active 29386119 Problem History of postmenopausal HRT Z92.29 Active 840197187 Problem Chronic diarrhea K52.9 Active 126407256 Problem Depressed F32.9 Active 44304258 Problem Fibromyalgia M79.7 Active 55162176 Problem Osteoarthritis M19.90 Active 274343167 Problem Primary insomnia F51.01 Active 5384064 Problem HTN (hypertension) I10 Active 35520580 Problem Environmental allergies Z91.09 Active 261891230 ALLERGIES Substance Reaction Event Type Date Status Sulfamethoxazole-Trimethoprim Unknown Drug Allergy Nov, Active Pravastatin Sodium Myalgias/takes med anyway Drug Allergy Nov, Active ENCOUNTERS Encounter Location Date Diagnosis [facility] [address] [facility] [id number] [address] May, [facility] [address] [id number] [address] May, [facility] [address] [facility] [id number], [place] [address] Apr, [facility] [id number] [place] [address] March, Pelvic pain R10.2 [facility] [id number] [place] [address]21- 8882 March, Type 2 diabetes mellitus with unspecified complications E11.8 ; Mixed hyperlipidemia E78.2 ; Essential hypertension I10 and Other chronic pain G89.29 [place] [id number] [place] [address] 92190- 8460 March, Pain of left shoulder joint on movement M25.512 ; Type 2 diabetes mellitus with unspecified complications E11.8 ; [facility] 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 ; Tobacco use Z72.0 and Moderate episode of recurrent major depressive disorder F33.1 [place] [id number] [place] [address]188- 8998 March, [facility] [address] [address] Jan, Type 2 diabetes mellitus with unspecified complications E11.8 ; Mixed hyperlipidemia E78.2 and Essential hypertension I10 [place] [id number] [place] [address] 21897- 9575 Dec, [facility] [id number] [place] [address] 28327- 2445 Nov, [place] [id number] [place] [address] 54721- 6190 Nov, Acute nasopharyngitis J00 [place] [id number] [place] [address] 34796- 0682 Sep, [facility] 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 ; Type 2 diabetes mellitus with unspecified complications E11.8 ; Mixed hyperlipidemia E78.2 ; Essential hypertension I10 ; Pain in left shoulder M25.512 ; Other chronic pain G89.29 ; Tobacco use Z72.0 and Depressed F32.9 [place] [id number] [place] [address] 89548- 5520 Sep, Encounter for immunization Z23 [facility] [address] [address] Aug, Environmental allergies Z91.09 [facility] [address] [address] Aug, [facility] [id number] [place] [address] 23957- 8618 Jul, [facility] [id number] [place] [address] 90331- 9480 Jun, Diabetes E11.9 [place] [id number] [place] [address] 47377- 6704 Jun, Acute pain of left shoulder M25.512 [place] [id number] [place] [address] 71476- 7796 March, Diabetes E11.9 ; Abnormal chest xray R93.8 ; HTN ( hypertension) I10 ; Fibromyalgia M79.7 ; Primary insomnia F51.01 ; Osteoarthritis M19.90 ; Depressed F32.9 ; Postmenopausal HRT (hormone replacement therapy) Z79.890 ; Environmental allergies Z91.09 and Hyperlipidemia , unspecified hyperlipidemia type E78.5 [place] [id number] [place] [address] 22270- 9641 March, Diabetes E11.9 [place] [address] [address] March, Diabetes E11.9 [place] [id number] [place] [address] 70366- 5640 Jan, Diabetes E11.9 ; HTN (hypertension) I10 ; Fibromyalgia M79.7 ; Primary insomnia F51.01 ; Osteoarthritis M19.90 ; Depressed F32.9 ; Postmenopausal HRT (hormone replacement therapy) Z79.890 ; Environmental allergies Z91.09 ; Hyperlipidemia, unspecified hyperlipidemia type E78.5 and Abnormal chest xray R93.8 [place] [id number] [place] [address] 72383- 3755 Jan, [place] [id number] [place] [address] 96972- 1598 Sep, Diabetes E11.9 ; Osteoarthritis M19.90 ; HTN (hypertension) I10 ; History of postmenopausal HRT Z92.29 ; Joint pain M25.50 ; Fatigue R53.83 ; Depressed F32.9 ; Chronic diarrhea K52.9 ; Fibromyalgia M79.7 ; Primary insomnia F51.01 ; Environmental allergies Z91.09 and Exhaustion R53.83 [place] [id number] [place] [address] 28100- 1070 Aug, Viral gastroenteritis A08.[address] [address]- [address] May, [place] [id number] [place] [address] 26814- 9395 May, Bronchitis J40 ; Diabetes E11.9 and HTN (hypertension) I10 [place] [id number] [place] [address] 05317- 4468 March, Joint pain M25.50 [place] [id number] [place] [address] 04306- 1303 March, Diabetes E11.9 ; HTN (hypertension) I10 ; Osteoarthritis M19.90 ; History of postmenopausal HRT Z92.29 ; Joint pain M25.50 ; Fatigue R53.83 ; Depressed F32.9 ; Postmenopausal HRT (hormone replacement therapy) Z79.890 ; Fibromyalgia M79.7 ; Shoulder pain M25.519 ; Environmental allergies Z91.09 and Primary insomnia F51.01 [place] [id number] [place] [address] 58693- 9584 March, [place] [id number] [place] [address] 43598- 1427 Jan, [place] [id number] [place] [address] 96403- 1463 Jan, Joint pain M25.50 [place] [id number] [place] [address] 17068- 7188 Jan, 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 and Impingement syndrome, shoulder, left M75.42 [place] [id number] [place] [address] 24110- 8330 31 Jan, 2016 [place] [address] [address]305- 9349 Dec, [place] [address] 82676- 3230 Dec, Joint pain M25.50 and Shoulder pain M25.[address] [address]41- 6845 Dec, [place] [address] 28583- 7786 Dec, [place] [address] 49373- 0737 Dec, Upper respiratory infection J06.9 ; Shoulder pain, left M25.512 and Cold sore B00.[address] 31686- 7884 Dec, Shoulder pain, left M25.512 [place] [id number] [place] [address] 92930- 2923 15 Dec, 2015 Left hip pain M25.552 ; HTN (hypertension) I10 ; Diabetes E11.9 ; Osteoarthritis M19.90 ; History of postmenopausal HRT Z92.29 ; Depressed F32.9 ; Postmenopausal HRT (hormone replacement therapy) Z79.890 ; Fibromyalgia M79.7 and Sciatica of left side M54.32 [place] [id number] [place] [address] 82663- 7942 02 Dec, 2015 HTN (hypertension) I10 ; Diabetes E11.9 ; Osteoarthritis M19.90 ; History of postmenopausal HRT Z92.29 ; Joint pain M25.50 ; Depressed F32.9 ; Chronic diarrhea K52.9 ; Postmenopausal HRT (hormone replacement therapy ) Z79.890 and Fibromyalgia M79.7 [place] [id number] [place] [address] 12092- 8272 Nov, [place] [id number] [place] [address] 86683- 5752 Oct, [address] 01611- 4931 Oct, Elevated glucose R73.09 [place] [address] 72629- 3735 Oct, Elevated glucose R73.09 and Vitamin D deficiency E55.9 [place] [id number] [place] [address] 14494- 9605 Oct, Diabetes E11.9 ; HTN (hypertension) I10 ; Osteoarthritis M19.90 ; History of postmenopausal HRT Z92.29 ; Joint pain M25.50 ; Fatigue R53.83 ; Depressed F32.9 ; Hypercholesteremia E78.0 and COPD (chronic obstructive pulmonary disease) J44.9 [place] [id number] [place] [address] 00242- 7075 Aug, [place] [id number] [place] [address] 51461- 9622 Jul, Other specified menopausal and postmenopausal disorder 627.8 ; Obstructive chronic bronchitis, with (acute) exacerbation 491.21 ; Other and unspecified hyperlipidemia 272.4 ; Diarrhea 787.91 ; Diabetes mellitus without mention of complication, type II or unspecified type, not stated as uncontrolled 250.00 ; Hormone replacement therapy V07.4 ; Insomnia 780.52 ; Hypercholesterolemia 272.0 and Chronic pain 338.29 [place] [id number] [place] [address] 11531- 6745 Jul, [place] [id number] [place] [address] 94057- 1843 Apr, Unspecified breast screening V76.[address] [place] [address]- 3712 14 Jan, 2015 [facility] [place] [facility] [address] [id number] [place] [address]- 0608 13 Jan, 2015 [facility] [place] [facility] [address] [id number] [place] [address]- 4423 Dec, [facility] [place] [facility] [address] [id number] [place] [address]- 3404 Dec, [facility] [place] [facility] [address] [id number] [place] [address]- 7732 Dec, [facility] [place] [facility] [address] [id number] [place] [address]- 7548 Dec, [facility] [place] [facility] [address] [id number] [place] [address]- 8633 Dec, [facility] [place] [facility] [address] [id number] [place] [address]- 8353 Dec, [facility] [place] [facility] [address] [id number] [place] [address]- 2700 Dec, [facility] [place] [facility] [address] [facility] [id number] [place] [address]- 2558 Dec, [facility] [place] [facility] [address] [facility] [id number] [place] [address]- 0279 Nov, [facility] [place] [facility] [address] [facility] [id number] [place] [address]- 9958 Nov, [facility] [place] [facility] [address] [id number] [place] [address]- 0801 Oct, [facility] [place] [facility] [address] [id number] [place] [address]- 8926 Oct, [facility] [place] [facility] [address] [facility] [id number] [place] [address] Sep, [facility] [place] [facility] [address] [facility] [id number] [place] [address]- 6911 Sep, [facility] [place] [facility] [address] [id number] [place] [address]- 0459 Sep, [facility] [place] [facility] [address] [id number] [place] [address]36 Sep, [facility] [place] [facility] [address] [id number] [place] [address]- 5518 May, [facility] [place] [facility] [address] [id number] [place] [address]- 7915 May, [facility] [place] [facility] [address] [id number] [place] [address]- 6238 May, [facility] [place] [facility] [address] [id number] [place] [address]- 3143 May, [facility] [place] [facility] [address] [id number] [place] [address]- 7944 Apr, [facility] [place] [facility] [address] [id number] [place] [address]- 1284 Apr, [facility] [place] [facility] [address] [id number] [place] [address]- 8662 Apr, [facility] [place] [facility] [address] [id number] [place] [address]- 9846 Apr, [facility] [place] [facility] [address] [id number] [place] [address]- 2828 Apr, [facility] [place] [facility] [address] [id number] [place] [address]- 4702 Apr, [facility] [place] [facility] [address] [id number] [place] [address]- 2387 Apr, [facility] [place] [facility] [address] [id number] [place] [address]- 9046 March, [facility] [place] [facility] [address] [id number] [place] [address]297 March, [facility] [place] [facility] [address] [id number], [place] [address]- 0119 March, [facility] [place] [facility] [address] [id number] [place] [address]- 2307 Dec, [facility] [place] [facility] [address] [id number] [place] [address]- 7554 Dec, [facility] [place] [facility] [address] [id number] [place] [address]- 7981 Nov, [facility] [place] [facility] [address] [id number] [place] [address]- 2796 Nov, [facility] [place] [facility] [address] [id number] [place] [address]- 1010 Nov, [facility] [place] [facility] [address] [id number] [place] [address]- 1926 Nov, [facility] [place] [facility] [address] [id number] [place] [address]- 9894 Sep, [facility] [place] [facility] [address] [id number] [place] [address]- 9353 Sep, [facility] [place] [facility] [address] [id number] [place] [address]- 3302 Jul, [facility] [place] [facility] [address] [id number] [place] [address]- 8250 Jun, [facility] [place] [facility] [address] [id number] [place] [address]- 5625 Jun, [facility] [place] [facility] [address] [id number], [place] [address]- 3974 Jun, [facility] [place] [facility] [address] [id number] [place] [address]- 7317 Jun, [facility] [place] [facility] [address] [id number] [place] [address]- 2347 Jun, [facility] [place] [facility] [address] [id number] [place] [address]- 6007 Jun, [facility] [place] [facility] [address] [facility] [id number] [place] [address]- 5165 May, [facility] [address] [facility] [id number], [place] [address]- 6607 May, [facility] [address] [facility] [id number], [place] [address]- 3977 May, [facility] [address] [facility] [id number], [place] [address]- 2693 May, [facility] [address] [facility] [id number], [place] [address]- 3921 May, IMMUNIZATIONS No Known Immunizations SOCIAL HISTORY Never Assessed REASON FOR VISIT Cough and congestion x 1 week, has been using OTC medications to help with symptoms. Was without heat for four days, exacerbated symptoms kevin guzman PLAN OF CARE Activity Details Follow Up prn Reason: VITAL SIGNS Height 64 in 2017-11-03 Weight 176.5 lbs 2017-11-03 Temperature 97 degrees Fahrenheit 2017-11-03 Heart Rate 114 bpm 2017-11-03 Respiratory Rate 22 2017-11-03 Oximetry 97 % 2017-11-03 BMI 30.29 kg/m2 2017-11-03 Blood pressure systolic 130 mmHg 2017-11-03 Blood pressure diastolic 76 mmHg 2017-11-03 MEDICATIONS Medication Instructions Dosage Frequency Start Date End Date Duration Status Proventil HFA 108 (90 Base) MCG/ACT Inhalation every 4 hrs 2 puffs as needed 4h May, Not-Taking Cyclobenzaprine HCl 10 mg Orally Three times a day 1 tablet as needed 8h Jun, Active Glucocard Expression Monitor w/Device as directed Jul, Active Nortriptyline HCl 75 MG Orally at bedtime 1 capsule Jan, 30 day(s) Not-Taking Tessalon Perles 100 mg Orally Three times a day 1 capsule as needed 8h Nov, Nov, 14 days Active Glucocard Expression Test - subcutaneously 3 times a day to check blood sugar 8h Jul, Active Lisinopril 5 mg Orally daily TAKE ONE TABLET BY MOUTH ONCE DAILY 24h 30 Active Montelukast Sodium 10 MG TAKE ONE TABLET BY MOUTH ONCE DAILY 30 Active Metformin HCl 1000 MG Orally 2 times a day TAKE ONE TABLET BY MOUTH TWICE DAILY WITH MEALS 12h 30 Active Gabapentin 300 MG Orally Three times a day 1 capsule 8h 30 Active NovoFine 32G X 6 MM subcutaneously 2 times a day as directed 12h Jun, 90 days Active Levemir FlexTouch 100 UNIT/ML Subcutaneous Once a day inject 50 units 24h March, 90 days Active NyQuil Active Premarin 0.3 MG TAKE ONE TABLET BY MOUTH ONCE DAILY 30 Active Victoza 18 MG/3ML Subcutaneous Once a day 1.8 24h 90 days Active Mucinex 600 MG Orally every 12 hrs 1 tablet as needed 12h Active Pravastatin Sodium 40 mg Orally Once a day TAKE ONE TABLET BY MOUTH AT BEDTIME (AVOID GRAPEFRUIT JUICE) 24h 30 Active Meloxicam 15 mg Orally daily TAKE ONE TABLET BY MOUTH ONCE DAILY 24h 30 Active Celexa 20 mg Orally Once a day 1 tablet 24h 30 days Active GlipiZIDE ER 5 mg Orally Once a day TAKE ONE TABLET BY MOUTH ONCE DAILY 24h 30 Active RESULTS No Results PROCEDURES Procedure Date Ordered Result Body Site MEASURE BLOOD OXYGEN LEVEL Nov 03, 2017 INSTRUCTIONS MEDICATIONS ADMINISTERED No Known Medications MEDICAL [...]
--- OUTSIDE RECORDS SUMMARY | 2018-11-20 21:40 | XMS REPORT ---
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 Active 064210255 Problem Moderate episode of recurrent major depressive disorder F33.1 Active 838075675 Problem Pain of left shoulder joint on movement M25.512 Active 713655164 Problem Mixed hyperlipidemia E78.2 Active 627867199 Problem Other chronic pain G89.29 Active 95463693 Problem Essential hypertension I10 Active 34039664 Problem Type 2 diabetes mellitus with unspecified complications E11.8 Active 11585343 Problem History of postmenopausal HRT Z92.29 Active 715508774 Problem Chronic diarrhea K52.9 Active 362694797 Problem Depressed F32.9 Active 13528595 Problem Fibromyalgia M79.7 Active 00945982 Problem Osteoarthritis M19.90 Active 028766250 Problem Primary insomnia F51.01 Active 4914522 Problem HTN (hypertension) I10 Active 00624998 Problem Environmental allergies Z91.09 Active 115266132 ALLERGIES Substance Reaction Event Type Date Status Sulfamethoxazole-Trimethoprim Unknown Drug Allergy Jun, Active Pravastatin Sodium Myalgias/takes med anyway Drug Allergy Jun, Active ENCOUNTERS Encounter Location Date Diagnosis [facility] [place] [id number] [address] May, [facility] [place] [address] [address] Apr, [facility] [id number] [place] [address]66 March, Pelvic pain R10.2 [address] [id number] [place] [address] 97538- 4294 March, Type 2 diabetes mellitus with unspecified complications E11.8 ; Mixed hyperlipidemia E78.2 ; Essential hypertension I10 and Other chronic pain G89.29 [place] [id number] [place] [address] 38458- 5378 March, Pain of left shoulder joint on movement M25.512 ; Type 2 diabetes mellitus with unspecified complications E11.8 ; skilled nursing 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 ; Tobacco use Z72.0 and Moderate episode of recurrent major depressive disorder F33.1 [address] [address] [address] [address] March, [place] [id number] [place] [address] 60258- 3018 Jan, Type 2 diabetes mellitus with unspecified complications E11.8 ; Mixed hyperlipidemia E78.2 and Essential hypertension I10 [place] [id number] [place] [address] 60274- 6302 Dec, [place] [id number] [place] [address] 09661- 8130 Nov, [place] [id number] [place] [address] 80090- 3344 Nov, Acute nasopharyngitis J00 [place] [id number] [place] [address] 84862- 3110 Sep, skilled nursing 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 ; Type 2 diabetes mellitus with unspecified complications E11.8 ; Mixed hyperlipidemia E78.2 ; Essential hypertension I10 ; Pain in left shoulder M25.512 ; Other chronic pain G89.29 ; Tobacco use Z72.0 and Depressed F32.9 [place] [id number] [place] [address] 11342- 4583 Sep, Encounter for immunization Z23 [place] [address] [id number] [address] Aug, Environmental allergies Z91.09 [facility] [place] [address] [address] Aug, [facility] [place] [address] [address] Jul, [facility] [place] [id number] [place] [address] 51950- 9703 Jun, Diabetes E11.9 [facility] [place] [id number] [place] [address] 39369- 5177 Jun, Acute pain of left shoulder M25.512 [place] [id number] [place] [address] 45303- 4012 March, Diabetes E11.9 ; Abnormal chest xray R93.8 ; HTN ( hypertension) I10 ; Fibromyalgia M79.7 ; Primary insomnia F51.01 ; Osteoarthritis M19.90 ; Depressed F32.9 ; Postmenopausal HRT (hormone replacement therapy) Z79.890 ; Environmental allergies Z91.09 and Hyperlipidemia , unspecified hyperlipidemia type E78.5 [place] [id number] [place] [address] 06574- 8729 March, Diabetes E11.9 [place] [address] [address] March, Diabetes E11.9 [facility] [place] [address] [address] Jan, Diabetes E11.9 ; HTN (hypertension) I10 ; Fibromyalgia M79.7 ; Primary insomnia F51.01 ; Osteoarthritis M19.90 ; Depressed F32.9 ; Postmenopausal HRT (hormone replacement therapy) Z79.890 ; Environmental allergies Z91.09 ; Hyperlipidemia, unspecified hyperlipidemia type E78.5 and Abnormal chest xray R93.8 [place] [address] [address] [address] Jan, [facility] [place] [id number] [place] [address] 13943- 1628 Sep, Diabetes E11.9 ; Osteoarthritis M19.90 ; HTN (hypertension) I10 ; History of postmenopausal HRT Z92.29 ; Joint pain M25.50 ; Fatigue R53.83 ; Depressed F32.9 ; Chronic diarrhea K52.9 ; Fibromyalgia M79.7 ; Primary insomnia F51.01 ; Environmental allergies Z91.09 and Exhaustion R53.83 [place] [address] [address]- [address] Aug, Viral gastroenteritis A08.[address] [address]- 8799 May, [address] [address]- [address] May, Bronchitis J40 ; Diabetes E11.9 and HTN (hypertension) I10 [address] [address]- 9697 March, Joint pain M25.50 [place] [address] 18214- 0753 March, Diabetes E11.9 ; HTN (hypertension) I10 ; Osteoarthritis M19.90 ; History of postmenopausal HRT Z92.29 ; Joint pain M25.50 ; Fatigue R53.83 ; Depressed F32.9 ; Postmenopausal HRT (hormone replacement therapy) Z79.890 ; Fibromyalgia M79.7 ; Shoulder pain M25.519 ; Environmental allergies Z91.09 and Primary insomnia F51.01 [place] [id number] [place] [address] 32206- 3322 March, [place] [address] 34620- 8[address] Jan, [place] [id number] [place] [address] 33200- 9769 Jan, Joint pain M25.[address] [address]- [address] Jan, 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 and Impingement syndrome, shoulder, left M75.42 [place] [id number] [place] [address] 09177- 9379 31 Jan, 2016 [facility] [place] [id number] [place] [address] 82263- 1789 Dec, [place] [id number] [place] [address] 65737- 2147 Dec, Joint pain M25.50 and Shoulder pain M25.519 [place] [id number] [place] [address] 24888- 8728 Dec, [place] [address] 37[address]- 3[address] Dec, [place] [id number] [place] [address] 02730- 1424 Dec, Upper respiratory infection J06.9 ; Shoulder pain, left M25.512 and Cold sore B00.1 [place] [id number] [place] [address] 41601- 7870 Dec, Shoulder pain, left M25.512 [place] [id number] [place] [address] 21320- 0382 15 Dec, 2015 Left hip pain M25.552 ; HTN (hypertension) I10 ; Diabetes E11.9 ; Osteoarthritis M19.90 ; History of postmenopausal HRT Z92.29 ; Depressed F32.9 ; Postmenopausal HRT (hormone replacement therapy) Z79.890 ; Fibromyalgia M79.7 and Sciatica of left side M54.32 [place] [id number] [place] [address] 56596- 7830 02 Dec, 2015 HTN (hypertension) I10 ; Diabetes E11.9 ; Osteoarthritis M19.90 ; History of postmenopausal HRT Z92.29 ; Joint pain M25.50 ; Depressed F32.9 ; Chronic diarrhea K52.9 ; Postmenopausal HRT (hormone replacement therapy ) Z79.890 and Fibromyalgia M79.7 [place] [address] [address] 07 Nov, 2015 [place] [id number] [place] [address] 17939- 6768 Oct, [place] [id number] [place] [address] 59425- 3031 Oct, Elevated glucose R73.09 [place] [id number] [place] [address] 34996- 1470 Oct, Elevated glucose R73.09 and Vitamin D deficiency E55.9 [address] [id number] [place] [address] 10392- 0416 Oct, Diabetes E11.9 ; HTN (hypertension) I10 ; Osteoarthritis M19.90 ; History of postmenopausal HRT Z92.29 ; Joint pain M25.50 ; Fatigue R53.83 ; Depressed F32.9 ; Hypercholesteremia E78.0 and COPD (chronic obstructive pulmonary disease) J44.9 [address] [id number] [place] [address] 60180- 3428 Aug, [place] [id number] [place] [address] 53486- 2348 Jul, Other specified menopausal and postmenopausal disorder 627.8 ; Obstructive chronic bronchitis, with (acute) exacerbation 491.21 ; Other and unspecified hyperlipidemia 272.4 ; Diarrhea 787.91 ; Diabetes mellitus without mention of complication, type II or unspecified type, not stated as uncontrolled 250.00 ; Hormone replacement therapy V07.4 ; Insomnia 780.52 ; Hypercholesterolemia 272.0 and Chronic pain 338.29 [address] [address] [place] [address] 21832- 0870 Jul, [place] [id number] [place] [address] 98120- 5943 Apr, Unspecified breast screening V76.10 [address] [id number] [place] [address] 75819- 5810 Jan, [facility] [place] [facility] [address] [id number] [place] [address]- 0971 Jan, [facility] [place] [facility] [address] [id number] [place] [address]- 9580 Dec, [facility] [place] [facility] [address] [id number] [place] [address]- 5423 Dec, 2014 [facility] [place] [facility] [address] [id number] [place] [address]- 6443 Dec, 2014 [facility] [place] [facility] [address] [id number] [place] [address]- 3371 Dec, [facility] [place] [facility] [address] [id number] [place] [address]- 9804 Dec, [facility] [place] [facility] [address] [id number] [place] [address]- 2083 Dec, [facility] [place] [facility] [address] [id number] [place] [address]- 4868 Dec, [facility] [place] [facility] [address] [id number] [place] [address]- 8728 Dec, [facility] [place] [facility] [address] [id number] [place] [address]- 6274 Nov, [facility] [place] [facility] [address] [id number] [place] [address]- 8603 Nov, [facility] [place] [facility] [address] [id number] [place] [address]- 6863 Oct, [facility] [place] [facility] [address] [id number] [place] [address]- 3896 Oct, [facility] [place] [facility] [address] [id number] [place] [address]- 6684 Sep, [facility] [place] [facility] [address] [id number] [place] [address]- 6184 Sep, [facility] [place] [facility] [address] [id number] [place] [address]- 1892 Sep, [facility] [place] [facility] [address] [id number] [place] [address] Sep, [facility] [place] [facility] [address] [id number] [place] [address]- 1033 May, [facility] [place] [facility] [address] [id number] [place] [address]- 8168 May, [facility] [place] [facility] [address] [id number] [place] [address]- 2384 May, [facility] [place] [facility] [address] [id number] [place] [address]- 3804 May, [facility] [place] [facility] [address] [id number] [place] [address]- 5718 Apr, [facility] [place] [facility] [address] [id number] [place] [address]- 8749 Apr, [facility] [place] [facility] [address] [id number] [place] [address]- 9821 Apr, [facility] [place] [facility] [address] [id number] [place] [address]- 1810 Apr, [facility] [place] [facility] [address] [id number] [place] [address]- 0527 Apr, [facility] [place] [facility] [address] [id number] [place] [address]- 5486 Apr, [facility] [place] [facility] [address] [id number] [place] [address]- 7529 Apr, [facility] [place] [facility] [address] [id number] [place] [address] March, [facility] [place] [facility] [address] [id number] [place] [address]- 6542 March, [facility] [place] [facility] [address] [id number] [place] [address] March, [facility] [place] [facility] [address] [id number] [place] [address] 2540 Dec, [facility] [address] [id number] [place] [address]- 4504 Dec, [facility] [place] [facility] [address] [id number] [place] [address]- 2654 Nov, [facility] [address] [id number] [place] [address]- 5144 Nov, [facility] [place] [facility] [address] [id number] [place] [address]- 7668 Nov, [facility] [address] [id number] [place] [address]- 5046 Nov, [facility] [address] [id number] [place] [address]- 7955 Sep, [facility] [address] [id number] [place] [address]- 1139 Sep, [facility] [address] [id number] [place] [address]- 9347 Jul, [facility] [place] [facility] [address] [id number] [place] [address]- 0757 Jun, [facility] [address] [id number] [place] [address]- 2626 Jun, [facility] [place] [facility] [address] [id number] [place] [address]- 0951 Jun, [facility] [place] [facility] [address] [id number] [place] [address]- 2342 Jun, [facility] [place] [facility] [address] [id number] [place] [address]- 7277 Jun, [facility] [place] [facility] [address] [id number] [place] [address]- 2546 Jun, [facility] [place] [facility] [address] [id number] [place] [address]- 4653 May, [facility] [place] [address] [facility] [id number] [address]- 5828 May, [facility] [place] [address] [facility] [id number], [place] [address]- 4708 May, [facility] [place] [address] [facility] [id number], [place] [address]- 6514 May, [facility] [place] [address] [facility] [id number] [address] May, IMMUNIZATIONS No Known Immunizations SOCIAL HISTORY Never Assessed REASON FOR VISIT Shoulder pain that travles down the left arm. Pain is in the center of shoulder alex Bray MA PLAN OF CARE Activity Details Follow Up 2 Weeks, prn Reason: VITAL SIGNS Height 64 in 2017-06-24 Weight 176.3 lbs 2017-06-24 Temperature 98.0 degrees Fahrenheit 2017-06-24 Heart Rate 86 bpm 2017-06-24 Respiratory Rate 20 2017-06-24 BMI 30.26 kg/m2 2017-06-24 Blood pressure systolic 128 mmHg 2017-06-24 Blood pressure diastolic 86 mmHg 2017-06-24 MEDICATIONS Medication Instructions Dosage Frequency Start Date End Date Duration Status GlipiZIDE ER 5 MG TAKE ONE TABLET BY MOUTH ONCE DAILY 30 Active Celexa 20 mg Orally Once a day 1 tablet 24h Active Hydrocodone-Acetaminophen 5-325 MG Orally 3 times a day 1 tablet as needed 8h Jun, Jun, 07 days Active Lisinopril 5 MG TAKE ONE TABLET BY MOUTH ONCE DAILY 30 Active Singulair 10 mg Orally Once a day 1 tablet by Oral route 1 time per day 24h Dec, Active Citalopram Hydrobromide 20 MG TAKE ONE TABLET BY MOUTH ONCE DAILY 30 Active Metformin HCl 1000 MG TAKE ONE TABLET BY MOUTH TWICE DAILY WITH MEALS 30 Active Nortriptyline HCl 75 MG Orally at bedtime 1 capsule Jan, 30 day(s) Not-Taking Victoza 18 MG/3ML Subcutaneous Once a day 1.8 24h Active Levemir FlexTouch 100 UNIT/ML Subcutaneous Once a day inject 50 units 24h March, 30 days Active Montelukast Sodium 10 MG TAKE ONE TABLET BY MOUTH ONCE DAILY 30 Active Meloxicam 15 MG TAKE ONE TABLET BY MOUTH ONCE DAILY 30 Active Cyclobenzaprine HCl 10 mg Orally Three times a day 1 tablet as needed 8h Jun, Active Proventil HFA 108 (90 Base) MCG/ACT Inhalation every 4 hrs 2 puffs as needed 4h May, Not-Taking Premarin 0.3 MG TAKE ONE TABLET BY MOUTH ONCE DAILY 30 Active Pravastatin Sodium 40 MG TAKE ONE TABLET BY MOUTH AT BEDTIME (AVOID GRAPEFRUIT JUICE) 30 Active Gabapentin 300 MG Orally Three [...]
--- OUTSIDE RECORDS SUMMARY | 2018-11-20 21:41 | XMS REPORT ---
Author Author ESCOBAR Haley Organization [facility] Address [address] [place] [address] Care Team Providers Care Group Controller Name Role Phone Tera ESCOBAR Unavailable PROBLEMS Type Condition ICD9-CM Code GIO38-CW Code Onset Dates Condition Status SNOMED Code Problem Primary insomnia F51.01 Active 8393008 Problem Hyperlipidemia, unspecified hyperlipidemia type E78.5 Active 57238615 Problem Environmental allergies Z91.09 Active 623127889 Problem Type 2 diabetes mellitus with unspecified complications E11.8 Active 54370699 Problem Mixed hyperlipidemia E78.2 Active 471123509 Problem [facility] 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 Active 718999853 Problem Essential hypertension I10 Active 98624667 Problem Other chronic pain G89.29 Active 68174959 Problem Tobacco use Z72.0 Active 438249796 Problem Osteoarthritis M19.90 Active 461272027 Problem HTN (hypertension) I10 Active 45594780 Problem History of postmenopausal HRT Z92.29 Active 943383062 Problem Depressed F32.9 Active 30510328 Problem Chronic diarrhea K52.9 Active 244190052 Problem Fibromyalgia M79.7 Active 23216718 ALLERGIES No Information ENCOUNTERS Encounter Location Date Diagnosis [facility] [id number] [address] May, [facility] [id number] [place] [address] 37188- 4340 Jan, Type 2 diabetes mellitus with unspecified complications E11.8 ; Mixed hyperlipidemia E78.2 and Essential hypertension I10 [facility] [address] [address] Dec, [facility] [id number] [place] [address] 01018- 4819 Nov, [facility] [id number] [place] [address] 93401- 9286 Nov, Acute nasopharyngitis J00 [facility] [id number] [place] [address] 68290- 7307 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, 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 ; Type 2 diabetes mellitus with unspecified complications E11.8 ; Mixed hyperlipidemia E78.2 ; Essential hypertension I10 ; Pain in left shoulder M25.512 ; Other chronic pain G89.29 ; Tobacco use Z72.0 and Depressed F32.9 [facility] [id number] [place] [address] 31101- 9819 Sep, Encounter for immunization Z23 [facility] [id number] [place] [address] 24936- 4146 Aug, Environmental allergies Z91.09 [facility] [id number] [place] [address] 83000- 6273 Aug, [facility] [id number] [place] [address] 90094- 3616 Jul, [place] [place] [address] [address]- [address]228 Jun, Diabetes E11.9 [facility] [id number] [place] [address] 63514- 7488 Jun, Acute pain of left shoulder M25.512 [facility] [id number] [place] [address] 25691- 2595 March, Diabetes E11.9 ; Abnormal chest xray R93.8 ; HTN ( hypertension) I10 ; Fibromyalgia M79.7 ; Primary insomnia F51.01 ; Osteoarthritis M19.90 ; Depressed F32.9 ; Postmenopausal HRT (hormone replacement therapy) Z79.890 ; Environmental allergies Z91.09 and Hyperlipidemia , unspecified hyperlipidemia type E78.5 [facility] [id number] [place] [address] 88645- 0731 March, Diabetes E11.9 [facility] [id number] [place] [address] 19405- 2576 March, Diabetes E11.9 [facility] [address] 84144- 9137 Jan, Diabetes E11.9 ; HTN (hypertension) I10 ; Fibromyalgia M79.7 ; Primary insomnia F51.01 ; Osteoarthritis M19.90 ; Depressed F32.9 ; Postmenopausal HRT (hormone replacement therapy) Z79.890 ; Environmental allergies Z91.09 ; Hyperlipidemia, unspecified hyperlipidemia type E78.5 and Abnormal chest xray R93.8 [facility] [id number] [place] [address] 59570- 4247 Jan, [facility] [id number] [place] [address] 31925- 1100 Sep, Diabetes E11.9 ; Osteoarthritis M19.90 ; HTN (hypertension) I10 ; History of postmenopausal HRT Z92.29 ; Joint pain M25.50 ; Fatigue R53.83 ; Depressed F32.9 ; Chronic diarrhea K52.9 ; Fibromyalgia M79.7 ; Primary insomnia F51.01 ; Environmental allergies Z91.09 and Exhaustion R53.83 [facility] [address] 7[address]99- 4962 Aug, Viral gastroenteritis A08.4 [facility] [id number] [place] [address] 25181- 2649 May, [facility] [id number] [place] [address] 28875- 4526 May, Bronchitis J40 ; Diabetes E11.9 and HTN (hypertension) I10 [facility] [id number] [place] [address] 19398- 2755 March, Joint pain M25.50 [facility] [id number] [place] [address] 98366- 2629 March, Diabetes E11.9 ; HTN (hypertension) I10 ; Osteoarthritis M19.90 ; History of postmenopausal HRT Z92.29 ; Joint pain M25.50 ; Fatigue R53.83 ; Depressed F32.9 ; Postmenopausal HRT (hormone replacement therapy) Z79.890 ; Fibromyalgia M79.7 ; Shoulder pain M25.519 ; Environmental allergies Z91.09 and Primary insomnia F51.01 [facility] [id number] [place] [address] 82530- 9854 March, [facility] [address] 82269- 1300 Jan, [place] [address] 63995- 7472 Jan, Joint pain M25.50 [facility] [place] [address] 73911- 3987 Jan, 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 and Impingement syndrome, shoulder, left M75.42 [facility] [address] 44814- 1579 Dec, [facility] [place] [address] 20359- 4375 Dec, [facility] [address] 92657- 0859 Dec, Joint pain M25.50 and Shoulder pain M25.519 [facility] [id number] [place] [address] 77362- 0893 Dec, [facility] [address] 38652- 9456 Dec, [facility] [address] 83877- 3491 Dec, Upper respiratory infection J06.9 ; Shoulder pain, left M25.512 and Cold sore B00.1 [facility] [id number] [place] [address] 45327- 2160 Dec, Shoulder pain, left M25.512 [facility] [address] 67902- 2127 15 Dec, 2015 Left hip pain M25.552 ; HTN (hypertension) I10 ; Diabetes E11.9 ; Osteoarthritis M19.90 ; History of postmenopausal HRT Z92.29 ; Depressed F32.9 ; Postmenopausal HRT (hormone replacement therapy) Z79.890 ; Fibromyalgia M79.7 and Sciatica of left side M54.[address] [address]- [address] 02 Dec, 2015 HTN (hypertension) I10 ; Diabetes E11.9 ; Osteoarthritis M19.90 ; History of postmenopausal HRT Z92.29 ; Joint pain M25.50 ; Depressed F32.9 ; Chronic diarrhea K52.9 ; Postmenopausal HRT (hormone replacement therapy ) Z79.890 and Fibromyalgia M79.[address] 05261- 0114 Nov, [address] 43771- 8603 Oct, [address] 58007- 3098 Oct, Elevated glucose R73.[address] 83000- 5708 Oct, Elevated glucose R73.09 and Vitamin D deficiency E55.[address] 62821- 0750 Oct, Diabetes E11.9 ; HTN (hypertension) I10 ; Osteoarthritis M19.90 ; History of postmenopausal HRT Z92.29 ; Joint pain M25.50 ; Fatigue R53.83 ; Depressed F32.9 ; Hypercholesteremia E78.0 and COPD (chronic obstructive pulmonary disease) J44.[address] 56163- 5917 Aug, [address] 37378- 7540 Jul, Other specified menopausal and postmenopausal disorder 627.8 ; Obstructive chronic bronchitis, with (acute) exacerbation 491.21 ; Other and unspecified hyperlipidemia 272.4 ; Diarrhea 787.91 ; Diabetes mellitus without mention of complication, type II or unspecified type, not stated as uncontrolled 250.00 ; Hormone replacement therapy V07.4 ; Insomnia 780.52 ; Hypercholesterolemia 272.0 and Chronic pain 338.29 [facility] [address] [address]- 1421 11 Jul, 2015 [facility] [id number] [place] [address] 745596- 4445 Apr, Unspecified breast screening V76.10 [facility] [id number] [place] [address] 99403- 3987 14 Jan, 2015 [facility] [id number] [place] [address] 89853- 0637 Jan, [facility] [id number] [place] [address] 81005- 2433 Dec, [facility] [address] [address]- 5291 Dec, [facility] [address] [address] Dec, [facility] [address] [address]- 9770 Dec, [facility] [address] [address] Dec, [facility] [address] [address] Dec, [facility] [address] [address]- 3716 Dec, [facility] [address] [address] Dec, [facility] [address] [address]- 2045 Nov, [facility] [place] [facility] [address] [id number] [place] [address]- 7216 Nov, [facility] [place] [facility] [address] [id number] [place] [address]- 7125 Oct, [facility] [place] [facility] [address] [id number] [place] [address]- 2541 Oct, [facility] [place] [facility] [address] [id number] [place] [address]- 2667 Sep, [facility] [place] [facility] [address] [id number] [place] [address]- 5025 Sep, [facility] [place] [facility] [address] [id number] [place] [address]- 5120 Sep, [facility] [place] [facility] [address] [id number] [place] [address]- 9177 Sep, [facility] [place] [facility] [address] [id number] [place] [address]- 6408 May, [facility] [place] [facility] [address] [id number] [place] [address]- 4241 May, [facility] [place] [facility] [address] [id number] [place] [address]- 7459 May, [facility] [place] [facility] [address] [id number] [place] [address]- 9461 May, [facility] [place] [facility] [address] [id number] [place] [address]- 1530 Apr, [facility] [place] [facility] [address] [id number] [place] [address]- 0337 Apr, [facility] [place] [facility] [address] [id number] [place] [address]- 2337 Apr, [facility] [place] [facility] [address] [id number] [place] [address]- 0334 Apr, [facility] [place] [facility] [address] [id number] [place] [address]- 4331 Apr, [facility] [place] [facility] [address] [id number] [place] [address]- 7306 Apr, [facility] [place] [facility] [address] [id number] [place] [address]- 5912 Apr, [facility] [place] [facility] [address] [id number] [place] [address]- 2708 March, [facility] [place] [facility] [address] [id number] [place] [address]- 6923 March, [facility] [place] [facility] [address] [id number] [place] [address]- 4236 March, [facility] [place] [facility] [address] [id number] [place] [address]- 7128 Dec, [facility] [place] [facility] [address] [id number] [place] [address]- 3218 Dec, [facility] [place] [facility] [address] [id number] [place] [address]- 4541 Nov, [facility] [place] [facility] [address] [id number] [place] [address]- 8536 Nov, [facility] [place] [facility] [address] [id number] [place] [address]- 2808 Nov, [facility] [place] [facility] [address] [id number] [place] [address]- 8903 Nov, [facility] [place] [facility] [address] [id number] [place] [address]- 7055 Sep, [facility] [place] [facility] [address] [id number] [place] [address]- 1673 Sep, [facility] [place] [facility] [address] [id number] [place] [address]- 6078 Jul, [facility] [place] [facility] [address] [id number] [place] [address]- 0923 Jun, [facility] [place] [facility] [address] [facility] [id number] [address]- 2558 Jun, [facility] [address] [facility] [id number] [address]- 9337 Jun, [facility] [address] [facility] [id number] [place] [address]- 9648 Jun, [facility] [address] [facility] [id number] [address]- 4516 Jun, [facility] [address] [facility] [id number] [place] [address]- 2210 Jun, [facility] [address] [facility] [id number] [place] [address]- 6065 May, [facility] [address] [facility] [id number] [place] [address]- 7841 May, [facility] [address] [address]- 1957 May, [facility] [id number] [address]- 5784 May, [facility] [id number] [address]- 6317 May, IMMUNIZATIONS No Known Immunizations SOCIAL HISTORY Never Assessed REASON FOR VISIT PALS IN- Levemir/Victoza PLAN OF CARE VITAL SIGNS MEDICATIONS Unknown [...]
--- OUTSIDE RECORDS SUMMARY | 2018-11-20 21:42 | XMS REPORT | Continuity of Care Document ---
Author Author [facility] Address Unknown Phone Unavailable Allergies Active Description Code Type Severity Reaction Onset Reported/Identified Relationship to Patient Clinical Status Yes Sulfa (Sulfonamide Antibiotics) Drug Allergy N/A N/A 05/18/2013 Yes SULFA SULFA Severe Anaphylaxis 02/24/2017 Yes No Known Drug Allergies [id number] Drug Allergy Unknown N/A 02/24/2017 Yes Sulfa (Sulfonamide Antibiotics) [id number] Drug Allergy Severe ANAPHYLAXIS 05/07/2018 Medications There is no data. Problems Date Dx Coded Attending Type Code Diagnosis Diagnosed By 05/18/2013 PINEDA PEREZ DO 250.00 DIABETES MELLITUS TYPE 2 05/18/2013 PINEDA PEREZ DO 709.9 UNSPECIFIED DISORDER OF SKIN AND SUBCUTANEOUS TISSUE 05/18/2013 PINEDA PEREZ DO K 715.00 OSTEOARTHROSIS GENERALIZED INVOLVING UNSPECIFIED SITE 05/18/2013 PINEDA PEREZ DO K 729.1 MYALGIA AND MYOSITIS UNSPECIFIED 05/18/2013 PINEDA PEREZ DO K V70.0 ROUTINE GENERAL MEDICAL EXAMINATION AT A HEALTH CARE FACILITY 05/18/2013 PINEDA PEREZ DO K 250.00 DIABETES MELLITUS TYPE 2 05/18/2013 PINEDA PEREZ DO 709.9 UNSPECIFIED DISORDER OF SKIN AND SUBCUTANEOUS TISSUE 05/18/2013 PINEDA PEREZ DO K 715.00 OSTEOARTHROSIS GENERALIZED INVOLVING UNSPECIFIED SITE 05/18/2013 PINEDA PEREZ DO K 729.1 MYALGIA AND MYOSITIS UNSPECIFIED 05/18/2013 ROHINI PEREZ DOA K V70.0 ROUTINE GENERAL MEDICAL EXAMINATION AT A HEALTH CARE FACILITY 05/18/2013 PINEDA PEREZ DO K 250.00 DIABETES MELLITUS TYPE 2 05/18/2013 PINEDA PEREZ DO K 709.9 UNSPECIFIED DISORDER OF SKIN AND SUBCUTANEOUS TISSUE 05/18/2013 PINEDA PEREZ DO K 715.00 OSTEOARTHROSIS GENERALIZED INVOLVING UNSPECIFIED SITE 05/18/2013 PINEDA PEREZ DO K 729.1 MYALGIA AND MYOSITIS UNSPECIFIED 05/18/2013 ROHINI PEREZ DOA K V70.0 ROUTINE GENERAL MEDICAL EXAMINATION AT A HEALTH CARE FACILITY 05/18/2013 GUADALUPE SENIOR POLICY ASSOCIATE, SLICK A 250.00 DIABETES MELLITUS TYPE 2 05/18/2013 GUADALUPE SENIOR POLICY ASSOCIATE, SLICK A 709.9 UNSPECIFIED DISORDER OF SKIN AND SUBCUTANEOUS TISSUE 05/18/2013 GUADALUPE SENIOR POLICY ASSOCIATE, SLICK A 715.00 OSTEOARTHROSIS GENERALIZED INVOLVING UNSPECIFIED SITE 05/18/2013 GUADALUPE SENIOR POLICY ASSOCIATE, SLICK A 729.1 MYALGIA AND MYOSITIS UNSPECIFIED 05/18/2013 GUADALUPE SENIOR POLICY ASSOCIATE, SLICK A V70.0 ROUTINE GENERAL MEDICAL EXAMINATION AT A HEALTH CARE FACILITY 05/18/2013 PINEDA PEREZ DO K 250.00 DIABETES MELLITUS TYPE 2 05/18/2013 ROHINI PEREZ DOA K 709.9 UNSPECIFIED DISORDER OF SKIN AND SUBCUTANEOUS TISSUE 05/18/2013 PINEDA PEREZ DO K 715.00 OSTEOARTHROSIS GENERALIZED INVOLVING UNSPECIFIED SITE 05/18/2013 PINEDA PEREZ DO K 729.1 MYALGIA AND MYOSITIS UNSPECIFIED 05/18/2013 ROHINI PEREZ DOA K V70.0 ROUTINE GENERAL MEDICAL EXAMINATION AT A HEALTH CARE FACILITY 05/18/2013 GUADALUPE APRN, SLICK A 250.00 DIABETES MELLITUS TYPE 2 05/18/2013 GUADALUPE SENIOR POLICY ASSOCIATE, SLICK A 709.9 UNSPECIFIED DISORDER OF SKIN AND SUBCUTANEOUS TISSUE 05/18/2013 GUADALUPEJOSUHA BELLEN, SLICK A 715.00 OSTEOARTHROSIS GENERALIZED INVOLVING UNSPECIFIED SITE 05/18/2013 GUADALUPE SENIOR POLICY ASSOCIATE, SLICK A 729.1 MYALGIA AND MYOSITIS UNSPECIFIED 05/18/2013 GUADALUPE SENIOR POLICY ASSOCIATE, SLICK A V70.0 ROUTINE GENERAL MEDICAL EXAMINATION AT A HEALTH CARE FACILITY 06/06/2013 PINEDA PEREZ DO K 491.21 BRONCHITIS AECB 06/06/2013 PINEDA PEREZ DO K 491.21 BRONCHITIS AECB 06/06/2013 ROHINI PEREZ DOA K 491.21 BRONCHITIS AECB 06/06/2013 GUADALUPE BRANDT SLICK A 491.21 BRONCHITIS AECB 06/06/2013 ROHINI PEREZ DOA K 491.21 BRONCHITIS AECB 06/06/2013 GUADALUPE SENIOR POLICY ASSOCIATE, SLICK A 491.21 BRONCHITIS AECB 11/29/2013 PEREZ DO, PINEDA K 272.4 OTHER AND UNSPECIFIED HYPERLIPIDEMIA 11/29/2013 PEREZ DO, PINEDA K 461.9 SINUSITIS ACUTE 11/29/2013 PEREZ DO, PINEDA K 272.4 OTHER AND UNSPECIFIED HYPERLIPIDEMIA 11/29/2013 PEREZ DO, PINEDA K 461.9 SINUSITIS ACUTE 11/29/2013 GUADALUPE SENIOR POLICY ASSOCIATE, SLICK A 272.4 OTHER AND UNSPECIFIED HYPERLIPIDEMIA 11/29/2013 GUADALUPE SENIOR POLICY ASSOCIATE, SLICK A 461.9 SINUSITIS ACUTE 11/29/2013 PEREZ DO, PINEDA K 272.4 OTHER AND UNSPECIFIED HYPERLIPIDEMIA 11/29/2013 PEREZ DO, PINEDA K 461.9 SINUSITIS ACUTE 11/29/2013 GUADALUPE SENIOR POLICY ASSOCIATE, SLICK A 272.4 OTHER AND UNSPECIFIED HYPERLIPIDEMIA 11/29/2013 GUADALUPE SENIOR POLICY ASSOCIATE, SLICK A 461.9 SINUSITIS ACUTE 03/31/2014 PEREZ DO, PINEDA K 521.00 UNSPECIFIED DENTAL CARIES 03/31/2014 PEREZ DO, PINEDA K 611.71 MASTODYNIA 03/31/2014 PEREZ DO, PINEDA K 787.91 DIARRHEA 03/31/2014 PEREZ DO, PINEDA K V65.3 COUNSELING - DIETARY 03/31/2014 GUADALUPE SENIOR POLICY ASSOCIATE, SLICK A 521.00 UNSPECIFIED DENTAL CARIES 03/31/2014 GUADALUPE SENIOR POLICY ASSOCIATE, SLICK A 611.71 MASTODYNIA 03/31/2014 GUADALUPE SENIOR POLICY ASSOCIATE, SLICK A 787.91 DIARRHEA 03/31/2014 GUADALUPE SENIOR POLICY ASSOCIATE, SLICK A V65.3 COUNSELING - DIETARY 03/31/2014 PEREZ DO, PINEDA K 521.00 UNSPECIFIED DENTAL CARIES 03/31/2014 PEREZ DO, PINEDA K 611.71 MASTODYNIA 03/31/2014 PEREZ DO, PINEDA K 787.91 DIARRHEA 03/31/2014 PEREZ DO, PINEDA K V65.3 COUNSELING - DIETARY 03/31/2014 GUADALUPE SENIOR POLICY ASSOCIATE, SLICK A 521.00 UNSPECIFIED DENTAL CARIES 03/31/2014 GUADALUPE SENIOR POLICY ASSOCIATE, SLICK A 611.71 MASTODYNIA 03/31/2014 GUADALUPE SENIOR POLICY ASSOCIATE, SLICK A 787.91 DIARRHEA 03/31/2014 SLICK BUTCHER APRN V65.3 COUNSELING - DIETARY 04/17/2014 SLICK BUTCHER APRN V72.31 SDE EXAM, ROUTINE 04/17/2014 SLICK BUTCHER APRN V76.10 BREAST CANCER SCREENING 04/17/2014 SLICK BUTCHER APRN V76.51 COLON CANCER SCREENING 04/17/2014 PINEDA PEREZ DO V72.31 SDE EXAM, ROUTINE 04/17/2014 PINEDA PEREZ DO V76.10 BREAST CANCER SCREENING 04/17/2014 PINEDA PEREZ DO K V76.51 COLON CANCER SCREENING 04/17/2014 SLICK BUTCHER APRN V72.31 SDE EXAM, ROUTINE 04/17/2014 SLICK BUTCHER APRN V76.10 BREAST CANCER SCREENING 04/17/2014 SLICK BUTCHER APRN V76.51 COLON CANCER SCREENING 09/02/2014 PINEDA PEREZ DO 627.8 OTHER SPECIFIED MENOPAUSAL AND POSTMENOPAUSAL DISORDERS 09/02/2014 PINEDA PEREZ DO 729.5 PAIN IN LIMB 09/02/2014 SLICK BUTCHER APRN 627.8 OTHER SPECIFIED MENOPAUSAL AND POSTMENOPAUSAL DISORDERS 09/02/2014 SLICK BUTCHER APRN 729.5 PAIN IN LIMB 11/07/2014 SLICK BUTCHER APRN Ot 611.71 11/07/2014 SLICK BUTCHER APRN Ot V76.12 11/08/2014 SLICK BUTCHER APRN Ot 611.71 11/08/2014 SLICK BUTCHER APRN Ot V76.12 04/23/2015 SLICK BUTCHER SENIOR POLICY ASSOCIATE Ot 611.71 04/23/2015 SLICK BUTCHER APRN Ot V76.12 04/23/2015 SLICK BUTCHER APRN Ot 793.80 02/24/2017 SLICK BUTCHER APRN Ot 611.71 MASTODYNIA 02/24/2017 SLICK BUTCHER APRN Ot V76.12 OTH SCREEN MAMMO-MALIGN NEOPLASM OF [place] 02/24/2017 SLICK BUTCHER APRN Ot 793.80 UNSPEC ABNORMAL MAMMOGRAM 02/24/2017 GUADALUPE, SLICK A SENIOR POLICY ASSOCIATE Ot 793.89 OTH (ABN) FINDINGS ON RADIOLOGICAL EXAMI 02/24/2017 MONICA OLIVEIRA MD Ot D72.829 ELEVATED WHITE BLOOD CELL COUNT, UNSPECI 02/24/2017 MONICA OLIVEIRA MD Ot E11.9 TYPE 2 DIABETES MELLITUS WITHOUT COMPLIC 02/24/2017 MONICA OLIVEIRA MD Ot F17.210 NICOTINE DEPENDENCE, CIGARETTES, UNCOMPL 02/24/2017 MONICA OLIVEIRA MD Ot I10 ESSENTIAL (PRIMARY) HYPERTENSION 02/24/2017 MONICA OLIVEIRA MD Ot J44.9 CHRONIC OBSTRUCTIVE PULMONARY DISEASE, U 02/24/2017 MONICA OLIVEIRA MD Ot R07.89 OTHER CHEST PAIN 02/24/2017 MONICA OLIVEIRA MD Ot R07.9 CHEST PAIN, UNSPECIFIED 02/24/2017 MONICA OLIVEIRA MD Ot R50.9 FEVER, UNSPECIFIED 02/24/2017 MONICA OLIVEIRA MD Ot R91.1 SOLITARY PULMONARY NODULE 02/24/2017 MONICA OLIVEIRA MD Ot Z77.22 CNTCT W AND EXPSR TO ENVIRON TOBACCO SMO 02/24/2017 MONICA OLIVEIRA MD Ot Z79.84 APPLICATIONS ANALYST (CURRENT) USE OF ORAL HYPOGLYC 02/24/2017 MONICA OLIVEIRA MD Ot Z79.899 OTHER INTERMEDIATE (CURRENT) DRUG THERAPY 02/27/2017 MONICA OLIVEIRA MD Ot D72.829 ELEVATED WHITE BLOOD CELL COUNT, UNSPECI 02/27/2017 MONICA OLIVEIRA MD Ot E11.9 TYPE 2 DIABETES MELLITUS WITHOUT COMPLIC 02/27/2017 MONICA OLIVEIRA MD Ot F17.210 NICOTINE DEPENDENCE, CIGARETTES, UNCOMPL 02/27/2017 MONICA OLIVEIRA MD Ot I10 ESSENTIAL (PRIMARY) HYPERTENSION 02/27/2017 MONICA OLIVEIRA MD Ot J44.9 CHRONIC OBSTRUCTIVE PULMONARY DISEASE, U 02/27/2017 MONICA OLIVEIRA MD Ot R07.89 OTHER CHEST PAIN 02/27/2017 MONICA OLIVEIRA MD Ot R07.9 CHEST PAIN, UNSPECIFIED 02/27/2017 MONICA OLIVEIRA MD, Ot R50.9 FEVER, UNSPECIFIED 02/27/2017 MONICA OLIVEIRA MD, Ot R91.1 SOLITARY PULMONARY NODULE 02/27/2017 MONICA OLIVEIRA MD, Ot Z77.22 CNTCT W AND EXPSR TO ENVIRON TOBACCO SMO 02/27/2017 MONICA OLIVEIRA MD, Ot Z79.84 INTERMEDIATE (CURRENT) USE OF ORAL HYPOGLYC 02/27/2017 MONICA OLIVEIRA MD Ot Z79.899 OTHER INTERMEDIATE (CURRENT) DRUG THERAPY 06/28/2017 SLICK BUTCHER SENIOR POLICY ASSOCIATE Ot 611.71 MASTODYNIA 06/28/2017 SLICK BUTCHER SENIOR POLICY ASSOCIATE Ot V76.12 OTH SCREEN MAMMO-MALIGN NEOPLASM OF [place] 06/28/2017 SLICK BUTCHER SENIOR POLICY ASSOCIATE Ot 793.80 UNSPEC ABNORMAL MAMMOGRAM 06/28/2017 SLICK BUTCHER SENIOR POLICY ASSOCIATE Ot 793.89 OTH (ABN) FINDINGS ON RADIOLOGICAL EXAMI 06/28/2017 GABRIELA MCINTOSH MD Ot E11.9 TYPE 2 DIABETES MELLITUS WITHOUT COMPLIC 06/28/2017 GABRIELA MCINTOSH MD Ot E78.00 PURE HYPERCHOLESTEROLEMIA, UNSPECIFIED 06/28/2017 GABRIELA MCINTOSH MD Ot F17.210 NICOTINE DEPENDENCE, CIGARETTES, UNCOMPL 06/28/2017 GABRIELA MCINTOSH MD Ot F32.9 MAJOR DEPRESSIVE DISORDER, SINGLE EPISOD 06/28/2017 GABRIELA MCINTOSH MD Ot I10 ESSENTIAL (PRIMARY) HYPERTENSION 06/28/2017 GABRIELA MCINTOSH MD Ot I25.2 OLD MYOCARDIAL INFARCTION 06/28/2017 GABRIELA MCINTOSH MD Ot J44.9 CHRONIC OBSTRUCTIVE PULMONARY DISEASE, U 06/28/2017 GABRIELA MCINTOSH MD Ot K21.9 GASTRO-ESOPHAGEAL REFLUX DISEASE WITHOUT 06/28/2017 GABRIELA MCINTOSH MD Ot M25.512 PAIN IN LEFT SHOULDER 06/28/2017 GABRIELA MCINTOSH MD Ot Z79.84 INTERMEDIATE (CURRENT) USE OF ORAL HYPOGLYC 06/28/2017 GABRIELA MCINTOSH MD Ot Z82.49 FAMILY HX OF ISCHEM HEART DIS AND OTH DI 06/28/2017 GABRIELA MCINTOSH MD Ot Z87.442 PERSONAL HISTORY OF URINARY CALCULI 06/28/2017 GABRIELA MCINTOSH MD Ot Z87.820 PERSONAL HISTORY OF TRAUMATIC BRAIN INJU 06/28/2017 GABRIELA MCINTOSH MD Ot Z90.710 ACQUIRED ABSENCE OF BOTH CERVIX AND UTER 06/28/2017 GABRIELA MCINTOSH MD Ot Z90.89 ACQUIRED ABSENCE OF OTHER ORGANS 06/28/2017 GABRIELA MCINTOSH MD Ot Z98.51 TUBAL LIGATION STATUS 06/30/2017 GABRIELA MCINTOSH MD Ot E11.9 TYPE 2 DIABETES MELLITUS WITHOUT COMPLIC 06/30/2017 GABRIELA MCINTOSH MD Ot E78.00 PURE HYPERCHOLESTEROLEMIA, UNSPECIFIED 06/30/2017 GABRIELA MCINTOSH MD Ot F17.210 NICOTINE DEPENDENCE, CIGARETTES, UNCOMPL 06/30/2017 GABRIELA MCINTOSH MD Ot F32.9 MAJOR DEPRESSIVE DISORDER, SINGLE EPISOD 06/30/2017 GABRIELA MCINTOSH MD Ot I10 ESSENTIAL (PRIMARY) HYPERTENSION 06/30/2017 GABRIELA MCINTOSH MD Ot I25.2 OLD MYOCARDIAL INFARCTION 06/30/2017 GABRIELA MCINTOSH MD Ot J44.9 CHRONIC OBSTRUCTIVE PULMONARY DISEASE, U 06/30/2017 GABRIELA MCINTOSH MD Ot K21.9 GASTRO-ESOPHAGEAL REFLUX DISEASE WITHOUT 06/30/2017 GABRIELA MCINTOSH MD Ot M25.512 PAIN IN LEFT SHOULDER 06/30/2017 GABRIELA MCINTOSH MD Ot Z79.84 INTERMEDIATE (CURRENT) USE OF ORAL HYPOGLYC 06/30/2017 GABRIELA MCINTOSH MD Ot Z82.49 FAMILY HX OF ISCHEM HEART DIS AND OTH DI 06/30/2017 GABRIELA MCINTOSH MD Ot Z87.442 PERSONAL HISTORY OF URINARY CALCULI 06/30/2017 GABRIELA MCINTOSH MD Ot Z87.820 PERSONAL HISTORY OF TRAUMATIC BRAIN INJU 06/30/2017 GABRIELA MCINTOSH MD Ot Z90.710 ACQUIRED ABSENCE OF BOTH CERVIX AND UTER 06/30/2017 GABRIELA MCINTOSH MD Ot Z90.89 ACQUIRED ABSENCE OF OTHER ORGANS 06/30/2017 GABRIELA MCINTOSH MD Ot Z98.51 TUBAL LIGATION STATUS 07/03/2017 GABRIELA MCINTOSH MD Ot E11.9 TYPE 2 DIABETES MELLITUS WITHOUT COMPLIC 07/03/2017 GABRIELA MCINTOSH MD Ot E78.00 PURE HYPERCHOLESTEROLEMIA, UNSPECIFIED 07/03/2017 GABRIELA MCINTOSH MD Ot F17.210 NICOTINE DEPENDENCE, CIGARETTES, UNCOMPL 07/03/2017 GABRIELA MCINTOSH MD Ot F32.9 MAJOR DEPRESSIVE DISORDER, SINGLE EPISOD 07/03/2017 GABRIELA MCINTOSH MD, Ot I10 ESSENTIAL (PRIMARY) HYPERTENSION 07/03/2017 GABRIELA MCINTOSH MD, Ot I25.2 OLD MYOCARDIAL INFARCTION 07/03/2017 GABRIELA MCINTOSH MD, Ot J44.9 CHRONIC OBSTRUCTIVE PULMONARY DISEASE, U 07/03/2017 GABRIELA MCINTOSH MD, Ot K21.9 GASTRO-ESOPHAGEAL REFLUX DISEASE WITHOUT 07/03/2017 GABRIELA MCINTOSH MD Ot M25.512 PAIN IN LEFT SHOULDER 07/03/2017 GABRIELA MCINTOSH MD Ot Z79.84 INTERMEDIATE (CURRENT) USE OF ORAL HYPOGLYC 07/03/2017 GABRIELA MCINTOSH MD Ot Z82.49 FAMILY HX OF ISCHEM HEART DIS AND OTH DI 07/03/2017 GABRIELA MCINTOSH MD Ot Z87.442 PERSONAL HISTORY OF URINARY CALCULI 07/03/2017 GABRIELA MCINTOSH MD Ot Z87.820 PERSONAL HISTORY OF TRAUMATIC BRAIN INJU 07/03/2017 GABRIELA MCINTOSH MD Ot Z90.710 ACQUIRED ABSENCE OF BOTH CERVIX AND UTER 07/03/2017 GABRIELA MCINTOSH MD Ot Z90.89 ACQUIRED ABSENCE OF OTHER ORGANS 07/03/2017 GABRIELA MCINTOSH MD Ot Z98.51 TUBAL LIGATION STATUS 03/10/2018 MONICA OLIVEIRA MD, Ot E11.9 TYPE 2 DIABETES MELLITUS WITHOUT COMPLIC 03/10/2018 MONICA OLIVEIRA MD, Ot E78.00 PURE HYPERCHOLESTEROLEMIA, UNSPECIFIED 03/10/2018 MONICA OLIVEIRA MD, Ot F32.9 MAJOR DEPRESSIVE DISORDER, SINGLE EPISOD 03/10/2018 MONICA OLIVEIRA MD, Ot I10 ESSENTIAL (PRIMARY) HYPERTENSION 03/10/2018 MONICA OLIVEIRA MD, Ot I25.2 OLD MYOCARDIAL INFARCTION 03/10/2018 MONICA OLIVEIRA MD, Ot J44.9 CHRONIC OBSTRUCTIVE PULMONARY DISEASE, U 03/10/2018 MONICA OLIVEIRA MD, Ot K21.9 GASTRO-ESOPHAGEAL REFLUX DISEASE WITHOUT 03/10/2018 MONICA OLIVEIRA MD, Ot M25.512 PAIN IN LEFT SHOULDER 03/10/2018 MONICA OLIVEIRA MD, Ot Z77.22 CNTCT W AND EXPSR TO ENVIRON TOBACCO SMO 03/10/2018 MONICA OLIVEIRA MD, Ot Z79.52 APPLICATIONS ANALYST (CURRENT) USE OF SYSTEMIC STER 03/10/2018 MONICA OLIVEIRA MD, Ot Z85.43 PERSONAL HISTORY OF MALIGNANT NEOPLASM O 03/10/2018 MONICA OLIVEIRA MD, Ot Z87.19 PERSONAL HISTORY OF OTHER DISEASES OF TH 03/10/2018 MONICA OLIVEIRA MD, Ot Z87.442 PERSONAL HISTORY OF URINARY CALCULI 03/10/2018 MONICA OLIVEIRA MD, Ot Z88.2 ALLERGY STATUS TO SULFONAMIDES STATUS 03/10/2018 MONICA OLIVEIRA MD, Ot Z90.710 ACQUIRED ABSENCE OF BOTH CERVIX AND UTER 03/10/2018 MONICA OLIVEIRA MD, Ot Z90.89 ACQUIRED ABSENCE OF OTHER ORGANS 03/10/2018 MONICA OLIVEIRA MD, Ot Z98.51 TUBAL LIGATION STATUS 03/11/2018 MONICA OLIVEIRA MD, Ot E11.9 TYPE 2 DIABETES MELLITUS WITHOUT COMPLIC 03/11/2018 MONICA OLIVEIRA MD, Ot E78.00 PURE HYPERCHOLESTEROLEMIA, UNSPECIFIED 03/11/2018 MONICA OLIVEIRA MD, Ot F32.9 MAJOR DEPRESSIVE DISORDER, SINGLE EPISOD 03/11/2018 MONICA OLIVEIRA MD, Ot I10 ESSENTIAL (PRIMARY) HYPERTENSION 03/11/2018 MONICA OLIVEIRA MD, Ot I25.2 OLD MYOCARDIAL INFARCTION 03/11/2018 MONICA OLIVEIRA MD, Ot J44.9 CHRONIC OBSTRUCTIVE PULMONARY DISEASE, U 03/11/2018 MONICA OLIVEIRA MD, Ot K21.9 GASTRO-ESOPHAGEAL REFLUX DISEASE WITHOUT 03/11/2018 MONICA OLIVEIRA MD, Ot M25.512 PAIN IN LEFT SHOULDER 03/11/2018 MONICA OLIVEIRA MD, Ot Z77.22 CNTCT W AND EXPSR TO ENVIRON TOBACCO SMO 03/11/2018 MONICA OLIVEIRA MD, Ot Z79.52 INTERMEDIATE (CURRENT) USE OF SYSTEMIC STER 03/11/2018 MONICA OLIVEIRA MD, Ot Z85.43 PERSONAL HISTORY OF MALIGNANT NEOPLASM O 03/11/2018 MONICA OLIVEIRA MD, Ot Z87.19 PERSONAL HISTORY OF OTHER DISEASES OF TH 03/11/2018 MONICA OLIVEIRA MD, Ot Z87.442 PERSONAL HISTORY OF URINARY CALCULI 03/11/2018 MONICA OLIVEIRA MD, Ot Z88.2 ALLERGY STATUS TO SULFONAMIDES STATUS 03/11/2018 MONICA OLIVEIRA MD, Ot Z90.710 ACQUIRED ABSENCE OF BOTH CERVIX AND UTER 03/11/2018 MONICA OLIVEIRA MD, Ot Z90.89 ACQUIRED ABSENCE OF OTHER ORGANS 03/11/2018 MONICA OLIVEIRA MD, Ot Z98.51 TUBAL LIGATION STATUS 03/11/2018 MONICA OLIVEIRA MD, Ot E11.9 TYPE 2 DIABETES MELLITUS WITHOUT COMPLIC 03/11/2018 MONICA OLIVEIRA MD, Ot E78.00 PURE HYPERCHOLESTEROLEMIA, UNSPECIFIED 03/11/2018 MONICA OLIVEIRA MD, Ot F32.9 MAJOR DEPRESSIVE DISORDER, SINGLE EPISOD 03/11/2018 MONICA OLIVEIRA MD, Ot I10 ESSENTIAL (PRIMARY) HYPERTENSION 03/11/2018 MONICA OLIVEIRA MD, Ot I25.2 OLD MYOCARDIAL INFARCTION 03/11/2018 MONICA OLIVEIRA MD, Ot J44.9 CHRONIC OBSTRUCTIVE PULMONARY DISEASE, U 03/11/2018 MONICA OLIVEIRA MD, Ot K21.9 GASTRO-ESOPHAGEAL REFLUX DISEASE WITHOUT 03/11/2018 MONICA OLIVEIRA MD, Ot M25.512 PAIN IN LEFT SHOULDER 03/11/2018 MONICA OLIVEIRA MD, Ot Z77.22 CNTCT W AND EXPSR TO ENVIRON TOBACCO SMO 03/11/2018 MONICA OLIVEIRA MD, Ot Z79.52 INTERMEDIATE (CURRENT) USE OF SYSTEMIC STER 03/11/2018 MONICA OLIVEIRA MD, Ot Z85.43 PERSONAL HISTORY OF MALIGNANT NEOPLASM O 03/11/2018 MONICA OLIVEIRA MD, Ot Z87.19 PERSONAL HISTORY OF OTHER DISEASES OF TH 03/11/2018 MONICA OLIVEIRA MD, Ot Z87.442 PERSONAL HISTORY OF URINARY CALCULI 03/11/2018 MONICA OLIVEIRA MD, Ot Z88.2 ALLERGY STATUS TO SULFONAMIDES STATUS 03/11/2018 MONICA OLIVEIRA MD, Ot Z90.710 ACQUIRED ABSENCE OF BOTH CERVIX AND UTER 03/11/2018 MONICA OLIVEIRA MD, Ot Z90.89 ACQUIRED ABSENCE OF OTHER ORGANS 03/11/2018 MONICA OLIVEIRA MD, Ot Z98.51 TUBAL LIGATION STATUS 05/07/2018 Shayla FLORES MD Ot E11.9 TYPE 2 DIABETES MELLITUS WITHOUT COMPLIC 05/07/2018 Shayla FLORES MD, Ot E78.00 PURE HYPERCHOLESTEROLEMIA, UNSPECIFIED 05/07/2018 Shayla FLORES MD, Ot F17.210 NICOTINE DEPENDENCE, CIGARETTES, UNCOMPL 05/07/2018 Shayla FLORES MD, Ot I10 ESSENTIAL (PRIMARY) HYPERTENSION 05/07/2018 Shayla FLORES MD, Ot I21.19 STEMI INVOLVING OTH CORONARY ARTERY OF I 05/07/2018 Shayla FLORES MD, Ot J44.9 CHRONIC OBSTRUCTIVE PULMONARY DISEASE, U 05/07/2018 Shayla FLORES MD, Ot K21.9 GASTRO-ESOPHAGEAL REFLUX DISEASE WITHOUT 05/07/2018 Shayla FLORES MD, Ot K58.9 IRRITABLE BOWEL SYNDROME WITHOUT DIARRHE 05/07/2018 Shayla FLORES MD, Ot M41.9 SCOLIOSIS, UNSPECIFIED 05/07/2018 Shayla FLORES MD, Ot M79.7 FIBROMYALGIA 05/07/2018 Shayla FLORES MD, Ot R57.0 CARDIOGENIC SHOCK 05/07/2018 Shayla FLORES MD, Ot Z79.4 INTERMEDIATE (CURRENT) USE OF INSULIN 05/07/2018 Shayla FLORES MD, Ot Z85.43 PERSONAL HISTORY OF MALIGNANT NEOPLASM O 05/08/2018 Shayla FLORES MD Ot E11.9 TYPE 2 DIABETES MELLITUS WITHOUT COMPLIC 05/08/2018 Shayla FLORES MD Ot E78.00 PURE HYPERCHOLESTEROLEMIA, UNSPECIFIED 05/08/2018 Shayla FLORES MD Ot F17.210 NICOTINE DEPENDENCE, CIGARETTES, UNCOMPL 05/08/2018 Shayla FLORES MD Ot I10 ESSENTIAL (PRIMARY) HYPERTENSION 05/08/2018 Shayla FLORES MD Ot I21.19 STEMI INVOLVING OTH CORONARY ARTERY OF I 05/08/2018 Shayla FLORES MD Ot J44.9 CHRONIC OBSTRUCTIVE PULMONARY DISEASE, U 05/08/2018 Shayla FLORES MD Ot K21.9 GASTRO-ESOPHAGEAL REFLUX DISEASE WITHOUT 05/08/2018 Shayla FLORES MD Ot K58.9 IRRITABLE BOWEL SYNDROME WITHOUT DIARRHE 05/08/2018 Shayla FLORES MD Ot M41.9 SCOLIOSIS, UNSPECIFIED 05/08/2018 Shayla FLORES MD Ot M79.7 FIBROMYALGIA 05/08/2018 Shayla FLORES MD Ot R57.0 CARDIOGENIC SHOCK 05/08/2018 Shayla FLORES MD Ot Z79.4 INTERMEDIATE (CURRENT) USE OF INSULIN 05/08/2018 Shayla FLORES MD Ot Z85.43 PERSONAL HISTORY OF MALIGNANT NEOPLASM O 05/08/2018 Shayla FLORES MD Ot E11.9 TYPE 2 DIABETES MELLITUS WITHOUT COMPLIC 05/08/2018 Shayla FLORES MD Ot E78.00 PURE HYPERCHOLESTEROLEMIA, UNSPECIFIED 05/08/2018 Shayla FLORES MD Ot E78.5 HYPERLIPIDEMIA, UNSPECIFIED 05/08/2018 Shayla FLORES MD Ot F17.210 NICOTINE DEPENDENCE, CIGARETTES, UNCOMPL 05/08/2018 Shayla FLORES MD Ot I10 ESSENTIAL (PRIMARY) HYPERTENSION 05/08/2018 Shayla FLORES MD Ot I21.19 STEMI INVOLVING OTH CORONARY ARTERY OF I 05/08/2018 Shayla FLORES MD Ot I25.10 ATHSCL HEART DISEASE OF [place] CORONARY 05/08/2018 Shayla FLORES MD Ot J44.9 CHRONIC OBSTRUCTIVE PULMONARY DISEASE, U 05/08/2018 Shayla FOLRES MD Ot K21.9 GASTRO-ESOPHAGEAL REFLUX DISEASE WITHOUT 05/08/2018 Shayla FLORES MD Ot K58.9 IRRITABLE BOWEL SYNDROME WITHOUT DIARRHE 05/08/2018 Shayla FLORES MD Ot M41.9 SCOLIOSIS, UNSPECIFIED 05/08/2018 Shayla FLORES MD Ot M79.7 FIBROMYALGIA 05/08/2018 Shayla FLORES MD Ot R57.0 CARDIOGENIC SHOCK 05/08/2018 Shayla FLORES MD Ot Z79.4 INTERMEDIATE (CURRENT) USE OF INSULIN 05/08/2018 Shayla FLORES MD Ot Z79.890 HORMONE REPLACEMENT THERAPY 05/08/2018 Shayla FLORES MD Ot Z85.43 PERSONAL HISTORY OF MALIGNANT NEOPLASM O 09/15/2018 SLICK BUTCHER A SENIOR POLICY ASSOCIATE Ot 611.71 MASTODYNIA 09/15/2018 SLICK BUTCHER A SENIOR POLICY ASSOCIATE Ot V76.12 OTH SCREEN MAMMO-MALIGN NEOPLASM OF [place] 09/15/2018 SLICK BUTCHER A SENIOR POLICY ASSOCIATE Ot 793.80 UNSPEC ABNORMAL MAMMOGRAM 09/15/2018 SLICK BUTCHER A SENIOR POLICY ASSOCIATE Ot 793.89 OTH (ABN) FINDINGS ON RADIOLOGICAL EXAMI 10/04/2018 SHIV BUTCHERIDI A SENIOR POLICY ASSOCIATE Ot 611.71 MASTODYNIA 10/04/2018 SHIV BUTCHERIDI A SENIOR POLICY ASSOCIATE Ot V76.12 OTH SCREEN MAMMO-MALIGN NEOPLASM OF [place] 10/04/2018 SHIV BUTCHERIDI A SENIOR POLICY ASSOCIATE Ot 793.80 UNSPEC ABNORMAL MAMMOGRAM 10/04/2018 GUADALUPE SLICK A SENIOR POLICY ASSOCIATE Ot 793.89 OTH (ABN) FINDINGS ON RADIOLOGICAL EXAMI 10/11/2018 SHIV BUTCHERIDI A SENIOR POLICY ASSOCIATE Ot 611.71 MASTODYNIA 10/11/2018 SLICK BUTCHER A SENIOR POLICY ASSOCIATE Ot V76.12 OTH SCREEN MAMMO-MALIGN NEOPLASM OF [place] 10/11/2018 SLICK BUTCHER SENIOR POLICY ASSOCIATE Ot 793.80 UNSPEC ABNORMAL MAMMOGRAM 10/11/2018 SLICK BUTCHER SENIOR POLICY ASSOCIATE Ot 793.89 OTH (ABN) FINDINGS ON RADIOLOGICAL EXAMI 10/11/2018 MONICA OLIVEIRA MD Ot E11.9 TYPE 2 DIABETES MELLITUS WITHOUT COMPLIC 10/11/2018 MONICA OLIVEIRA MD Ot E78.00 PURE HYPERCHOLESTEROLEMIA, UNSPECIFIED 10/11/2018 MONICA OLIVEIRA MD, Ot F32.9 MAJOR DEPRESSIVE DISORDER, SINGLE EPISOD 10/11/2018 MONICA OLIVEIRA MD Ot I10 ESSENTIAL (PRIMARY) HYPERTENSION 10/11/2018 MONICA OLIVEIRA MD, Ot I25.10 ATHSCL HEART DISEASE OF [place] CORONARY 10/11/2018 MONICA OLIVEIRA MD, Ot I25.2 OLD MYOCARDIAL INFARCTION 10/11/2018 MONICA OLIVEIRA MD Ot J44.9 CHRONIC OBSTRUCTIVE PULMONARY DISEASE, U 10/11/2018 MONICA OLIVEIRA MD Ot K21.9 GASTRO-ESOPHAGEAL REFLUX DISEASE WITHOUT 10/11/2018 MONICA OLIVEIRA MD Ot R07.89 OTHER CHEST PAIN 10/11/2018 MONICA OLIVEIRA MD Ot R07.9 CHEST PAIN, UNSPECIFIED 10/11/2018 MONICA OLIVEIRA MD Ot R91.8 OTHER NONSPECIFIC ABNORMAL FINDING OF ELA 10/11/2018 MONICA OLIVEIRA MD, Ot Z77.22 CNTCT W AND EXPSR TO ENVIRON TOBACCO SMO 10/11/2018 MONICA OLIVEIRA MD, Ot Z79.02 APPLICATIONS ANALYST (CURRENT) USE OF ANTITHROMBOTI 10/11/2018 MONICA OLIVEIRA MD, Ot Z79.4 INTERMEDIATE (CURRENT) USE OF INSULIN 10/11/2018 MONICA OLIVEIRA MD, Ot Z80.0 FAMILY HISTORY OF MALIGNANT NEOPLASM OF 10/11/2018 MONICA OLIVEIRA MD Ot Z82.49 FAMILY HX OF ISCHEM HEART DIS AND OTH DI 10/11/2018 MONICA OLIVEIRA MD, Ot Z85.43 PERSONAL HISTORY OF MALIGNANT NEOPLASM O 10/11/2018 MONICA OLIVEIRA MD, Ot Z87.19 PERSONAL HISTORY OF OTHER DISEASES OF TH 10/11/2018 MONICA OLIVEIRA MD, Ot Z87.442 PERSONAL HISTORY OF URINARY CALCULI 10/11/2018 MONICA OLIVEIRA MD, Ot Z88.2 ALLERGY STATUS TO SULFONAMIDES STATUS 10/11/2018 MONICA OLIVEIRA MD, Ot Z90.710 ACQUIRED ABSENCE OF BOTH CERVIX AND UTER 10/11/2018 MONICA OLIVEIRA MD, Ot Z90.89 ACQUIRED ABSENCE OF OTHER ORGANS 10/11/2018 MONICA OLIVEIRA MD, Ot Z95.5 PRESENCE OF CORONARY ANGIOPLASTY IMPLANT 10/11/2018 MONICA OLIVEIRA MD, Ot 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 10/11/2018 MONICA OLIVEIRA MD, Ot Z98.51 TUBAL LIGATION STATUS 10/11/2018 MONICA OLIVEIRA MD, Ot Z98.890 OTHER SPECIFIED POSTPROCEDURAL STATES 10/14/2018 MONICA OLIVEIRA MD Ot E11.9 TYPE 2 DIABETES MELLITUS WITHOUT COMPLIC 10/14/2018 MONICA OLIVEIRA MD Ot E78.00 PURE HYPERCHOLESTEROLEMIA, UNSPECIFIED 10/14/2018 MONICA OLIVEIRA MD, Ot F32.9 MAJOR DEPRESSIVE DISORDER, SINGLE EPISOD 10/14/2018 MONICA OLIVEIRA MD Ot I10 ESSENTIAL (PRIMARY) HYPERTENSION 10/14/2018 MONICA OLIVEIRA MD, Ot I25.10 ATHSCL HEART DISEASE OF [place] CORONARY 10/14/2018 MONICA OLIVEIRA MD, Ot I25.2 OLD MYOCARDIAL INFARCTION 10/14/2018 MONICA OLIVEIRA MD, Ot J44.9 CHRONIC OBSTRUCTIVE PULMONARY DISEASE, U 10/14/2018 MONICA OLIVEIRA MD, Ot K21.9 GASTRO-ESOPHAGEAL REFLUX DISEASE WITHOUT 10/14/2018 MONICA OLIVEIRA MD Ot R07.89 OTHER CHEST PAIN 10/14/2018 MONICA OLIVEIRA MD, Ot R07.9 CHEST PAIN, UNSPECIFIED 10/14/2018 MONICA OLIVEIRA MD Ot R91.8 OTHER NONSPECIFIC ABNORMAL FINDING OF ELA 10/14/2018 MONICA OLIVEIRA MD, Ot Z77.22 CNTCT W AND EXPSR TO ENVIRON TOBACCO SMO 10/14/2018 MONICA OLIVEIRA MD, Ot Z79.02 INTERMEDIATE (CURRENT) USE OF ANTITHROMBOTI 10/14/2018 MONICA OLIVEIRA MD, Ot Z79.4 INTERMEDIATE (CURRENT) USE OF INSULIN 10/14/2018 MONICA OLIVEIRA MD, Ot Z80.0 FAMILY HISTORY OF MALIGNANT NEOPLASM OF 10/14/2018 MONICA OLIVEIRA MD, Ot Z82.49 FAMILY HX OF ISCHEM HEART DIS AND OTH DI 10/14/2018 MONICA OLIVEIRA MD, Ot Z85.43 PERSONAL HISTORY OF MALIGNANT NEOPLASM O 10/14/2018 MONICA OLIVEIRA MD, Ot Z87.19 PERSONAL HISTORY OF OTHER DISEASES OF TH 10/14/2018 MONICA OLIVEIRA MD, Ot Z87.442 PERSONAL HISTORY OF URINARY CALCULI 10/14/2018 MONICA OLIVEIRA MD, Ot Z88.2 ALLERGY STATUS TO SULFONAMIDES STATUS 10/14/2018 MONICA OLIVEIRA MD Ot Z90.710 ACQUIRED ABSENCE OF BOTH CERVIX AND UTER 10/14/2018 MONICA OLIVEIRA MD Ot Z90.89 ACQUIRED ABSENCE OF OTHER ORGANS 10/14/2018 MONICA OLIVEIRA MD Ot Z95.5 PRESENCE OF CORONARY ANGIOPLASTY IMPLANT 10/14/2018 MONICA OLIVEIRA MD Ot 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 10/14/2018 MONICA OLIVEIRA MD Ot Z98.51 TUBAL LIGATION STATUS 10/14/2018 MONICA OLIVEIRA MD, Ot Z98.890 OTHER SPECIFIED POSTPROCEDURAL STATES 10/17/2018 MONICA OLIVEIRA MD, Ot E11.9 TYPE 2 DIABETES MELLITUS WITHOUT COMPLIC 10/17/2018 MONICA OLIVEIRA MD, Ot E78.00 PURE HYPERCHOLESTEROLEMIA, UNSPECIFIED 10/17/2018 MONICA OLIVEIRA MD, Ot F32.9 MAJOR DEPRESSIVE DISORDER, SINGLE EPISOD 10/17/2018 MONICA OLIVEIRA MD, Ot I10 ESSENTIAL (PRIMARY) HYPERTENSION 10/17/2018 MONICA OLIVEIRA MD, Ot I25.10 ATHSCL HEART DISEASE OF [place] CORONARY 10/17/2018 MONICA OLIVEIRA MD, Ot I25.2 OLD MYOCARDIAL INFARCTION 10/17/2018 MONICA OLIVEIRA MD, Ot J44.9 CHRONIC OBSTRUCTIVE PULMONARY DISEASE, U 10/17/2018 MONICA OLIVEIRA MD, Ot K21.9 GASTRO-ESOPHAGEAL REFLUX DISEASE WITHOUT 10/17/2018 MONICA OLIVEIRA MD, Ot R07.89 OTHER CHEST PAIN 10/17/2018 MONICA OLIVEIRA MD, Ot R07.9 CHEST PAIN, UNSPECIFIED 10/17/2018 MONICA OLIVEIRA MD, Ot R91.8 OTHER NONSPECIFIC ABNORMAL FINDING OF ELA 10/17/2018 MONICA OLIVEIRA MD, Ot Z77.22 CNTCT W AND EXPSR TO ENVIRON TOBACCO SMO 10/17/2018 MONICA OLIVEIRA MD, Ot Z79.02 INTERMEDIATE (CURRENT) USE OF ANTITHROMBOTI 10/17/2018 MONICA OLIVEIRA MD, Ot Z79.4 APPLICATIONS ANALYST (CURRENT) USE OF INSULIN 10/17/2018 MONICA OLIVEIRA MD, Ot Z80.0 FAMILY HISTORY OF MALIGNANT NEOPLASM OF 10/17/2018 MONICA OLIVEIRA MD, Ot Z82.49 FAMILY HX OF ISCHEM HEART DIS AND OTH DI 10/17/2018 MONICA OLIVEIRA MD, Ot Z85.43 PERSONAL HISTORY OF MALIGNANT NEOPLASM O 10/17/2018 MONICA OLIVEIRA MD, Ot Z87.19 PERSONAL HISTORY OF OTHER DISEASES OF TH 10/17/2018 MONICA OLIVEIRA MD, Ot Z87.442 PERSONAL HISTORY OF URINARY CALCULI 10/17/2018 MONICA OLIVEIRA MD, Ot Z88.2 ALLERGY STATUS TO SULFONAMIDES STATUS 10/17/2018 MONICA OLIVEIRA MD, Ot Z90.710 ACQUIRED ABSENCE OF BOTH CERVIX AND UTER 10/17/2018 MONICA OLIVEIRA MD, Ot Z90.89 ACQUIRED ABSENCE OF OTHER ORGANS 10/17/2018 MONICA OLIVEIRA MD, Ot Z95.5 PRESENCE OF CORONARY ANGIOPLASTY IMPLANT 10/17/2018 MONICA OLIVEIRA MD, Ot 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 10/17/2018 MONICA OLIVEIRA MD, Ot Z98.51 TUBAL LIGATION STATUS 10/17/2018 MONICA OLIVEIRA MD, Ot Z98.890 OTHER SPECIFIED POSTPROCEDURAL STATES Procedures Code [place] [address] ROUTINE VENIPUNCTURE 11/29/2013 53063 INFLUENZA A & B (IN-HOUSE) 11/29/2013 36509 A1C (IN-HOUSE) 11/29/2013 12062 CMP 11/29/2013 15664 LIPID PANEL 11/29/2013 [id number] GFR CALC (RESULT ONLY) 11/29/2013 2028F FOOT EXAM PERFORMED 03/31/2014 3008F BODY MASS INDEX DOCD 03/31/2014 72181 EYE EXAM PERFORMED 03/31/2014 09366 MEDICAL NUTRITION INDIV IN 03/31/2014 20038 A1C (IN-HOUSE) 03/31/2014 98164 ROUTINE VENIPUNCTURE 03/31/2014 4269431 GFR CALC (RESULT ONLY) 03/31/2014 65378 CMP 03/31/2014 10567 US BREAST ULTRASOUND, LEFT 04/17/2014 78843 HEMOCCULT 04/17/2014 26823 MAMMOGRAM DX, KAREN 04/18/2014 64565 A1C (IN-HOUSE) 09/02/2014 PODIATRY CHEYANNE ELKINS 09/02/2014 [id number] DILATION OF 1 COR ART WITH DRUG-ELUT INT 05/06/2018 [id number] MEASURE OF CARDIAC SAMPL PRESSURE, L H 05/06/2018 [id number] FLUOROSCOPY OF SINGLE CORONARY ARTERY US 05/06/2018 [id number] FLUOROSCOPY OF THORACIC AORTA USING LOW 05/06/2018 Results Test Result Range Complete blood count (CBC) with automated white blood cell (WBC) differential - 02/24/17 20:10 Blood leukocytes automated count (number/volume) 13.2 10*3/uL 4.3-11.0 Blood erythrocytes automated count (number/volume) 5.60 10*6/uL 4.35-5.85 Venous blood hemoglobin measurement (mass/volume) 16.9 g/dL 11.5-16.0 Blood hematocrit (volume fraction) 49 % 35-52 Automated erythrocyte mean corpuscular volume 88 [foz_us] 80-99 Automated erythrocyte mean corpuscular hemoglobin (mass per erythrocyte) 30 pg 25-34 Automated erythrocyte mean corpuscular hemoglobin concentration measurement ( mass/volume) 34 g/dL 32-36 Automated erythrocyte distribution width ratio 13.4 % 10.0-14.5 Automated blood platelet count (count/volume) 338 10*3/uL 130-400 Automated blood platelet mean volume measurement 9.5 [foz_us] 7.4-10.4 Automated blood neutrophils/100 leukocytes 87 % 42-75 Automated blood lymphocytes/100 leukocytes 8 % 12-44 Blood monocytes/100 leukocytes 4 % 0-12 Automated blood eosinophils/100 leukocytes 1 % 0-10 Automated blood basophils/100 leukocytes 0 % 0-10 Blood neutrophils automated count (number/volume) 11.5 10*3 1.8-7.8 Blood lymphocytes automated count (number/volume) 1.1 10*3 1.0-4.0 Blood monocytes automated count (number/volume) 0.5 10*3 0.0-1.0 Automated eosinophil count 0.1 10*3/uL 0.0-0.3 Automated blood basophil count (count/volume) 0.0 10*3/uL 0.0-0.1 PT panel in platelet poor plasma by coagulation assay - 02/24/17 20:10 Prothrombin time (PT) in platelet poor plasma by coagulation assay 12.4 s 12.2-14.7 INR in platelet poor plasma or blood by coagulation assay 1.0 0.8-1.4 Activated partial thromboplastin time (aPTT) in platelet poor plasma bycoagulation assay - 02/24/17 20:10 Activated partial thromboplastin time (aPTT) in platelet poor plasma bycoagulation assay 25 s 24-35 Fibrin D-dimer FEU measurement in platelet poor plasma (mass/volume) - 20:10 Fibrin D-dimer FEU measurement in platelet poor plasma (mass/volume) 0.27 ug/mL 0.00-0.49 Comprehensive metabolic panel - 02/24/17 20:10 Serum or plasma sodium measurement (moles/volume) 133 mmol/L 135-145 Serum or plasma potassium measurement (moles/volume) 4.3 mmol/L 3.6-5.0 Serum or plasma chloride measurement (moles/volume) 98 mmol/L 98-107 Carbon dioxide 20 mmol/L 21-32 Serum or plasma anion gap determination (moles/volume) 15 mmol/L 5-14 Serum or plasma urea nitrogen measurement (mass/volume) 10 mg/dL 7-18 Serum or plasma creatinine measurement (mass/volume) 0.96 mg/dL 0.60-1.30 Serum or plasma urea nitrogen/creatinine mass ratio 10 NRG Serum or plasma creatinine measurement with calculation of estimated glomerular filtration rate > NRG Serum or plasma glucose measurement (mass/volume) 385 mg/dL 70-105 Serum or plasma calcium measurement (mass/volume) 9.6 mg/dL 8.5-10.1 Serum or plasma total bilirubin measurement (mass/volume) 0.7 mg/dL 0.1-1.0 Serum or plasma alkaline phosphatase measurement (enzymatic activity/volume) 112 U/L 40-136 Serum or plasma aspartate aminotransferase measurement (enzymatic activity/ volume) 15 U/L 5-34 Serum or plasma alanine aminotransferase measurement (enzymatic activity/volume ) 21 U/L 0-55 Serum or plasma protein measurement (mass/volume) 7.8 g/dL 6.4-8.2 Serum or plasma albumin measurement (mass/volume) 4.6 g/dL 3.2-4.5 Magnesium - 02/24/17 20:10 Magnesium 1.9 mg/dL 1.8-2.4 Influenza virus A and B antigen detection - 02/24/17 20:10 FLU RESULT NEGATIVE FOR INFLUENZA A AND B ANTIGENS BY [facility] Serum or plasma troponin i.cardiac measurement (mass/volume) - 02/24/17 20:10 Serum or plasma troponin i.cardiac measurement (mass/volume) < ng/ mL <0.30 Myoglobin, serum - 02/24/17 20:10 Myoglobin, serum 25.1 ng/mL 10.0-92.0 CULTURE, URINE - 04/01/18 14:37 CULTURE, URINE, ROUTINE SEE NOTE NRG Complete blood count (CBC) with automated white blood cell (WBC) differential - 05/06/18 21:15 Blood leukocytes automated count (number/volume) 14.8 10*3/uL 4.3-11.0 Blood erythrocytes automated count (number/volume) 5.01 10*6/uL 4.35-5.85 Venous blood hemoglobin measurement (mass/volume) 15.3 g/dL 11.5-16.0 Blood hematocrit (volume fraction) 44 % 35-52 Automated erythrocyte mean corpuscular volume 88 [foz_us] 80-99 Automated erythrocyte mean corpuscular hemoglobin (mass per erythrocyte) 31 pg 25-34 Automated erythrocyte mean corpuscular hemoglobin concentration measurement ( mass/volume) 35 g/dL 32-36 Automated erythrocyte distribution width ratio 13.4 % 10.0-14.5 Automated blood platelet count (count/volume) 331 10*3/uL 130-400 Automated blood platelet mean volume measurement 9.6 [foz_us] 7.4-10.4 Automated blood neutrophils/100 leukocytes 76 % 42-75 Automated blood lymphocytes/100 leukocytes 16 % 12-44 Blood monocytes/100 leukocytes 7 % 0-12 Automated blood eosinophils/100 leukocytes 1 % 0-10 Automated blood basophils/100 leukocytes 0 % 0-10 Blood neutrophils automated count (number/volume) 11.3 10*3 1.8-7.8 Blood lymphocytes automated count (number/volume) 2.4 10*3 1.0-4.0 Blood monocytes automated count (number/volume) 1.0 10*3 0.0-1.0 Automated eosinophil count 0.1 10*3/uL 0.0-0.3 Automated blood basophil count (count/volume) 0.0 10*3/uL 0.0-0.1 PT panel in platelet poor plasma by coagulation assay - 05/06/18 21:15 Prothrombin time (PT) in platelet poor plasma by coagulation assay 13.0 s 12.2-14.7 INR in platelet poor plasma or blood by coagulation assay 1.0 0.8-1.4 Activated partial thromboplastin time (aPTT) in platelet poor plasma bycoagulation assay - 05/06/18 21:15 Activated partial thromboplastin time (aPTT) in platelet poor plasma bycoagulation assay 24 s 24-35 Blood manual differential performed detection - 05/06/18 21:15 Blood monocytes/100 leukocytes 5 % NRG Manual blood segmented neutrophils/100 leukocytes 75 % NRG Blood band neutrophils/100 leukocytes 2 % NRG Manual blood lymphocytes/100 leukocytes 18 % NRG Manual eosinophils/100 leukocytes in nose 0 % NR Manual blood basophils/100 leukocytes 0 % NR Blood erythrocyte morphology finding identification [facility] Comprehensive metabolic panel - 05/06/18 21:15 Serum or plasma sodium measurement (moles/volume) 134 mmol/L 135-145 Serum or plasma potassium measurement (moles/volume) 4.1 mmol/L 3.6-5.0 Serum or plasma chloride measurement (moles/volume) 100 mmol/L 98-107 Carbon dioxide 22 mmol/L 21-32 Serum or plasma anion gap determination (moles/volume) 12 mmol/L 5-14 Serum or plasma urea nitrogen measurement (mass/volume) 12 mg/dL 7-18 Serum or plasma creatinine measurement (mass/volume) 0.93 mg/dL 0.60-1.30 Serum or plasma urea nitrogen/creatinine mass ratio 13 NRG Serum or plasma creatinine measurement with calculation of estimated glomerular filtration rate > NRG Serum or plasma glucose measurement (mass/volume) 433 mg/dL 70-105 Serum or plasma calcium measurement (mass/volume) 9.7 mg/dL 8.5-10.1 Serum or plasma total bilirubin measurement (mass/volume) 0.5 mg/dL 0.1-1.0 Serum or plasma alkaline phosphatase measurement (enzymatic activity/volume) 90 U/L 40-136 Serum or plasma aspartate aminotransferase measurement (enzymatic activity/ volume) 16 U/L 5-34 Serum or plasma alanine aminotransferase measurement (enzymatic activity/volume ) 21 U/L 0-55 Serum or plasma protein measurement (mass/volume) 7.0 g/dL 6.4-8.2 Serum or plasma albumin measurement (mass/volume) 4.3 g/dL 3.2-4.5 Magnesium - 05/06/18 21:15 Magnesium 1.7 mg/dL 1.8-2.4 Serum or plasma creatine kinase measurement (enzymatic activity/volume) - 05/06 21:15 Serum or plasma creatine kinase measurement (enzymatic activity/volume) 71 U/L 29-168 Serum or plasma creatine kinase MB measurement (enzymatic activity/volume) - 21:15 Serum or plasma creatine kinase MB measurement (enzymatic activity/volume) 1.7 ng/mL <6.6 Serum or plasma troponin i.cardiac measurement (mass/volume) - 05/06/18 21:15 Serum or plasma troponin i.cardiac measurement (mass/volume) < ng/ mL <0.30 Serum or plasma amylase measurement (enzymatic activity/volume) - 05/06/18 21: 15 Serum or plasma amylase measurement (enzymatic activity/volume) 38 U /L 25-125 Serum or plasma lithium measurement (moles/volume) - 05/06/18 21:15 BNP level 17.1 pg/mL <100.0 Lipase - 05/06/18 21:15 Lipase 29 U/L 8-78 Serum or plasma ethanol measurement (mass/volume) - 05/06/18 21:15 Serum or plasma ethanol measurement (mass/volume) < mg/dL <10 Methicillin resistant Staphylococcus aureus (MRSA) screening culture - 00:20 Methicillin resistant Staphylococcus aureus (MRSA) screening culture NEG NR Automated blood complete blood count (hemogram) panel - 05/07/18 03:15 Blood leukocytes automated count (number/volume) 13.5 10*3/uL 4.3-11.0 Blood erythrocytes automated count (number/volume) 4.62 10*6/uL 4.35-5.85 Venous blood hemoglobin measurement (mass/volume) 13.8 g/dL 11.5-16.0 Blood hematocrit (volume fraction) 41 % 35-52 Automated erythrocyte mean corpuscular volume 89 [foz_us] 80-99 Automated erythrocyte mean corpuscular hemoglobin (mass per erythrocyte) 30 pg 25-34 Automated erythrocyte mean corpuscular hemoglobin concentration measurement ( mass/volume) 34 g/dL 32-36 Automated erythrocyte distribution width ratio 13.3 % 10.0-14.5 Automated blood platelet count (count/volume) 310 10*3/uL 130-400 Automated blood platelet mean volume measurement 9.8 [foz_us] 7.4-10.4 Whole blood basic metabolic panel - 05/07/18 03:15 Serum or plasma sodium measurement (moles/volume) 135 mmol/L 135-145 Serum or plasma potassium measurement (moles/volume) 4.3 mmol/L 3.6-5.0 Serum or plasma chloride measurement (moles/volume) 106 mmol/L 98-107 Carbon dioxide 21 mmol/L 21-32 Serum or plasma anion gap determination (moles/volume) 8 mmol/L 5-14 Serum or plasma urea nitrogen measurement (mass/volume) 11 mg/dL 7-18 Serum or plasma creatinine measurement (mass/volume) 0.68 mg/dL 0.60-1.30 Serum or plasma urea nitrogen/creatinine mass ratio 16 NRG Serum or plasma creatinine measurement with calculation of estimated glomerular filtration rate > NRG Serum or plasma glucose measurement (mass/volume) 262 mg/dL 70-105 Serum or plasma calcium measurement (mass/volume) 9.1 mg/dL 8.5-10.1 Serum or plasma troponin i.cardiac measurement (mass/volume) - 05/07/18 03:15 Serum or plasma troponin i.cardiac measurement (mass/volume) 12.37 ng/mL <0.30 Capillary blood glucose measurement by glucometer (mass/volume) - 05/07/18 11: 51 Capillary blood glucose measurement by glucometer (mass/volume) 249 mg/dL 70-110 Capillary blood glucose measurement by glucometer (mass/volume) - 05/07/18 16: 06 Capillary blood glucose measurement by glucometer (mass/volume) 161 mg/dL 70-110 Capillary blood glucose measurement by glucometer (mass/volume) - 05/07/18 21: 14 Capillary blood glucose measurement by glucometer (mass/volume) 282 mg/dL 70-110 Complete blood count (CBC) with automated white blood cell (WBC) differential - 05/08/18 04:11 Blood leukocytes automated count (number/volume) 11.8 10*3/uL 4.3-11.0 Blood erythrocytes automated count (number/volume) 5.17 10*6/uL 4.35-5.85 Venous blood hemoglobin measurement (mass/volume) 15.5 g/dL 11.5-16.0 Blood hematocrit (volume fraction) 46 % 35-52 Automated erythrocyte mean corpuscular volume 90 [foz_us] 80-99 Automated erythrocyte mean corpuscular hemoglobin (mass per erythrocyte) 30 pg 25-34 Automated erythrocyte mean corpuscular hemoglobin concentration measurement ( mass/volume) 33 g/dL 32-36 Automated erythrocyte distribution width ratio 13.8 % 10.0-14.5 Automated blood platelet count (count/volume) 331 10*3/uL 130-400 Automated blood platelet mean volume measurement 9.6 [foz_us] 7.4-10.4 Automated blood neutrophils/100 leukocytes 54 % 42-75 Automated blood lymphocytes/100 leukocytes 34 % 12-44 Blood monocytes/100 leukocytes 10 % 0-12 Automated blood eosinophils/100 leukocytes 1 % 0-10 Automated blood basophils/100 leukocytes 0 % 0-10 Blood neutrophils automated count (number/volume) 6.4 10*3 1.8-7.8 Blood lymphocytes automated count (number/volume) 4.0 10*3 1.0-4.0 Blood monocytes automated count (number/volume) 1.2 10*3 0.0-1.0 Automated eosinophil count 0.2 10*3/uL 0.0-0.3 Automated blood basophil count (count/volume) 0.0 10*3/uL 0.0-0.1 Whole blood basic metabolic panel - 05/08/18 04:11 Serum or plasma sodium measurement (moles/volume) 143 mmol/L 135-145 Serum or plasma potassium measurement (moles/volume) 3.8 mmol/L 3.6-5.0 Serum or plasma chloride measurement (moles/volume) 110 mmol/L 98-107 Carbon dioxide 23 mmol/L 21-32 Serum or plasma anion gap determination (moles/volume) 10 mmol/L 5-14 Serum or plasma urea nitrogen measurement (mass/volume) 9 mg/dL 7-18 Serum or plasma creatinine measurement (mass/volume) 0.77 mg/dL 0.60-1.30 Serum or plasma urea nitrogen/creatinine mass ratio 12 NRG Serum or plasma creatinine measurement with calculation of estimated glomerular filtration rate > NRG Serum or plasma glucose measurement (mass/volume) 82 mg/dL 70-105 Serum or plasma calcium measurement (mass/volume) 9.3 mg/dL 8.5-10.1 Magnesium - 05/08/18 04:11 Magnesium 2.3 mg/dL 1.8-2.4 Capillary blood glucose measurement by glucometer (mass/volume) - 05/08/18 05: 54 Capillary blood glucose measurement by glucometer (mass/volume) 93 mg/dL 70-110 Capillary blood glucose measurement by glucometer (mass/volume) - 05/08/18 11: 29 Capillary blood glucose measurement by glucometer (mass/volume) 212 mg/dL 70-110 CMP - 08/23/18 12:16 GLUCOSE 232 mg/dL 65-99 UREA NITROGEN (BUN) 12 mg/dL 7-25 CREATININE 0.71 mg/dL 0.50-1.05 eGFR NON-AFR. BOTSWANAN 96 mL/min/1.73m2 > OR=60 eGFR 111 mL/min/1.73m2 > OR=60 BUN/CREATININE RATIO NOT APPLICABLE (calc) 6-22 SODIUM 137 mmol/L 135-146 POTASSIUM 4.6 mmol/L 3.5-5.3 CHLORIDE 101 mmol/L 98-110 CARBON DIOXIDE 28 mmol/L 20-32 CALCIUM 9.3 mg/dL 8.6-10.4 PROTEIN, TOTAL 6.7 g/dL 6.1-8.1 ALBUMIN 4.3 g/dL 3.6-5.1 GLOBULIN 2.4 g/dL (calc) 1.9-3.7 ALBUMIN/GLOBULIN RATIO 1.8 (calc) 1.0-2.5 BILIRUBIN, TOTAL 0.2 mg/dL 0.2-1.2 ALKALINE PHOSPHATASE 84 U/L 33-130 AST 10 U/L 10-35 ALT 11 U/L 6-29 Complete blood count (CBC) with automated white blood cell (WBC) differential - 10/11/18 13:43 Blood leukocytes automated count (number/volume) 8.5 10*3/uL 4.3-11.0 Blood erythrocytes automated count (number/volume) 5.00 10*6/uL 4.35-5.85 Venous blood hemoglobin measurement (mass/volume) 15.2 g/dL 11.5-16.0 Blood hematocrit (volume fraction) 44 % 35-52 Automated erythrocyte mean corpuscular volume 89 [foz_us] 80-99 Automated erythrocyte mean corpuscular hemoglobin (mass per erythrocyte) 30 pg 25-34 Automated erythrocyte mean corpuscular hemoglobin concentration measurement ( mass/volume) 34 g/dL 32-36 Automated erythrocyte distribution width ratio 13.6 % 10.0-14.5 Automated blood platelet count (count/volume) 340 10*3/uL 130-400 Automated blood platelet mean volume measurement 9.2 [foz_us] 7.4-10.4 Automated blood neutrophils/100 leukocytes 55 % 42-75 Automated blood lymphocytes/100 leukocytes 35 % 12-44 Blood monocytes/100 leukocytes 9 % 0-12 Automated blood eosinophils/100 leukocytes 1 % 0-10 Automated blood basophils/100 leukocytes 0 % 0-10 Blood neutrophils automated count (number/volume) 4.7 10*3 1.8-7.8 Blood lymphocytes automated count (number/volume) 3.0 10*3 1.0-4.0 Blood monocytes automated count (number/volume) 0.8 10*3 0.0-1.0 Automated eosinophil count 0.1 10*3/uL 0.0-0.3 Automated blood basophil count (count/volume) 0.0 10*3/uL 0.0-0.1 PT panel in platelet poor plasma by coagulation assay - 10/11/18 13:43 Prothrombin time (PT) in platelet poor plasma by coagulation assay 12.2 s 12.2-14.7 INR in platelet poor plasma or blood by coagulation assay 0.9 0.8-1.4 Activated partial thromboplastin time (aPTT) in platelet poor plasma bycoagulation assay - 10/11/18 13:43 Activated partial thromboplastin time (aPTT) in platelet poor plasma bycoagulation assay 26 s 24-35 Comprehensive metabolic panel - 10/11/18 13:43 Serum or plasma sodium measurement (moles/volume) 138 mmol/L 135-145 Serum or plasma potassium measurement (moles/volume) 4.1 mmol/L 3.6-5.0 Serum or plasma chloride measurement (moles/volume) 105 mmol/L 98-107 Carbon dioxide 22 mmol/L 21-32 Serum or plasma anion gap determination (moles/volume) 11 mmol/L 5-14 Serum or plasma urea nitrogen measurement (mass/volume) 10 mg/dL 7-18 Serum or plasma creatinine measurement (mass/volume) 0.79 mg/dL 0.60-1.30 Serum or plasma urea nitrogen/creatinine mass ratio 13 NRG Serum or plasma creatinine measurement with calculation of estimated glomerular filtration rate > NRG Serum or plasma glucose measurement (mass/volume) 208 mg/dL 70-105 Serum or plasma calcium measurement (mass/volume) 9.7 mg/dL 8.5-10.1 Serum or plasma total bilirubin measurement (mass/volume) 0.3 mg/dL 0.1-1.0 Serum or plasma alkaline phosphatase measurement (enzymatic activity/volume) 83 U/L 40-136 Serum or plasma aspartate aminotransferase measurement (enzymatic activity/ volume) 10 U/L 5-34 Serum or plasma alanine aminotransferase measurement (enzymatic activity/volume ) 15 U/L 0-55 Serum or plasma protein measurement (mass/volume) 7.2 g/dL 6.4-8.2 Serum or plasma albumin measurement (mass/volume) 4.4 g/dL 3.2-4.5 CALCIUM CORRECTED 9.4 mg/dL 8.5-10.1 Magnesium - 10/11/18 13:43 Magnesium 1.8 mg/dL 1.8-2.4 Serum or plasma troponin i.cardiac measurement (mass/volume) - 10/11/18 13:43 Serum or plasma troponin i.cardiac measurement (mass/volume) < ng/ mL <0.30 Myoglobin, serum - 10/11/18 13:43 Myoglobin, serum 26.8 ng/mL 10.0-92.0 Serum or plasma lithium measurement (moles/volume) - 10/11/18 13:43 BNP level 65.9 pg/mL <100.0 Lipase - 10/11/18 13:43 Lipase 26 U/L 8-78 Fibrin D-dimer FEU measurement in platelet poor plasma (mass/volume) - 13:43 Fibrin D-dimer FEU measurement in platelet poor plasma (mass/volume) 0.33 ug/mL 0.00-0.49 Serum or plasma C reactive protein measurement (mass/volume) - 10/11/18 13:43 Serum or plasma C reactive protein measurement (mass/volume) 0.19 mg /dL 0.00-0.50 Encounters ACCT No. Visit Date/Time Discharge Status Pt. Type Provider Facility Loc./Unit Complaint [id number] 09/02/2014 13:30:00 09/02/2014 23:59:59 [facility] Outpatient PINEDA PEREZ DO [id number] 04/17/2014 14:30:00 04/17/2014 23:59:59 [facility] Outpatient SLICK BUTCHER APRN [id number] 04/17/2014 14:30:00 04/17/2014 23:59:59 [facility] Outpatient SLICK BUTCHER APRN [id number] 03/31/2014 13:28:00 03/31/2014 23:59:59 [facility] Outpatient PINEDA PEREZ DO [id number] 11/29/2013 09:12:00 11/29/2013 23:59:59 [facility] Outpatient PINEDA PEREZ DO [id number] 06/06/2013 15:43:00 06/06/2013 23:59:59 [place] [id number] 11/04/2018 09:40:00 11/04/2018 23:59:59 [facility] [place] [facility] [id number] 08/23/2018 12:05:00 Document Registration [id number] 04/01/2018 13:55:00 Document Registration [id number] 10/11/2018 13:31:00 10/11/2018 16:31:00 DIS Emergency TEE MULLER, MONICA T Via [facility] ER CHEST PAIN [id number] 05/06/2018 23:21:00 05/08/2018 15:00:00 DIS Inpatient MARK MULLER, Shayla ORTIZ [facility] 4TH STEMI [id number] 03/09/2018 23:10:00 03/10/2018 00:19:00 DIS Emergency TEE MULLER, MONICA T Via [facility] ER LEFT SHOULDER PAIN [id number] 06/28/2017 22:46:00 06/28/2017 23:34:00 DIS Emergency DAYNA MULLER, GABRIELA Man Via [facility] ER L SHOULDER PAIN [id number] 02/24/2017 20:06:00 02/24/2017 21:44:00 DIS Emergency TEE MULLER, MONICA T Via [facility] ER CHEST PAIN [id number] 04/23/2015 14:06:00 04/23/2015 23:59:59 CLS Outpatient GUADALUPE, SLICK A [employer] Via [facility] RAD 6 MONTH FOLLOW UP [id number] 11/08/2014 10:54:00 11/08/2014 23:59:59 CLS Outpatient 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
== END 2018-11-20 21:48 | disposition left against medical advice (07) ==
LOC: EDUNIT# 21:24 → ER 21:26
DX: N89.8 Other specified noninflammatory disorders of vagina (principal); Z88.2 Allergy status to sulfonamides

== ENCOUNTER 2019-01-25 13:03 | Emergency (ER) | payer OTHER ==
[~2019-01-25] VITALS: Ht 165.1 cm; Wt 81.2 kg
[2019-01-25] MEDS ORDERED: ASPIRIN 81 MG CHEW (CHILDREN'S ASA) PO ONE (13:15)
[2019-01-25 13:24] LABS: BASOPHILS % (AUTO) 0 % (0-10); EOSINOPHILS # (AUTO) 0.1 10^3/uL (0.0-0.3); EOSINOPHILS % (AUTO) 0 % (0-10); HEMATOCRIT 45 % (35-52); HEMOGLOBIN 15.5 G/DL (11.5-16.0); LYMPHOCYTES # (AUTO) 3.2 X 10^3 (1.0-4.0); LYMPHOCYTES % (AUTO) 21 % (12-44); MEAN CORPUSCULAR HEMOGLOBIN 31 PG (25-34); MEAN CORPUSCULAR HGB CONC 34 G/DL (32-36); MEAN CORPUSCULAR VOLUME 90 FL (80-99); MEAN PLATELET VOLUME 9.3 FL (7.4-10.4); MONOCYTES # (AUTO) 1.3 X 10^3 (0.0-1.0); MONOCYTES % (AUTO) 8 % (0-12); NEUTROPHILS # (AUTO) 10.8 X 10^3 (1.8-7.8); NEUTROPHILS % (AUTO) 71 % (42-75); PLATELET COUNT 352 10^3/uL (130-400); RED CELL DISTRIBUTION WIDTH 13.5 % (10.0-14.5); WHITE BLOOD COUNT 15.3 10^3/uL (4.3-11.0)
--- NOTE | 2019-01-25 13:37 | Diagnostic Imaging Report ---
INDICATION: Chest pain. Portable chest 1:23 p.m. There is calcified granuloma in the right mid lateral lung. Heart size and pulmonary vascularity are normal. Lungs are clear. There are no effusions or pneumothoraces. IMPRESSION: No acute abnormalities in the chest. Dictated by: Dictated on workstation # [id number]
[2019-01-25 13:40] LABS: PROTHROMBIN TIME PATIENT 13.3 SEC (12.2-14.7)
--- NOTE | 2019-01-25 13:40 | ED Chest Pain ---
General Chief Complaint: Chest Pain Stated Complaint: CHEST PAIN Nursing Triage Note: PT STATES CHEST PAIN THAT STARTED ABOUT 1 1/2 HRS AGO, SAYS "THIS FEELS LIKE WHEN I HAD MY HEART ATTACK." Nursing Sepsis Screen: No Definite Risk Source: patient Exam Limitations: no limitations History of Present Illness Date Seen by Provider: Jan 25, 2019 Time Seen by Provider: 13:05 Initial Comments 53-year-old male who presents to the emergency room with complaints of indigestion that started this morning around 8:00 AM while at work that developed into chest pain that started one and half hours ago. 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 She reports that she has had a UT 1 year ago that required a stent and reports similar pain today. She denies shortness of breath, nausea, vomiting, fevers. Allergies and Home Medications Allergies Coded Allergies: Sulfa (Sulfonamide Antibiotics) (Verified Allergy, Severe, ANAPHYLAXIS, 05/07/18) Home Medications Benzonatate 100 Mg Capsule, 100 MG PO TID, (Reported) Citalopram Hydrobromide 40 Mg Tablet, 40 MG PO DAILY, (Reported) Clopidogrel Bisulfate 75 Mg Tablet, 75 MG PO DAILY Prescribed by: NASIMA GOMEZ on 05/08/18 1441 Estrogens, Conjugated 0.3 Mg Tablet, 0.3 MG PO DAILY, (Reported) Gabapentin 300 Mg Capsule, 300 MG PO TID, (Reported) Glipizide 5 Mg Tab.er.24, 5 MG PO DAILY, (Reported) Insulin Detemir 100 Unit/1 Ml Insuln.pen, 50 UNIT SQ HS, (Reported) Liraglutide 0.6 Mg/0.1 Ml Pen.injctr, 1.8 MG SQ DAILY, (Reported) Lisinopril 5 Mg Tablet, 5 MG PO DAILY, (Reported) Meloxicam 15 Mg Tablet, 15 MG PO DAILY, (Reported) Metformin HCl 1,000 Mg Tablet, 1,000 MG PO BID, (Reported) Metoprolol Succinate 25 Mg Tab.er.24h, 12.5 MG PO DAILY Prescribed by: NASIMA GOMEZ on 05/08/18 1443 Montelukast Sodium 10 Mg Tablet, 10 MG PO DAILY, (Reported) Pravastatin Sodium 40 Mg Tablet, 40 MG PO HS, (Reported) Past Fiawhnp-Uurrin-Aximkf Hx Patient Social History Alcohol Use: Denies Use Recreational Drug Use: No Smoking Status: Current Everyday Smoker Type Used: Cigarettes 2nd Hand Smoke Exposure: Yes Recent Foreign Travel: No Contact w/Someone Who Travel: No Recent Infectious Disease Expo: No Recent Hopitalizations: No Immunizations Up To Date Tetanus Booster (TDap): Unknown PED Vaccines UTD: No Date of Influenza Vaccine: Aug 02, 2018 Seasonal Allergies Seasonal Allergies: Yes Past Medical History Surgeries: Yes (Heart cath, Hammer toes, Mastoid Tumor, R Carpal Tunnel ; HYST/ BSO) Cardiac, Coronary Stent, Gallbladder, Hysterectomy, Oophorectomy, Orthopedic, Tonsillectomy, Tubal Ligation Respiratory: Yes Asthma, COPD Currently Using CPAP: No Currently Using BIPAP: No Cardiac: Yes Coronary Artery Disease, Heart Attack, High Cholesterol, Hypertension Neurological: Yes (Head injury from baseball bat/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 ) Concussion 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 (Ovarian CA) 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, Menopausal Genitourinary: Yes Kidney Stones Gastrointestinal: Yes Gastroesophageal Reflux, Irritable Bowel Musculoskeletal: Yes Arthritis, Fibromyalgia, Scoliosis, Chronic Back Pain Endocrine: Yes (DM Type II) Diabetes, Non-Insulin dep HEENT: Yes (MASTOID TUMOR) Hearing Impairment: Deaf Cancer: Yes (mastoid tumor) Ovarian Did You Recieve Any Treatments: Yes What Type of Treatment Did You: Surgical Intervention Psychosocial: Yes Depression Integumentary: No Blood Disorders: No Family Medical History Cardiovascular disease 19 FATHER, 19 MOTHER, G8 BROTHER FH: esophageal cancer aunt Internal cardiac defibrillator G8 BROTHER Pacemaker G8 BROTHER Heart Disease, Cancer, Diabetes, Other Conditions/Hx Physical Exam Vital Signs Vital Signs - First Documented 01/25/19 01/25/19 13:08 13:15 Temp 99.9 Pulse 93 Resp 22 B/P (MAP) 106/75 (85) Pulse Ox 96 O2 Delivery Room Air O2 Flow Rate 2.0 Capillary Refill : Less Than 3 Seconds Height, Weight, BMI Height: 5'5.00" Weight: 179lbs. 0.0oz. 81.506349wy; 29.9 BMI Method:Stated Progress/Results/Core Measures Results/Orders Lab Results Laboratory Tests Test 01/25/19 13:15 01/25/19 16:00 Range/Units White Blood Count 15.3 H 4.3-11.0 10^3/uL Red Blood Count 5.00 4.35-5.85 10^6/uL Hemoglobin 15.5 11.5-16.0 G/DL Hematocrit 45 35-52 % Mean Corpuscular Volume 90 80-99 FL Mean Corpuscular Hemoglobin 31 25-34 PG Mean Corpuscular Hemoglobin Concent 34 32-36 G/DL Red Cell Distribution Width 13.5 10.0-14.5 % Platelet Count 352 130-400 10^3/uL Mean Platelet Volume 9.3 7.4-10.4 FL Neutrophils (%) (Auto) 71 42-75 % Lymphocytes (%) (Auto) 21 12-44 % Monocytes (%) (Auto) 8 0-12 % Eosinophils (%) (Auto) 0 0-10 % Basophils (%) (Auto) 0 0-10 % Neutrophils # (Auto) 10.8 H 1.8-7.8 X 10^3 Lymphocytes # (Auto) 3.2 1.0-4.0 X 10^3 Monocytes # (Auto) 1.3 H 0.0-1.0 X 10^3 Eosinophils # (Auto) 0.1 0.0-0.3 10^3/uL Basophils # (Auto) 0.0 0.0-0.1 10^3/uL Neutrophils % (Manual) 70 % Lymphocytes % (Manual) 24 % Monocytes % (Manual) 5 % Eosinophils % (Manual) 1 % Basophils % (Manual) 0 % Band Neutrophils 0 % Blood Morphology Comment NORMAL Prothrombin Time 13.3 12.2-14.7 SEC INR Comment 1.0 0.8-1.4 Activated Partial Thromboplast Time 29 24-35 SEC D-Dimer 0.52 H 0.00-0.49 UG/ML Sodium Level 137 135-145 MMOL/L Potassium Level 4.0 3.6-5.0 MMOL/L Chloride Level 105 98-107 MMOL/L Carbon Dioxide Level 22 21-32 MMOL/L Anion Gap 10 5-14 MMOL/L Blood Urea Nitrogen 16 7-18 MG/DL Creatinine 0.86 0.60-1.30 MG/DL Estimat Glomerular Filtration Rate > 60 BUN/Creatinine Ratio 19 Glucose Level 123 H 70-105 MG/DL Calcium Level 9.4 8.5-10.1 MG/DL Corrected Calcium 9.0 8.5-10.1 MG/DL Magnesium Level 1.6 L 1.8-2.4 MG/DL Total Bilirubin 0.5 0.1-1.0 MG/DL Aspartate Amino Transf (AST/SGOT) 18 5-34 U/L Alanine Aminotransferase (ALT/SGPT) 22 0-55 U/L Alkaline Phosphatase 77 40-136 U/L Myoglobin 31.6 10.0-92.0 NG/ML Troponin I < 0.028 < 0.028 <0.028 NG/ML B-Type Natriuretic Peptide < 10.0 <100.0 PG/ML Total Protein 7.5 6.4-8.2 GM/DL Albumin 4.5 3.2-4.5 GM/DL Amylase Level 45 25-125 U/L Lipase 20 8-78 U/L My Orders Orders - BERNOT,SHANNAN Cbc With Automated Diff (01/25/19 13:04) Magnesium (01/25/19 13:04) Chest 1 View, Ap/Pa Only (01/25/19 13:04) Ekg Tracing (01/25/19 13:04) Cardiac Profile 1 (01/25/19 13:04) Comprehensive Metabolic Panel (01/25/19 13:04) Myoglobin Serum (01/25/19 13:04) Protime With Inr (01/25/19 13:04) Partial Thromboplastin Time (01/25/19 13:04) O2 (01/25/19 13:04) Monitor-Rhythm Ecg Trace Only (01/25/19 13:04) Lipid Panel (01/26/19 06:00) Saline Lock/Iv-Start (01/25/19 13:04) Lipase (01/25/19 13:04) Amylase (01/25/19 13:04) BNP (01/25/19 13:04) Fibrin Degradation Products (01/25/19 13:04) Aspirin Chewable Tablet (Baby Aspirin Ch (01/25/19 13:15) Manual Differential (01/25/19 13:15) Ns Iv 1000 Ml (Sodium Chloride 0.9%) (01/25/19 13:45) Ct Angio Chest W (01/25/19 14:03) Iohexol Injection (Omnipaque 350 Mg/Ml 1 (01/25/19 14:30) Received Contrast (Hold Metformin- Contr (01/25/19 14:30) Troponin I (01/25/19 15:58) Medications Given in ED Current Medications Medications Dose Ordered Sig/Virgil Route Start Time Stop Time Status Last Admin Dose Admin Aspirin 324 mg ONCE ONCE PO 01/25/19 13:15 01/25/19 13:16 DC 01/25/19 13:20 324 MG Vital Signs/I&O 01/25/19 01/25/19 01/25/19 01/25/19 13:08 13:15 13:16 13:20 Temp 99.9 99.9 Pulse 93 Resp 22 B/P (MAP) 106/75 (85) Pulse Ox 96 93 O2 Delivery Room Air Nasal Cannula Nasal Cannula O2 Flow Rate 2.0 2.00 Blood Pressure Mean: 85 Progress Progress Note : Time: 16:42 Progress Note I have seen and evaluated the patient. I have discussed her laboratory and imaging studies with her. Her lung nodule is still present at this time and she was advised to follow-up with her primary care provider to follow this. Her pain is completely resolved at this time and she is feeling better. Her blood pressure hasn't fluid improved after fluids. She agrees with plan of care, plans for follow-up with Dr. Olivares, return precautions were given. Initial ECG Impression Date: Jan 25, 2019 Initial ECG Impression Time: 13:07 Initial ECG Rate: 96 Initial ECG Rhythm: Normal Sinus Initial ECG Intervals: Normal Initial ECG Impression: Normal, Nonspecific Changes Initial ECG Comparisson: Unchanged Comment Review by Dr. Braga and he agrees with above. Diagnostic Imaging Diagonstic Imaging: Xray, CT Plain Films/CT/US/NM/MRI: chest Comments [facility] [place] NAME: LUZ DE GUZMAN [facility] REC#: [id number] PT STATUS: REG ER : 1965 PHYSICIAN: SHANNAN SMITH ADMIT DATE: 01/25/19/ER Draft Date of Exam:01/25/19 CHEST 1 VIEW, AP/PA ONLY INDICATION: Chest pain. Portable chest 1:23 p.m. There is calcified granuloma in the right mid lateral lung. Heart size and pulmonary vascularity are normal. Lungs are clear. There are no effusions or pneumothoraces. IMPRESSION: No acute abnormalities in the chest. Dictated on workstation # [id number] Dict: 01/25/19 1332 Trans: 01/25/19 1337 [facility] [id number] Interpreted by: MANNY SMITH MD Electronically signed by: NAME: LUZ DE GUZMAN [facility] REC#: [id number] PT STATUS: REG ER : 1965 PHYSICIAN: SHANNAN SMITH ADMIT DATE: 01/25/19/ER Draft Date of Exam:01/25/19 CT ANGIO CHEST W PROCEDURE: CT angiography of the chest with contrast. TECHNIQUE: Multiple contiguous axial images were obtained through the chest after uneventful bolus administration of intravenous contrast. 2D reconstructed CTA MIP acquisitions were also performed. Auto Exposure Controls were utilized during the CT exam to meet ALARA standards for radiation dose reduction. DATE: January 25, 2019. COMPARISON: Chest radiograph January 25, 2019. INDICATION: 53-year-old female, anterior chest pain. FINDINGS: There is a noncalcified right lower lobe pulmonary nodule on axial image 84 measuring 13 mm in size. There is no additional identified pulmonary nodule. There are mild linear opacities in the left lower lobe most likely reflecting scarring with minimal left lower lobe bronchiectasis. There are also very mild linear opacities in the right lower lobe compatible with mild scarring and/or atelectasis. There is no additional focal airspace consolidation. There is no pneumothorax. There is no pleural effusion. The more central airways are patent. There is no identified pulmonary embolus. The main pulmonary artery is normal in caliber. The heart is not enlarged. There is no identified pericardial effusion. There are atherosclerotic calcifications. There is no identified abnormally enlarged mediastinal, hilar, or axillary lymph node which meets CT size criteria for adenopathy. There is a heterogeneous attenuation left thyroid nodule measuring up to 2.1 cm in size. There is a low-attenuation lesion in the liver on axial image 132 which measures 2.2 cm in size with internal attenuation of 3 Hounsfield units compatible with a benign hepatic cyst. The main, right, and left portal veins are patent. The patient is status post cholecystectomy. Additional evaluation of the imaged portions of the upper abdomen is unremarkable. There are degenerative changes of the spine. There is no identified acute bony abnormality. IMPRESSION: CT CHEST. 1. 1.3 cm right lower lobe pulmonary nodule. Recommend comparison with prior CT imaging if available to assess for stability. If greater than two-year stability cannot be documented, PET/CT is recommended for further evaluation. 2. No identified acute cardiopulmonary abnormality. Dictated on workstation # [id number] Dict: 01/25/19 1554 Trans: 01/25/19 1605 [facility] [id number] Interpreted by: PATRICK LOVELL MD Electronically signed by: Reviewed: Reviewed by Me Departure Impression Primary Impression: Chest pain Disposition: HOME, SELF-CARE Condition: Stable/Unchanged Departure-Patient Inst. Decision time for Depature: 16:43 Referrals: [place] PEREZ MD (PCP/Family) Primary Care Physician Shayla OLIVARES MD Patient Instructions: Chest Pain (DC) Add. Discharge Instructions: Follow-up with Dr. Olivares's office within 1 week for a recheck. Call tomorrow morning for an appointment time. Keep an eye on your blood sugar and follow-up with your primary care provider to further monitor the lung nodule. Return back to the emergency room for worsening chest pain, shortness of breath, nausea, vomiting, dizziness, worsening symptoms, or any other concerns as needed. All discharge instructions reviewed with patient and/or family. Voiced understanding. SHANNAN SMITH Jan 25, 2019 13:39
[2019-01-25] MEDS ORDERED: NS IV 1000 ML 1,000 ML IV SCH (13:45)
[2019-01-25 13:50] LABS: ALANINE AMINOTRANSFERASE 22 U/L (0-55); ALBUMIN 4.5 GM/DL (3.2-4.5); ALKALINE PHOSPHATASE 77 U/L (40-136); AMYLASE 45 U/L (25-125); BILIRUBIN,TOTAL 0.5 MG/DL (0.1-1.0); BUN/CREATININE RATIO 19; CALCIUM 9.4 MG/DL (8.5-10.1); CARBON DIOXIDE 22 MMOL/L (21-32); CHLORIDE 105 MMOL/L (98-107); CREATININE SERUM 0.86 MG/DL (0.60-1.30); GFR ESTIMATED > 60; GLUCOSE 123 MG/DL (70-105); LIPASE 20 U/L (8-78); MAGNESIUM 1.6 MG/DL (1.8-2.4); SODIUM 137 MMOL/L (135-145); TOTAL PROTEIN 7.5 GM/DL (6.4-8.2)
[2019-01-25 13:57] LABS: MYOGLOBIN SERUM 31.6 NG/ML (10.0-92.0)
[2019-01-25 14:11] LABS: BAND NEUTROPHILS 0 %; BASOPHILS % (MANUAL) 0 %; EOSINOPHILS % (MANUAL) 1 %; LYMPHOCYTES % (MANUAL) 24 %; MONOCYTES % (MANUAL) 5 %; NEUTROPHILS % (MANUAL) 70 %
[2019-01-25 14:12] LABS: RBC MORPH NORMAL
[2019-01-25] MEDS ORDERED: IOHEXOL 350 MG/ML 150 ML (OMNIPAQUE 350) VIAL IV ONE (14:30)
[2019-01-25] MEDS ORDERED: HOLD METFORMIN - RECEIVED CONTRAST 20 ML VIAL IV SCH (14:30)
--- NOTE | 2019-01-25 16:06 | Diagnostic Imaging Report ---
PROCEDURE: CT angiography of the chest with contrast. TECHNIQUE: Multiple contiguous axial images were obtained through the chest after uneventful bolus administration of intravenous contrast. 2D reconstructed CTA MIP acquisitions were also performed. Auto Exposure Controls were utilized during the CT exam to meet ALARA standards for radiation dose reduction. DATE: January 25, 2019. COMPARISON: Chest radiograph January 25, 2019. INDICATION: 53-year-old female, anterior chest pain. FINDINGS: There is a noncalcified right lower lobe pulmonary nodule on axial image 84 measuring 13 mm in size. There is no additional identified pulmonary nodule. There are mild linear opacities in the left lower lobe most likely reflecting scarring with minimal left lower lobe bronchiectasis. There are also very mild linear opacities in the right lower lobe compatible with mild scarring and/or atelectasis. There is no additional focal airspace consolidation. There is no pneumothorax. There is no pleural effusion. The more central airways are patent. There is no identified pulmonary embolus. The main pulmonary artery is normal in caliber. The heart is not enlarged. There is no identified pericardial effusion. There are atherosclerotic calcifications. There is no identified abnormally enlarged mediastinal, hilar, or axillary lymph node which meets CT size criteria for adenopathy. There is a heterogeneous attenuation left thyroid nodule measuring up to 2.1 cm in size. There is a low-attenuation lesion in the liver on axial image 132 which measures 2.2 cm in size with internal attenuation of 3 Hounsfield units compatible with a benign hepatic cyst. The main, right, and left portal veins are patent. The patient is status post cholecystectomy. Additional evaluation of the imaged portions of the upper abdomen is unremarkable. There are degenerative changes of the spine. There is no identified acute bony abnormality. IMPRESSION: CT CHEST. 1. 1.3 cm right lower lobe pulmonary nodule. Recommend comparison with prior CT imaging if available to assess for stability. If greater than two-year stability cannot be documented, PET/CT is recommended for further evaluation. 2. No identified acute cardiopulmonary abnormality. Dictated by: Dictated on workstation # [id number]
[2019-01-25 16:52] VITALS: BP 111/65
== END 2019-01-25 16:51 | disposition home or self-care (01) ==
LOC: EDUNIT# 13:03 → ER 13:04
DX: R07.9 Chest pain, unspecified (principal); J44.9 Chronic obstructive pulmonary disease, unspecified; I25.10 Atherosclerotic heart disease of native coronary artery without angina pectoris; I25.2 Old myocardial infarction; E78.00 Pure hypercholesterolemia, unspecified; I10 Essential (primary) hypertension; K21.9 Gastro-esophageal reflux disease without esophagitis; K58.9 Irritable bowel syndrome, unspecified; E11.9 Type 2 diabetes mellitus without complications; F32.9 Major depressive disorder, single episode, unspecified; Z87.442 Personal history of urinary calculi; Z88.2 Allergy status to sulfonamides; Z79.4 Long term (current) use of insulin; Z95.5 Presence of coronary angioplasty implant and graft; Z90.710 Acquired absence of both cervix and uterus; Z90.89 Acquired absence of other organs; Z98.51 Tubal ligation status; Z85.43 Personal history of malignant neoplasm of ovary; Z86.012 Personal history of benign carcinoid tumor; Z80.0 Family history of malignant neoplasm of digestive organs
CPT/HCPCS: 36415; 71045; 71275; 80053; 82150; 83690; 83735; 83874; 83880; 84484; 85007; 85027; 85379; 85610; 85730; 93005; 93041; 96360; 96361

== ENCOUNTER → 2019-02-03 | Outpatient (CLI) | payer OTHER ==
[~2019-02-03] MED LIST changes: +CATHETER FLUSH 10 ML SYR IV PRN; +REGADENOSON 0.4 MG/5 ML SYR (LEXISCAN) IV ONE
[2019-02-03 09:02] VITALS: BP 125/74
[2019-02-03 09:03] VITALS: BP 158/75
--- NOTE | 2019-02-03 13:48 | Cardiology Stress Test Report ---
Stress Test Report Type of NM Stress Test: Test Type: LEXISCAN 0.4MG/5ML Date of Procedure/Referring: Date of Procedure: Feb 03, 2019 PCP Shayla Olivares MD Admitting Physician [place] Indications: Chest pain, CAD, HTN. Baseline Heart Rate: 70 Baseline Blood Pressure: Blood Pressure Systolic: 158 Blood Pressure Diastolic: 75 Baseline EKG: Baseline EKG: sinus rhythm Summary & Conclusion: Summary: The patient was brought to the stress lab after informed consent was taken. Stress test was performed according to the Lexiscan protocol. 0.4 mg of IV Lexiscan was given. Low-grade exercise was performed. Baseline EKG showed sinus rhythm at 70 BPM. Initial blood pressure was 125/74 mmHg. Maximum heart rate was 92 bpm and blood pressure 144/76 mmHg. Patient did not have any chest pain, arrhythmias or ST segment changes during the stress test. 10.48 mCi of Myoview were given for rest imaging and 30.9 mCi of Myoview given for stress imaging. Transient ischemic dilatation score 1.19, EF 66 percent. Normal wall motion. Small to intermediate size apical reversible defect, moderate intensity. Possible involvement of the inferior wall as well. Conclusion: Pharmacological stress test was negative for ischemia. Normal LV function with no wall motion abnormalities. Abnormal transient ischemic dilatation score, likely inferior apical ischemia. Coronary angiography is recommended. Shayla OLIVARES MD Feb 03, 2019 1:48 pm
== END ==
LOC: CARD 07:26
PROVIDERS: ATTEND Internal Medicine Interventional Cardiology
DX: I25.10 Atherosclerotic heart disease of native coronary artery without angina pectoris (principal); R07.9 Chest pain, unspecified; E11.9 Type 2 diabetes mellitus without complications; E78.5 Hyperlipidemia, unspecified; I10 Essential (primary) hypertension; I73.9 Peripheral vascular disease, unspecified; Z72.0 Tobacco use
CPT/HCPCS: 78452; 93017

== ENCOUNTER 2019-02-17 07:51 | Day surgery (SDC) | payer OTHER ==
[2019-02-17] VITALS (11 sets, daily range): BP systolic 99–139; BP diastolic 60–69
[~2019-02-17] VITALS: Ht 165.1 cm; Wt 78.0 kg
[~2019-02-17 07:51] MED LIST changes: -CATHETER FLUSH 10 ML SYR IV PRN; -REGADENOSON 0.4 MG/5 ML SYR (LEXISCAN) IV ONE
[2019-02-17] MEDS ORDERED: LIDOCAINE 1% INJ 20 ML 20 ML VIAL ONE (07:57)
[2019-02-17] MEDS ORDERED: HEParin 1000 UNIT/ML (10ML VIAL) FOR BOLUS ONE (07:57)
[2019-02-17] MEDS ORDERED: NS IV 1000 ML 3,000 ML ONE (07:57)
[2019-02-17] MEDS ORDERED: NS IV 1000 ML 1,000 ML IV SCH ×2 (08:00→10:59)
[2019-02-17 08:30] LABS: HEMOGLOBIN 15.4 G/DL (11.5-16.0); MEAN PLATELET VOLUME 8.9 FL (7.4-10.4); RED CELL DISTRIBUTION WIDTH 13.9 % (10.0-14.5); WHITE BLOOD COUNT 8.3 10^3/uL (4.3-11.0)
[2019-02-17 08:45] LABS: INR 0.9 (0.8-1.4); PROTHROMBIN TIME PATIENT 12.8 SEC (12.2-14.7)
[2019-02-17 08:51] LABS: ALANINE AMINOTRANSFERASE 16 U/L (0-55); ALBUMIN 4.6 GM/DL (3.2-4.5); ALKALINE PHOSPHATASE 84 U/L (40-136); BILIRUBIN,TOTAL 0.5 MG/DL (0.1-1.0); BUN/CREATININE RATIO 16; CALCIUM 9.8 MG/DL (8.5-10.1); CARBON DIOXIDE 24 MMOL/L (21-32); CHLORIDE 106 MMOL/L (98-107); CREATININE SERUM 0.81 MG/DL (0.60-1.30); GFR ESTIMATED > 60; GLUCOSE 169 MG/DL (70-105); POTASSIUM 4.3 MMOL/L (3.6-5.0); SODIUM 141 MMOL/L (135-145); TOTAL PROTEIN 7.5 GM/DL (6.4-8.2)
[2019-02-17] MEDS ORDERED: ATOR80TA76 PO (08:59)
[2019-02-17] MEDS ORDERED: ASPI-586 PO (09:00)
[2019-02-17] MEDS ORDERED: fentaNYL INJECTION 100 MCG/2 ML AMP ONE (09:02)
[2019-02-17] MEDS ORDERED: MIDAZOLAM 5 MG/5 ML (VERSED) VIAL ONE (09:02)
[2019-02-17] MEDS ORDERED: NITRO DRIP 25000 MCG/D5W 250 ML IV ONE (09:02)
[2019-02-17] MEDS ORDERED: VERAPAMIL 5 MG/2 ML (CALAN) VIAL IV ONE (09:02)
[2019-02-17] MEDS ORDERED: ADENOSINE 3 MG/1 ML (ADENOSCAN) 30ML VIAL IV ONE ×2 (10:10→10:24)
--- NOTE | 2019-02-17 10:59 | Cardiac Procedure Note-CS/ASA ---
Pre-Procedure Note Pre-Op Procedure Note H&P Reviewed The H&P was reviewed, patient examined and no changes noted. Date H&P Reviewed: Feb 17, 2019 Time H&P Reviewed: 09:30 Conscious Sedation Pre-Proced Time 09:30 ASA Score 3 For ASA 3 and 4: Consider anesthesia and medical clearance. Also, for patients with a history of failed moderate sedation consider anesthesia. Airway Lungs Heart ASA score ASA 1: a normal healthy patient ASA 2: a patient with a mild systemic disease (mid diabetes, controlled hypertension, obesity ASA 3: a patient with a severe systemic disease that limits activity (angina , COPD, prior Myocardial infarction) ASA 4: a patient with an incapacitating disease that is a constant threat to life (CHF, renal failure) ASA 5: a moribund patient not expected to survive 24 hrs. (ruptured aneurysm) ASA 6: a declared brain- patient whose organs are being harvested. For emergent operations, add the letter E after the classification Mallampati Classification Grade 1 Sedation Plan Analgesia, Amnesia, Plan communicated to team members, Discussed options with patient/fam, Discussed risks with patient/fam The patient is an appropriate candidate to undergo the planned procedure, sedation, and anesthesia. The patient immediately re-assessed prior to indication. Shayla FLORES MD Feb 17, 2019 10:59
--- NOTE | 2019-02-17 10:59 | Coronary Angiography Report ---
Coronary Angiography Report DATE OF PROCEDURE: 02/17/19 INDICATION: Chest pain, abnormal nuclear stress test. PREOPERATIVE DIAGNOSIS: Chest pain, abnormal nuclear stress test. POSTOPERATIVE DIAGNOSIS: Moderate two-vessel disease. HISTORY: This is a 53-year-old lady who has previous history of PCI to the RCA. She presented with a prolonged episode of chest pain to our ER. Acute coronary syndrome was ruled out with serial negative troponin. Nuclear stress test was done which showed abnormal transient ischemic dilatation score as well as moderate intensity apical ischemia. Therefore, the patient was scheduled for coronary angiography. PROCEDURES PERFORMED: 1.Coronary angiography. 2.Left heart catheterization. 3. FFR to distal RCA. 4. FFR to left main. COMPLICATIONS: None. SPECIMENS: None. ESTIMATED BLOOD LOSS: 10 mL ANESTHESIA: Conscious sedation ANTICOAGULATION: IV heparin CONTRAST: 90 mL. FLUOROSCOPY: 8.0 minutes. FLOUROSCOPY DOSE:820 mgy. PROCEDURE DETAILS: The patient is a 53 female and was brought to the tag and label cutter after informed consent was taken. All the risks and complications were explained in detail; this included the risk of bleeding, vascular damage, stroke , PR and even . The patient was draped and prepped in the usual sterile fashion. We attempted to gain access in the right radial artery but were unable to. Therefore, Access was gained in the right femoral artery with a 6 [place] sheath. Coronary angiography and left heart catheterization was performed with a JR4 and JL4 catheter. FINDINGS: 1.Left main: Mild to moderate ostial disease. Stenosis severity 30 percent. 2.LAD: Mild diffuse disease in the mid LAD. 3.Left circumflex artery: No significant stenosis. 4.RCA: Patent stent in the proximal RCA. Mild mid disease. Moderate to severe disease in the ostium of the PDA. Stenosis severity 60-70 percent. 5.Left heart catheterization: LV 103/3 mmHg. LVEDP 13 mmHg. Aortic pressure 99 /58 mmHg. Normal LV function with no wall motion abnormalities. No gradient across the aortic valve. RECOMMENDATIONS: FFR to the left main and RCA is recommended. DETAILS: We used the diagnostic JL4 catheter for FFR to the left main. Guidewire was a pressure wire, IV heparin for anticoagulation. We placed a FFR wire in the left circumflex artery. Adenosine was started at 140 g per KG per minute for 2 -1/2 minutes. FFR was 1.01 which is normal. We then took a JR4 guide catheter and crossed the lesion in the distal RCA with a pressure wire. Adenosine was again started at 140 g per KG per minute for 2-1/2 minutes. FFR was 0.83 which is acceptable therefore PCI was deferred. The wire was taken out and post -angiogram did not reveal any vascular complication. Right femoral artery was closed with a mynx device. The patient tolerated procedure well and did not have any complications. CONCLUSIONS: Moderate to severe disease in distal RCA with acceptable FFR therefore PCI deferred. Mild disease in the ostium of the left main. Continue dual antiplatelet therapy. Continue rest of the secondary prevention measures. Follow-up in the office in 3 weeks. Olvin Olivares MD, FACP, FACC, [facility] Interventional Cardiology Shayla OLIVARES MD Feb 17, 2019 10:59
[2019-02-17] MEDS ORDERED: PATIENT MAY USE OWN MEDS, ALL PO SCH (11:00)
--- NOTE | 2019-02-17 11:18 | Cardiology Discharge Summary ---
Diagnosis/Chief Complaint Date of Admission 02/17/2019 Date of Discharge 02/17/2019 Admission Diagnosis Chest pain, abnormal nuclear stress test. Final/Discharge Diagnosis Moderate CAD Chief Complaint/HPI Chief Complaint/HPI This is a 53-year-old lady who has previous history of PCI to the RCA. She presented with a prolonged episode of chest pain to our ER. Acute coronary syndrome was ruled out with serial negative troponin. Nuclear stress test was done which showed abnormal transient ischemic dilatation score as well as moderate intensity apical ischemia. Therefore, the patient was scheduled for coronary angiography. Discharge Summary Procedures Coronary angiography shows moderate to severe distal RCA. Mild LM ostium disease. Patent stent in the RCA. FFR to OM was 1.01. FFR to distal RCA 0.83. Discharge Physical Examination Stable. Hospital Course Was the Problem List Reviewed?: Yes Unremarkable. Pending Labs Laboratory Tests 02/17/19 08:24: White Blood Count 8.3, Red Blood Count 5.14, Hemoglobin 15.4, Hematocrit 47, Mean Corpuscular Volume 91, Mean Corpuscular Hemoglobin 30, Mean Corpuscular Hemoglobin Concent 33, Red Cell Distribution Width 13.9, Platelet Count 314, Mean Platelet Volume 8.9, Prothrombin Time 12.8, INR Comment 0.9, Activated Partial Thromboplast Time 29, Sodium Level 141, Potassium Level 4.3, Chloride Level 106, Carbon Dioxide Level 24, Anion Gap 11, Blood Urea Nitrogen 13, Creatinine 0.81, Estimat Glomerular Filtration Rate > 60, BUN/Creatinine Ratio 16, Glucose Level 169, Calcium Level 9.8, Corrected Calcium , Total Bilirubin 0.5, Aspartate Amino Transf (AST/SGOT) 12, Alanine Aminotransferase (ALT/SGPT) 16, Alkaline Phosphatase 84, Total Protein 7.5, Albumin 4.6 Discussion & Recommendations Discussion Discharge instructions were discussed with the patient. Follow up appt.: Dr. Olivares in 3 weeks Dicharge Diet: Cardiac Diet Activity as Tolerated: Yes Home Medications Reviewed patient Home Medication Reconciliation performed by pharmacy medication reconciliations lot technician and/or nursing. Patients Allergies have been reviewed. Discharge Home Medications: Reviewed and agree with Discharge Medication list on patient's Discharge Instruction sheet Condition at discharge Stable. Instructions to patient/family Dr Olivares in three to four weeks. Shayla OLIVARES MD Feb 17, 2019 11:18
--- NOTE | 2019-02-17 11:18 | Discharge Inst-Post CATH ---
Discharge Inst-CATH/EP Post Cardiac Cath/EP D/C Inst Follow Up/Plan Dr Olivares in three to four weeks. <b>CARDIAC CATH/EP PROCEDURE DISCHARGE INSTRUCTIONS</b> Cardiac Rehab Please be expecting a follow up call from Cardiac Rehab within in one week. ACTIVITY * Go Home directly and rest. * Limit activity of the leg (or wrist if it was used) for 7 days including aerobics, swimming, jogging, bicycling, etc. * Restrict stair-climbing for 7 days if possible, if not, climb up with your non -cath leg, then bring together on the same step. * Avoid lifting, pushing, pulling or excessive movement of the affected extremity for 7 days. * Customary sexual activity may be resumed after 2 days-use caution not to use a position that strains or causes pain to the affected extremity. * No driving for 24 hours. * NO SMOKING. * Avoid straining for bowel movements for 7 days. * Gentle walking on level ground is allowed. * Returning to work will depend on the type of procedure and the results. Your doctor will discuss this with you. CALL YOUR DOCTOR FOR ANY OF THE FOLLOWING: *If bleeding from the puncture site occurs- Apply gentle pressure to site with clean cloth and call your doctor or EMS. * If a knot or lump forms under the skin, increases in size, or causes pain. * If bruising appears to be worsening or moving further down your leg instead of disappearing. * Temperature above 101 F. CARE OF YOUR GROIN INCISION; * Bruising or purple discoloration of the skin near the puncture site is common. * You may shower only, no bathtub bathing for 5 days. Be careful to avoid slipping as your leg may feel stiff. * If a closure device was used on your femoral artery, please see the attached guide regarding care of the device and your leg. * Leave dressing on FOR 24 hours. CARE OF YOUR WRIST INCISION; * Bruising or purple discoloration of the skin near the puncture site is common. * You may shower. * DO NOT submerge wrist. * Leave dressing on FOR 24 hours. Shayla OLIVARES MD Feb 17, 2019 11:17
== END 2019-02-17 15:15 | disposition home or self-care (01) ==
LOC: CATH 07:51 → SDC 11:07 → CATH 15:15
PROVIDERS: ATTEND Internal Medicine Interventional Cardiology
DX: I25.10 Atherosclerotic heart disease of native coronary artery without angina pectoris (principal); I10 Essential (primary) hypertension; E78.5 Hyperlipidemia, unspecified; E11.9 Type 2 diabetes mellitus without complications; F17.210 Nicotine dependence, cigarettes, uncomplicated; I25.2 Old myocardial infarction; Z95.5 Presence of coronary angioplasty implant and graft; Z79.02 Long term (current) use of antithrombotics/antiplatelets; Z79.82 Long term (current) use of aspirin; Z79.4 Long term (current) use of insulin; Z79.899 Other long term (current) drug therapy
CPT/HCPCS: 36415; 80053; 85027; 85610; 85730; 87081; 93458

== ENCOUNTER 2019-10-22 21:12 | Emergency (ER) | payer BC, OTHER ==
[~2019-10-22] VITALS: Ht 165.1 cm; Wt 77.3 kg
[~2019-10-22 21:12] MED LIST changes: +ASPI-586 PO; +ATOR80TA76 PO
[2019-10-22] MEDS ORDERED: ASPIRIN 81 MG CHEW (CHILDREN'S ASA) ONE (21:18)
[2019-10-22] MEDS ORDERED: NITROGLYCERIN 0.4 MG SL TABS BTL 25'S SL ONE (21:18)
[2019-10-22] MEDS: NITROGLYCERIN 0.4 MG SL TABS BTL 25'S SL PRN ×2 (21:24→21:29)
[2019-10-22 21:28] LABS: BASOPHILS % (AUTO) 0 % (0-10); EOSINOPHILS # (AUTO) 0.2 10^3/uL (0.0-0.3); EOSINOPHILS % (AUTO) 2 % (0-10); HEMATOCRIT 46 % (35-52); HEMOGLOBIN 15.7 G/DL (11.5-16.0); LYMPHOCYTES # (AUTO) 3.7 X 10^3 (1.0-4.0); LYMPHOCYTES % (AUTO) 34 % (12-44); MEAN CORPUSCULAR HEMOGLOBIN 30 PG (25-34); MEAN CORPUSCULAR HGB CONC 34 G/DL (32-36); MEAN CORPUSCULAR VOLUME 88 FL (80-99); MEAN PLATELET VOLUME 9.6 FL (7.4-10.4); MONOCYTES # (AUTO) 1.2 X 10^3 (0.0-1.0); MONOCYTES % (AUTO) 10 % (0-12); NEUTROPHILS # (AUTO) 6.1 X 10^3 (1.8-7.8); NEUTROPHILS % (AUTO) 54 % (42-75); PLATELET COUNT 291 10^3/uL (130-400); RED CELL DISTRIBUTION WIDTH 13.4 % (10.0-14.5); WHITE BLOOD COUNT 11.2 10^3/uL (4.3-11.0)
[2019-10-22] MEDS ORDERED: ASPIRIN 81 MG CHEW (CHILDREN'S ASA) PO ONE (21:30)
--- NOTE | 2019-10-22 21:34 | NUR ---
2123: Nitro #1 adm. Pain 08/11 2129: BP 135/79 Pain 08/11 Nitro #2 adm. 2133: BP 139/90 Pain 08/11
[2019-10-22 21:42] LABS: INR 0.9 (0.8-1.4); PROTHROMBIN TIME PATIENT 12.8 SEC (12.2-14.7)
[2019-10-22] MEDS ORDERED: KETOROLAC 30 MG/ML VIAL IVP ONE (21:45)
--- NOTE | 2019-10-22 21:46 | Diagnostic Imaging Report ---
INDICATION: Chest pain. COMPARISON: 01/25/2019. FINDINGS: The lungs are free of acute infiltrate. No failure, effusion or pneumothorax. Cardiomediastinal and hilar contours unremarkable. Right lower lobe nodule is unchanged from previous exams measuring just over 1 cm. No new mass. IMPRESSION: Right lower lobe nodule is not appreciably changed from a radiograph performed in 2017. No acute appearing abnormality. Dictated by: Dictated on workstation # [id number]
[2019-10-22 21:49] LABS: ALANINE AMINOTRANSFERASE 16 U/L (0-55); ALBUMIN 4.1 GM/DL (3.2-4.5); ALKALINE PHOSPHATASE 104 U/L (40-136); BILIRUBIN,TOTAL 0.2 MG/DL (0.1-1.0); BUN/CREATININE RATIO 11; CALCIUM 9.6 MG/DL (8.5-10.1); CARBON DIOXIDE 22 MMOL/L (21-32); CHLORIDE 99 MMOL/L (98-107); CREATININE SERUM 0.87 MG/DL (0.60-1.30); GFR ESTIMATED > 60; GLUCOSE 346 MG/DL (70-105); MAGNESIUM 1.7 MG/DL (1.6-2.4); POTASSIUM 4.2 MMOL/L (3.6-5.0); SODIUM 134 MMOL/L (135-145)
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
[2019-10-22] MEDS ORDERED: NS 100 ML (IVPB) BAG IV ONE (22:30)
[2019-10-22] MEDS ORDERED: HOLD METFORMIN - RECEIVED CONTRAST 20 ML VIAL IV SCH (22:30)
[2019-10-22] MEDS ORDERED: IOHEXOL 350 MG/ML 150 ML (OMNIPAQUE 350) VIAL IV ONE (22:30)
[2019-10-22 23:59] VITALS: BP 125/89
--- NOTE | 2019-10-23 06:34 | Diagnostic Imaging Report ---
PROCEDURE: CT angiography of the chest with contrast. TECHNIQUE: Multiple contiguous axial images were obtained through the chest after uneventful bolus administration of intravenous contrast. 3D reconstructed CTA MIP acquisitions were also performed. Auto Exposure Controls were utilized during the CT exam to meet ALARA standards for radiation dose reduction. INDICATION: Chest pain and shortness of breath The previous CTA chest exam of 01/25/2019 failed to show any sign of an acute cardiopulmonary abnormality. On this exam, there is no defect within the pulmonary arteries to indicate a pulmonary embolus. The aorta is not abnormally dilated and there is no sign of a dissection. The heart size is within normal limits. Coronary artery calcifications are again noted. The previous exam did note a 1.3 cm pleural-based noncalcified nodule along the periphery of the right midlung. That finding is again evident and unchanged in size or appearance. The stability of this finding over a greater than 9-month period would suggest that it is not related to an aggressive process. If further imaging evaluation of this finding is desired, then PET/CT would be recommended. Otherwise, a short-term (6-month) follow-up CT chest exam should be obtained. The lungs are generally clear. There is no evidence for failure, pneumonia or for a pleural effusion. There is no mediastinal or hilar adenopathy. The heterogeneous roughly 2 cm nodule in the left lobe of the thyroid seen previously is again evident and not significantly changed. There is no obvious breast mass. The sections through the upper abdomen again show that the liver is of lower density than usually seen. This does suggest fatty metamorphosis. The cyst within the right lobe of the liver seen previously is again evident and not significantly changed. The left adrenal gland has somewhat of a nodular appearance but this finding also seems stable when compared to the prior exam. The bone windows are unremarkable for a fracture or for a destructive lesion. IMPRESSION: 1. There is no evidence for an acute cardiopulmonary abnormality. In particular, there is no sign of a pulmonary embolus or of a dissection. 2. The noncalcified nodule in the periphery of the right lung base seen on the previous study is again evident and stable in appearance. The heterogeneous thyroid nodule involving the left lobe is also unchanged when compared to the prior exam. If further imaging is desired, then PET/CT would be recommended. Otherwise, a short-term (6-month) follow-up CT chest exam should be obtained for further evaluation. Dictated by: Dictated on workstation # [id number]
== END 2019-10-23 00:01 | disposition home or self-care (01) ==
LOC: EDUNIT# 21:12 → ER 21:14
DX: R07.89 Other chest pain (principal); R91.1 Solitary pulmonary nodule; I25.10 Atherosclerotic heart disease of native coronary artery without angina pectoris; I25.2 Old myocardial infarction; J44.9 Chronic obstructive pulmonary disease, unspecified; E78.00 Pure hypercholesterolemia, unspecified; I10 Essential (primary) hypertension; E11.9 Type 2 diabetes mellitus without complications; F32.9 Major depressive disorder, single episode, unspecified; K21.9 Gastro-esophageal reflux disease without esophagitis; K58.9 Irritable bowel syndrome, unspecified; M79.7 Fibromyalgia; F17.210 Nicotine dependence, cigarettes, uncomplicated; Z85.43 Personal history of malignant neoplasm of ovary; Z87.820 Personal history of traumatic brain injury; Z87.442 Personal history of urinary calculi; Z95.5 Presence of coronary angioplasty implant and graft; Z88.2 Allergy status to sulfonamides; Z79.82 Long term (current) use of aspirin; Z79.02 Long term (current) use of antithrombotics/antiplatelets; Z79.4 Long term (current) use of insulin; Z90.710 Acquired absence of both cervix and uterus; Z90.722 Acquired absence of ovaries, bilateral; Z90.89 Acquired absence of other organs; Z98.51 Tubal ligation status; Z82.49 Family history of ischemic heart disease and other diseases of the circulatory system; Z80.0 Family history of malignant neoplasm of digestive organs
CPT/HCPCS: 36415; 71045; 71275; 80053; 83735; 83874; 84484; 85025; 85379; 85610; 85730; 93041; 96374

== ENCOUNTER 2020-07-24 14:30 | Outpatient (CLI) | payer BC ==
[~2020-07-24] VITALS: Ht 167.7 cm; Wt 80.9 kg
[~2020-07-24 14:30] MED LIST changes: -MONT10TA24; -MONT10TA24 PO; +MONT10TA26; +MONT10TA26 PO
[2020-07-25] MEDS ORDERED: CLOP75TA69 PO (08:10)
[2020-07-25] MEDS ORDERED: GLIP10TA24 PO (08:10)
[2020-07-25] MEDS ORDERED: ASPI-1238 PO (08:10)
[2020-07-25] MEDS ORDERED: CANA100T PO (08:10)
[2020-07-25] MEDS ORDERED: GABA-486 PO (08:10)
[2020-07-25] MEDS ORDERED: MTP25TSR PO (08:10)
== END 2020-07-24 15:00 | disposition home or self-care (01) ==
LOC: PREOP 14:30
PROVIDERS: ATTEND Surgery
DX: Z01.818 Encounter for other preprocedural examination (principal)

== ENCOUNTER 2021-02-18 21:41 | Observation (INO) | payer BC ==
[~2021-02-18] VITALS: Ht 167.7 cm; Wt 78.6 kg
[~2021-02-18 21:41] MED LIST changes: +ASPI-1238 PO; +CANA100T PO; +GABA-486 PO; +GLIP10TA24 PO; -LISI-556; -LISI-556 PO; +LISI-729; +LISI-729 PO; -MONT10TA26; -MONT10TA26 PO; +MONT10TA32; +MONT10TA32 PO; +MTP25TSR PO
[2021-02-18] MEDS ORDERED: ASPIRIN 81 MG CHEW (CHILDREN'S ASA) PO ONE (22:00)
[2021-02-18 22:09] LABS: BASOPHILS % (AUTO) 0 % (0-10); EOSINOPHILS # (AUTO) 0.2 10^3/uL (0.0-0.3); EOSINOPHILS % (AUTO) 2 % (0-10); HEMATOCRIT 49 % (35-52); HEMOGLOBIN 15.9 g/dL (11.5-16.0); LYMPHOCYTES # (AUTO) 3.9 10^3/uL (1.0-4.0); LYMPHOCYTES % (AUTO) 42 % (12-44); MEAN CORPUSCULAR HEMOGLOBIN 30 pg (25-34); MEAN CORPUSCULAR HGB CONC 33 g/dL (32-36); MEAN CORPUSCULAR VOLUME 93 fL (80-99); MEAN PLATELET VOLUME 9.1 fL (9.0-12.2); MONOCYTES # (AUTO) 0.9 10^3/uL (0.0-1.0); MONOCYTES % (AUTO) 10 % (0-12); NEUTROPHILS # (AUTO) 4.2 10^3/uL (1.8-7.8); NEUTROPHILS % (AUTO) 46 % (42-75); PLATELET COUNT 320 10^3/uL (130-400); WHITE BLOOD COUNT 9.2 10^3/uL (4.3-11.0)
[2021-02-18] MEDS ORDERED: ONDANSETRON 4 MG/2 ML (SDV) Z0FRAN IVP ONE (22:15)
[2021-02-18] MEDS: NITROGLYCERIN 0.4 MG SL TABS BTL 25'S SL PRN ×2 (22:19→22:46)
[2021-02-18 22:20] LABS: POTASSIUM 4.2 MMOL/L (3.6-5.0)
[2021-02-18 22:21] LABS: CALCIUM 8.9 MG/DL (8.5-10.1)
[2021-02-18 22:22] LABS: INR 0.9 (0.8-1.4)
[2021-02-18 22:24] LABS: BILIRUBIN,TOTAL 0.2 MG/DL (0.1-1.0)
[2021-02-18 22:26] LABS: CREATININE SERUM 1.04 MG/DL (0.60-1.30)
[2021-02-18 22:29] LABS: MAGNESIUM 1.8 MG/DL (1.6-2.4)
[2021-02-18 22:37] LABS: CREATINE KINASE MB 1.2 NG/ML (<6.6)
[2021-02-18] MEDS ORDERED: meTOproloL SUCCINATE 50 MG (TOPROL XL) TAB PO SCH (23:00)
[2021-02-18] MEDS ORDERED: ENOXAPARIN 80 MG/0.8 ML (LOVENOX) SYR SC ONE (23:00)
[2021-02-18] MEDS ORDERED: NS IV 1000 ML 1,000 ML IV SCH (23:15)
[2021-02-18] MEDS ORDERED: inSUlin (REGULAR) HUMAN 1 UNIT/0.01 ML (CHARGE PER UNIT) IV ONE (23:15)
[2021-02-19 00:46] VITALS: BP 120/76
[2021-02-19] MEDS ORDERED: NITROGLYCERIN 0.4 MG SL TABS BTL 25'S SL PRN (01:00)
[2021-02-19] MEDS ORDERED: morphine INJ 4 MG/ML 1 ML (VIAL/SYRINGE) IV PRN (01:00)
[2021-02-19] MEDS ORDERED: ONDANSETRON 4 MG/2 ML (SDV) Z0FRAN IV PRN (01:00)
[2021-02-19] MEDS: NS IV 1000 ML 1,000 ML IV SCH ×3 (01:06→17:30)
[2021-02-19 01:21] VITALS: BP 120/76
[2021-02-19] MEDS ORDERED: RT-ALBUTEROL/IPRATROPIUM 3 ML (DUONEB) VIAL INH PRN (01:30)
[2021-02-19 04:20] VITALS: BP 99/63
--- NOTE | 2021-02-19 05:48 | Diagnostic Imaging Report ---
EXAMINATION: Portable erect AP chest at 1010 hours. INDICATION: Chest pain. FINDINGS: The heart size is within normal limits and stable when compared to 10/22/2019. There is small nodular density in the periphery of the right midlung seen previously is again evident and no different. There is no sign of failure, pneumonia or pleural effusion to indicate an acute abnormality. The mediastinum is not widened. The osseous structures are intact. IMPRESSION: There is no evidence for active disease. Dictated by: Dictated on workstation # [id number]
[2021-02-19] MEDS: inSUlin ASPART (NovoLOG) 1 UNIT/0.01 ML (CHARGE PER UNIT) SC SCH ×3 (06:43→16:36)
[2021-02-19 06:46] LABS: BASOPHILS % (AUTO) 0 % (0-10); EOSINOPHILS # (AUTO) 0.1 10^3/uL (0.0-0.3); EOSINOPHILS % (AUTO) 2 % (0-10); HEMATOCRIT 46 % (35-52); HEMOGLOBIN 14.7 g/dL (11.5-16.0); LYMPHOCYTES # (AUTO) 3.9 10^3/uL (1.0-4.0); LYMPHOCYTES % (AUTO) 50 % (12-44); MEAN CORPUSCULAR HEMOGLOBIN 30 pg (25-34); MEAN CORPUSCULAR HGB CONC 32 g/dL (32-36); MEAN CORPUSCULAR VOLUME 92 fL (80-99); MEAN PLATELET VOLUME 9.2 fL (9.0-12.2); MONOCYTES # (AUTO) 0.7 10^3/uL (0.0-1.0); MONOCYTES % (AUTO) 9 % (0-12); NEUTROPHILS # (AUTO) 3.1 10^3/uL (1.8-7.8); NEUTROPHILS % (AUTO) 39 % (42-75); PLATELET COUNT 277 10^3/uL (130-400); WHITE BLOOD COUNT 7.8 10^3/uL (4.3-11.0)
[2021-02-19 07:04] LABS: CHLORIDE 109 MMOL/L (98-107); POTASSIUM 4.2 MMOL/L (3.6-5.0); SODIUM 138 MMOL/L (135-145)
[2021-02-19 07:05] LABS: ALBUMIN 3.4 GM/DL (3.2-4.5)
[2021-02-19 07:06] LABS: CALCIUM 8.2 MG/DL (8.5-10.1); TRIGLYCERIDES 257 MG/DL (<150); VLDL CHOLESTEROL 51 MG/DL (5-40)
[2021-02-19 07:07] LABS: GLUCOSE 171 MG/DL (70-105)
[2021-02-19 07:08] LABS: CARBON DIOXIDE 19 MMOL/L (21-32)
[2021-02-19 07:09] LABS: BILIRUBIN,TOTAL 0.2 MG/DL (0.1-1.0)
[2021-02-19 07:10] LABS: ALKALINE PHOSPHATASE 88 U/L (40-136); CREATININE SERUM 0.69 MG/DL (0.60-1.30); GFR ESTIMATED > 60
[2021-02-19 07:11] LABS: CHOLESTEROL 173 MG/DL (< 200)
[2021-02-19 07:12] LABS: BUN/CREATININE RATIO 25
[2021-02-19 07:13] LABS: HDL CHOLESTEROL 35 MG/DL (40-60)
[2021-02-19 07:14] LABS: ALANINE AMINOTRANSFERASE 14 U/L (0-55)
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
[2021-02-19 08:00] VITALS: BP 114/69
--- NOTE | 2021-02-19 08:10 | Consultation-Cardiology ---
HPI-Cardiology Cardiology Consultation: Date of Consultation 02/19/21 Time Seen by a Provider: 09:30 Date of Admission 02-18-21 Attending Physician Rody Pena DO Admitting Physician [facility] Consulting Physician Debbie Moulton MD HPI: Chief Complaint: Chest pain Ms. Coffman is a 55 yr old female admitted to [facility] from the ED with c/o chest pressure radiating across her chest lasting for several hours. She reports no alleviating or exacerbating factors. She describes the discomfort as a pressure, feeling of sore muscles. She reports feeling nauseated, SOB, weak and generally unwell. She reports a feeling of warm flushing up her chest. She reports episodes of palpitations, which she describes as a feeling of fast heart rate lasting for a few minutes. No c/o syncope or near syncope. She reports she received nitro in the ED which did improve her pain, but did not take it completely away. She reports she still has a mild feeling of "soreness" across her chest. No c/o LE swelling. No c/o fever or chills. Review of Systems-Cardiology Review of Systems Constitutional: No chills, No fever; malaise Eyes: No vision change Ears/Nose/Throat: No epistaxis, No recent hearing loss Respiratory: As described under HPI Cardiovascular: As described under HPI Gastrointestinal: No constipation, No diarrhea; nausea; No vomiting Genitourinary: No dysuria, No hematuria Skin: No rash on exposed areas, No ulcerations on exposed areas Psychiatric/Neurological: No anxiety, No depression, No seizure, No focal weakness Hematologic: No bleeding abnormalities EVG-Rjlapf-Mknhug Hx Patient Social History Smoking Status: Current Everyday Smoker (3 PPD) 2nd Hand Smoke Exposure: Yes Have you traveled recently?: Yes Where was recent travel?: [place] in October 2020 Alcohol Use?: Yes Pt feels they are or have been: No Tobacco type used: Cigarettes Immunizations Up To Date Tetanus Booster (TDap): Unknown Date of Influenza Vaccine: Sep 21, 2021 Past Medical History PMH As described under Assessment. Family Medical History Family Medical History: She reports her father had CAD first diagnosed in his early 60's. She reports her mother had CAD. She reports a brother with CAD who is on the transplant list for cardiac transplant. Family History: Cardiovascular disease 19 FATHER, 19 MOTHER, G8 BROTHER FH: esophageal cancer aunt Internal cardiac defibrillator G8 BROTHER Pacemaker G8 BROTHER Allergies and Home Medications Allergies Coded Allergies: Sulfa (Sulfonamide Antibiotics) (Verified Allergy, Severe, ANAPHYLAXIS, 05/07/18) Home Medications Aspirin 81 Mg Tablet.dr, 81 MG PO DAILY, (Reported) Atorvastatin Calcium 80 Mg Tablet, 80 MG PO HS, (Reported) Canagliflozin 100 Mg Tablet, 100 MG PO DAILY@0700, (Reported) Citalopram Hydrobromide 40 Mg Tablet, 40 MG PO DAILY, (Reported) Clopidogrel Bisulfate 75 Mg Tablet, 75 MG PO DAILY, (Reported) Estrogens, Conjugated 0.3 Mg Tablet, 0.3 MG PO DAILY, (Reported) Gabapentin 100 Mg Capsule, 200 MG PO BID, (Reported) Glipizide 10 Mg Tab.er.24, 10 MG PO DAILY, (Reported) Insulin Detemir 100 Unit/1 Ml Insuln.pen, 30 UNIT SQ BID, (Reported) Lisinopril 5 Mg Tablet, 5 MG PO DAILY, (Reported) Metformin HCl 1,000 Mg Tablet, 1,000 MG PO BID, (Reported) Metoprolol Succinate 25 Mg Tab.er.24h, 25 MG PO DAILY, (Reported) Montelukast Sodium 10 Mg Tablet, 10 MG PO DAILY, (Reported) Physical Exam-Cardiology Physical Exam Vital Signs/I&O 02/19/21 02/19/21 02/19/21 02/19/21 00:33 00:46 01:21 01:57 Temp 35.7 36.2 35.7 Pulse 76 77 77 70 Resp 16 18 B/P (MAP) 132/76 (113) 120/76 (91) Pulse Ox 99 98 98 O2 Delivery Room Air Room Air FiO2 21 02/19/21 02/19/21 02/19/21 02/19/21 02:39 04:20 06:33 08:00 Temp 36.0 35.6 Pulse 65 81 72 Resp 20 18 B/P (MAP) 99/63 (75) Pulse Ox 95 96 96 O2 Delivery Room Air Room Air Room Air 02/19/21 08:45 Pulse Ox 96 O2 Delivery Room Air Capillary Refill : Less Than 3 Seconds Constitutional: AAO x 3, well-developed, well-nourished HEENT: PERRL, hearing is well preserved, oral hygience is good Neck: No carotid bruit; carotid pulses are 2 + bilaterally Respiratory: No accessory muscle use, No respiratory distress; chest expansion is symmetric, chest is bilaterally symmetric Cardiovascular: regular rate-rhythm; No JVD; S1 and S2 Gastrointestinal: No tender; soft, round, audible bowel sounds Extremities: no lower extremity edema bilateral Neurologic/Psychiatric: grossly intact (moves all extremities) Skin: No rash on exposed areas, No ulcerations on exposed areas Data Review Labs Laboratory Tests 02/18/21 22:00: White Blood Count 9.2, Red Blood Count 5.24H, Hemoglobin 15.9, Hematocrit 49, Mean Corpuscular Volume 93, Mean Corpuscular Hemoglobin 30, Mean Corpuscular Hemoglobin Concent 33, Red Cell Distribution Width 13.3, Platelet Count 320, Mean Platelet Volume 9.1, Immature Granulocyte % (Auto) 0, Neutrophils (%) (Auto) 46, Lymphocytes (%) (Auto) 42, Monocytes (%) (Auto) 10, Eosinophils (%) (Auto) 2, Basophils (%) (Auto) 0, Neutrophils # (Auto) 4.2, Lymphocytes # (Auto) 3.9, Monocytes # (Auto) 0.9, Eosinophils # (Auto) 0.2, Basophils # (Auto) 0.0, Immature Granulocyte # (Auto) 0.0, Prothrombin Time 12.0L, INR Comment 0.9, Activated Partial Thromboplast Time 28, Sodium Level 135, Potassium Level 4.2, Chloride Level 103, Carbon Dioxide Level 20L, Anion Gap 12, Blood Urea Nitrogen 17, Creatinine 1.04, Estimat Glomerular Filtration Rate 55, BUN/Creatinine Ratio 16, Glucose Level 283H, Calcium Level 8.9, Corrected Calcium 8.9, Magnesium Level 1.8, Total Bilirubin 0.2, Aspartate Amino Transf (AST/SGOT) 13, Alanine Aminotransferase (ALT/SGPT) 16, Alkaline Phosphatase 113, Total Creatine Kinase 41, Creatine Kinase MB 1.2, Myoglobin 20.4, Troponin I < 0.028, B-Type Natriuretic Peptide < 10.0, Total Protein 7.0, Albumin 4.0, Amylase Level 43, Lipase 41 02/19/21 02:01: Glucometer 184H 02/19/21 06:00: White Blood Count 7.8, Red Blood Count 4.97, Hemoglobin 14.7, Hematocrit 46, Mean Corpuscular Volume 92, Mean Corpuscular Hemoglobin 30, Mean Corpuscular Hemoglobin Concent 32, Red Cell Distribution Width 13.2, Platelet Count 277, Mean Platelet Volume 9.2, Immature Granulocyte % (Auto) 0, Neutrophils (%) (Auto) 39L, Lymphocytes (%) (Auto) 50H, Monocytes (%) (Auto) 9, Eosinophils (%) (Auto) 2, Basophils (%) (Auto) 0, Neutrophils # (Auto) 3.1, Lymphocytes # (Auto) 3.9, Monocytes # (Auto) 0.7, Eosinophils # (Auto) 0.1, Basophils # (Auto) 0.0, Immature Granulocyte # (Auto) 0.0, Sodium Level 138, Potassium Level 4.2, Chloride Level 109H, Carbon Dioxide Level 19L, Anion Gap 10, Blood Urea Nitrogen 17, Creatinine 0.69, Estimat Glomerular Filtration Rate > 60, BUN/Creatinine Ratio 25, Glucose Level 171H, Calcium Level 8.2L, Corrected Calcium 8.7, Total Bilirubin 0.2, Aspartate Amino Transf (AST/SGOT) 12, Alanine Aminotransferase (ALT/SGPT) 14, Alkaline Phosphatase 88, Troponin I < 0.028, Total Protein 6.0L, Albumin 3.4, Triglycerides Level 257H, Cholesterol Level 173, LDL Cholesterol Direct 120, VLDL Cholesterol 51H, HDL Cholesterol 35L 02/19/21 06:24: Glucometer 153H Radiology NAME: LUZ COFFMAN [facility] REC#: [id number] PT STATUS: ADM Wandy : 1965 PHYSICIAN: SADIA CANSECO DO ADMIT DATE: 02/18/21 Draft Date of Exam:02/18/21 CHEST 1 VIEW, AP/PA ONLY EXAMINATION: Portable erect AP chest at 1010 hours. INDICATION: Chest pain. FINDINGS: The heart size is within normal limits and stable when compared to 10/22/2019. There is small nodular density in the periphery of the right midlung seen previously is again evident and no different. There is no sign of failure, pneumonia or pleural effusion to indicate an acute abnormality. The mediastinum is not widened. The osseous structures are intact. IMPRESSION: There is no evidence for active disease. Dictated on workstation # [id number] Dict: 02/19/21 0542 Trans: 02/19/21 0548 [id number] Interpreted by: NANETTE ZUNIGA MD Electronically signed by: ECG Impression ECG Initial ECG Rhythm: Normal Sinus A/P-Cardiology Assessment/Admission Diagnosis Chest pain of undetermined etiology with no evidence of ACS thus far CAD - Primary PCI to proximal RCA with drug-eluting stent per cardiac cath of May [address] Olivares - Moderate to severe disease in distal RCA with acceptable FFR therefore PCI deferred. Mild disease in the ostium of the left main per cardiac cath of January [address] Olivares DM HTN HLD GERD Hiatal hernia COPD Tobaccoism Family h/o CAD (mother, father, brother) Discussion and Recomendations Chest pain of undetermined etiology with no evidence of ACS thus far Advise MPI to eval perfusion Echocardiogram to eval structure and function Continue current medication regimen Add PPI Management of DM is per medical services Smoking cessation advised Monitor lab Replace electrolytes as indicated Further recs will be based on her hospital course We would like to thank medical services for this consult Clinical Quality Measures AMI/AHF: ASA po Prior to arrival: MERRY Solomon Feb 19, 2021 08:10
[2021-02-19] MEDS ORDERED: REGADENOSON 0.4 MG/5 ML SYR (LEXISCAN) IV ONE ×2 (08:45→12:08)
[2021-02-19] MEDS ORDERED: ASPIRIN E.C. 81 MG (ECOTRIN) TAB PO SCH (09:00)
[2021-02-19] MEDS ORDERED: ENOXAPARIN 80 MG/0.8 ML (LOVENOX) SYR SC SCH (09:00)
[2021-02-19] MEDS ORDERED: PANTOPRAZOLE 40 MG (PROTONIX) TAB PO NR (10:12)
[2021-02-19] MEDS ORDERED: CATHETER FLUSH 10 ML SYR IV PRN (10:30)
[2021-02-19] MEDS ORDERED: fluCOnazole (DIFLUCAN) 100 MG TAB PO SCH (10:45)
--- NOTE | 2021-02-19 12:56 | Short Stay Summary-Hospitalist ---
JOSE MARTINEZ MED STUDENT 02/19/21 1256: History of Present Illness HPI/Chief Complaint Pt is a 55y/o F wih PMH of current 3PPD smoker, hx [place] with stent x1, HTN, HLP, IDDM who presents to ED yesterday afternoon from POV from home. Pain start 02/17 and had lasted for over 24 straight hours at that point. Subsequent workup ruled out STEMI on EKG. Pain resolved with aspirin and NTG at ER. Pt admitted for ACS rule out. Troponin neg yesterday and this morning again today. Today, Pt states pain was similiar to her last [place]. Pt currently having no pain. Pt denies pain was pleuritic in nature, denies alleviation with rest. Asked pt about diabetes control, states last Hgba1c 1mo ago was around 13. Pt does have hx of GERD. She denies using any medications for sx. Last EGD was over 15 years ago - a hiatal hernia was found at that time. Pts other primary concern is a yeast infection she needs treatment for. Source: patient, EMS notes reviewed, old records Date Seen 02/19/21 Attending Physician Rody Pena DO [facility] Referring Physician Date of Admission Feb 18, 2021 at 22:50 Home Medications & Allergies Home Medications Reviewed patient Home Medication Reconciliation performed by pharmacy medication reconciliations die cast technician and/or nursing. Patients Allergies have been reviewed. Allergies Allergies Coded Allergies Sulfa (Sulfonamide Antibiotics) (Verified Allergy, Severe, ANAPHYLAXIS, 05/07/18) Past Yuljric-Uuuvfn-Mxkpoz Hx Past Med/Social Hx: Reviewed and Corrections made Patient Social History Alcohol Use: Rarely Uses Recreational Drug Use: No Smoking Status: Current Everyday Smoker (3 PPD) Type Used: Cigarettes 2nd Hand Smoke Exposure: Yes Recent Foreign Travel: No Contact w/other who traveled: No Recent Hopitalizations: No Recent Infectious Disease Expo: No Immunizations Up To Date Tetanus Booster (TDap): Unknown Pediatric: No Date of Influenza Vaccine: Sep 21, 2021 Seasonal Allergies Seasonal Allergies: Yes Past Medical History Surgeries: Cardiac, Coronary Stent, Gallbladder, Hysterectomy, Oophorectomy, Orthopedic, Tonsillectomy, Tubal Ligation Currently Using CPAP: No Currently Using BIPAP: No Cardiac: Coronary Artery Disease, Heart Attack, High Cholesterol, Hypertension Neurological: Concussion 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: Yes (Ovarian CA) Hysterectomy, Menopausal Genitourinary: Kidney Stones Gastrointestinal: Gastroesophageal Reflux, Irritable Bowel Musculoskeletal: Arthritis, Fibromyalgia, Scoliosis, Chronic Back Pain Endocrine: Diabetes, Insulin dep Hearing Impairment: Deaf Cancer: Ovarian Did You Recieve Any Treatments: Yes What Type of Treatment Did You: Surgical Intervention Psychosocial: Depression History of Blood Disorders: No Family History Cardiovascular disease 19 FATHER, 19 MOTHER, G8 BROTHER FH: esophageal cancer aunt Internal cardiac defibrillator G8 BROTHER Pacemaker G8 BROTHER Heart Disease, Cancer, Diabetes, Other Conditions/Hx Review of Systems Constitutional: No chills, No diaphoresis, No fever Respiratory: No cough, No dyspnea on exertion, No short of breath Cardiovascular: No chest pain; Hx of Intervention (1x stent placement ); No palpitations Gastrointestinal: abdominal pain (chronic hx, no recent change ); No constipation; diarrhea (chronic ) Genitourinary: No dysuria, No incontinence Physical Exam Physical Exam Vital Signs Vital Signs - First Documented 02/18/21 02/19/21 02/19/21 21:49 00:33 01:21 Temp 35.7 Pulse 90 Resp 18 B/P (MAP) 176/82 (113) Pulse Ox 99 O2 Delivery Room Air FiO2 21 Capillary Refill : Less Than 3 Seconds Height, Weight, BMI Height: 5'5.00" Weight: 172lbs. 0.0oz. 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 Short Stay Diagnosis Discharge Diagnosis-Short Stay Admission Diagnosis ACS rule-out Final Discharge Diagnosis ACS rule-out Conclusion Plan ACS- rule out stable vs unstable angina. Cardiology following. Per pt - pharmacologically induced stress test planned. multiple significant RFs for cardiovascular disease hx of 1x stent for [place] troponin neg aspirin, metoprolol and lovenox. candidal vulvovaginitis diflucan GERD outpt EGD and colonoscopy (due for screening colonoscopy). protonix IDDM 3 PPD smoker HTN HLP CVD outpt counseling on tighter control. DVT prophylaxis - lovenox. Clinical Quality Measures AMI/AHF: ASA po Prior to arrival: RODY Sigala DO 02/20/21 0628: History of Present Illness HPI/Chief Complaint CC: Chest Pain HPI: This is a 55yoWF clinic pt of [facility] who has diabetes out of control HgbA1c of 13, smokes three packs a day, who has a history of a stent placement who presents to the ER with chest pain for the past 24 hours. Cardiology has seen her, stress test will be done, and Diflucan will be ordered due to uncomfortable yeast infection. I told her she will need a gynecology exam also. Source: patient Time Seen by a Provider: 10:00 Past Qonjyuo-Kywsnl-Nzgjzd Hx Past Med/Social Hx: Reviewed Nursing Past Med/Soc Hx, Reviewed and Corrections made Patient Social History Marrital Status: single Employed/Student: unemployed Family History Cardiovascular disease 19 FATHER, 19 MOTHER, G8 BROTHER FH: esophageal cancer aunt Internal cardiac defibrillator G8 BROTHER Pacemaker G8 BROTHER Review of Systems Constitutional: see HPI Physical Exam Physical Exam General Appearance: No Apparent Distress, WD/WN Respiratory: Lungs Clear, Normal Breath Sounds Cardiovascular: Regular Rate, Rhythm Short Stay Diagnosis Discharge Diagnosis-Short Stay Admission Diagnosis Chest pain CAD Smoker DM OOC Yeast vaginitis Final Discharge Diagnosis Chest pain CAD Smoker DM OOC Yeast vaginitis Conclusion Plan DC home Yeast treatment Supervisory-Addendum Brief Verification & Attestation Participated in pt care: history, MDM, physical Personally performed: exam, history, MDM, supervision of care Care discussed with: Medical Student Procedures: n/a Results interpretation: Verified all documentation Verification and Attestation of Medical Student E/M Service A medical student performed and documented this service in my presence. I reviewed and verified all information documented by the medical student and made modifications to such information, when appropriate. I personally performed the physical exam and medical decision making. Rody Pena, Feb 20, 2021,06:27 JSOE MARTINEZ MED STUDENT Feb 19, 2021 12:56 RODY PENA DO Feb 20, 2021 06:28
[2021-02-19] MEDS ORDERED: CANA300T PO (13:37)
[2021-02-19] MEDS ORDERED: ACET-2267 PO (13:37)
[2021-02-19] MEDS ORDERED: METF-478 PO (13:37)
[2021-02-19] MEDS ORDERED: NAPR220T66 PO (13:37)
[2021-02-19] MEDS ORDERED: AMIT25TA9 PO (13:47)
[2021-02-19] MEDS ORDERED: CYCL10TA9 PO (13:47)
[2021-02-19 15:49] VITALS: BP 114/66
[2021-02-19 16:32] VITALS: BP 155/69
--- NOTE | 2021-02-19 17:03 | STRESS TEST ---
DATE OF SERVICE: 02/19/2021 RESTING AND POST REGADENOSON TECHNETIUM-99M TETROFOSMIN SPECT CT IMAGING ORDERING PHYSICIAN: Priscilla Salas APRN PRIMARY PHYSICIAN: Dr. Pena. CLINICAL DIAGNOSIS: Chest discomfort, coronary artery disease. Baseline images were carried out after injection of 10.98 mCi of technetium-99m Tetrofosmin. This was followed by 0.4 mg regadenoson and 32.6 mCi of technetium-99m Tetrofosmin for stress imaging. The electrocardiogram showed sinus rhythm at baseline. It did not change significantly with the regadenoson infusion. The patient noted some nausea following regadenoson infusion, which resolved in a few minutes. Review of images at rest and following stress does not indicate any significant perfusion defects consistent with myocardial ischemia or infarction. Gated images show normal global left ventricular systolic function with normal regional wall motion. Left ventricular ejection fraction is calculated to be 53%. Left ventricular end diastolic volume is 57 mL. TID is absent (1.07). CONCLUSIONS: 1. No evidence of any significant myocardial ischemia or infarction on this study. 2. Normal regional wall motion. 3. Normal global left ventricular systolic function with a calculated ejection fraction of 53%. Job ID: [id number] DocumentID: [id number] Dictated Date: 02/19/2021 15:22:20 Casing Mixer Date: 02/19/2021 17:02:10 Dictated By: LEIDY PIERRE MD, MA, FACP, FACC,
[2021-02-19] MEDS ORDERED: FLUC100T PO (18:18)
[2021-02-19] MEDS ORDERED: TERC20CR2 VG (18:18)
--- NOTE | 2021-02-19 18:29 | Consultation-Cardiology ---
HPI-Cardiology Cardiology Consultation: Date of Consultation 02/19/21 Time Seen by a Provider: 17:30 Date of Admission Attending Physician Rody Garcia DO Admitting Physician [facility] Consulting Physician LEIDY IPERRE MD, MA, FACP, FACC, [facility], CCDS HPI: Chief Complaint: CC: Chest pain HPI Ms. Coffman is a 55 yr old female admitted to [facility] from the ED with c/o chest pressure radiating across her chest lasting for several hours. She reports no alleviating or exacerbating factors. She describes the discomfort as a pressure, feeling of sore muscles. She reports feeling nauseated, SOB, weak and generally unwell. She reports a feeling of warm flushing up her chest. She reports episodes of palpitations, which she describes as a feeling of fast heart rate lasting for a few minutes. No c/o syncope or near syncope. She reports she received nitro in the ED which did improve her pain, but did not take it completely away. This morning, she still had a mild feeling of "soreness" across her chest, but has none currently. No c/o LE swelling. No c/o fever or chills. Review of Systems-Cardiology Review of Systems Constitutional: No chills, No fever; malaise Eyes: No vision change Ears/Nose/Throat: No epistaxis, No recent hearing loss Respiratory: As described under HPI Cardiovascular: As described under HPI Gastrointestinal: No constipation, No diarrhea; nausea; No vomiting Genitourinary: No dysuria, No hematuria Skin: No rash on exposed areas, No ulcerations on exposed areas Psychiatric/Neurological: No anxiety, No depression, No seizure, No focal weakness Hematologic: No bleeding abnormalities QLY-Lwewxk-Zcxtyt Hx Patient Social History Smoking Status: Current Everyday Smoker (3 PPD) 2nd Hand Smoke Exposure: Yes Have you traveled recently?: Yes Where was recent travel?: [place] in October 2020 Alcohol Use?: Yes Pt feels they are or have been: No Tobacco type used: Cigarettes Immunizations Up To Date Tetanus Booster (TDap): Unknown Date of Influenza Vaccine: Sep 21, 2021 Past Medical History PMH As described under Assessment. Family Medical History Family Medical History: She reports her father had CAD first diagnosed in his early 60's. She reports her mother had CAD. She reports a brother with CAD who is on the transplant list for cardiac transplant. Family History: Cardiovascular disease 19 FATHER, 19 MOTHER, G8 BROTHER FH: esophageal cancer aunt Internal cardiac defibrillator G8 BROTHER Pacemaker G8 BROTHER Allergies and Home Medications Allergies Coded Allergies: Sulfa (Sulfonamide Antibiotics) (Verified Allergy, Severe, ANAPHYLAXIS, 05/07/18) Home Medications Acetaminophen 500 Mg Tablet, 500-1,000 MG PO Q8H PRN for PAIN-MILD (1-4), (Reported) Last Action: Reviewed Amitriptyline HCl 25 Mg Tablet, 25 MG PO HS PRN for SLEEP, (Reported) Last Action: Reviewed Aspirin 81 Mg Tablet.dr, 81 MG PO DAILY, (Reported) Last Action: Reviewed Canagliflozin 300 Mg Tablet, 300 MG PO DAILY, (Reported) Last Action: Reviewed Citalopram Hydrobromide 40 Mg Tablet, 40 MG PO DAILY, (Reported) Last Action: Reviewed Clopidogrel Bisulfate 75 Mg Tablet, 75 MG PO DAILY, (Reported) Last Action: Reviewed Cyclobenzaprine HCl 10 Mg Tablet, 10 MG PO HS PRN for MUSCLE SPASMS, (Reported) Last Action: Reviewed Estrogens, Conjugated 0.3 Mg Tablet, 0.3 MG PO DAILY, (Reported) Last Action: Reviewed Fluconazole 100 Mg Tablet, 100 MG PO DAILY Prescribed by: RODY GARCIA on 02/19/211817 Glipizide 10 Mg Tab.er.24, 10 MG PO DAILY, (Reported) Last Action: Reviewed Insulin Detemir 100 Unit/1 Ml Insuln.pen, 35 UNIT SQ BID, (Reported) Last Action: Reviewed Lisinopril 5 Mg Tablet, 5 MG PO DAILY, (Reported) Last Action: Reviewed Metformin HCl 500 Mg Tab.er.24, 1,000 MG PO BID, (Reported) TAKES 2 (500MG) TABS Last Action: Reviewed Metoprolol Succinate 25 Mg Tab.er.24h, 25 MG PO DAILY, (Reported) Last Action: Reviewed Montelukast Sodium 10 Mg Tablet, 10 MG PO DAILY, (Reported) Last Action: Reviewed Terconazole 20 Gm Cream.appl, 20 GM VG HS Prescribed by: RODY GARCIA on 02/19/211817 Patient Home Medication List Home Medication List Reviewed: Yes Physical Exam-Cardiology Physical Exam Vital Signs/I&O 02/19/21 02/19/21 02/19/21 02/19/21 06:33 08:00 08:45 11:31 Temp 35.6 Pulse 81 72 Resp 18 B/P (MAP) 114/69 (84) Pulse Ox 96 96 O2 Delivery Room Air Room Air Room Air 02/19/21 02/19/21 02/19/21 12:15 15:49 16:32 Temp 36.0 Pulse 81 76 Resp 18 B/P (MAP) 114/66 (82) 155/69 (97) Pulse Ox 97 O2 Delivery Room Air Capillary Refill : Less Than 3 Seconds Constitutional: AAO x 3, well-developed, well-nourished HEENT: PERRL, hearing is well preserved, oral hygience is good Neck: No carotid bruit; carotid pulses are 2 + bilaterally Respiratory: No accessory muscle use, No respiratory distress; chest expansion is symmetric, chest is bilaterally symmetric Cardiovascular: regular rate-rhythm; No JVD; S1 and S2 Gastrointestinal: No tender; soft, round, audible bowel sounds Extremities: no lower extremity edema bilateral Neurologic/Psychiatric: grossly intact (moves all extremities) Skin: No rash on exposed areas, No ulcerations on exposed areas Data Review Labs Laboratory Tests 02/18/21 22:00: White Blood Count 9.2, Red Blood Count 5.24H, Hemoglobin 15.9, Hematocrit 49, Mean Corpuscular Volume 93, Mean Corpuscular Hemoglobin 30, Mean Corpuscular Hemoglobin Concent 33, Red Cell Distribution Width 13.3, Platelet Count 320, Mean Platelet Volume 9.1, Immature Granulocyte % (Auto) 0, Neutrophils (%) (Auto) 46, Lymphocytes (%) (Auto) 42, Monocytes (%) (Auto) 10, Eosinophils (%) (Auto) 2, Basophils (%) (Auto) 0, Neutrophils # (Auto) 4.2, Lymphocytes # (Auto) 3.9, Monocytes # (Auto) 0.9, Eosinophils # (Auto) 0.2, Basophils # (Auto) 0.0, Immature Granulocyte # (Auto) 0.0, Prothrombin Time 12.0L, INR Comment 0.9, Activated Partial Thromboplast Time 28, Sodium Level 135, Potassium Level 4.2, Chloride Level 103, Carbon Dioxide Level 20L, Anion Gap 12, Blood Urea Nitrogen 17, Creatinine 1.04, Estimat Glomerular Filtration Rate 55, BUN/Creatinine Ratio 16, Glucose Level 283H, Calcium Level 8.9, Corrected Calcium 8.9, Magnesium Level 1.8, Total Bilirubin 0.2, Aspartate Amino Transf (AST/SGOT) 13, Alanine Aminotransferase (ALT/SGPT) 16, Alkaline Phosphatase 113, Total Creatine Kinase 41, Creatine Kinase MB 1.2, Myoglobin 20.4, Troponin I < 0.028, B-Type Natriuretic Peptide < 10.0, Total Protein 7.0, Albumin 4.0, Amylase Level 43, Lipase 41 02/19/21 02:01: Glucometer 184H 02/19/21 06:00: White Blood Count 7.8, Red Blood Count 4.97, Hemoglobin 14.7, Hematocrit 46, Mean Corpuscular Volume 92, Mean Corpuscular Hemoglobin 30, Mean Corpuscular Hemoglobin Concent 32, Red Cell Distribution Width 13.2, Platelet Count 277, Mean Platelet Volume 9.2, Immature Granulocyte % (Auto) 0, Neutrophils (%) (Auto) 39L, Lymphocytes (%) (Auto) 50H, Monocytes (%) (Auto) 9, Eosinophils (%) (Auto) 2, Basophils (%) (Auto) 0, Neutrophils # (Auto) 3.1, Lymphocytes # (Auto) 3.9, Monocytes # (Auto) 0.7, Eosinophils # (Auto) 0.1, Basophils # (Auto) 0.0, Immature Granulocyte # (Auto) 0.0, Sodium Level 138, Potassium Level 4.2, Chloride Level 109H, Carbon Dioxide Level 19L, Anion Gap 10, Blood Urea Nitrogen 17, Creatinine 0.69, Estimat Glomerular Filtration Rate > 60, BUN/Creatinine Ratio 25, Glucose Level 171H, Calcium Level 8.2L, Corrected Calcium 8.7, Total Bilirubin 0.2, Aspartate Amino Transf (AST/SGOT) 12, Alanine Aminotransferase (ALT/SGPT) 14, Alkaline Phosphatase 88, Troponin I < 0.028, Total Protein 6.0L, Albumin 3.4, Triglycerides Level 257H, Cholesterol Level 173, LDL Cholesterol Direct 120, VLDL Cholesterol 51H, HDL Cholesterol 35L 02/19/21 06:24: Glucometer 153H 02/19/21 10:18: Troponin I < 0.028 Laboratory Tests 02/18/21 22:00 02/19/21 06:00 A/P-Cardiology Assessment/Admission Diagnosis Chest pain w/o any evidence of ACS, likely noncardiac (based on w/u noted below) MPI of 02/19/21: no ischemia or infarction, LVEF normal Echo of 02/19/21: LVEF 50-55% CAD - Primary PCI to proximal RCA with drug-eluting stent per cardiac cath of May [address] Olivares - Moderate to severe disease in distal RCA with acceptable FFR therefore PCI deferred. Mild disease in the ostium of the left main per cardiac cath of January [address] Olivares DM HTN HLD GERD Hiatal hernia COPD Tobaccoism Family h/o CAD (mother, father, brother) Discussion and Recomendations I discussed her cardiac w/u with her in detail and answered questions Risk factor modification discussed and advised; cardiac outpt f/u advised Management of DM is per medical services Smoking cessation advised We would like to thank Medical services for this consult Clinical Quality Measures AMI/AHF: ASA po Prior to arrival: LEIDY Patel MD FACP FAC CCDS Feb 19, 2021 18:29
[2021-02-20] MEDS ORDERED: PANTOPRAZOLE 20 MG TABLET (PROTONIX) PO SCH (09:00)
== END 2021-02-19 18:36 | disposition home or self-care (01) ==
LOC: EDUNIT# 21:41 → ER 21:45 → 4TH 22:50
PROVIDERS: ADMIT Internal Medicine; ATTEND Internal Medicine
DX: I25.10 Atherosclerotic heart disease of native coronary artery without angina pectoris (principal); E11.9 Type 2 diabetes mellitus without complications; N76.0 Acute vaginitis; I10 Essential (primary) hypertension; E78.5 Hyperlipidemia, unspecified; I82.409 Acute embolism and thrombosis of unspecified deep veins of unspecified lower extremity; K21.9 Gastro-esophageal reflux disease without esophagitis; E78.00 Pure hypercholesterolemia, unspecified; M19.90 Unspecified osteoarthritis, unspecified site; F32.9 Major depressive disorder, single episode, unspecified; B37.3 Candidiasis of vulva and vagina; K44.9 Diaphragmatic hernia without obstruction or gangrene; F17.210 Nicotine dependence, cigarettes, uncomplicated; Z79.82 Long term (current) use of aspirin; Z79.899 Other long term (current) drug therapy; Z79.01 Long term (current) use of anticoagulants; Z79.4 Long term (current) use of insulin; Z88.2 Allergy status to sulfonamides; Z90.710 Acquired absence of both cervix and uterus; Z95.5 Presence of coronary angioplasty implant and graft; Z80.0 Family history of malignant neoplasm of digestive organs
CPT/HCPCS: 71045; 78452; 80053 ×2; 80061; 82150; 82550; 82553; 82962; 83690; 83735; 83874; 83880; 84484 ×2; 85025 ×2; 85610; 85730; 93005 ×2; 93017; 93041; 93306; 99284; A9502; 36415; G0378

== ENCOUNTER → 2021-03-07 | Outpatient (CLI) | payer BC ==
[~2021-03-07] MED LIST changes: +ACET-2267 PO; +AMIT25TA9 PO; +CANA300T PO; +CYCL10TA9 PO; +FLUC100T PO; +METF-478 PO; +NAPR220T66 PO; +TERC20CR2 VG
--- NOTE | 2021-03-07 17:11 | Diagnostic Imaging Report ---
INDICATION: Routine screening. COMPARISON is made with prior mammograms 04/23/2015 and 05/01/2014. 2-D and 3-D bilateral screening mammography was performed with CAD. Scattered fibroglandular densities are identified bilaterally. There are benign calcifications. No mass or malignant appearing microcalcifications are seen. Axillae are unremarkable. IMPRESSION: BI-RADS Category 2 No mammographic features suspicious for malignancy are identified. ACR BI-RADS Category 2: Benign findings. Result letter will be mailed to the patient. Note: At least 10% of breast cancer is not imaged by mammography. Dictated by: Dictated on workstation # [id number]
== END ==
LOC: RAD 10:45
PROVIDERS: ATTEND Physician Assistant
DX: Z12.31 Encounter for screening mammogram for malignant neoplasm of breast (principal)
CPT/HCPCS: 77063; 77067

== ENCOUNTER 2021-04-21 11:52 | Emergency (ER) | payer BC, OTHER | END 2021-04-21 12:13 | disposition left against medical advice (07) | LOC: EDUNIT# 11:52 → ER 11:54 | DX: S09.90XA Unspecified injury of head, initial encounter (principal); R07.9 Chest pain, unspecified; X58.XXXA Exposure to other specified factors, initial encounter ==

== ENCOUNTER 2021-04-21 15:11 | Emergency (ER) | payer BC ==
[~2021-04-21] VITALS: Ht 162.5 cm; Wt 78.0 kg
[2021-04-21 15:26] VITALS: BP 147/69
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
--- NOTE | 2021-04-21 16:20 | Diagnostic Imaging Report ---
PROCEDURE: CT head and CT cervical spine without contrast. TECHNIQUE: Multiple contiguous axial images were obtained through the brain and cervical spine without the use of intravenous contrast. Sagittal and coronal reformations through the cervical spine were then performed. Auto Exposure Controls were utilized during the CT exam to meet ALARA standards for radiation dose reduction. INDICATION: Head injury while at work. Previous tumor removed from the mastoid region. EXAMINATION: CT brain and cervical spine without contrast 04/21/2021 FINDINGS: There is no evidence for acute hemorrhage. There are scattered patchy low density areas throughout the cerebellum bilaterally and age indeterminate. Given history of prior tumor removed from the left mastoid air cells, a metastatic process is difficult to completely exclude. MRI with and without contrast recommended. Scattered age indeterminate infarcts could cause a similar pattern. The remaining brain is unremarkable. There is no hydrocephalus. No acute hemorrhage. There is postoperative change along the left mastoid air cells. Visualized sinuses clear. IMPRESSION: 1. Nonspecific patchy low density areas within the cerebellum bilaterally. See above discussion. MRI with and without contrast recommended for further characterization. Dictated by: Dictated on workstation # [id number]
== END 2021-04-21 16:00 | disposition home or self-care (01) ==
LOC: EDUNIT# 15:11 → ER 15:15
DX: S09.90XA Unspecified injury of head, initial encounter (principal); S19.9XXA Unspecified injury of neck, initial encounter; R93.0 Abnormal findings on diagnostic imaging of skull and head, not elsewhere classified; J44.9 Chronic obstructive pulmonary disease, unspecified; I25.2 Old myocardial infarction; I10 Essential (primary) hypertension; E11.9 Type 2 diabetes mellitus without complications; F32.9 Major depressive disorder, single episode, unspecified; F17.210 Nicotine dependence, cigarettes, uncomplicated; Z87.820 Personal history of traumatic brain injury; Z79.82 Long term (current) use of aspirin; Z79.4 Long term (current) use of insulin; Z79.899 Other long term (current) drug therapy; W22.8XXA Striking against or struck by other objects, initial encounter
CPT/HCPCS: 70450; 72125

== ENCOUNTER → 2021-05-01 | Outpatient (CLI) | payer BC, OTHER ==
[~2021-05-01] MED LIST changes: +GADOBUTROL 10 MMOL/10 ML (GADAVIST) VIAL IV ONE
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
== END ==
LOC: RAD 16:15
PROVIDERS: ATTEND Physician Assistant
DX: D38.5 Neoplasm of uncertain behavior of other respiratory organs (principal); R90.89 Other abnormal findings on diagnostic imaging of central nervous system
CPT/HCPCS: 70553

== ENCOUNTER 2021-08-29 05:31 | Outpatient (RCR) | payer BC ==
[~2021-08-29] VITALS: Ht 167.6 cm; Wt 78.0 kg
[~2021-08-29 05:31] MED LIST changes: -GADOBUTROL 10 MMOL/10 ML (GADAVIST) VIAL IV ONE; +INSU100I14 SQ
== END 2021-08-30 08:32 | disposition home or self-care (01) ==
LOC: PREOP 05:31
PROVIDERS: ATTEND Surgery
DX: Z01.812 Encounter for preprocedural laboratory examination (principal); K21.9 Gastro-esophageal reflux disease without esophagitis; Z20.822 Contact with and (suspected) exposure to COVID-19
CPT/HCPCS: 87635

== ENCOUNTER 2021-09-02 06:53 | Day surgery (SDC) | payer BC ==
[~2021-09-02] VITALS: Ht 167.6 cm; Wt 78.0 kg
[2021-09-02] VITALS (8 sets, daily range): BP systolic 128–159; BP diastolic 68–76
[2021-09-02] MEDS ORDERED: LACTATED RINGERS 1,000 ML IV STA (07:02)
[2021-09-02] MEDS ORDERED: HURRICAINE EXT TUBE (BENZOCAINE) XX PRN (07:15)
[2021-09-02] MEDS ORDERED: LACTATED RINGERS 1,000 ML IV ONE (07:16)
[2021-09-02] MEDS ORDERED: MIDAZOLAM 2 MG/2 ML (VERSED) VIAL ONE (07:43)
[2021-09-02] MEDS ORDERED: proPOfol 200 MG/20 ML (DIPRIVAN) VIAL IV ONE (07:43)
--- NOTE | 2021-09-02 08:15 | Progress Note-Pre Operative ---
Pre-Operative Progress Note H&P Reviewed The H&P was reviewed, patient examined and no changes noted. Time Seen by Provider: 08:11 Date H&P Reviewed: Sep 02, 2021 Time H&P Reviewed: 08:11 Pre-Operative Diagnosis: GERD, Screening Colonoscopy ARTHUR PATE DO Sep 02, 2021 08:15
--- NOTE | 2021-09-02 09:02 | Progress Note-Post Operative ---
Post-Operative Progess Note Surgeon (s)/Manufacturing Management Associate (s) Surgeon ARTHUR PATE DO Manufacturing Management Associate: LES OteroII Pre-Operative Diagnosis GERD, Screening Colonoscopy Post-Operative Diagnosis Gastritis hiatal hernia esophagitis polyps diverticula int hemorrhoids Procedure & Operative Findings Date of Procedure 09/02/21 Procedure Performed/Findings EGD with bx Colon with snare Colon with hot bx PROCEDURE NOTE: After informed consent was obtained, the patient was brought to the endoscopy suite, placed in bed in left lateral decubitus position. She was administered IV sedation by the PATROLLER who then monitored vitals the entire time, heart rate, blood pressure and pulse ox and the scope was inserted down the mouth through the esophagus into the stomach. On the way down, noted some mild esophagitis and pushed into the stomach, pushed past the antrum into the duodenum. Antrum and body of stomach had moderate gastritis; looked very red, but the duodenum looked good. Pulled back and did a biopsy of antrum and then a biopsy of the body of the stomach. Then retroflexed the scope, saw a small hiatal hernia, took a picture of this and then pulled the scope into the GE junction and then did a biopsy of the GE junction. Pushed the scope back into the stomach, suctioned all the air out of the stomach. At this point pulled the scope up the esophagus and out the mouth. Switched camera, switched gloves, went down below, started the colonoscopy. Pushed all the way into about 140 cm to get all the way to cecum, took a picture of the appendiceal orifice. On the way in I noted some diverticula and took a picture. I also saw small flat polyps in descending colon and transverse colon and did hot biopsies of these. Once in the Cecum I was also able to get into the terminal ileum and took a picture. I also saw a polyp here and did biopsy took two pieces of the cecal polyp. Started to slowly withdraw the scope, insufflating to look circumferentially at the bah; starting in the cecum, up the ascending colon to the hepatic flexure, then down the transverse colon, splenic flexure, into the descending colon. Here I saw another polyp and did another hot biopsy. Then into the sigmoid where I saw a large polyp that I elected to remoeve completely with a snare. Finally into the rectum and retroflexed in the rectal vault, saw some minimal internal hemorrhoids and took a picture of this. The patient tolerated the procedure and she recovered in the endoscopy suite. Anesthesia Type IV sedation by PATROLLER Estimated Blood Loss Estimated blood loss (mL): scant Specimens/Packing Specimens Removed antral bx body of stomach bx GE jxn Desc colon polyp Transverse colon polyp sigmoid colon polyp Cecal polyp ARTHUR PATE DO Sep 02, 2021 09:02
--- NOTE | 2021-09-02 09:24 | Endoscopy Discharge Instruct ---
Endo Procedure/Findings Findings 1.: Hiatal Hernia, Gastritis 2.: Polyp 3.: Diverticulosis 4.: Internal Hemorrhoids Discharge Instructions - Activity: You might feel a little sleepy until tomorrow. This is due to the medicine you received to relax you. Until tomorrow, you should: NOT drive a car, operate machinery or power tools. NOT drink any alcoholic beverages. NOT make any important decisions or sign importortant papers. Do not return to work until tomorrow, unless otherwise instructed. Resume previous activities tomorrow. Diet: Start by taking liquids. If you tolerate liquids, advance to solid food. 1.: EGD in 3 years 2.: Colonscopy in 3 years Notify Physician - If you experience excessive bleeding, unusual abdominal pain, fever, or chest pain, contact your doctor immediately. ARTHUR PATE DO Sep 02, 2021 09:24
--- NOTE | 2021-09-02 10:11 | Anesthesia-General Post-Op ---
MAC Patient Condition Mental Status/LOC: Same as Preop Cardiovascular: Satisfactory Nausea/Vomiting: Absent Respiratory: Satisfactory Pain: Controlled Complications: Absent Post Op Complications Complications None Follow Up Care/Instructions Patient Instructions None needed. Anesthesiology Discharge Order Discharge Order Patient is doing well, no complaints, stable vital signs, no apparent adverse anesthesia problems. No complications reported per nursing. SULMA GANN CRNA Sep 02, 2021 10:11
== END 2021-09-02 09:53 | disposition home or self-care (01) ==
LOC: ENDO 06:53
PROVIDERS: ATTEND Surgery
DX: D12.3 Benign neoplasm of transverse colon (principal); D12.5 Benign neoplasm of sigmoid colon; K63.5 Polyp of colon; K64.8 Other hemorrhoids; K20.90 Esophagitis, unspecified without bleeding; K57.90 Diverticulosis of intestine, part unspecified, without perforation or abscess without bleeding; K31.9 Disease of stomach and duodenum, unspecified; K29.50 Unspecified chronic gastritis without bleeding; E11.9 Type 2 diabetes mellitus without complications; E78.5 Hyperlipidemia, unspecified; I10 Essential (primary) hypertension; I25.10 Atherosclerotic heart disease of native coronary artery without angina pectoris; J44.9 Chronic obstructive pulmonary disease, unspecified; F32.A Depression, unspecified; F17.210 Nicotine dependence, cigarettes, uncomplicated; Z79.899 Other long term (current) drug therapy; Z79.84 Long term (current) use of oral hypoglycemic drugs; Z79.82 Long term (current) use of aspirin; Z79.4 Long term (current) use of insulin; Z88.2 Allergy status to sulfonamides; Z95.5 Presence of coronary angioplasty implant and graft; Z85.43 Personal history of malignant neoplasm of ovary
CPT/HCPCS: 82947

== ENCOUNTER → 2021-11-04 | Outpatient (REF) ==
[~2021-11-04] MED LIST changes: +CYCL10TA25 PO; -CYCL10TA9 PO; -LISI-729; -LISI-729 PO; +LISI5TAB20; +LISI5TAB20 PO; +MONT-40; +MONT-40 PO; -MONT10TA32; -MONT10TA32 PO
--- NOTE | 2021-11-04 11:08 | Diagnostic Imaging Report ---
Indication: Left wrist injury 3 views of the left wrist show no fracture, dislocation or other acute abnormalities. IMPRESSION: Negative left wrist Dictated by: Dictated on workstation # [id number]
== END ==
LOC: OCC 10:38
PROVIDERS: ATTEND Family Medicine
DX: M25.532 Pain in left wrist (principal)
CPT/HCPCS: 73110

== ENCOUNTER 2021-11-15 17:29 | Emergency (ER) | payer BC ==
[~2021-11-15] VITALS: Ht 162.6 cm; Wt 69.4 kg
[2021-11-15 17:40] VITALS: BP 147/85
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
[2021-11-15] MEDS ORDERED: TETANUS,DIPTH,PERTUSS P/F (BOOSTRIX) 0.5 ML VIAL IM ONE (18:00)
== END 2021-11-15 18:07 | disposition home or self-care (01) ==
LOC: EDUNIT# 17:29 → ER 17:34
DX: S61.211A Laceration without foreign body of left index finger without damage to nail, initial encounter (principal); J44.9 Chronic obstructive pulmonary disease, unspecified; I25.2 Old myocardial infarction; I10 Essential (primary) hypertension; E11.9 Type 2 diabetes mellitus without complications; I25.10 Atherosclerotic heart disease of native coronary artery without angina pectoris; E78.00 Pure hypercholesterolemia, unspecified; F32.9 Major depressive disorder, single episode, unspecified; F17.210 Nicotine dependence, cigarettes, uncomplicated; Z23 Encounter for immunization; Z87.820 Personal history of traumatic brain injury; Z79.4 Long term (current) use of insulin; Z79.82 Long term (current) use of aspirin; Z79.01 Long term (current) use of anticoagulants; Z79.899 Other long term (current) drug therapy; W26.8XXA Contact with other sharp object(s), not elsewhere classified, initial encounter
CPT/HCPCS: 90471; 90715; 99281

== ENCOUNTER 2021-12-20 01:23 | Emergency (ER) | payer BC ==
[2021-12-20] MEDS ORDERED: FAMOTIDINE 20MG/2ML IV (PEPCID) IV STA (01:40)
[2021-12-20] MEDS ORDERED: ONDANSETRON 4 MG/2 ML (SDV) Z0FRAN IVP ONE (01:45)
[2021-12-20] MEDS ORDERED: ANTACID SUSP 30 ML UDC (MYLANTA) PO ONE (01:45)
[2021-12-20] MEDS ORDERED: ASPIRIN 81 MG CHEW (CHILDREN'S ASA) PO ONE (01:45)
[2021-12-20] MEDS ORDERED: NITROGLYCERIN 0.4 MG SL TABS BTL 25'S SL PRN (01:45)
[2021-12-20] MEDS ORDERED: LIDOCAINE 2% VISCOUS 15 ML UDC PO ONE (01:45)
[2021-12-20 01:54] LABS: BASOPHILS % (AUTO) 0 % (0-10); EOSINOPHILS # (AUTO) 0.2 10^3/uL (0.0-0.3); EOSINOPHILS % (AUTO) 2 % (0-10); HEMATOCRIT 47 % (35-52); HEMOGLOBIN 15.6 g/dL (11.5-16.0); LYMPHOCYTES % (AUTO) 39 % (12-44); MEAN CORPUSCULAR HEMOGLOBIN 30 pg (25-34); MEAN CORPUSCULAR HGB CONC 33 g/dL (32-36); MEAN CORPUSCULAR VOLUME 90 fL (80-99); MEAN PLATELET VOLUME 8.9 fL (9.0-12.2); MONOCYTES # (AUTO) 0.8 10^3/uL (0.0-1.0); MONOCYTES % (AUTO) 8 % (0-12); NEUTROPHILS # (AUTO) 5.1 10^3/uL (1.8-7.8); NEUTROPHILS % (AUTO) 50 % (42-75); PLATELET COUNT 266 10^3/uL (130-400); WHITE BLOOD COUNT 10.1 10^3/uL (4.3-11.0)
[2021-12-20 02:04] LABS: ALBUMIN 4.1 GM/DL (3.2-4.5); INR 0.9 (0.8-1.4); POTASSIUM 3.9 MMOL/L (3.6-5.0); PROTHROMBIN TIME PATIENT 12.5 SEC (12.2-14.7)
[2021-12-20 02:05] LABS: CALCIUM 9.5 MG/DL (8.5-10.1)
[2021-12-20 02:06] LABS: TOTAL PROTEIN 7.2 GM/DL (6.4-8.2)
[2021-12-20 02:08] LABS: BILIRUBIN,TOTAL 0.6 MG/DL (0.1-1.0)
[2021-12-20 02:10] LABS: CREATININE SERUM 0.71 MG/DL (0.60-1.30)
[2021-12-20 02:13] LABS: MAGNESIUM 1.8 MG/DL (1.6-2.4)
[2021-12-20 02:14] LABS: LIPASE 38 U/L (8-78)
[2021-12-20] MEDS ORDERED: PANT40TA2 PO (04:37)
[2021-12-20] MEDS ORDERED: SUCR1TAB36 PO (04:37)
--- NOTE | 2021-12-20 04:37 | ED Chest Pain ---
General Chief Complaint: Chest Pain Stated Complaint: CP Nursing Triage Note: TO ED VIA POV AND AMBULATORY TO ROOM 7 WITH C/O CP ACROSS CHEST THAT STARTED APPROX 0111 TONIGHT. Source: patient Exam Limitations: no limitations History of Present Illness Date Seen by Provider: Dec 20, 2021 Time Seen by Provider: 01:31 Initial Comments This 56-year-old woman presents to the emergency room with intense central chest pain that started at approximately 2300. She has history of coronary artery disease and stenting. On exam she has tenderness in the epigastrium and on palpation of the chest. She has an associated sensation of needing to belch. Allergies and Home Medications Allergies Coded Allergies: Sulfa (Sulfonamide Antibiotics) (Verified Allergy, Severe, ANAPHYLAXIS, 05/07/18) Patient Home Medication List Home Medication List Reviewed: Yes Aspirin (Aspirin EC) 81 Mg Tablet.dr, 81 MG PO DAILY, (Reported) Entered as Reported by: NURA PALACIOS on 07/25/20 0810 Atorvastatin Calcium (Atorvastatin Calcium) 80 Mg Tablet, 80 MG PO DAILY, (Reported) Entered as Reported by: ZAHRAA PETERSON on 08/27/21 1112 Citalopram Hydrobromide (Celexa) 40 Mg Tablet, 40 MG PO DAILY, (Reported) Entered as Reported by: OSIEL YU on 05/07/18 1604 Clopidogrel Bisulfate (Plavix) 75 Mg Tablet, 75 MG PO DAILY, (Reported) Entered as Reported by: NURA PALACIOS on 07/25/20 0810 Cyclobenzaprine HCl (Cyclobenzaprine HCl) 10 Mg Tablet, 10 MG PO HS PRN for MUSCLE SPASMS, (Reported) Entered as Reported by: TARIQ GALLO on 02/19/21 1347 Estrogens, Conjugated (Premarin) 0.3 Mg Tablet, 0.3 MG PO DAILY, (Reported) Entered as Reported by: JARRETT CHIN on 05/07/18 1018 Gabapentin (Gabapentin) 100 Mg Capsule, 100 MG PO Q8H, (Reported) Entered as Reported by: ZAHRAA PETERSON on 08/27/21 1112 Glipizide (Glipizide ER) 10 Mg Tab.er.24, 10 MG PO DAILY, (Reported) Entered as Reported by: NURA PALACIOS on 07/25/20 0810 Insulin Aspart (Novolog Flexpen) 300 Units/3 Ml Solution, 30 UNITS SQ AC, (Reported) Entered as Reported by: ZAHRAA PETERSON on 08/27/21 1112 Lisinopril (Lisinopril) 5 Mg Tablet, 5 MG PO DAILY, (Reported) Entered as Reported by: JARRETT CHIN on 05/07/18 1017 Metformin HCl (Metformin HCl ER) 500 Mg Tab.er.24, 1,000 MG PO BID, (Reported) Entered as Reported by: TARIQ GALLO on 02/19/21 1337 Metoprolol Succinate (Metoprolol Succinate) 25 Mg Tab.er.24h, 25 MG PO DAILY, (Reported) Entered as Reported by: NURA PALACIOS on 07/25/20 0810 Montelukast Sodium (Montelukast Sodium) 10 Mg Tablet, 10 MG PO DAILY, (Reported) Entered as Reported by: JARRETT CHIN on 05/07/18 1026 Pantoprazole Sodium (Protonix) 40 Mg Tablet.dr, 40 MG PO DAILY Prescribed by: MONICA UP on 12/20/21 043 Sucralfate (Carafate) 1 Gm Tablet, 1 GM PO QID Prescribed by: MONICA UP on 12/20/21436 Review of Systems Review of Systems Constitutional: no symptoms reported EENTM: No Symptoms Reported Respiratory: No Symptoms Reported Cardiovascular: See HPI Gastrointestinal: See HPI Genitourinary: No Symptoms Reported Musculoskeletal: no symptoms reported Skin: no symptoms reported Psychiatric/Neurological: No Symptoms Reported Endocrine: No Symptoms Reported Past Piwikgw-Jpjhgl-Cgelnp Hx Patient Social History Tobacco Use?: Yes Tobacco type used: Cigarettes Smoking Status: Current Everyday Smoker Substance use?: No Alcohol Use?: No Immunizations Up To Date Tetanus Booster (TDap): Unknown PED Vaccines UTD: No First/Initial COVID19 Vaccinat: 10/16/21 Second COVID19 Vaccination Jay: NO COVID19 Vaccine Vp Security: STATES HAS BEEN VACCINATED Seasonal Allergies Seasonal Allergies: Yes Past Medical History Surgery/Hospitalization HX: CARDIAC STENTS TYPE 2 DM HTN ORTHO SX ANDREA Surgeries: Yes (Heart cath, Hammer toes, Mastoid Tumor, R Carpal Tunnel ; HYST/BSO;STENT X1) Cardiac, Coronary Stent, Gallbladder, Hysterectomy, Oophorectomy, Orthopedic, Tonsillectomy, Tubal Ligation Respiratory: Yes Asthma, COPD Currently Using CPAP: No Currently Using BIPAP: No Cardiac: Yes (STENT X 1) Coronary Artery Disease, Heart Attack, High Cholesterol, Hypertension Neurological: Yes (Head injury from baseball bat/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) Concussion 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 (Ovarian CA) [employer]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, 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 Genitourinary: Yes Kidney Stones Gastrointestinal: Yes Gastroesophageal Reflux, Irritable Bowel Musculoskeletal: Yes Arthritis, Fibromyalgia, Scoliosis, Chronic Back Pain Endocrine: Yes (DM Type II) Diabetes, Insulin dep HEENT: Yes (MASTOID TUMOR) Hearing Impairment: Deaf Cancer: Yes Ovarian Did You Recieve Any Treatments: Yes What Type of Treatment Did You: Surgical Intervention Psychosocial: Yes Depression Integumentary: No Blood Disorders: No Family Medical History Cardiovascular disease 19 FATHER, 19 MOTHER, G8 BROTHER FH: esophageal cancer aunt Internal cardiac defibrillator G8 BROTHER Pacemaker G8 BROTHER Heart Disease, Cancer, Diabetes, Other Conditions/Hx Physical Exam Vital Signs Vital Signs - First Documented 12/20/21 01:33 Temp 36.9 Pulse 82 Resp 18 B/P (MAP) 175/91 (119) Pulse Ox 98 O2 Delivery Room Air Capillary Refill : Less Than 3 Seconds Height, Weight, BMI Height: 5'5.00" Weight: 172lbs. 0.0oz. 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 as Tested Skin: Normal Color, Warm/Dry Progress/Results/Core Measures Results/Orders Lab Results Laboratory Tests Test 12/20/21 01:46 12/20/21 03:47 Range/Units White Blood Count 10.1 4.3-11.0 10^3/uL Red Blood Count 5.23 H 3.80-5.11 10^6/uL Hemoglobin 15.6 11.5-16.0 g/dL Hematocrit 47 35-52 % Mean Corpuscular Volume 90 80-99 fL Mean Corpuscular Hemoglobin 30 25-34 pg Mean Corpuscular Hemoglobin Concent 33 32-36 g/dL Red Cell Distribution Width 13.4 10.0-14.5 % Platelet Count 266 130-400 10^3/uL Mean Platelet Volume 8.9 L 9.0-12.2 fL Immature Granulocyte % (Auto) 0 % Neutrophils (%) (Auto) 50 42-75 % Lymphocytes (%) (Auto) 39 12-44 % Monocytes (%) (Auto) 8 0-12 % Eosinophils (%) (Auto) 2 0-10 % Basophils (%) (Auto) 0 0-10 % Neutrophils # (Auto) 5.1 1.8-7.8 10^3/uL Lymphocytes # (Auto) 4.0 1.0-4.0 10^3/uL Monocytes # (Auto) 0.8 0.0-1.0 10^3/uL Eosinophils # (Auto) 0.2 0.0-0.3 10^3/uL Basophils # (Auto) 0.0 0.0-0.1 10^3/uL Immature Granulocyte # (Auto) 0.0 0.0-0.1 10^3/uL Prothrombin Time 12.5 12.2-14.7 SEC INR Comment 0.9 0.8-1.4 Activated Partial Thromboplast Time 27 24-35 SEC Sodium Level 134 L 135-145 MMOL/L Potassium Level 3.9 3.6-5.0 MMOL/L Chloride Level 102 98-107 MMOL/L Carbon Dioxide Level 20 L 21-32 MMOL/L Anion Gap 12 5-14 MMOL/L Blood Urea Nitrogen 16 7-18 MG/DL Creatinine 0.71 0.60-1.30 MG/DL Estimat Glomerular Filtration Rate 98 BUN/Creatinine Ratio 23 Glucose Level 295 H 70-105 MG/DL Calcium Level 9.5 8.5-10.1 MG/DL Corrected Calcium 9.4 8.5-10.1 MG/DL Magnesium Level 1.8 1.6-2.4 MG/DL Total Bilirubin 0.6 0.1-1.0 MG/DL Aspartate Amino Transf (AST/SGOT) 185 H 5-34 U/L Alanine Aminotransferase (ALT/SGPT) 89 H 0-55 U/L Alkaline Phosphatase 167 H 40-136 U/L Myoglobin 22.0 10.0-92.0 NG/ML Troponin I < 0.028 < 0.028 <0.028 NG/ML Total Protein 7.2 6.4-8.2 GM/DL Albumin 4.1 3.2-4.5 GM/DL Lipase 38 8-78 U/L My Orders Orders - MONICA OLIVEIRA MD Cbc With Automated Diff (12/20/21:31) Magnesium (12/20/21:31) Chest 1 View, Ap/Pa Only (12/20/21:31) Ekg Tracing (12/20/21:31) Comprehensive Metabolic Panel (12/20/21:) Myoglobin Serum (12/20/21:31) Protime With Inr (12/20/21:31) Partial Thromboplastin Time (12/20/21:31) O2 (12/20/21:31) Monitor-Rhythm Ecg Trace Only (12/20/21:31) Ed Iv/Invasive Line Start (12/20/21:31) Troponin I Soto (12/20/21:31) Nitroglycerin 0.4 Mg Btl 25's (Nitrostat (12/20/21 01:45) Aspirin Chewable Tablet (Baby Aspirin Ch (12/20/21 01:45) Ondansetron Injection (Zofran Injectio (12/20/21 01:45) Lidocaine 2% Viscous 15 Ml (Xylocaine Vi (12/20/21 01:45) Antacid Suspension (Mylanta Suspension (12/20/21 01:45) Famotidine Injection (Pepcid Injection) (12/20/21 01:40) Lipase (12/20/21 01:42) Troponin I Lamar (12/20/21 03:45) Medications Given in ED Current Medications Medications Dose Ordered Sig/Virgil Route Start Time Stop Time Status Last Admin Dose Admin Al Hydrox/Mg Hydrox/Simethicone 30 ml ONCE ONCE PO 12/20/21 01:45 12/20/21 01:46 DC 12/20/21 02:02 30 ML Aspirin 324 mg ONCE ONCE PO 12/20/21 01:45 12/20/21 01:46 DC 12/20/21 01:51 324 MG Lidocaine HCl 15 ml ONCE ONCE PO 12/20/21 01:45 12/20/21 01:46 DC 12/20/21 02:02 15 ML Nitroglycerin 0.4 mg UD PRN SL 12/20/21 01:45 12/20/21 04:47 DC 12/20/21 01:56 0.4 MG Ondansetron HCl 4 mg ONCE ONCE IVP 12/20/21 01:45 12/20/21 01:46 DC 12/20/21 01:53 4 MG Vital Signs/I&O 12/20/21 12/20/21 01:33 04:47 Temp 36.9 36.9 Pulse 82 69 Resp 18 16 B/P (MAP) 175/91 (119) 128/67 Pulse Ox 98 96 O2 Delivery Room Air Room Air Blood Pressure Mean: 119 Progress Progress Note : Progress Note Patient had modest relief with nitroglycerin. GI cocktail and Pepcid gave complete relief and patient fell asleep. Initial cardiopulmonary work-up was unremarkable. 2-hour delta troponin was also normal. Ultimately patient was discharged in stable condition without pain. Initial ECG Impression Date: Dec 20, 2021 Initial ECG Impression Time: 01:33 Initial ECG Rate: 82 Initial ECG Rhythm: Normal Sinus, S.[place]qs[place]e Initial ECG Impression: Normal Comment Normal sinus rhythm with no ST elevation or depression. No abnormal intervals or axis deviation. Diagnostic Imaging Diagonstic Imaging: Xray Plain Films/CT/US/NM/MRI: chest Comments Chest x-ray viewed by me. Report not yet available. No acute abnormality appreciated. Departure Impression Primary Impression: Atypical chest pain Additional Impression: Epigastric pain Disposition: HOME, SELF-CARE Condition: Improved Departure-Patient Inst. Referrals: [facility] (PCP) Primary Care Physician EDER HOOD (Family) Primary Care Physician Patient Instructions: Acid Reflux and Gastroesophageal Reflux Disease in Adults, Gastritis ED, Chest Pain Add. Discharge Instructions: Continue your usual medications as previously prescribed. Add Protonix and Carafate as prescribed. Your pain should gradually improve over the next 1 to 2 weeks with these medications. Follow-up with your primary care provider soon as possible. Avoid the following: Eating large meals, eating close to bedtime, caffeine, carbonation, chocolate, citrus fruits and juices, tomato products, tobacco, alcohol, fatty or greasy foods, spicy foods, NSAID medications such as ibuprofen or naproxen, or anything else you know irritates your stomach. Call with questions or concerns. Return to the ER if you have worsening symptoms. All discharge instructions reviewed with patient and/or family. Voiced understanding. Scripts Sucralfate (Carafate) 1 Gm Tablet 1 GM PO QID, #120 TAB Dissolve or crush and mix into 5-10 mL water to make slurry. Take 30 minutes before meals and bed. Prov: MONICA OLIVEIRA MD 12/20/21 Pantoprazole Sodium (Protonix) 40 Mg Tablet. 40 MG PO DAILY, #30 TAB Prov: MONICA OLIVEIRA MD 12/20/21 Copy Copies To 1: PINEDA PEREZ JOSHUA T MD Dec 20, 2021 04:37
[2021-12-20 04:47] VITALS: BP 128/67
--- NOTE | 2021-12-20 06:42 | Diagnostic Imaging Report ---
INDICATION: Chest pain COMPARISON: 02/18/2021 FINDINGS: Single view chest demonstrates stable benign nodule in the right base. Lungs are clear. The heart is normal. There is no pneumothorax but osseous structures are normal. IMPRESSION: Negative chest. Dictated by: Dictated on workstation # [id number]
== END 2021-12-20 04:47 | disposition home or self-care (01) ==
LOC: EDUNIT# 01:23 → ER 01:25
DX: R07.89 Other chest pain (principal); R10.13 Epigastric pain; J44.9 Chronic obstructive pulmonary disease, unspecified; I25.2 Old myocardial infarction; I10 Essential (primary) hypertension; K21.9 Gastro-esophageal reflux disease without esophagitis; E78.00 Pure hypercholesterolemia, unspecified; I25.10 Atherosclerotic heart disease of native coronary artery without angina pectoris; E11.9 Type 2 diabetes mellitus without complications; F32.9 Major depressive disorder, single episode, unspecified; F17.210 Nicotine dependence, cigarettes, uncomplicated; Z87.820 Personal history of traumatic brain injury; Z79.01 Long term (current) use of anticoagulants; Z79.82 Long term (current) use of aspirin; Z79.4 Long term (current) use of insulin; Z79.899 Other long term (current) drug therapy
CPT/HCPCS: 36415; 71045; 80053; 83690; 83735; 83874; 84484; 85025; 85610; 85730; 93005; 93041

== ENCOUNTER 2022-06-07 10:19 | Emergency (ER) | payer BC ==
[~2022-06-07] VITALS: Ht 165 cm; Wt 69.0 kg
[~2022-06-07 10:19] MED LIST changes: +PANT40TA2 PO; +SUCR1TAB36 PO
--- NOTE | 2022-06-07 10:37 | ED Chest Pain ---
General Chief Complaint: Chest Pain Stated Complaint: CP,WEAKNESS Source: patient Exam Limitations: no limitations History of Present Illness Date Seen by Provider: Jun 07, 2022 Time Seen by Provider: 10:25 Initial Comments Patient is a 57-year-old female who presents to the emergency department today with a chief complaint of "just not feeling right". She does endorse a little anterior chest wall pain that she rates at a "5". 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 Patient has a history of a stent placed in 2018, a " maker". She had a couple years of follow-up but after that only follows up with her primary care and has not seen a hospitality workers in at least a couple of years. She does feel a little nauseous and a little short of breath currently. Not necessarily diaphoretic. She is a diabetic and it sounds like she is fairly noncompliant with monitoring her sugars. She complains of a "bad" yeast infection in her groin with multiple rounds of treatment through [facility] walk-in clinic. No fevers or chills, no COVID concerns she has had 1 COVID vaccination. She complains of intermittent swelling to her left lower extremity. She states that she does take her blood pressure medications. All other review of systems reviewed and negative except as stated. Timing/Duration: 1 hour Severity/Quality: moderate ("5") Location: central Radiation: no radiation Activities at Onset: activity (work) Prior CP/Workup: cardiac cath, heart attack (" maker") ASA po AUTO GLASS WORKER: No NTG SL AUTO GLASS WORKER: No Associated Symptoms: nausea/vomiting, shortness of breath, weakness Allergies and Home Medications Allergies Coded Allergies: Sulfa (Sulfonamide Antibiotics) (Verified Allergy, Severe, ANAPHYLAXIS, 05/07/18) Patient Home Medication List Home Medication List Reviewed: Yes Aspirin (Aspirin EC) 81 Mg Tablet.dr, 81 MG PO DAILY, (Reported) Entered as Reported by: NURA PALACIOS on 07/25/20 0810 Atorvastatin Calcium (Atorvastatin Calcium) 80 Mg Tablet, 80 MG PO DAILY, (Reported) Entered as Reported by: ZAHRAA PETERSON on 08/27/21 1112 Citalopram Hydrobromide (Celexa) 40 Mg Tablet, 40 MG PO DAILY, (Reported) Entered as Reported by: OSIEL YU on 05/07/18 1604 Clopidogrel Bisulfate (Plavix) 75 Mg Tablet, 75 MG PO DAILY, (Reported) Entered as Reported by: NURA PALACIOS on 07/25/20 0810 Cyclobenzaprine HCl (Cyclobenzaprine HCl) 10 Mg Tablet, 10 MG PO HS PRN for MUSCLE SPASMS, (Reported) Entered as Reported by: TARIQ GALLO on 02/19/21 1347 Estrogens, Conjugated (Premarin) 0.3 Mg Tablet, 0.3 MG PO DAILY, (Reported) Entered as Reported by: JARRETT CHIN on 05/07/18 1018 Gabapentin (Gabapentin) 100 Mg Capsule, 100 MG PO Q8H, (Reported) Entered as Reported by: ZAHRAA PETERSON on 08/27/21 1112 Glipizide (Glipizide ER) 10 Mg Tab.er.24, 10 MG PO DAILY, (Reported) Entered as Reported by: NURA PALACIOS on 07/25/20 0810 Insulin Aspart (Novolog Flexpen) 300 Units/3 Ml Solution, 30 UNITS SQ AC, (Reported) Entered as Reported by: ZAHRAA PETERSON on 08/27/21 1112 Lisinopril (Lisinopril) 5 Mg Tablet, 5 MG PO DAILY, (Reported) Entered as Reported by: JARRETT CHIN on 05/07/18 1017 Metformin HCl (Metformin HCl ER) 500 Mg Tab.er.24, 1,000 MG PO BID, (Reported) Entered as Reported by: TARIQ GALLO on 02/19/21 1337 Metoprolol Succinate (Metoprolol Succinate) 25 Mg Tab.er.24h, 25 MG PO DAILY, (Reported) Entered as Reported by: NURA PALACIOS on 07/25/20 0810 Montelukast Sodium (Montelukast Sodium) 10 Mg Tablet, 10 MG PO DAILY, (Reported) Entered as Reported by: JARRETT CHIN on 05/07/18 1026 Pantoprazole Sodium (Protonix) 40 Mg Tablet.dr, 40 MG PO DAILY Prescribed by: MONICA UP on 12/20/21 0437 Sucralfate (Carafate) 1 Gm Tablet, 1 GM PO QID Prescribed by: MONICA UP on 12/20/21 0437 Review of Systems Review of Systems Constitutional: see HPI EENTM: No Symptoms Reported Respiratory: Shortness of Air, SOA With Exertion Cardiovascular: Chest Pain Gastrointestinal: Nausea Genitourinary: No Symptoms Reported Musculoskeletal: no symptoms reported Skin: rash ("yeast infection") Psychiatric/Neurological: No Symptoms Reported Past Ovfehyg-Kmslyc-Vrfcgd Hx Immunizations Up To Date Tetanus Booster (TDap): Unknown PED Vaccines UTD: No First/Initial COVID19 Vaccinat: 10/16/21 Second COVID19 Vaccination Jay: NO Seasonal Allergies Seasonal Allergies: Yes Past Medical History Surgery/Hospitalization HX: CARDIAC STENTS TYPE 2 DM HTN ORTHO SX ANDREA Surgeries: Yes (Heart cath, Hammer toes, Mastoid Tumor, R Carpal Tunnel ; HYST/BSO;STENT X1) Cardiac, Coronary Stent, Gallbladder, Hysterectomy, Oophorectomy, Orthopedic, Tonsillectomy, Tubal Ligation Respiratory: Yes Asthma, COPD Currently Using CPAP: No Currently Using BIPAP: No Cardiac: Yes (STENT X 1) Coronary Artery Disease, Heart Attack, High Cholesterol, Hypertension Neurological: Yes (Head injury from baseball bat/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) Concussion 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 (Ovarian CA) 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, 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 Genitourinary: Yes Kidney Stones Gastrointestinal: Yes Gastroesophageal Reflux, Irritable Bowel Musculoskeletal: Yes Arthritis, Fibromyalgia, Scoliosis, Chronic Back Pain Endocrine: Yes (DM Type II) Diabetes, Insulin dep HEENT: Yes (MASTOID TUMOR) Hearing Impairment: Deaf Cancer: Yes Ovarian Did You Recieve Any Treatments: Yes What Type of Treatment Did You: Surgical Intervention Psychosocial: Yes Depression Integumentary: No Blood Disorders: No Family Medical History Cardiovascular disease 19 FATHER, 19 MOTHER, G8 BROTHER FH: esophageal cancer aunt Internal cardiac defibrillator G8 BROTHER Pacemaker G8 BROTHER Heart Disease, Cancer, Diabetes, Other Conditions/Hx Physical Exam Vital Signs Vital Signs - First Documented 06/07/22 10:23 Temp 37.2 Pulse 93 Resp 18 B/P (MAP) 126/86 (99) O2 Delivery Room Air Capillary Refill : Height, Weight, BMI Height: 5'5.00" Weight: 172lbs. 0.0oz. 78.759253pf; 26.00 BMI Method:Stated General Appearance: No Apparent Distress, WD/WN HEENT: PERRL/EOMI Neck: Normal Inspection, Non Tender, Supple Respiratory: Lungs Clear, Normal Breath Sounds, No Accessory Muscle Use, No Respiratory Distress Cardiovascular: Regular Rate, Rhythm, Normal Peripheral Pulses Gastrointestinal: Non Tender, Soft Extremity: Normal Capillary Refill, Normal Range of Motion, Non Tender, No Calf Tenderness, Pedal Edema (L>R (mild)) Neurologic/Psychiatric: Alert, Oriented x3, No Motor/Sensory Deficits, Normal Mood/Affect, television servicer II-XII Norm as Tested Skin: Normal Color, Warm/Dry Progress/Results/Core Measures Results/Orders Lab Results Laboratory Tests Test 06/07/22 10:36 06/07/22 12:14 06/07/22 13:45 Range/Units White Blood Count 10.1 4.3-11.0 10^3/uL Red Blood Count 5.24 H 3.80-5.11 10^6/uL Hemoglobin 15.8 11.5-16.0 g/dL Hematocrit 46 35-52 % Mean Corpuscular Volume 88 80-99 fL Mean Corpuscular Hemoglobin 30 25-34 pg Mean Corpuscular Hemoglobin Concent 34 32-36 g/dL Red Cell Distribution Width 13.0 10.0-14.5 % Platelet Count 270 130-400 10^3/uL Mean Platelet Volume 9.9 9.0-12.2 fL Immature Granulocyte % (Auto) 0 % Neutrophils (%) (Auto) 64 42-75 % Lymphocytes (%) (Auto) 27 12-44 % Monocytes (%) (Auto) 7 0-12 % Eosinophils (%) (Auto) 1 0-10 % Basophils (%) (Auto) 0 0-10 % Neutrophils # (Auto) 6.5 1.8-7.8 10^3/uL Lymphocytes # (Auto) 2.8 1.0-4.0 10^3/uL Monocytes # (Auto) 0.7 0.0-1.0 10^3/uL Eosinophils # (Auto) 0.1 0.0-0.3 10^3/uL Basophils # (Auto) 0.0 0.0-0.1 10^3/uL Immature Granulocyte # (Auto) 0.0 0.0-0.1 10^3/uL Prothrombin Time 12.9 12.2-14.7 SEC INR Comment 0.9 0.8-1.4 Activated Partial Thromboplast Time 26 24-35 SEC Sodium Level 132 L 135-145 MMOL/L Potassium Level 4.3 3.6-5.0 MMOL/L Chloride Level 101 98-107 MMOL/L Carbon Dioxide Level 18 L 21-32 MMOL/L Anion Gap 13 5-14 MMOL/L Blood Urea Nitrogen 12 7-18 MG/DL Creatinine 0.90 0.60-1.30 MG/DL Estimat Glomerular Filtration Rate 74 BUN/Creatinine Ratio 13 Glucose Level 571 *H 70-105 MG/DL Glucometer 487 *H 409 *H 70-110 MG/DL Calcium Level 9.3 8.5-10.1 MG/DL Corrected Calcium 9.2 8.5-10.1 MG/DL Magnesium Level 1.8 1.6-2.4 MG/DL Total Bilirubin 0.4 0.1-1.0 MG/DL Aspartate Amino Transf (AST/SGOT) 10 5-34 U/L Alanine Aminotransferase (ALT/SGPT) 20 0-55 U/L Alkaline Phosphatase 136 40-136 U/L Myoglobin 19.2 10.0-92.0 NG/ML Troponin I < 0.028 < 0.028 <0.028 NG/ML Total Protein 7.0 6.4-8.2 GM/DL Albumin 4.1 3.2-4.5 GM/DL My Orders Orders - JOANNE POTTER MD Ekg Tracing (06/07/22 10:22) Cbc With Automated Diff (06/07/22 10:40) Magnesium (06/07/22 10:40) Chest 1 View, Ap/Pa Only (06/07/22 10:40) Comprehensive Metabolic Panel (06/07/22 10:40) Myoglobin Serum (06/07/22 10:40) Protime With Inr (06/07/22 10:40) Partial Thromboplastin Time (06/07/22 10:40) O2 (06/07/22 10:40) Monitor-Rhythm Ecg Trace Only (06/07/22 10:40) Lipid Panel (06/08/22 06:00) Ed Iv/Invasive Line Start (06/07/22 10:40) Troponin I Soto (06/07/22 10:40) Nitroglycerin 0.4 Mg Btl 25's (Nitrostat (06/07/22 10:45) Aspirin Chewable Tablet (Baby Aspirin Ch (06/07/22 10:45) Ns Iv 1000 Ml (Sodium Chloride 0.9%) (06/07/22 11:15) Troponin I Soto (06/07/22 13:45) Ekg Tracing (06/07/22 14:11) Medications Given in ED Current Medications Medications Dose Ordered Sig/Virgil Route Start Time Stop Time Status Last Admin Dose Admin Aspirin 324 mg ONCE ONCE PO 06/07/22 10:45 06/07/22 10:46 DC 06/07/22 10:58 324 MG Nitroglycerin 0.4 mg UD PRN SL 06/07/22 10:45 06/07/22 11:02 0.4 MG Vital Signs/I&O 06/07/22 10:23 Temp 37.2 Pulse 93 Resp 18 B/P (MAP) 126/86 (99) O2 Delivery Room Air Progress Progress Note : Time: 14:25 Progress Note Patient's labs reviewed, repeat troponin approximately 4 hours after the onset of symptoms is continuing to be negative. Her vital signs are stable. She is comfortable, has been sleeping throughout her ED stay with no complaints of ongoing chest discomfort. I spoke with her about follow-up with cardiology secondary to her ongoing smoking and her history of a " maker" stent. She will be given contact information for the hospitality workers on-call, Dr. Boudreaux. She is encouraged to quit smoking. I did also advise her if her chest pain comes back, if she gets short of breath or nauseous or has any other concerning symptoms develop that she should come back to the emergency room for reevaluation. She verbalized understanding. All questions are sought and answered. Patient is stable for discharge. Initial ECG Impression Date: Jun 07, 2022 Initial ECG Impression Time: 10:35 Initial ECG Rate: 94 Initial ECG Rhythm: Normal Sinus Initial ECG Intervals UT interval 144 QRS 85 QTc 381 Comment Significant difficulty in getting leads V1 and V2 to read correctly. Patient has Q waves inferiorly, no ST segment elevation or depression. No ectopy. Lead 2 specifically malfunctioned Diagnostic Imaging Diagonstic Imaging: Xray Plain Films/CT/US/NM/MRI: chest Comments [facility], [place] NAME: LUZ CONTRERAS [facility] REC#: [id number] PT STATUS: REG ER : 1965 PHYSICIAN: JOANNE POTTER MD ADMIT DATE: 06/07/22/ER Signed Date of Exam:06/07/22 CHEST 1 VIEW, AP/PA ONLY INDICATION: Chest pain. COMPARISON is made with prior exam 12/20/2021. FINDINGS: The heart size is normal. The mediastinum is unremarkable. There is no pleural effusion or pneumothorax. There is an unchanged calcified granuloma in the right midlung. IMPRESSION: No acute cardiopulmonary abnormality. Dictated by: Dictated on workstation # [id number] Dict: 06/07/22 1129 Trans: 06/07/22 1159 [facility] [id number] Interpreted by: JAREN BELTRAN MD Electronically signed by: JAREN BELTRAN MD 06/07/22 1159 Departure Impression Primary Impression: Chest pain Qualified Codes: R07.9 - Chest pain, unspecified Additional Impression: History of coronary artery disease Disposition: HOME, SELF-CARE Condition: Improved Departure-Patient Inst. Decision time for Depature: 14:28 Referrals: [facility] (PCP) Primary Care Physician EDER HOOD (Family) Primary Care Physician EDER BOUDREAUX JR, MD Patient Instructions: Chest Pain (DC) Add. Discharge Instructions: You really should try and stop smoking. Continue your daily medications as prescribed. Take a baby aspirin daily. Please follow-up with Dr. Boudreaux, the hospitality workers on-call. I have attached his contact information to this discharge paperwork. If you have a return of chest pain especially while exerting yourself and especially if you have nausea, shortness of breath or sweating please come back to the emergency room for reevaluation. Copy Copies To 1: EDER BOUDREAUX JR, MD Copies To 2: PINEDA PEREZ KATHRYN M MD Jun 07, 2022 10:37
[2022-06-07] MEDS ORDERED: ASPIRIN 81 MG CHEW (CHILDREN'S ASA) PO ONE (10:45)
[2022-06-07 10:49] LABS: BASOPHILS % (AUTO) 0 % (0-10); EOSINOPHILS # (AUTO) 0.1 10^3/uL (0.0-0.3); EOSINOPHILS % (AUTO) 1 % (0-10); HEMATOCRIT 46 % (35-52); HEMOGLOBIN 15.8 g/dL (11.5-16.0); LYMPHOCYTES # (AUTO) 2.8 10^3/uL (1.0-4.0); LYMPHOCYTES % (AUTO) 27 % (12-44); MEAN CORPUSCULAR HEMOGLOBIN 30 pg (25-34); MEAN CORPUSCULAR HGB CONC 34 g/dL (32-36); MEAN CORPUSCULAR VOLUME 88 fL (80-99); MEAN PLATELET VOLUME 9.9 fL (9.0-12.2); MONOCYTES # (AUTO) 0.7 10^3/uL (0.0-1.0); MONOCYTES % (AUTO) 7 % (0-12); NEUTROPHILS # (AUTO) 6.5 10^3/uL (1.8-7.8); NEUTROPHILS % (AUTO) 64 % (42-75); PLATELET COUNT 270 10^3/uL (130-400); WHITE BLOOD COUNT 10.1 10^3/uL (4.3-11.0)
[2022-06-07 10:59] LABS: ALBUMIN 4.1 GM/DL (3.2-4.5); INR 0.9 (0.8-1.4); POTASSIUM 4.3 MMOL/L (3.6-5.0); PROTHROMBIN TIME PATIENT 12.9 SEC (12.2-14.7)
[2022-06-07 11:00] LABS: CALCIUM 9.3 MG/DL (8.5-10.1)
[2022-06-07] MEDS: NITROGLYCERIN 0.4 MG SL TABS BTL 25'S SL PRN ×2 (11:00→11:02)
[2022-06-07 11:03] LABS: BILIRUBIN,TOTAL 0.4 MG/DL (0.1-1.0)
[2022-06-07 11:05] LABS: CREATININE SERUM 0.9 MG/DL (0.60-1.30)
[2022-06-07 11:08] LABS: MAGNESIUM 1.8 MG/DL (1.6-2.4)
[2022-06-07] MEDS: NS IV 1000 ML 1,000 ML IV SCH ×2 (11:11→12:15)
--- NOTE | 2022-06-07 11:34 | Diagnostic Imaging Report ---
INDICATION: Chest pain. COMPARISON is made with prior exam 12/20/2021. FINDINGS: The heart size is normal. The mediastinum is unremarkable. There is no pleural effusion or pneumothorax. There is an unchanged calcified granuloma in the right midlung. IMPRESSION: No acute cardiopulmonary abnormality. Dictated by: Dictated on workstation # [id number]
[2022-06-07 14:40] VITALS: BP 135/78
== END 2022-06-07 14:40 | disposition home or self-care (01) ==
LOC: EDUNIT# 10:19 → ER 10:22
DX: I25.10 Atherosclerotic heart disease of native coronary artery without angina pectoris (principal); I10 Essential (primary) hypertension; E11.9 Type 2 diabetes mellitus without complications; Z95.5 Presence of coronary angioplasty implant and graft; Z28.311 Partially vaccinated for COVID-19; Z79.4 Long term (current) use of insulin; Z79.899 Other long term (current) drug therapy
CPT/HCPCS: 36415; 71045; 80053; 82947; 83735; 83874; 84484; 85025; 85610; 85730; 93005; 93041

== ENCOUNTER 2022-07-04 05:50 | Observation (INO) | payer BC ==
[2022-07-04] VITALS (9 sets, daily range): BP systolic 97–125; BP diastolic 51–92
[~2022-07-04] VITALS: Ht 165 cm; Wt 77.8 kg
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
[2022-07-04] MEDS ORDERED: ASPIRIN 81 MG CHEW (CHILDREN'S ASA) PO ONE (06:15)
[2022-07-04 06:24] LABS: BASOPHILS % (AUTO) 0 % (0-10); EOSINOPHILS % (AUTO) 0 % (0-10); HEMATOCRIT 48 % (35-52); HEMOGLOBIN 16.3 g/dL (11.5-16.0); LYMPHOCYTES # (AUTO) 0.8 10^3/uL (1.0-4.0); LYMPHOCYTES % (AUTO) 9 % (12-44); MEAN CORPUSCULAR HEMOGLOBIN 30 pg (25-34); MEAN CORPUSCULAR HGB CONC 34 g/dL (32-36); MEAN CORPUSCULAR VOLUME 89 fL (80-99); MEAN PLATELET VOLUME 9.4 fL (9.0-12.2); MONOCYTES # (AUTO) 0.7 10^3/uL (0.0-1.0); MONOCYTES % (AUTO) 8 % (0-12); NEUTROPHILS # (AUTO) 7.3 10^3/uL (1.8-7.8); NEUTROPHILS % (AUTO) 83 % (42-75); PLATELET COUNT 207 10^3/uL (130-400); WHITE BLOOD COUNT 8.8 10^3/uL (4.3-11.0)
[2022-07-04] MEDS ORDERED: NITROGLYCERIN 0.4 MG SL TABS BTL 25'S SL PRN ×2 (06:30→10:15)
[2022-07-04] MEDS ORDERED: NS IV 1000 ML 1,000 ML IV SCH (06:30)
[2022-07-04 06:32] LABS: POTASSIUM 3.9 MMOL/L (3.6-5.0)
[2022-07-04 06:33] LABS: CALCIUM 9.2 MG/DL (8.5-10.1)
[2022-07-04 06:34] LABS: TOTAL PROTEIN 7.1 GM/DL (6.4-8.2)
[2022-07-04 06:36] LABS: BILIRUBIN,TOTAL 0.8 MG/DL (0.1-1.0)
[2022-07-04 06:38] LABS: CREATININE SERUM 0.73 MG/DL (0.60-1.30)
[2022-07-04 06:41] LABS: MAGNESIUM 1.6 MG/DL (1.6-2.4)
[2022-07-04 06:44] LABS: PROTHROMBIN TIME PATIENT 13.6 SEC (12.2-14.7)
--- NOTE | 2022-07-04 07:09 | Diagnostic Imaging Report ---
Indication: Chest pain COMPARISON: 06/07/2022 TECHNIQUE: Single radiograph chest dated 07/04/2022 FINDINGS: The cardiac silhouette is within normal limits in size. No significant pulmonary vascular congestion. The lungs are clear. No pleural effusion. No pneumothorax. No acute osseous abnormality. IMPRESSION: No acute cardiopulmonary abnormality. Dictated by: Dictated on workstation # [id number]
[2022-07-04] MEDS ORDERED: morphine INJ 10 MG/ML 1ML (SYR OR VIAL) IVP STA (08:08)
[2022-07-04] MEDS ORDERED: ENOXAPARIN 80 MG/0.8 ML (LOVENOX) SYR SC ONE (08:15)
[2022-07-04] MEDS ORDERED: CLOPIDOGREL 300 MG (PLAVIX) TABLET PO ONE (08:15)
--- NOTE | 2022-07-04 09:50 | Consultation-Cardiology ---
HPI-Cardiology Cardiology Consultation: Date of Consultation 07/04/22 Time Seen by a Provider: 10:00 Date of Admission 07-04-22 Attending Physician [facility] Admitting Physician Admitting Physician: Rody Pena DO Attending Physician: Rody Pena DO Consulting Physician MERRY BEDOYA HPI: Chief Complaint: Chest pain Ms. Coffman is a 57 yr old female admitted to [facility] from the ED with c/o CP. She reports she went home from work yesterday d/t n/v/d, chills, muscle and joint aches and generally feeling unwell. She reports last evening she felt as though she was having heartburn; she did not take anything and went to bed. She reports around 4:00 this morning she was sitting up in bed using her I-pad when she had a sudden onset of sharp, stabbing pain which was mid-sternal and radiated across her chest. She reports she felt nauseated and diaphoretic. She reports it lasted for approx 5-6 minutes and then resolved. She reports she has had one more episode of stabbing mid-sternal chest pain while in the ED, but reports it as mild without radiation. She continue to smoke cigs, 1 PPD. She reports she is not compliant with her medications because she "forgets". She occ takes Plavix. She ran out of ASA, when she doesn't know, therefore she has not been taking it. She reports she frequently misses taking her statin. She reports mild abd discomfort with palpitation of abdomen. She reports bilat pedal edema which is worse at the end of the day and least in the morning. She reports she is a diabetic and has been compliant with her diabetic medications. Review of Systems-Cardiology Review of Systems Constitutional: As described under HPI Eyes: No vision change Ears/Nose/Throat: No epistaxis, No recent hearing loss Respiratory: As described under HPI Cardiovascular: As described under HPI Gastrointestinal: As described under HPI Genitourinary: no symptoms reported Musculoskeletal: other (chronic knee pain) Skin: No rash on exposed areas, No ulcerations on exposed areas Psychiatric/Neurological: No anxiety, No depression, No seizure, No focal weakness, No syncope Hematologic: No bleeding abnormalities All Other Systems Reviewed Negative Unless Noted: Yes HJA-Eyskem-Ccbncv Hx Patient Social History 2nd Hand Smoke Exposure: No Have you traveled recently?: No Alcohol Use?: No Pt feels they are or have been: No Immunizations Up To Date Tetanus Booster (TDap): Unknown Date of Influenza Vaccine: Sep 21, 2021 Past Medical History PMH As described under Assessment. Family Medical History Family Medical History: She reports her father had CAD first diagnosed in his early 60's. She reports her mother had CAD. She reports a brother with CAD who is on the transplant list for cardiac transplant. Family History: Cardiovascular disease 19 FATHER, 19 MOTHER, G8 BROTHER FH: esophageal cancer aunt Internal cardiac defibrillator G8 BROTHER Pacemaker G8 BROTHER Allergies and Home Medications Allergies Coded Allergies: Sulfa (Sulfonamide Antibiotics) (Verified Allergy, Severe, ANAPHYLAXIS, 05/07/18) Patient Home Medication List Aspirin (Aspirin EC) 81 Mg Tablet.dr, 81 MG PO DAILY, (Reported) Entered as Reported by: NURA PALACIOS on 07/25/20 0810 Atorvastatin Calcium (Atorvastatin Calcium) 80 Mg Tablet, 80 MG PO DAILY, (Reported) Entered as Reported by: ZAHRAA PETERSON on 08/27/21 1112 Citalopram Hydrobromide (Celexa) 40 Mg Tablet, 40 MG PO DAILY, (Reported) Entered as Reported by: OSIEL YU on 05/07/18 1604 Clopidogrel Bisulfate (Plavix) 75 Mg Tablet, 75 MG PO DAILY, (Reported) Entered as Reported by: NURA PALACIOS on 07/25/20 0810 Cyclobenzaprine HCl (Cyclobenzaprine HCl) 10 Mg Tablet, 10 MG PO HS PRN for MUSCLE SPASMS, (Reported) Entered as Reported by: TARIQ GALLO on 02/19/21 1347 Estrogens, Conjugated (Premarin) 0.3 Mg Tablet, 0.3 MG PO DAILY, (Reported) Entered as Reported by: JARRETT CHIN on 05/07/18 1018 Gabapentin (Gabapentin) 100 Mg Capsule, 100 MG PO Q8H, (Reported) Entered as Reported by: ZAHRAA PETERSON on 08/27/21 1112 Glipizide (Glipizide ER) 10 Mg Tab.er.24, 10 MG PO DAILY, (Reported) Entered as Reported by: NURA PALACIOS on 07/25/20 0810 Insulin Aspart (Novolog Flexpen) 300 Units/3 Ml Solution, 30 UNITS SQ AC, (Reported) Entered as Reported by: ZAHRAA PETERSON on 08/27/21 1112 Lisinopril (Lisinopril) 5 Mg Tablet, 5 MG PO DAILY, (Reported) Entered as Reported by: JARRETT CHIN on 05/07/18 1017 Metformin HCl (Metformin HCl ER) 500 Mg Tab.er.24, 1,000 MG PO BID, (Reported) Entered as Reported by: TARIQ GALLO on 02/19/21 1337 Metoprolol Succinate (Metoprolol Succinate) 25 Mg Tab.er.24h, 25 MG PO DAILY, (Reported) Entered as Reported by: NURA PALACIOS on 07/25/20 0810 Montelukast Sodium (Montelukast Sodium) 10 Mg Tablet, 10 MG PO DAILY, (Reported) Entered as Reported by: JARRETT CHIN on 05/07/18 1026 Pantoprazole Sodium (Protonix) 40 Mg Tablet.dr, 40 MG PO DAILY Prescribed by: MONICA UP on 12/20/21436 Sucralfate (Carafate) 1 Gm Tablet, 1 GM PO QID Prescribed by: MONICA UP on 12/20/21436 Physical Exam-Cardiology Physical Exam Vital Signs/I&O Capillary Refill : Less Than 3 Seconds Constitutional: AAO x 3, well-developed, well-nourished HEENT: PERRL, hearing is well preserved, oral hygience is good Neck: No carotid bruit; carotid pulses are 2 + bilaterally Respiratory: No accessory muscle use, No respiratory distress; chest expansion is symmetric, chest is bilaterally symmetric, other (prolonged exp phase) Cardiovascular: regular rate-rhythm; No JVD; S1 and S2 Gastrointestinal: tender (mild diffuse tenderness with palpation), soft, round; No guarding; audible bowel sounds Extremities: no lower extremity edema bilateral Skin: No rash on exposed areas, No ulcerations on exposed areas Data Review Labs Radiology NAME: LUZ COFFMAN MED REC#: [id number] PT STATUS: ADM Wandy : 1965 PHYSICIAN: GABRIELA MCINTOSH MD ADMIT DATE: 07/04/22/[facility] Signed Date of Exam:07/04/22 CHEST 1 VIEW, AP/PA ONLY Indication: Chest pain COMPARISON: 06/07/2022 TECHNIQUE: Single radiograph chest dated 07/04/2022 FINDINGS: The cardiac silhouette is within normal limits in size. No significant pulmonary vascular congestion. The lungs are clear. No pleural effusion. No pneumothorax. No acute osseous abnormality. IMPRESSION: No acute cardiopulmonary abnormality. Dictated by: Dictated on workstation # [id number] Dict: 07/04/2258 Trans: 07/04/[address] [facility] [id number] Interpreted by: IRENA CONTRERAS MD Electronically signed by: IRENA CONTRERAS MD 07/04/2239 ECG Impression ECG Initial ECG Rhythm: Normal Sinus A/P-Cardiology Assessment/Admission Diagnosis Chest pain - undetermined etiology Hyponatremia - likely secondary to recent diarrhea/vomiting CAD - Primary PCI to proximal RCA with drug-eluting stent per cardiac cath of May [address] Olivares - Moderate to severe disease in distal RCA with acceptable FFR therefore PCI deferred. Mild disease in the ostium of the left main per cardiac cath of January [address] Olivares - MPI of 02/19/21: no ischemia or infarction, LVEF normal - Echo of 02/19/21: LVEF 50-55% Liver enzyme elevation - undetermined etiology - management per medical services DM HTN HLD GERD Hiatal hernia COPD Tobaccoism - cessation advised Family h/o CAD (mother, father, brother) Non-compliance with medications and f/u Discussion and Recomendations Chest pain of undetermined etiology - no evidence of ACS thus far - continue serial enzymes - Echocardiogram to eval structure and function H/O CAD - start ASA and Plavix HLD - Hold statin d/t liver enzyme elevation of undetermined etiology (she has not been taking statin regularly at home) Liver enzyme elevation - undetermined etiology - management per medical services Monitor lab closely - replace electrolytes as indicated Further recs will be based on her hospital course We would like to thank medical services for this consult Clinical Quality Measures AMI/AHF: ASA po Prior to arrival: MERRY Solomon Jul 04, 2022 09:50
[2022-07-04] MEDS ORDERED: ENOXAPARIN 80 MG/0.8 ML (LOVENOX) SYR SC SCH (10:00)
[2022-07-04] MEDS ORDERED: MELATONIN 3 MG TABLET PO PRN (10:15)
[2022-07-04] MEDS ORDERED: ONDANSETRON 4 MG/2 ML (SDV) Z0FRAN IV PRN (10:15)
[2022-07-04] MEDS ORDERED: ONDANSETRON 4 MG (ZOFRAN) ORAL DISSOLVE TAB PO PRN (10:15)
[2022-07-04] MEDS ORDERED: ANTACID SUSP 30 ML UDC (MYLANTA) PO PRN (10:15)
[2022-07-04] MEDS ORDERED: ACETAMINOPHEN 325 MG TABLET PO PRN (10:15)
[2022-07-04] MEDS ORDERED: LACTULOSE SYRUP 10GM/15ML (ENULOSE) 30ML UDC PO PRN (10:15)
[2022-07-04] MEDS ORDERED: morphine INJ 4 MG/ML 1 ML (VIAL/SYRINGE) IV PRN (10:15)
[2022-07-04] MEDS ORDERED: diphenhydrAMINE 25 MG TAB (BENADRYL) PO PRN (10:15)
[2022-07-04] MEDS ORDERED: diphenhydrAMINE 50 MG/ML INJ (BENADRYL) IVP PRN (10:15)
[2022-07-04] MEDS ORDERED: PATIENT MAY USE OWN MEDS, ALL PO SCH (10:15)
[2022-07-04] MEDS ORDERED: BISACODYL 10 MG SUPP (DULCOLAX) PR PRN (10:15)
[2022-07-04] MEDS ORDERED: polyethylene glycoL POWDER 17 GM (MIRALAX) PACK PO PRN (10:15)
[2022-07-04] MEDS ORDERED: CALCIUM CARBONATE 500 MG (TUMS) TAB.CHEW PO PRN (10:15)
[2022-07-04] MEDS ORDERED: morphine IMMEDIATE RELEASE 15 MG TABLET PO PRN (10:15)
[2022-07-04] MEDS ORDERED: MILK OF MAGNESIA 400 MG/5 ML 30 ML UDC PO PRN (10:15)
[2022-07-04] MEDS ORDERED: ALPRAZolam 0.25 MG (XANAX) TAB PO PRN (10:15)
--- NOTE | 2022-07-04 10:24 | Short Stay Summary-Hospitalist ---
History of Present Illness HPI/Chief Complaint CC: Chest pain HPI: This is a [facility] pt with a long history of CAD and noncompliance with medications. Pt has had stents placed in the past. Pt is noncompliant with Plavix. He complained of chest pain and troponin was negative. No ST changes but Dr. Moulton recommended observation, Lovenox, Metoprolol, Aspirin, and to monitor troponin. Source: patient Exam Limitations: no limitations Date Seen 07/04/22 Time Seen by a Provider: 11:00 Attending Physician [place] PCP Admitting Physician: Rody Pena DO Attending Physician: Rody Pena DO Referring Physician Date of Admission Jul 04, 2022 at 08:09 Home Medications & Allergies Home Medications Reviewed patient Home Medication Reconciliation performed by pharmacy medication reconciliations metal technician and/or nursing. Patients Allergies have been reviewed. Allergies Allergies Coded Allergies Sulfa (Sulfonamide Antibiotics) (Verified Allergy, Severe, ANAPHYLAXIS, 05/07/18) Past Gdnohor-Gqumsf-Lpmkov Hx Patient Social History Marrital Status: single Employed/Student: unemployed Tobacco Use?: Yes Smoking Status: Current Everyday Smoker Substance use?: No Alcohol Use?: No Pt feels they are or have been: No Immunizations Up To Date Date of Influenza Vaccine: Sep 21, 2021 First/Initial COVID19 Vaccinat: 10/16/21 Second COVID19 Vaccination Jay: 10/16/21 Tetanus Booster (TDap): Unknown PED Vaccines UTD: No Seasonal Allergies Seasonal Allergies: Yes Current Status status: No Advance Directives: No Communicates: Verbally Primary Language: Pakistani Preferred Spoken Language: Pakistani Is interpretation needed?: No Past Medical History Surgeries: Cardiac, Coronary Stent, Gallbladder, Hysterectomy, Oophorectomy, Orthopedic, Tonsillectomy, Tubal Ligation Asthma, COPD Currently Using CPAP: No Currently Using BIPAP: No Coronary Artery Disease, Heart Attack, High Cholesterol, Hypertension 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 History: Hysterectomy, Menopausal Kidney Stones Gastroesophageal Reflux, Irritable Bowel Arthritis, Fibromyalgia, Scoliosis, Chronic Back Pain Diabetes, Insulin dep Hearing Impairment: Deaf Ovarian Did You Recieve Any Treatments: Yes What Type of Treatment Did You: Surgical Intervention Depression Blood Disorders: No CAD Myocardial Infarction - age 32, age 38, age 53 Type II Diabetes with Complication Arthritis Fibromyalgia Hyperlipidemia HTN Chronic Pain Depression Seasonal Allergies 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 Tobacco Abuse Medical Noncompliance Past Surgical Hx: Left Breast Biopsy - Age 15 Tumor Removal, Right Arm Cholecystectomy Tonsillectomy Bilateral Tubal Ligation Hysterectomy - 2005 Bilateral Bone Spurs removed from great toes Right Carpal Tunnel Surgery Left Mastoid Tumor Removed Cardiac Cath with PCI to RCA 05/06/2018 Family Medical History Cardiovascular disease 19 FATHER, 19 MOTHER, G8 BROTHER FH: esophageal cancer aunt Internal cardiac defibrillator G8 BROTHER Pacemaker G8 BROTHER Heart Disease, Cancer, Diabetes, Other Conditions/Hx Review of Systems Constitutional: see HPI Cardiovascular: chest pain Physical Exam Physical Exam Vital Signs Vital Signs - First Documented 07/04/22 07/04/22 05:56 10:23 Temp 36.5 Pulse 89 Resp 16 B/P (MAP) 137/83 (101) Pulse Ox 94 O2 Delivery Room Air FiO2 21 Capillary Refill : Less Than 3 Seconds Height, Weight, BMI Height: 5'5.00" Weight: 172lbs. 0.0oz. [id number]; 28.00 BMI Method:Stated General Appearance: WD/WN, Anxious, Chronically ill HEENT: PERRL/EOMI Neck: Normal Inspection Respiratory: Lungs Clear, Normal Breath Sounds, No Accessory Muscle Use, No Respiratory Distress Cardiovascular: Regular Rate, Rhythm, Normal Peripheral Pulses Gastrointestinal: Soft, Tenderness (mild upper abdominal tenderness) Extremity: Normal Inspection, No Calf Tenderness, No Pedal Edema Neurologic/Psychiatric: Alert, Oriented x3, No Motor/Sensory Deficits, Normal Mood/Affect Skin: Normal Color, Warm/Dry Results Results/Procedures Labs Laboratory Tests 07/04/22 06:05 07/05/22 04:27 Patient resulted labs reviewed. Short Stay Diagnosis Discharge Diagnosis-Short Stay Admission Diagnosis Assessment: Angina History of CAD COPD Current smoker Noncompliance Final Discharge Diagnosis Assessment: Angina History of CAD COPD Current smoker Noncompliance Conclusion Plan Plan: Cardiology consult appreciated Supportive care Clinical Quality Measures AMI/AHF: ASA po Prior to arrival: RODY Sigala DO Jul 04, 2022 10:24
[2022-07-04] MEDS ORDERED: RT-ALBUTEROL/IPRATROPIUM 3 ML (DUONEB) VIAL INH PRN (10:30)
[2022-07-04] MEDS: NS IV 1000 ML 1,000 ML IV SCH (10:49)
[2022-07-04] MEDS: inSUlin ASPART (NovoLOG) 1 UNIT/0.01 ML (CHARGE PER UNIT) SC SCH ×3 (11:11→20:28)
--- NOTE | 2022-07-04 15:22 | Consultation-Cardiology ---
HPI-Cardiology Cardiology Consultation: Date of Consultation 07/04/22 Time Seen by a Provider: 15:00 Date of Admission Attending Physician [place] Admitting Physician Admitting Physician: Rody Pena DO Attending Physician: Rody Pena DO Consulting Physician LEIDY PIERRE MD, MA, FACP, FACC, FSCAI, CCDS HPI: Chief Complaint: Chest pain Ms. Coffman is a 57 yr old female admitted to [facility] from the ED with c/o CP. She reports she went home from work yesterday d/t n/v/d, chills, muscle and joint aches and generally feeling unwell. She reports last evening she felt as though she was having heartburn; she did not take anything and went to bed. She reports around 4:00 this morning she was sitting up in bed using her I-pad when she had a sudden onset of sharp, stabbing pain which was mid-sternal and radiated across her chest. She reports she felt nauseated and diaphoretic. She reports it lasted for approx 5-6 minutes and then resolved. She reports she has had one more episode of stabbing mid-sternal chest pain while in the ED, but reports it as mild without radiation. She continue to smoke cigs, 1 PPD. She reports she is not compliant with her medications because she "forgets". She occ takes Plavix. She ran out of ASA, when she doesn't know, therefore she has not been taking it. She reports she frequently misses taking her statin. She reports mild abd discomfort with palpitation of abdomen. She reports bilat pedal edema which is worse at the end of the day and least in the morning. She reports she is a diabetic and has been compliant with her diabetic medications. Review of Systems-Cardiology Review of Systems Constitutional: As described under HPI Eyes: No vision change Ears/Nose/Throat: No epistaxis, No recent hearing loss Respiratory: As described under HPI Cardiovascular: As described under HPI Gastrointestinal: As described under HPI Genitourinary: no symptoms reported Musculoskeletal: other (chronic knee pain) Skin: No rash on exposed areas, No ulcerations on exposed areas Psychiatric/Neurological: No anxiety, No depression, No seizure, No focal weakness, No syncope Hematologic: No bleeding abnormalities All Other Systems Reviewed Negative Unless Noted: Yes BPG-Hkxaxx-Wnmvns Hx Patient Social History Smoking Status: Current Everyday Smoker 2nd Hand Smoke Exposure: No Have you traveled recently?: No Alcohol Use?: Yes Pt feels they are or have been: No Immunizations Up To Date Tetanus Booster (TDap): Unknown Date of Influenza Vaccine: Sep 21, 2021 Past Medical History PMH As described under Assessment. Family Medical History Family Medical History: She reports her father had CAD first diagnosed in his early 60's. She reports her mother had CAD. She reports a brother with CAD who is on the transplant list for cardiac transplant. Family History: Cardiovascular disease 19 FATHER, 19 MOTHER, G8 BROTHER FH: esophageal cancer aunt Internal cardiac defibrillator G8 BROTHER Pacemaker G8 BROTHER Allergies and Home Medications Allergies Coded Allergies: Sulfa (Sulfonamide Antibiotics) (Verified Allergy, Severe, ANAPHYLAXIS, 05/07/18) Patient Home Medication List Home Medication List Reviewed: Yes Aspirin (Aspirin EC) 81 Mg Tablet.dr, 81 MG PO DAILY, (Reported) Entered as Reported by: NURA PALACIOS on 07/25/20 0810 Atorvastatin Calcium (Atorvastatin Calcium) 80 Mg Tablet, 80 MG PO DAILY, (Reported) Entered as Reported by: ZAHRAA PETERSON on 08/27/21 1112 Citalopram Hydrobromide (Celexa) 40 Mg Tablet, 40 MG PO DAILY, (Reported) Entered as Reported by: OSIEL YU on 05/07/18 1604 Clopidogrel Bisulfate (Plavix) 75 Mg Tablet, 75 MG PO DAILY, (Reported) Entered as Reported by: NURA PALACIOS on 07/25/20 0810 Cyclobenzaprine HCl (Cyclobenzaprine HCl) 10 Mg Tablet, 10 MG PO HS PRN for MUSCLE SPASMS, (Reported) Entered as Reported by: TARIQ GALLO on 02/19/21 1347 Estrogens, Conjugated (Premarin) 0.3 Mg Tablet, 0.3 MG PO DAILY, (Reported) Entered as Reported by: JARRETT CHIN on 05/07/18 1018 Gabapentin (Gabapentin) 100 Mg Capsule, 100 MG PO Q8H, (Reported) Entered as Reported by: ZAHRAA PETERSON on 08/27/21 1112 Glipizide (Glipizide ER) 10 Mg Tab.er.24, 10 MG PO DAILY, (Reported) Entered as Reported by: NURA PALACIOS on 07/25/20 0810 Insulin Aspart (Novolog Flexpen) 300 Units/3 Ml Solution, 30 UNITS SQ AC, (Reported) Entered as Reported by: ZAHRAA PETERSON on 08/27/21 1112 Lisinopril (Lisinopril) 5 Mg Tablet, 5 MG PO DAILY, (Reported) Entered as Reported by: JARRETT CHIN on 05/07/18 1017 Metformin HCl (Metformin HCl ER) 500 Mg Tab.er.24, 1,000 MG PO BID, (Reported) Entered as Reported by: TARIQ GALLO on 02/19/21 1337 Metoprolol Succinate (Metoprolol Succinate) 25 Mg Tab.er.24h, 25 MG PO DAILY, (Reported) Entered as Reported by: NURA PALACIOS on 07/25/20 0810 Montelukast Sodium (Montelukast Sodium) 10 Mg Tablet, 10 MG PO DAILY, (Reported) Entered as Reported by: JARRETT CHIN on 05/07/18 1026 Pantoprazole Sodium (Protonix) 40 Mg Tablet.dr, 40 MG PO DAILY Prescribed by: MONICA UP on 12/20/21 0437 Sucralfate (Carafate) 1 Gm Tablet, 1 GM PO QID Prescribed by: MONICA UP on 12/20/21 0437 Physical Exam-Cardiology Physical Exam Vital Signs/I&O 07/04/22 07/04/22 07/04/22 07/04/22 05:56 09:55 10:10 10:15 Temp 36.5 Pulse 89 80 67 68 Resp 16 12 13 14 B/P (MAP) 137/83 (101) 113/65 112/59 (76) 97/57 (70) Pulse Ox 94 97 96 97 O2 Delivery Room Air Room Air Room Air Room Air 07/04/22 07/04/22 07/04/22 07/04/22 10:17 10:23 10:27 10:30 Temp 36.5 37.6 Pulse 69 69 68 Resp 12 B/P (MAP) 116/55 (75) Pulse Ox 97 98 O2 Delivery Room Air FiO2 21 07/04/22 07/04/22 07/04/22 07/04/22 10:45 11:00 11:28 11:30 Pulse 66 67 64 Resp 10 13 15 B/P (MAP) 104/56 (72) 106/64 (78) 103/51 (68) Pulse Ox 95 96 96 O2 Delivery Room Air Room Air Room Air Room Air 07/04/22 07/04/22 07/04/22 11:38 12:47 15:20 Temp 35.6 Pulse 74 Pulse Ox 95 O2 Delivery Room Air Capillary Refill : Less Than 3 Seconds Constitutional: AAO x 3, well-developed, well-nourished HEENT: PERRL, hearing is well preserved, oral hygience is good Neck: No carotid bruit; carotid pulses are 2 + bilaterally Respiratory: No accessory muscle use, No respiratory distress; chest expansion is symmetric, chest is bilaterally symmetric, other (prolonged exp phase) Cardiovascular: regular rate-rhythm; No JVD; S1 and S2 Gastrointestinal: tender (mild diffuse tenderness with palpation), soft, round; No guarding; audible bowel sounds Extremities: no lower extremity edema bilateral Skin: No rash on exposed areas, No ulcerations on exposed areas Data Review Labs Laboratory Tests 07/04/22 06:05: White Blood Count 8.8, Red Blood Count 5.46H, Hemoglobin 16.3H, Hematocrit 48, Mean Corpuscular Volume 89, Mean Corpuscular Hemoglobin 30, Mean Corpuscular Hemoglobin Concent 34, Red Cell Distribution Width 12.9, Platelet Count 207, Mean Platelet Volume 9.4, Immature Granulocyte % (Auto) 0, Neutrophils (%) (Auto) 83H, Lymphocytes (%) (Auto) 9L, Monocytes (%) (Auto) 8, Eosinophils (%) (Auto) 0, Basophils (%) (Auto) 0, Neutrophils # (Auto) 7.3, Lymphocytes # (Auto) 0.8L, Monocytes # (Auto) 0.7, Eosinophils # (Auto) 0.0, Basophils # (Auto) 0.0, Immature Granulocyte # (Auto) 0.0, Prothrombin Time 13.6, INR Comment 1.0, Activated Partial Thromboplast Time 25, Sodium Level 132L, Potassium Level 3.9, Chloride Level 100, Carbon Dioxide Level 19L, Anion Gap 13, Blood Urea Nitrogen 7, Creatinine 0.73, Estimat Glomerular Filtration Rate 95, BUN/Creatinine Ratio 10, Glucose Level 307H, Calcium Level 9.2, Corrected Calcium 9.2, Magnesium Level 1.6, Total Bilirubin 0.8, Aspartate Amino Transf (AST/SGOT) 198H, Alanine Aminotransferase (ALT/SGPT) 124H, Alkaline Phosphatase 110, Myoglobin 16.6, Tro ponin I < 0.028, Total Protein 7.1, Albumin 4.0, Lipase 10 07/04/22 06:08: Influenza Type A (RT-PCR) Not Detected, Influenza Type B (RT-PCR) Not Detected, SARS-CoV-2 RNA (RT-PCR) Not Detected 07/04/22 10:49: Glucometer 323H 07/04/22 12:08: Troponin I < 0.028 A/P-Cardiology Assessment/Admission Diagnosis Chest pain - undetermined etiology Hyponatremia - likely secondary to recent diarrhea/vomiting CAD - Primary PCI to proximal RCA with drug-eluting stent per cardiac cath of May [address] Olivares - Moderate to severe disease in distal RCA with acceptable FFR therefore PCI deferred. Mild disease in the ostium of the left main per cardiac cath of January [address] Olivares - MPI of 02/19/21: no ischemia or infarction, LVEF normal - Echo of 02/19/21: LVEF 50-55% Liver enzyme elevation - undetermined etiology - management per medical services DM HTN HLD GERD Hiatal hernia COPD Tobaccoism - cessation advised Family h/o CAD (mother, father, brother) Non-compliance with medications and f/u Discussion and Recomendations Chest pain of undetermined etiology - no evidence of ACS thus far - continue serial enzymes - Echocardiogram to eval structure and function H/O CAD - start ASA and Plavix HLD - Hold statin d/t liver enzyme elevation of undetermined etiology (she has not been taking statin regularly at home) Liver enzyme elevation - undetermined etiology - management per medical services Monitor lab closely - replace electrolytes as indicated Further recs will be based on her hospital course We would like to thank medical services for this consult Clinical Quality Measures AMI/AHF: ASA po Prior to arrival: LEIDY Patel MD FACP FAC CCDS Jul 04, 2022 15:22
[2022-07-04] MEDS: ENOXAPARIN 80 MG/0.8 ML (LOVENOX) SYR SC SCH (20:20)
[2022-07-04] MEDS: meTOprolol TARTRATE 25 MG (LOPRESSOR) TABLET PO SCH (20:20)
[2022-07-04] MEDS: SENNOSIDES 8.6 MG (SENOKOT) TAB PO SCH (21:00)
[2022-07-04] MEDS: DOCUSATE SODIUM 100 MG (COLACE) CAP PO SCH (21:00)
[2022-07-05 00:02] VITALS: BP 131/81
[2022-07-05] MEDS: NS IV 1000 ML 1,000 ML IV SCH (03:19)
[2022-07-05 04:11] VITALS: BP 139/65
[2022-07-05 04:56] LABS: BASOPHILS % (AUTO) 0 % (0-10); EOSINOPHILS # (AUTO) 0.1 10^3/uL (0.0-0.3); EOSINOPHILS % (AUTO) 2 % (0-10); HEMATOCRIT 42 % (35-52); HEMOGLOBIN 14.2 g/dL (11.5-16.0); LYMPHOCYTES # (AUTO) 1.7 10^3/uL (1.0-4.0); LYMPHOCYTES % (AUTO) 26 % (12-44); MEAN CORPUSCULAR HEMOGLOBIN 30 pg (25-34); MEAN CORPUSCULAR HGB CONC 34 g/dL (32-36); MEAN CORPUSCULAR VOLUME 90 fL (80-99); MEAN PLATELET VOLUME 9.9 fL (9.0-12.2); MONOCYTES # (AUTO) 0.8 10^3/uL (0.0-1.0); MONOCYTES % (AUTO) 13 % (0-12); NEUTROPHILS # (AUTO) 3.8 10^3/uL (1.8-7.8); NEUTROPHILS % (AUTO) 60 % (42-75); PLATELET COUNT 181 10^3/uL (130-400); WHITE BLOOD COUNT 6.5 10^3/uL (4.3-11.0)
[2022-07-05 05:10] LABS: TRIGLYCERIDES 120 MG/DL (<150); VLDL CHOLESTEROL 24 MG/DL (5-40)
[2022-07-05 05:15] LABS: CHOLESTEROL 118 MG/DL (< 200); HDL CHOLESTEROL 25 MG/DL (40-60)
[2022-07-05 05:29] LABS: ALBUMIN 3.2 GM/DL (3.2-4.5); POTASSIUM 3.9 MMOL/L (3.6-5.0)
[2022-07-05 05:30] LABS: CALCIUM 8.3 MG/DL (8.5-10.1)
[2022-07-05 05:31] LABS: TOTAL PROTEIN 5.6 GM/DL (6.4-8.2)
[2022-07-05 05:33] LABS: BILIRUBIN,TOTAL 0.2 MG/DL (0.1-1.0)
[2022-07-05 05:35] LABS: CREATININE SERUM 0.69 MG/DL (0.60-1.30)
[2022-07-05] MEDS: inSUlin ASPART (NovoLOG) 1 UNIT/0.01 ML (CHARGE PER UNIT) SC SCH (06:56)
[2022-07-05] MEDS: SENNOSIDES 8.6 MG (SENOKOT) TAB PO SCH (07:54)
[2022-07-05] MEDS: DOCUSATE SODIUM 100 MG (COLACE) CAP PO SCH (07:54)
[2022-07-05 07:56] VITALS: BP 118/62
[2022-07-05] MEDS: ENOXAPARIN 80 MG/0.8 ML (LOVENOX) SYR SC SCH (08:31)
[2022-07-05] MEDS: meTOprolol TARTRATE 25 MG (LOPRESSOR) TABLET PO SCH (08:31)
[2022-07-05] MEDS ORDERED: CLOPIDOGREL 75 MG (PLAVIX) TABLET PO SCH (09:00)
[2022-07-05] MEDS ORDERED: ASPIRIN E.C. 81 MG (ECOTRIN) TAB PO SCH (09:00)
--- NOTE | 2022-07-05 11:34 | Discharge Summary ---
Discharge Summary Hospital Course Was the Problem List Reviewed?: Yes Problems/Dx: (1) History of coronary artery disease Status: Acute Hospital Course Date of Admission: Jul 04, 2022 at 08:09 Admission Diagnosis : Family Physician/Provider: [facility] Date of Discharge: 07/05/22 Discharge Diagnosis: [ ] Hospital Course: short course after admitted for chest pain in known CAD. trop all negative and was DC in improved condition Labs and Pending Lab Test: Laboratory Tests 07/04/22 12:08: Troponin I < 0.028 07/04/22 15:18: Glucometer 282H 07/04/22 20:22: Glucometer 295H 07/05/22 04:27: White Blood Count 6.5, Red Blood Count 4.72, Hemoglobin 14.2, Hematocrit 42, Mean Corpuscular Volume 90, Mean Corpuscular Hemoglobin 30, Mean Corpuscular Hemoglobin Concent 34, Red Cell Distribution Width 13.1, Platelet Count 181, Mean Platelet Volume 9.9, Immature Granulocyte % (Auto) 0, Neutrophils (%) (Au to) 60, Lymphocytes (%) (Auto) 26, Monocytes (%) (Auto) 13H, Eosinophils (%) (Auto) 2, Basophils (%) (Auto) 0, Neutrophils # (Auto) 3.8, Lymphocytes # (Auto) 1.7, Monocytes # (Auto) 0.8, Eosinophils # (Auto) 0.1, Basophils # (Auto) 0.0, Immature Granulocyte # (Auto) 0.0, Sodium Level 136, Potassium Level 3.9, Chloride Level 106, Carbon Dioxide Level 20L, Anion Gap 10, Blood Urea Nitrogen 8, Creatinine 0.69, Estimat Glomerular Filtration Rate 100, BUN/Creatinine Ratio 12, Glucose Level 233H, Calcium Level 8.3L, Corrected Calcium 8.9, Total Bilirubin 0.2, Aspartate Amino Transf (AST/SGOT) 63H, Alanine Aminotransferase (ALT/SGPT) 164H, Alkaline Phosphatase 107, Total Protein 5.6L, Albumin 3.2, Triglycerides Level 120, Cholesterol Level 118, LDL Cholesterol Direct 78, VLDL Cholesterol 24, HDL Cholesterol 25L 07/05/22 06:13: Glucometer 212H 07/05/22 10:47: Glucometer 262H Home Meds Active Carafate (Sucralfate) 1 Gm Tablet 1 Gm PO QID Dissolve or crush and mix into 5-10 mL water to make slurry. Take 30 minutes before meals and bed. Protonix (Pantoprazole Sodium) 40 Mg Tablet.dr 40 Mg PO DAILY Reported Novolog Flexpen (Insulin Aspart) 300 Units/3 Ml Solution 30 Units SQ AC Gabapentin 100 Mg Capsule 100 Mg PO Q8H Atorvastatin Calcium 80 Mg Tablet 80 Mg PO DAILY Cyclobenzaprine HCl 10 Mg Tablet 10 Mg PO HS PRN Metformin HCl ER (Metformin HCl) 500 Mg Tab.er.24 1,000 Mg PO BID TAKES 2 (500MG) TABS Plavix (Clopidogrel Bisulfate) 75 Mg Tablet 75 Mg PO DAILY Metoprolol Succinate 25 Mg Tab.er.24h 25 Mg PO DAILY Aspirin EC (Aspirin) 81 Mg Tablet.dr 81 Mg PO DAILY Glipizide ER (Glipizide) 10 Mg Tab.er.24 10 Mg PO DAILY Celexa (Citalopram Hydrobromide) 40 Mg Tablet 40 Mg PO DAILY Montelukast Sodium 10 Mg Tablet 10 Mg PO DAILY Premarin (Estrogens, Conjugated) 0.3 Mg Tablet 0.3 Mg PO DAILY Lisinopril 5 Mg Tablet 5 Mg PO DAILY Assessment/Pt Instructions PCP 1 week Discharge Planning: <30 minutes discharge planning Discharge Instructions Discharge Diet: No Restrictions Discharge Physical Examination Vital Signs Vital Signs Date Time Temp Pulse Resp B/P (MAP) Pulse Ox O2 Delivery O2 Flow Rate FiO2 07/05/22 08:00 94 Room Air 07/05/22 07:56 36.5 74 17 118/62 (80) 07/04/22 10:23 21 General Appearance: No Apparent Distress, WD/WN Allergies: Coded Allergies: Sulfa (Sulfonamide Antibiotics) (Verified Allergy, Severe, ANAPHYLAXIS, 05/07/18) Discharge Summary Date of Admission Jul 04, 2022 at 08:09 Date of Discharge Discharge Date: Jul 05, 2022 Admission Diagnosis Assessment: Angina History of CAD COPD Current smoker Noncompliance Discharge Diagnosis Plan: Cardiology consult appreciated Supportive care Clinical Quality Measures AMI/AHF: ASA po Prior to arrival: LOLY Sigala DO Jul 05, 2022 11:34
--- NOTE | 2022-07-05 12:08 | Progress Note - Cardiology ---
Cardiology SOAP Progress Note Subjective: No cp or palp or syncope or shortness of breath No n/v/d No focal weakness Wishes to go home Objective: I&O/Vital Signs 07/05/22 07/05/22 07/05/22 07/05/22 00:13 01:00 04:00 04:11 Temp 36.0 Pulse 60 77 Resp 34 B/P (MAP) 139/65 (89) Pulse Ox 94 95 O2 Delivery Room Air Room Air 07/05/22 07/05/22 07/05/22 07/05/22 04:15 07:00 07:56 08:00 Temp 36.6 36.5 Pulse 61 74 Resp 17 B/P (MAP) 118/62 (80) Pulse Ox 96 94 O2 Delivery Room Air Room Air 07/05/22 00:00 Intake Total 930 ml Balance 930 ml Weight (Pounds): 172 Weight (Ounces): 0.0 Weight (Calculated Kilograms): [id number] Constitutional: AAO x 3, well-developed, well-nourished Respiratory: No accessory muscle use, No respiratory distress; chest expansion is symmetric, chest is bilaterally symmetric, other (prolonged exp phase) Cardiovascular: regular rate-rhythm; No JVD; S1 and S2 Gastrointestional: tender (mild diffuse tenderness with palpation), soft, round; No guarding; audible bowel sounds Extremities: no lower extremity edema bilateral Neurologic/Psychiatric: other (moves all limbs equally) Skin: No rash on exposed areas, No ulcerations on exposed areas Results/Procedures: Labs Laboratory Tests 07/04/22 12:08: Troponin I < 0.028 07/04/22 15:18: Glucometer 282H 07/04/22 20:22: Glucometer 295H 07/05/22 04:27: White Blood Count 6.5, Red Blood Count 4.72, Hemoglobin 14.2, Hematocrit 42, Mean Corpuscular Volume 90, Mean Corpuscular Hemoglobin 30, Mean Corpuscular Hemoglobin Concent 34, Red Cell Distribution Width 13.1, Platelet Count 181, Mean Platelet Volume 9.9, Immature Granulocyte % (Auto) 0, Neutrophils (%) (Auto) 60, Lymphocytes (%) (Auto) 26, Monocytes (%) (Auto) 13H, Eosinophils (%) (Auto) 2, Basophils (%) (Auto) 0, Neutrophils # (Auto) 3.8, Lymphocytes # (Auto) 1.7, Monocytes # (Auto) 0.8, Eosinophils # (Auto) 0.1, Basophils # (Auto) 0.0, Immature Granulocyte # (Auto) 0.0, Sodium Level 136, Potassium Level 3.9, Chloride Level 106, Carbon Dioxide Level 20L, Anion Gap 10, Blood Urea Nitrogen 8, Creatinine 0.69, Estimat Glomerular Filtration Rate 100, BUN/Creatinine Ratio 12, Glucose Level 233H, Calcium Level 8.3L, Corrected Calcium 8.9, Total Bilirubin 0.2, Aspartate Amino Transf (AST/SGOT) 63H, Alanine Aminotransferase (ALT/SGPT) 164H, Alkaline Phosphatase 107, Total Protein 5.6L, Albumin 3.2, Triglycerides Level 120, Cholesterol Level 118, LDL Cholesterol Direct 78, VLDL Cholesterol 24, HDL Cholesterol 25L 07/05/22 06:13: Glucometer 212H 07/05/22 10:47: Glucometer 262H Laboratory Tests 07/04/22 06:05 07/05/22 04:27 A/P: Assessment: Chest pain - undetermined etiology; no evidence of ac cor syndrome Hyponatremia - likely secondary to recent diarrhea/vomiting, resolved CAD - Primary PCI to proximal RCA with drug-eluting stent per cardiac cath of May [address] Olivares - Moderate to severe disease in distal RCA with acceptable FFR therefore PCI deferred. Mild disease in the ostium of the left main per cardiac cath of January [address] Olivares - MPI of 02/19/21: no ischemia or infarction, LVEF normal - Echo of 02/19/21: LVEF 50-55% Hepatitis of unknown etiology and duration is suggested by elevated transaminases - Managed by Dr Pena during this hospitalization DM II HTN HLD GERD Hiatal hernia COPD Tobaccoism - cessation advised Family h/o CAD (mother, father, brother) Non-compliance with medications and f/u Plan: * I had a long and detailed discussion with her regarding her CV issues * Advised immediate and complete smoking cessation * Advised compliance with cardiac meds, including DAPT * Advised oupt cardiac f/u * Dr Pena to manage hepatitis and other non-cardiac issues * Ok for d/c from cardiac standpoing Clinical Quality Measures AMI/AHF: ASA po Prior to arrival: LEIDY Patel MD FACP [facility] CCDS Jul 05, 2022 12:08
== END 2022-07-05 11:31 | disposition home or self-care (01) ==
LOC: EDUNIT# 05:50 → ER 05:51 → CSD 08:09 → UNDOADMOB 08:09 → CSD 10:19 → UNDODISOB 07-05 12:50
PROVIDERS: ADMIT Internal Medicine; ATTEND Internal Medicine
DX: I25.119 Atherosclerotic heart disease of native coronary artery with unspecified angina pectoris (principal); J44.9 Chronic obstructive pulmonary disease, unspecified; F17.210 Nicotine dependence, cigarettes, uncomplicated; Z91.14 Patient's other noncompliance with medication regimen; Z79.82 Long term (current) use of aspirin; Z79.899 Other long term (current) drug therapy
CPT/HCPCS: 71045; 80053 ×2; 80061; 82947 ×2; 82977; 83690; 83735; 83874; 84484; 85025 ×2; 85610; 85730; 87636; 93005 ×2; 93041; 93306; 96361 ×2; 96372 ×3; 96374; 99284; G0378; 36415

== ENCOUNTER 2022-08-11 13:08 | Emergency (ER) | payer BC ==
[~2022-08-11] VITALS: Ht 165 cm; Wt 68.0 kg
--- NOTE | 2022-08-11 13:27 | ED Chest Pain ---
General Chief Complaint: Chest Pain Stated Complaint: CHEST PAIN Nursing Triage Note: pt ambulatory to room. pt sent from [facility] for chest pain and abnormal EKG. pt reports this pain for 48 hours and describes it as "heaviness that goes all the way through to her back." pt states she has not taken anything for pain at home. pt is A&Ox4, speech normal on arrival. Source: patient Exam Limitations: no limitations History of Present Illness Date Seen by Provider: Aug 11, 2022 Time Seen by Provider: 13:15 Initial Comments Patient is a 57-year-old female history of extensive coronary artery disease, patient of Dr. Moulton who comes in today with a chief complaint of about 24 to 48 hours of continuous chest pain, worsened with exertion. She states she has not really felt well over the last week. She has had intermittent headache, worsening fatigue. She states her chest pain is associated with some nausea, some sweating/"cold chills" and shortness of breath. She currently rates her chest pain a "8". It radiates into her back. She states she is compliant with her daily Plavix. She continues to smoke cigarettes 1 pack/day but is down from 3 packs/day. She describes her chest pain as a "heaviness". No fevers, chills. She is COVID vaccinated x1. She states she has had COVID 3 times and she does not have COVID today. All other review of systems reviewed and negative except as stated. 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 [employer]: No Associated Symptoms: shortness of breath Allergies and Home Medications Allergies Coded Allergies: Sulfa (Sulfonamide Antibiotics) (Verified Allergy, Severe, ANAPHYLAXIS, 05/07/18) Patient Home Medication List Home Medication List Reviewed: Yes Aspirin (Aspirin EC) 81 Mg Tablet., 81 MG PO DAILY, (Reported) Entered as Reported by: NURA PALACIOS on 07/25/20 0810 Atorvastatin Calcium (Atorvastatin Calcium) 80 Mg Tablet, 80 MG PO DAILY, (Rep orted) Entered as Reported by: ZAHRAA PETERSON on 08/27/21 1112 Citalopram Hydrobromide (Celexa) 40 Mg Tablet, 40 MG PO DAILY, (Reported) Entered as Reported by: OSIEL YU on 05/07/18 1604 Clopidogrel Bisulfate (Plavix) 75 Mg Tablet, 75 MG PO DAILY, (Reported) Entered as Reported by: NURA PALACIOS on 07/25/20 0810 Cyclobenzaprine HCl (Cyclobenzaprine HCl) 10 Mg Tablet, 10 MG PO HS PRN for MUSCLE SPASMS, (Reported) Entered as Reported by: TARIQ GALLO on 02/19/21 1347 Estrogens, Conjugated (Premarin) 0.3 Mg Tablet, 0.3 MG PO DAILY, (Reported) Entered as Reported by: JARRETT CHIN on 05/07/18 1018 Gabapentin (Gabapentin) 100 Mg Capsule, 100 MG PO Q8H, (Reported) Entered as Reported by: ZAHRAA PETERSON on 08/27/21 1112 Glipizide (Glipizide ER) 10 Mg Tab.er.24, 10 MG PO DAILY, (Reported) Entered as Reported by: NURA PALACIOS on 07/25/20 0810 Insulin Aspart (Novolog Flexpen) 300 Units/3 Ml Solution, 30 UNITS SQ AC, (Reported) Entered as Reported by: ZAHRAA PETERSON on 08/27/21 1112 Lisinopril (Lisinopril) 5 Mg Tablet, 5 MG PO DAILY, (Reported) Entered as Reported by: JARRETT CHIN on 05/07/18 1017 Metformin HCl (Metformin HCl ER) 500 Mg Tab.er.24, 1,000 MG PO BID, (Reported) Entered as Reported by: TARIQ GALLO on 02/19/21 1337 Metoprolol Succinate (Metoprolol Succinate) 25 Mg Tab.er.24h, 25 MG PO DAILY, (Reported) Entered as Reported by: NURA PALACIOS on 07/25/20 0810 Metoprolol Succinate (Metoprolol Succinate) 50 Mg Tab.er.24h, 50 MG PO DAILY Prescribed by: JOANNE POTTER on 08/11/22 1515 Montelukast Sodium (Montelukast Sodium) 10 Mg Tablet, 10 MG PO DAILY, (Reported) Entered as Reported by: JARRETT CHIN on 05/07/18 1026 Pantoprazole Sodium (Protonix) 40 Mg Tablet.dr, 40 MG PO DAILY Prescribed by: MONICA UP on 12/20/21436 Sucralfate (Carafate) 1 Gm Tablet, 1 GM PO QID Prescribed by: MONICA UP on 12/20/21436 Review of Systems Review of Systems Constitutional: see HPI EENTM: No Symptoms Reported Respiratory: SOA With Exertion Cardiovascular: Chest Pain Gastrointestinal: Nausea Genitourinary: No Symptoms Reported Musculoskeletal: no symptoms reported Skin: no symptoms reported All Other Systems Reviewed Negative Unless Noted: Yes Past Kpupczm-Dkmvos-Edastp Hx Patient Social History Tobacco Use?: Yes Tobacco type used: Cigarettes Smoking Status: Current Everyday Smoker Use of E-Cig and/or Vaping dev: No Substance use?: No Alcohol Use?: Yes Alcohol Frequency: Rarely Immunizations Up To Date Tetanus Booster (TDap): Unknown PED Vaccines UTD: No Influenza Vaccine Up-to-Date: No; Not Current First/Initial COVID19 Vaccinat: 10/16/21 Second COVID19 Vaccination Jay: 10/16/21 Third COVID19 Vaccination Date: 10/16/21 Seasonal Allergies Seasonal Allergies: Yes Past Medical History Surgery/Hospitalization HX: CARDIAC STENTS TYPE 2 DM HTN ORTHO SX ANDREA HIGH CHOLESTEROL, CAD, OVARIAN CA, ARTHRITIS, FIBROMYALGIA, SCOLIOSIS, CH. BACK PAIN. 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: Hysterectomy, Menopausal Genitourinary: Yes Kidney Stones Gastrointestinal: Yes Gastroesophageal Reflux, Irritable Bowel Musculoskeletal: Yes Arthritis, Fibromyalgia, Scoliosis, Chronic Back Pain Endocrine: Yes (DM Type II) Diabetes, Insulin dep HEENT: Yes (MASTOID TUMOR) Hearing Impairment: Deaf Cancer: Yes Ovarian Did You Recieve Any Treatments: Yes What Type of Treatment Did You: Surgical Intervention Psychosocial: Yes Depression Integumentary: No Blood Disorders: No Family Medical History Cardiovascular disease 19 FATHER, 19 MOTHER, G8 BROTHER FH: esophageal cancer aunt Internal cardiac defibrillator G8 BROTHER Pacemaker G8 BROTHER Heart Disease, Cancer, Diabetes, Other Conditions/Hx Physical Exam Vital Signs Vital Signs - First Documented 08/11/22 13:10 Temp 36.6 Pulse 103 Resp 20 B/P (MAP) 139/95 (110) Pulse Ox 97 Capillary Refill : Height, Weight, BMI Height: 5'5.00" Weight: 172lbs. 0.0oz. 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 Norm as Tested Skin: Normal Color, Warm/Dry Progress/Results/Core Measures Results/Orders Lab Results Laboratory Tests Test 08/11/22 13:14 Range/Units White Blood Count 13.7 H 4.3-11.0 10^3/uL Red Blood Count 6.30 H 3.80-5.11 10^6/uL Hemoglobin 18.6 H 11.5-16.0 g/dL Hematocrit 56 H 35-52 % Mean Corpuscular Volume 89 80-99 fL Mean Corpuscular Hemoglobin 30 25-34 pg Mean Corpuscular Hemoglobin Concent 33 32-36 g/dL Red Cell Distribution Width 13.0 10.0-14.5 % Platelet Count 390 130-400 10^3/uL Mean Platelet Volume 9.2 9.0-12.2 fL Immature Granulocyte % (Auto) 1 % Neutrophils (%) (Auto) 65 42-75 % Lymphocytes (%) (Auto) 25 12-44 % Monocytes (%) (Auto) 8 0-12 % Eosinophils (%) (Auto) 1 0-10 % Basophils (%) (Auto) 0 0-10 % Neutrophils # (Auto) 9.0 H 1.8-7.8 10^3/uL Lymphocytes # (Auto) 3.4 1.0-4.0 10^3/uL Monocytes # (Auto) 1.2 H 0.0-1.0 10^3/uL Eosinophils # (Auto) 0.1 0.0-0.3 10^3/uL Basophils # (Auto) 0.0 0.0-0.1 10^3/uL Immature Granulocyte # (Auto) 0.1 0.0-0.1 10^3/uL Prothrombin Time 12.9 12.2-14.7 SEC INR Comment 0.9 0.8-1.4 Activated Partial Thromboplast Time 29 24-35 SEC Sodium Level 131 L 135-145 MMOL/L Potassium Level 4.5 3.6-5.0 MMOL/L Chloride Level 97 L 98-107 MMOL/L Carbon Dioxide Level 22 21-32 MMOL/L Anion Gap 12 5-14 MMOL/L Blood Urea Nitrogen 12 7-18 MG/DL Creatinine 0.98 0.60-1.30 MG/DL Estimat Glomerular Filtration Rate 66 BUN/Creatinine Ratio 12 Glucose Level 371 H 70-105 MG/DL Calcium Level 10.1 8.5-10.1 MG/DL Corrected Calcium 8.5-10.1 MG/DL Magnesium Level 2.0 1.6-2.4 MG/DL Total Bilirubin 0.5 0.1-1.0 MG/DL Aspartate Amino Transf (AST/SGOT) 10 5-34 U/L Alanine Aminotransferase (ALT/SGPT) 15 0-55 U/L Alkaline Phosphatase 127 40-136 U/L Myoglobin 22.5 10.0-92.0 NG/ML Troponin I < 0.028 <0.028 NG/ML Total Protein 8.9 H 6.4-8.2 GM/DL Albumin 4.9 H 3.2-4.5 GM/DL My Orders Orders - JOANNE POTTER MD Ekg Tracing (08/11/22 13:12) Cbc With Automated Diff (08/11/22 13:22) Magnesium (08/11/22 13:22) Chest 1 View, Ap/Pa Only (08/11/22 13:22) Comprehensive Metabolic Panel (08/11/22 13:22) Myoglobin Serum (08/11/22 13:22) Protime With Inr (08/11/22 13:22) Partial Thromboplastin Time (08/11/22 13:22) O2 (08/11/22 13:22) Monitor-Rhythm Ecg Trace Only (08/11/22 13:22) Lipid Panel (08/12/22 06:00) Ed Iv/Invasive Line Start (08/11/22 13:22) Troponin I Soto (08/11/22 13:22) Aspirin Chewable Tablet (Baby Aspirin Ch (08/11/22 13:30) Nitroglycerin 0.4 Mg Btl 25's (Nitrostat (08/11/22 13:30) Medications Given in ED Current Medications Medications Dose Ordered Sig/Virgil Route Start Time Stop Time Status Last Admin Dose Admin Aspirin 324 mg ONCE ONCE PO 08/11/22 13:30 08/11/22 13:31 DC 08/11/22 13:29 324 MG Nitroglycerin 1 TAB Q 5 MIN X 3 NEEDED PRN SL 08/11/22 13:30 08/11/22 13:29 0.4 MG Vital Signs/I&O 08/11/22 13:10 Temp 36.6 Pulse 103 Resp 20 B/P (MAP) 139/95 (110) Pulse Ox 97 Blood Pressure Mean: 110 Progress Progress Note #1: Time: 14:23 Progress Note chest pain down to a "1 or 2"; awaiting call back from Dr Moulton Progress Note #2: Time: 14:55 Progress Note Ms. Coffman has never established in the office with Dr. Moulton. He defers to Dr. Boudreaux for consultation. Dr Boudreaux consulted and is agreeable that constant chest pain with an undetectable troponin is reassuring. He thinks that we can increase her me toprolol and she needs to followup in the office. Initial ECG Impression Date: Aug 11, 2022 Initial ECG Impression Time: 13:16 Initial ECG Rate: 103 Initial ECG Rhythm: S.Tach Initial ECG Intervals: Normal Comment Q waves noted inferiorly, sinus tachycardia, no ST segment elevation or depression. No ectopy Diagnostic Imaging Diagonstic Imaging: Xray Plain Films/CT/US/NM/MRI: chest Comments [facility] [place], [place] NAME: RENE COFFMANOsvaldo Hayes MED REC#: [id number] PT STATUS: REG ER : 1965 PHYSICIAN: JOANNE POTTER MD ADMIT DATE: 08/11/22/ER Draft Date of Exam:08/11/22 CHEST 1 VIEW, AP/PA ONLY INDICATION: Chest pain, abnormal EKG. FINDINGS: Heart size and configuration normal. There is no failure, effusion or pneumothorax. Since the study of 07/04/2022, there has been an interval appearance of a focal nodular opacity projecting over the mid to lateral right chest measuring 1 cm this overlies the posterolateral aspect of the right 8th rib. This has not appreciably changed from exam dating back to 2018 and is believed chronic and benign. IMPRESSION: 1. No failure, pneumonia, effusion, pneumothorax or acute finding. 2. Chronic right chest nodule stable from 2018 and was likely obscured on the more recent study Dictated on workstation # [id number] Dict: 08/11/22 1343 Trans: 08/11/22 1350 [id number] Interpreted by: DIPAK HOLDER Electronically signed by: Departure Impression Primary Impression: Chest pain Qualified Codes: R07.9 - Chest pain, unspecified Additional Impressions: History of coronary artery disease Tobacco use Disposition: HOME, SELF-CARE Condition: Improved Departure-Patient Inst. Decision time for Depature: 15:15 Referrals: [facility] [place] Primary Care Physician EDER BOUDREAUX JR, MD Patient Instructions: Chest Pain (DC) Add. Discharge Instructions: Please continue your daily medications as prescribed, especially the baby aspirin daily. You absolutely need to follow-up in the office. I have discussed her case with Dr. Boudreaux. He recommends you call the office today to establish an appointment within the next week. We are going to increase your metoprolol from 25 to 50 mg daily. Please start this today. Again if you have worsening pain especially with nausea, shortness of breath or sweating you need to return to the emergency room for reevaluation. Scripts Metoprolol Succinate (Metoprolol Succinate) 50 Mg Tab.er.24h 50 MG PO DAILY, #30 TAB Prov: JOANNE POTTER MD 08/11/22 Work/School Note: Work Release Form Date Seen in the Emergency Department: Aug 11, 2022 Return to Work: Aug 14, 2022 Copy Copies To 1: EDER BOUDREAUX JR, MD CORNELIUS, KATHRYN M MD Aug 11, 2022 13:27
[2022-08-11 13:29] LABS: BASOPHILS % (AUTO) 0 % (0-10); EOSINOPHILS # (AUTO) 0.1 10^3/uL (0.0-0.3); EOSINOPHILS % (AUTO) 1 % (0-10); HEMATOCRIT 56 % (35-52); HEMOGLOBIN 18.6 g/dL (11.5-16.0); LYMPHOCYTES # (AUTO) 3.4 10^3/uL (1.0-4.0); LYMPHOCYTES % (AUTO) 25 % (12-44); MEAN CORPUSCULAR HEMOGLOBIN 30 pg (25-34); MEAN CORPUSCULAR HGB CONC 33 g/dL (32-36); MEAN CORPUSCULAR VOLUME 89 fL (80-99); MEAN PLATELET VOLUME 9.2 fL (9.0-12.2); MONOCYTES # (AUTO) 1.2 10^3/uL (0.0-1.0); MONOCYTES % (AUTO) 8 % (0-12); NEUTROPHILS % (AUTO) 65 % (42-75); PLATELET COUNT 390 10^3/uL (130-400); WHITE BLOOD COUNT 13.7 10^3/uL (4.3-11.0)
[2022-08-11] MEDS ORDERED: ASPIRIN 81 MG CHEW (CHILDREN'S ASA) PO ONE (13:30)
[2022-08-11] MEDS ORDERED: NITROGLYCERIN 0.4 MG SL TABS BTL 25'S SL PRN (13:30)
[2022-08-11 13:39] LABS: ALBUMIN 4.9 GM/DL (3.2-4.5)
[2022-08-11 13:40] LABS: CHLORIDE 97 MMOL/L (98-107); POTASSIUM 4.5 MMOL/L (3.6-5.0); SODIUM 131 MMOL/L (135-145)
[2022-08-11 13:41] LABS: CALCIUM 10.1 MG/DL (8.5-10.1)
[2022-08-11 13:42] LABS: GLUCOSE 371 MG/DL (70-105); INR 0.9 (0.8-1.4); PROTHROMBIN TIME PATIENT 12.9 SEC (12.2-14.7); TOTAL PROTEIN 8.9 GM/DL (6.4-8.2)
[2022-08-11 13:43] LABS: CARBON DIOXIDE 22 MMOL/L (21-32)
[2022-08-11 13:44] LABS: BILIRUBIN,TOTAL 0.5 MG/DL (0.1-1.0)
[2022-08-11 13:45] LABS: ALKALINE PHOSPHATASE 127 U/L (40-136)
[2022-08-11 13:46] LABS: CREATININE SERUM 0.98 MG/DL (0.60-1.30); GFR ESTIMATED 66
[2022-08-11 13:47] LABS: BUN/CREATININE RATIO 12
[2022-08-11 13:48] LABS: ALANINE AMINOTRANSFERASE 15 U/L (0-55)
--- NOTE | 2022-08-11 13:51 | Diagnostic Imaging Report ---
INDICATION: Chest pain, abnormal EKG. FINDINGS: Heart size and configuration normal. There is no failure, effusion or pneumothorax. Since the study of 07/04/2022, there has been an interval appearance of a focal nodular opacity projecting over the mid to lateral right chest measuring 1 cm this overlies the posterolateral aspect of the right 8th rib. This has not appreciably changed from exam dating back to 2018 and is believed chronic and benign. IMPRESSION: 1. No failure, pneumonia, effusion, pneumothorax or acute finding. 2. Chronic right chest nodule stable from 2018 and was likely obscured on the more recent study Dictated by: Dictated on workstation # [id number]
[2022-08-11] MEDS ORDERED: METO50TA7 PO (15:15)
[2022-08-11 15:21] VITALS: BP 115/80
== END 2022-08-11 15:21 | disposition home or self-care (01) ==
LOC: ER 13:08 → EDUNIT# 13:08 → ER 15:21
DX: R07.89 Other chest pain (principal); E11.9 Type 2 diabetes mellitus without complications; F17.210 Nicotine dependence, cigarettes, uncomplicated; Z79.4 Long term (current) use of insulin; Z86.79 Personal history of other diseases of the circulatory system
CPT/HCPCS: 36415; 71045; 80053; 83735; 83874; 84484; 85025; 85610; 85730; 93005; 93041

== ENCOUNTER 2022-08-13 22:09 | Emergency (ER) | payer BC ==
[~2022-08-13] VITALS: Ht 165.1 cm; Wt 68.0 kg
[~2022-08-13 22:09] MED LIST changes: +METO50TA7 PO
[2022-08-13 22:15] VITALS: BP 150/84
[2022-08-13] MEDS ORDERED: ASPIRIN 81 MG CHEW (CHILDREN'S ASA) PO ONE (23:00)
[2022-08-13 23:07] LABS: ALANINE AMINOTRANSFERASE 14 U/L (0-55); ALKALINE PHOSPHATASE 147 U/L (40-136); BILIRUBIN,TOTAL 0.2 MG/DL (0.1-1.0); BUN/CREATININE RATIO 15; CALCIUM 9.7 MG/DL (8.5-10.1); CARBON DIOXIDE 21 MMOL/L (21-32); CREATININE SERUM 0.92 MG/DL (0.60-1.30); GFR ESTIMATED 72; TOTAL PROTEIN 8.4 GM/DL (6.4-8.2)
[2022-08-13 23:08] LABS: CHLORIDE 98 MMOL/L (98-107); POTASSIUM 4.1 MMOL/L (3.6-5.0); SODIUM 131 MMOL/L (135-145)
[2022-08-13 23:10] LABS: GLUCOSE 420 MG/DL (70-105)
[2022-08-13 23:13] LABS: HEMATOCRIT 50 % (35-52); HEMOGLOBIN 16.8 g/dL (11.5-16.0); MEAN CORPUSCULAR HEMOGLOBIN 30 pg (25-34); MEAN CORPUSCULAR HGB CONC 34 g/dL (32-36); MEAN CORPUSCULAR VOLUME 89 fL (80-99); PLATELET COUNT 355 10^3/uL (130-400); WHITE BLOOD COUNT 12.5 10^3/uL (4.3-11.0)
[2022-08-13 23:14] LABS: BASOPHILS % (AUTO) 0 % (0-10); EOSINOPHILS # (AUTO) 0.2 10^3/uL (0.0-0.3); EOSINOPHILS % (AUTO) 1 % (0-10); LYMPHOCYTES # (AUTO) 4.4 X 10^3 (1.0-4.0); LYMPHOCYTES % (AUTO) 35 % (12-44); MEAN PLATELET VOLUME 9.1 fL (9.0-12.2); MONOCYTES # (AUTO) 0.9 X 10^3 (0.0-1.0); MONOCYTES % (AUTO) 7 % (0-12); NEUTROPHILS # (AUTO) 6.9 X 10^3 (1.8-7.8); NEUTROPHILS % (AUTO) 55 % (42-75)
[2022-08-13 23:15] LABS: PROTHROMBIN TIME PATIENT 12.1 SEC (12.2-14.7)
[2022-08-13] MEDS ORDERED: NS IV 1000 ML 1,000 ML IV SCH (23:15)
[2022-08-13] MEDS ORDERED: NITROGLYCERIN 0.4 MG SL TABS BTL 25'S SL PRN (23:15)
[2022-08-13 23:16] LABS: INR 0.9 (0.8-1.4)
[2022-08-13 23:16] LABS: ALBUMIN 4.6 GM/DL (3.2-4.5)
[2022-08-13 23:21] LABS: LIPASE 118 U/L (8-78)
[2022-08-13 23:24] LABS: MAGNESIUM 1.8 MG/DL (1.6-2.4)
[2022-08-14] MEDS ORDERED: LIDOCAINE 2% VISCOUS 15 ML UDC PO ONE (01:15)
[2022-08-14] MEDS ORDERED: ONDANSETRON 4 MG/2 ML (SDV) Z0FRAN IVP ONE (01:15)
[2022-08-14] MEDS ORDERED: ANTACID SUSP 30 ML UDC (MYLANTA) PO ONE (01:15)
[2022-08-14] MEDS ORDERED: PANTOPRAZOLE 40 MG (PROTONIX) TAB PO ONE (01:45)
--- NOTE | 2022-08-14 01:55 | ED Chest Pain ---
General Chief Complaint: Chest Pain Stated Complaint: CHEST PAIN Nursing Triage Note: PT TO RM 7 WITH CC OF CHEST PAIN FOR 4 DAYS. PT STATES PAIN GOES DOWN TO HER BACK. PT REPORTS WAS HERE 2 DAYS AGO FOR THE SAME CONCERN. PT STATES CHEST PAIN IN CONTINIOUS BUT INTENSITY COMES AND GOES. Source: patient Exam Limitations: no limitations History of Present Illness Date Seen by Provider: Aug 13, 2022 Time Seen by Provider: 22:25 Initial Comments This 57-year-old woman presents to the emergency room with complaints of 5 days of pain across her lower chest and radiating into her back between the shoulder blades. She has had shortness of air, fatigue, dyspnea on exertion, and upper abdominal pain. She was here 2 days ago for work-up as well. She states her pain felt similar to when she had MD 4 years ago. She had taken Tums without significant benefit. She has nausea at times. She denies lightheadedness or dizziness but states she sometimes feels wobbly with walking. Symptoms seem to be worse with exertion. Cardiac work-up was negative 2 days ago. She sees the [facility] clinic for her primary care. She has an appointment with Dr. Boudreaux for cardiac follow-up next week. Allergies and Home Medications Allergies Coded Allergies: Sulfa (Sulfonamide Antibiotics) (Verified Allergy, Severe, ANAPHYLAXIS, 05/07/18) Patient Home Medication List Home Medication List Reviewed: Yes Aspirin (Aspirin EC) 81 Mg Tablet.dr, 81 MG PO DAILY, (Reported) Entered as Reported by: NURA PALACIOS on 07/25/20 0810 Atorvastatin Calcium (Atorvastatin Calcium) 80 Mg Tablet, 80 MG PO DAILY, (Reported) Entered as Reported by: ZAHRAA PETERSON on 08/27/21 1112 Citalopram Hydrobromide (Celexa) 40 Mg Tablet, 40 MG PO DAILY, (Reported) Entered as Reported by: OSIEL YU on 05/07/18 1604 Clopidogrel Bisulfate (Plavix) 75 Mg Tablet, 75 MG PO DAILY, (Reported) Entered as Reported by: NURA PALACIOS on 07/25/20 0810 Cyclobenzaprine HCl (Cyclobenzaprine HCl) 10 Mg Tablet, 10 MG PO HS PRN for MUSCLE SPASMS, (Reported) Entered as Reported by: TARIQ GALLO on 02/19/21 1347 Estrogens, Conjugated (Premarin) 0.3 Mg Tablet, 0.3 MG PO DAILY, (Reported) Entered as Reported by: JARRETT CHIN on 05/07/18 1018 Famotidine (Pepcid) 20 Mg Tablet, 20 MG PO BID Prescribed by: MONICA UP on 08/14/22 0156 Gabapentin (Gabapentin) 100 Mg Capsule, 100 MG PO Q8H, (Reported) Entered as Reported by: ZAHRAA PETERSON on 08/27/21 1112 Glipizide (Glipizide ER) 10 Mg Tab.er.24, 10 MG PO DAILY, (Reported) Entered as Reported by: NURA PALACIOS on 07/25/20 0810 Insulin Aspart (Novolog Flexpen) 300 Units/3 Ml Solution, 30 UNITS SQ AC, (Reported) Entered as Reported by: ZAHRAA PETERSON on 08/27/21 1112 Lisinopril (Lisinopril) 5 Mg Tablet, 5 MG PO DAILY, (Reported) Entered as Reported by: JARRETT CHIN on 05/07/18 1017 Metformin HCl (Metformin HCl ER) 500 Mg Tab.er.24, 1,000 MG PO BID, (Reported) Entered as Reported by: TARIQ GALLO on 02/19/21 1337 Metoprolol Succinate (Metoprolol Succinate) 25 Mg Tab.er.24h, 25 MG PO DAILY, (Reported) Entered as Reported by: NURA PALACIOS on 07/25/20 0810 Metoprolol Succinate (Metoprolol Succinate) 50 Mg Tab.er.24h, 50 MG PO DAILY Prescribed by: JOANNE POTTER on 08/11/22 1515 Montelukast Sodium (Montelukast Sodium) 10 Mg Tablet, 10 MG PO DAILY, (Reported) Entered as Reported by: JARRETT CHIN on 05/07/18 1026 Pantoprazole Sodium (Protonix) 40 Mg Tablet.dr, 40 MG PO DAILY Prescribed by: MONICA UP on 12/20/21 0437 Pantoprazole Sodium (Protonix) 40 Mg Tablet.dr, 40 MG PO DAILY Prescribed by: MONICA UP on 08/14/22 0156 Sucralfate (Carafate) 1 Gm Tablet, 1 GM PO QID Prescribed by: MONICA UP on 12/20/21 0437 Review of Systems Review of Systems Constitutional: see HPI EENTM: No Symptoms Reported Respiratory: See HPI Cardiovascular: See HPI Gastrointestinal: See HPI Genitourinary: No Symptoms Reported Musculoskeletal: see HPI Skin: no symptoms reported Psychiatric/Neurological: No Symptoms Reported Endocrine: No Symptoms Reported Hematologic/Lymphatic: No Symptoms Reported Past Ffjgobd-Uyaefw-Cxdhdz Hx Patient Social History Tobacco Use?: Yes Tobacco type used: Cigarettes Smoking Status: Current Everyday Smoker Substance use?: No Alcohol Use?: No Pt feels they are or have been: No Immunizations Up To Date Tetanus Booster (TDap): Unknown PED Vaccines UTD: No First/Initial COVID19 Vaccinat: 10/16/21 Second COVID19 Vaccination Jay: 10/16/21 Third COVID19 Vaccination Date: 10/16/21 Seasonal Allergies Seasonal Allergies: Yes Past Medical History Surgery/Hospitalization HX: CARDIAC STENTS TYPE 2 DM HTN ORTHO SX ANDREA HIGH CHOLESTEROL, CAD, OVARIAN CA, ARTHRITIS, FIBROMYALGIA, SCOLIOSIS, CH. BACK PAIN. 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 Genitourinary: Yes Kidney Stones Gastrointestinal: Yes Gastroesophageal Reflux, Irritable Bowel Musculoskeletal: Yes Arthritis, Fibromyalgia, Scoliosis, Chronic Back Pain Endocrine: Yes (DM Type II) Diabetes, Insulin dep HEENT: Yes (MASTOID TUMOR) Hearing Impairment: Deaf Cancer: Yes Ovarian Did You Recieve Any Treatments: Yes What Type of Treatment Did You: Surgical Intervention Psychosocial: Yes Depression Integumentary: No Blood Disorders: No Family Medical History Cardiovascular disease 19 FATHER, 19 MOTHER, G8 BROTHER FH: esophageal cancer aunt Internal cardiac defibrillator G8 BROTHER Pacemaker G8 BROTHER Heart Disease, Cancer, Diabetes, Other Conditions/Hx Physical Exam Vital Signs Vital Signs - First Documented 08/13/22 22:15 Temp 36.6 Pulse 100 Resp 16 B/P (MAP) 150/84 (106) Pulse Ox 98 O2 Delivery Room Air Capillary Refill : Less Than 3 Seconds Height, Weight, BMI Height: 5'5.00" Weight: 172lbs. 0.0oz. 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, 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 Norm as Tested Skin: Normal Color, Warm/Dry Progress/Results/Core Measures Results/Orders Lab Results Laboratory Tests Test 08/13/22 22:28 08/13/22 22:37 08/13/22 23:00 Range/Units Sodium Level 131 L 135-145 MMOL/L Potassium Level 4.1 3.6-5.0 MMOL/L Chloride Level 98 98-107 MMOL/L Carbon Dioxide Level 21 21-32 MMOL/L Anion Gap 12 5-14 MMOL/L Blood Urea Nitrogen 14 7-18 MG/DL Creatinine 0.92 0.60-1.30 MG/DL Estimat Glomerular Filtration Rate 72 BUN/Creatinine Ratio 15 Glucose Level 420 *H 70-105 MG/DL Calcium Level 9.7 8.5-10.1 MG/DL Corrected Calcium 8.5-10.1 MG/DL Magnesium Level 1.8 1.6-2.4 MG/DL Total Bilirubin 0.2 0.1-1.0 MG/DL Aspartate Amino Transf (AST/SGOT) 14 5-34 U/L Alanine Aminotransferase (ALT/SGPT) 14 0-55 U/L Alkaline Phosphatase 147 H 40-136 U/L Myoglobin 53.2 10.0-92.0 NG/ML Total Protein 8.4 H 6.4-8.2 GM/DL Albumin 4.6 H 3.2-4.5 GM/DL Troponin I < 0.028 <0.028 NG/ML C-Reactive Protein High Sensitivity 0.96 H 0.00-0.50 MG/DL Lipase 118 H 8-78 U/L Influenza Type A (RT-PCR) Not Detected Not Detecte Influenza Type B (RT-PCR) Not Detected Not Detecte SARS-CoV-2 RNA (RT-PCR) Not Detected Not Detecte White Blood Count 12.5 H 4.3-11.0 10^3/uL Red Blood Count 5.63 H 3.80-5.11 10^6/uL Hemoglobin 16.8 H 11.5-16.0 g/dL Hematocrit 50 35-52 % Mean Corpuscular Volume 89 80-99 fL Mean Corpuscular Hemoglobin 30 25-34 pg Mean Corpuscular Hemoglobin Concent 34 32-36 g/dL Red Cell Distribution Width 13.0 10.0-14.5 % Platelet Count 355 130-400 10^3/uL Mean Platelet Volume 9.1 9.0-12.2 fL Immature Granulocyte % (Auto) 0 % Neutrophils (%) (Auto) 55 42-75 % Lymphocytes (%) (Auto) 35 12-44 % Monocytes (%) (Auto) 7 0-12 % Eosinophils (%) (Auto) 1 0-10 % Basophils (%) (Auto) 0 0-10 % Neutrophils # (Auto) 6.9 1.8-7.8 X 10^3 Lymphocytes # (Auto) 4.4 H 1.0-4.0 X 10^3 Monocytes # (Auto) 0.9 0.0-1.0 X 10^3 Eosinophils # (Auto) 0.2 0.0-0.3 10^3/uL Basophils # (Auto) 0.0 0.0-0.1 10^3/uL Immature Granulocyte # (Auto) 0.1 0.0-0.1 10^3/uL Prothrombin Time 12.1 L 12.2-14.7 SEC INR Comment 0.9 0.8-1.4 Activated Partial Thromboplast Time 26 24-35 SEC D-Dimer 0.49 0.00-0.49 UG/ML My Orders Orders - MONICA OLIVEIRA MD Chest 1 View, Ap/Pa Only (08/13/22 ) Cbc With Automated Diff (08/13/22:00) Magnesium (08/13/22:00) Comprehensive Metabolic Panel (08/13/22:) Myoglobin Serum (08/13/22:) Protime With Inr (08/13/22:) Partial Thromboplastin Time (08/13/22:) O2 (08/13/22:00) Monitor-Rhythm Ecg Trace Only (08/13/22:) Ed Iv/Invasive Line Start (08/13/22:00) Troponin I Soto (08/13/22:) Aspirin Chewable Tablet (Baby Aspirin Ch (08/13/22:) Fibrin Degradation Products (08/13/22:13) Lipase (08/13/22 23:13) Nitroglycerin 0.4 Mg Btl 25's (Nitrostat (08/13/22 23:15) Covid 19 Inhouse Test (08/13/22 23:15) Influenza A And B By Pcr (08/13/22 23:15) Ns Iv 1000 Ml (Sodium Chloride 0.9%) (08/13/22 23:15) Hs C Reactive Protein (08/13/22 23:16) Ondansetron Injection (Zofran Injectio (08/14/22 01:15) Lidocaine 2% Viscous 15 Ml (Xylocaine Vi (08/14/22 01:15) Antacid Suspension (Mylanta Suspension (08/14/22 01:15) Pantoprazole Tablet (Protonix Tablet) (08/14/22 01:45) Ekg Tracing (08/13/22 22:18) Medications Given in ED Vital Signs/I&O 08/13/22 22:15 Temp 36.6 Pulse 100 Resp 16 B/P (MAP) 150/84 (106) Pulse Ox 98 O2 Delivery Room Air Blood Pressure Mean: 106 Progress Progress Note : Progress Note EKG demonstrated no ischemia. Patient had no improvement in pain with nitroglycerin. Cardiopulmonary work-up was unremarkable. Patient was found to have elevated lipase without obvious cause. She did report starting a new medication for her diabetes which is a metformin combination product. She does not recall the name of this medication and could not be found in the filling database. It is possible this medication could be a trigger as she just started it about a month ago. She has been provided with a prescription to obtain an outpatient lipase on Thursday to monitor progress. Patient had a remarkable improvement in her pain with GI cocktail suggesting her pain is from a gastroesophagitis source. We discussed means of treating this. I also advised that she take antiacid medications daily and observe a noncarbonated clear liquid diet for the next 24 hours for pancreatic rest. Hyperglycemia was treated with a liter of normal saline. Patient had not yet taken her Levemir and was instructed to do so when returning home. She was advised to seek follow-up with Dr. Pate for possible repeat endoscopy. See discharge instructions for further discussion. Initial ECG Impression Date: Aug 13, 2022 Initial ECG Impression Time: 22:18 Initial ECG Rate: 102 Initial ECG Rhythm: S.Tach Comment Mild sinus tachycardia with no ST elevation or depression to suggest ischemia. No abnormal intervals or axis deviation. Similar to recent prior. Diagnostic Imaging Diagonstic Imaging: Xray Plain Films/CT/US/NM/MRI: chest Comments NAME: LUZ CONTRERAS [facility] REC#: [id number] PT STATUS: DEP ER : 1965 PHYSICIAN: MONICA OLIVEIRA MD ADMIT DATE: 08/13/22/ER Draft Date of Exam:08/13/22 CHEST 1 VIEW, AP/PA ONLY INDICATION: Chest pain. Comparison is made with prior examination from 08/11/2022. FINDINGS: The heart size, mediastinal configuration, and pulmonary vascularity are within normal limits. There is no pleural effusion, pneumothorax, or pneumonia. The osseous structures are unremarkable. IMPRESSION: No acute cardiopulmonary abnormality. Dictated on workstation # [id number] Dict: 08/14/22 0600 Trans: 08/14/22 0602 [id number] Interpreted by: JARNE BELTRAN MD Departure Impression Primary Impression: Atypical chest pain Additional Impressions: Epigastric pain Gastroesophagitis Elevated lipase Hyperglycemia Disposition: HOME, SELF-CARE Condition: Improved Departure-Patient Inst. Decision time for Depature: 01:51 Referrals: [facility] (PCP/Family) Primary Care Physician Patient Instructions: Abdominal Pain, Adult ED, Chest Pain Add. Discharge Instructions: The improvement of your abdominal and chest pain with treatment by Mylanta and lidocaine would suggest that your pain is coming from irritation of the stomach and esophagus. However, because you have had some evidence of coronary artery disease on your heart cath in 2019, it is very important that you follow-up with Dr. Boudreaux as previously directed. Please also follow-up with Dr. Pate to discuss repeating endoscopy of your stomach and esophagus. Take Protonix and Pepcid as prescribed. Avoid the following: Eating large meals, eating close to bedtime, caffeine, carbonation, citrus fruits and juices, tomato products, mints, chocolate, spicy foods, NSAID medications such as ibuprofen and naproxen, fatty/greasy foods, alcohol, tobacco, and anything else you know irritates your stomach. Your lipase (pancreas enzyme) was elevated in the ER. Adhere to a noncarbonated clear liquid diet for the next 24 hours to allow your pancreas to rest. Then return to the hospital on Thursday to have your blood checked again or make arrangements for a blood draw at the [facility] clinic. Either Dr. Pate or your primary care team will need to follow-up on your lipase level. Return to the emergency room if you have worsening symptoms despite following these instructions. Your abdominal pain and chest pain should gradually improve over the next 1 to 2 weeks as you follow these instructions and treat with antiacid medication. All discharge instructions reviewed with patient and/or family. Voiced understanding. Scripts Famotidine (Pepcid) 20 Mg Tablet 20 MG PO BID, #60 TAB Prov: MONICA OLIVEIRA MD 08/14/22 Pantoprazole Sodium (Protonix) 40 Mg Tablet. 40 MG PO DAILY, #30 TAB Prov: MONICA OLIVEIRA MD 08/14/22 Work/School Note: Work Release Form Date Seen in the Emergency Department: Aug 14, 2022 Return to Work: Aug 15, 2022 Restrictions: No Restrictions Copy Copies To 1: ARTHUR PATE DO; EDER BOUDREAUX JR, MD Copies To 2: [facility]/MONICA ELLISON MD Aug 14, 2022 01:55
[2022-08-14] MEDS ORDERED: FAMO-119 PO (01:56)
[2022-08-14] MEDS ORDERED: PANT40TA2 PO (01:56)
--- NOTE | 2022-08-14 06:03 | Diagnostic Imaging Report ---
INDICATION: Chest pain. Comparison is made with prior examination from 08/11/2022. FINDINGS: The heart size, mediastinal configuration, and pulmonary vascularity are within normal limits. There is no pleural effusion, pneumothorax, or pneumonia. The osseous structures are unremarkable. IMPRESSION: No acute cardiopulmonary abnormality. Dictated by: Dictated on workstation # [id number]
== END 2022-08-14 02:04 | disposition home or self-care (01) ==
LOC: EDUNIT# 22:56 → ER 22:57
DX: K21.00 Gastro-esophageal reflux disease with esophagitis, without bleeding (principal); E11.65 Type 2 diabetes mellitus with hyperglycemia; R74.8 Abnormal levels of other serum enzymes; F17.210 Nicotine dependence, cigarettes, uncomplicated; Z95.5 Presence of coronary angioplasty implant and graft; Z90.49 Acquired absence of other specified parts of digestive tract; Z20.822 Contact with and (suspected) exposure to COVID-19; Z28.311 Partially vaccinated for COVID-19; Z79.4 Long term (current) use of insulin
CPT/HCPCS: 36415; 71045; 80053; 83690; 83735; 83874; 84484; 85025; 85379; 85610; 85730; 86141; 87636; 93005; 93041

== ENCOUNTER 2023-08-12 16:05 | Emergency (ER) | payer BC ==
[~2023-08-12] VITALS: Ht 165 cm; Wt 70.3 kg
[~2023-08-12 16:05] MED LIST changes: +CLOP-31 PO; -CLOP75TA69 PO; +FAMO-119 PO; -INSU100I29 SQ; +INSU100I30 SQ
[2023-08-12 16:24] LABS: BASOPHILS % (AUTO) 0 % (0-10); EOSINOPHILS # (AUTO) 0.2 10^3/uL (0.0-0.3); EOSINOPHILS % (AUTO) 2 % (0-10); HEMATOCRIT 51 % (35-52); HEMOGLOBIN 17.1 g/dL (11.5-16.0); LYMPHOCYTES # (AUTO) 4.6 10^3/uL (1.0-4.0); LYMPHOCYTES % (AUTO) 43 % (12-44); MEAN CORPUSCULAR HEMOGLOBIN 30 pg (25-34); MEAN CORPUSCULAR HGB CONC 34 g/dL (32-36); MEAN CORPUSCULAR VOLUME 88 fL (80-99); MEAN PLATELET VOLUME 9.6 fL (9.0-12.2); MONOCYTES # (AUTO) 0.8 10^3/uL (0.0-1.0); MONOCYTES % (AUTO) 7 % (0-12); NEUTROPHILS # (AUTO) 5.3 10^3/uL (1.8-7.8); NEUTROPHILS % (AUTO) 48 % (42-75); PLATELET COUNT 298 10^3/uL (130-400); WHITE BLOOD COUNT 10.9 10^3/uL (4.3-11.0)
[2023-08-12 16:30] LABS: INR 0.9 (0.8-1.4); PROTHROMBIN TIME PATIENT 12.4 SEC (12.2-14.7)
[2023-08-12] MEDS ORDERED: ASPIRIN 81 MG CHEWABLE TABLET PO ONE (16:30)
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
[2023-08-12 16:31] LABS: ALBUMIN 4.2 GM/DL (3.2-4.5); CHLORIDE 99 MMOL/L (98-107); POTASSIUM 4.1 MMOL/L (3.6-5.0); SODIUM 131 MMOL/L (135-145)
[2023-08-12 16:32] LABS: CALCIUM 9.7 MG/DL (8.5-10.1)
[2023-08-12] MEDS: NITROGLYCERIN 0.4 MG SL TABLETS BTL 25'S SL PRN ×2 (16:32→16:42)
[2023-08-12 16:34] LABS: GLUCOSE 394 MG/DL (70-105); TOTAL PROTEIN 7.6 GM/DL (6.4-8.2)
[2023-08-12 16:35] LABS: BILIRUBIN,TOTAL 0.4 MG/DL (0.1-1.0); CARBON DIOXIDE 19 MMOL/L (21-32)
[2023-08-12 16:37] LABS: ALKALINE PHOSPHATASE 136 U/L (40-136); GFR ESTIMATED 84
[2023-08-12 16:38] LABS: BUN/CREATININE RATIO 14
[2023-08-12 16:40] LABS: ALANINE AMINOTRANSFERASE 16 U/L (0-55); MAGNESIUM 1.8 MG/DL (1.6-2.4)
--- NOTE | 2023-08-12 16:42 | Diagnostic Imaging Report ---
Indication: Chest pain frontal chest obtained at 4:43 p.m. and compared with 08/13/2022. Heart and mediastinal silhouette are normal in appearance. The lungs show no focal infiltrate. This is stable calcified granuloma in the right midlung. There is no pneumothorax or pleural fluid. Impression: Stable calcified granuloma right midlung. No pneumothorax or pleural fluid or focal consolidation. Dictated by: Dictated on workstation # [id number]
[2023-08-12] MEDS ORDERED: morphine INJ 4 MG/ML 1 ML (VIAL/SYRINGE) ONE (16:48)
[2023-08-12] MEDS ORDERED: morphine INJ 10 MG/ML 1ML (SYR OR VIAL) IVP ONE (17:00)
[2023-08-12] MEDS ORDERED: IOHEXOL 350 MG/ML 100 ML (OMNIPAQUE 350) VIAL IV ONE (17:15)
[2023-08-12] MEDS ORDERED: NS 100 ML (IVPB) BAG IV ONE (17:15)
[2023-08-12] MEDS ORDERED: HOLD METFORMIN - RECEIVED CONTRAST 20 ML VIAL IV SCH (17:15)
--- NOTE | 2023-08-12 17:27 | Diagnostic Imaging Report ---
EXAMINATION: CT angiography of the chest. TECHNIQUE: Contrast enhanced thin section helical images were obtained through the chest with intravenous contrast timed for the optimal opacification of the arterial structures per CTA protocol. Post-processing, reconstructions and interpretation of angiographic images of the vessels was performed. 3D MIP reconstructions were performed and reviewed. All CT scans use one or more of the following dose optimizing techniques: automated exposure control, MA and/or KvP adjustment based on a patient size and exam type, or iterative reconstruction. HISTORY: Chest pain COMPARISON: None available. FINDINGS: There is no pulmonary embolism. There is no edema or pneumonia. No pleural effusion. No pneumothorax. No suspicious nodules. Lungs are imaged in the expiratory phase. There is a calcified granuloma in the right lower lobe. There is no axillary or supraclavicular lymphadenopathy. There is no mediastinal lymphadenopathy. Heart size is normal. There are moderate coronary artery calcifications. No pericardial effusion. Aorta is normal in caliber. Limited views of the upper abdomen show changes of cholecystectomy. There are no suspicious osseus lesions. IMPRESSION: 1. There is no pulmonary embolism. Dictated by: Dictated on workstation # [id number]
[2023-08-12] MEDS ORDERED: ANTACID SUSPENSION 30 ML UDC PO ONE (18:00)
[2023-08-12] MEDS ORDERED: LIDOCAINE 2% VISCOUS 15 ML UDC PO ONE (18:00)
[2023-08-12] MEDS ORDERED: PANT40TA2 PO (19:32)
[2023-08-12 19:33] VITALS: BP 145/77
== END 2023-08-12 19:35 | disposition home or self-care (01) ==
LOC: EDUNIT# 16:05 → ER 16:07
DX: R07.89 Other chest pain (principal); F17.210 Nicotine dependence, cigarettes, uncomplicated; Z95.5 Presence of coronary angioplasty implant and graft; Z86.79 Personal history of other diseases of the circulatory system; Z91.148 Patient's other noncompliance with medication regimen for other reason; Z79.02 Long term (current) use of antithrombotics/antiplatelets
CPT/HCPCS: 36415; 71045; 71275; 80053; 83735; 83874; 84484; 85025; 85379; 85610; 85730; 93041

== ENCOUNTER 2023-09-06 15:30 | Emergency (ER) | payer BC ==
[~2023-09-06] VITALS: Ht 160 cm; Wt 56.6 kg
--- NOTE | 2023-09-06 16:53 | ED General ---
General Chief Complaint: Lower Extremity Stated Complaint: LEG PAIN Nursing Triage Note: patient complaint of caroline leg pain x1 week. patient states she was seen at the clinic for this pain. states was told she needs an ultrasound, which is scheduled thursday. patient states hasn't done anything for the pain. Source of Information: Patient Exam Limitations: No Limitations History of Present Illness Date Seen by Provider: Sep 06, 2023 Time Seen by Provider: 16:35 Allergies and Home Medications Allergies Coded Allergies: Sulfa (Sulfonamide Antibiotics) (Verified Allergy, Severe, ANAPHYLAXIS, 05/07/18) Patient Home Medication List Aspirin (Aspirin EC) 81 Mg Tablet.dr, 81 MG PO DAILY, (Reported) Entered as Reported by: NURA PALACIOS on 07/25/20 0810 Atorvastatin Calcium (Atorvastatin Calcium) 80 Mg Tablet, 80 MG PO DAILY, (Reported) Entered as Reported by: ZAHRAA PETERSON on 08/27/21 1112 Citalopram Hydrobromide (Celexa) 40 Mg Tablet, 40 MG PO DAILY, (Reported) Entered as Reported by: OSIEL YU on 05/07/18 1604 Clopidogrel Bisulfate (Plavix) 75 Mg Tablet, 75 MG PO DAILY, (Reported) Entered as Reported by: NURA PALACIOS on 07/25/20 0810 Cyclobenzaprine HCl (Cyclobenzaprine HCl) 10 Mg Tablet, 10 MG PO HS PRN for MUSCLE SPASMS, (Reported) Entered as Reported by: TARIQ GALLO on 02/19/21 1347 Estrogens, Conjugated (Premarin) 0.3 Mg Tablet, 0.3 MG PO DAILY, (Reported) Entered as Reported by: JARRETT CHIN on 05/07/18 1018 Famotidine (Pepcid) 20 Mg Tablet, 20 MG PO BID Prescribed by: MONICA UP on 08/14/22 0156 Gabapentin (Gabapentin) 100 Mg Capsule, 100 MG PO Q8H, (Reported) Entered as Reported by: ZAHRAA PETERSON on 08/27/21 1112 Glipizide (Glipizide ER) 10 Mg Tab.er.24, 10 MG PO DAILY, (Reported) Entered as Reported by: NURA PALACIOS on 07/25/20 0810 Insulin Aspart (Novolog Flexpen) 300 Units/3 Ml Solution, 30 UNITS SQ AC, (Reported) Entered as Reported by: ZAHRAA PETERSON on 08/27/21 1112 Lisinopril (Lisinopril) 5 Mg Tablet, 5 MG PO DAILY, (Reported) Entered as Reported by: JARRETT CHIN on 05/07/18 1017 Metformin HCl (Metformin HCl ER) 500 Mg Tab.er.24, 1,000 MG PO BID, (Reported) Entered as Reported by: TARIQ GALLO on 02/19/21 1337 Metoprolol Succinate (Metoprolol Succinate) 25 Mg Tab.er.24h, 25 MG PO DAILY, (Reported) Entered as Reported by: NURA PALACIOS on 07/25/20 0810 Metoprolol Succinate (Metoprolol Succinate) 50 Mg Tab.er.24h, 50 MG PO DAILY Prescribed by: JOANNE POTTER on 08/11/22 1515 Montelukast Sodium (Montelukast Sodium) 10 Mg Tablet, 10 MG PO DAILY, (Reported) Entered as Reported by: JARRETT CHIN on 05/07/18 1026 Pantoprazole Sodium (Protonix) 40 Mg Tablet.dr, 40 MG PO DAILY Prescribed by: MONICA UP on 12/20/21 0437 Pantoprazole Sodium (Protonix) 40 Mg Tablet.dr, 40 MG PO DAILY Prescribed by: MONICA UP on 08/14/22 0156 Pantoprazole Sodium (Protonix) 40 Mg Tablet.dr, 40 MG PO DAILY Prescribed by: CHELSEY PONCE on 08/12/23 193 Sucralfate (Carafate) 1 Gm Tablet, 1 GM PO QID Prescribed by: MONICA UP on 12/20/21 0437 Past Izstbhw-[id number]-[id number] Hx Immunizations Up To Date Tetanus Booster (TDap): Unknown PED Vaccines UTD: No First/Initial COVID19 Vaccinat: 10/16/21 Second COVID19 Vaccination Jay: 10/16/21 Third COVID19 Vaccination Date: 10/16/21 Seasonal Allergies Seasonal Allergies: Yes Past Medical History Surgery/Hospitalization HX: CARDIAC STENTS TYPE 2 DM HTN ORTHO SX ANDREA HIGH CHOLESTEROL, CAD, OVARIAN CA, ARTHRITIS, FIBROMYALGIA, SCOLIOSIS, CH. BACK PAIN. 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: Hysterectomy, Menopausal Genitourinary: Yes Kidney Stones Gastrointestinal: Yes Gastroesophageal Reflux, Irritable Bowel Musculoskeletal: Yes Arthritis, Fibromyalgia, Scoliosis, Chronic Back Pain Endocrine: Yes (DM Type II) Diabetes, Insulin dep HEENT: Yes (MASTOID TUMOR) Hearing Impairment: Deaf Cancer: Yes Ovarian Did You Recieve Any Treatments: Yes What Type of Treatment Did You: Surgical Intervention Psychosocial: Yes Depression Integumentary: No Blood Disorders: No Family Medical History Cardiovascular disease 19 FATHER, 19 MOTHER, G8 BROTHER FH: esophageal cancer aunt Internal cardiac defibrillator G8 BROTHER Pacemaker G8 BROTHER Heart Disease, Cancer, Diabetes, Other Conditions/Hx Physical Exam Vital Signs Vital Signs - First Documented 09/06/23 15:44 Temp 37.0 Pulse 106 Resp 20 B/P (MAP) 145/98 (114) Pulse Ox 97 Capillary Refill : Less Than 3 Seconds Height, Weight, BMI Height: 5'5.00" Weight: 172lbs. 0.0oz. 78.110234jd; 22.00 BMI Method:Stated Progress/Results/Core Measures Suspected Sepsis SIRS Temperature: Pulse: 106 Respiratory Rate: 20 Laboratory Tests 09/06/23 16:55: White Blood Count 11.1H Blood Pressure 145 /98 Mean: 114 Laboratory Tests 09/06/23 16:55: Creatinine 1.05, Platelet Count 271, Total Bilirubin < 0.1L Results/Orders Lab Results Laboratory Tests Test 09/06/23 16:55 09/06/23 19:14 Range/Units White Blood Count 11.1 H 4.3-11.0 10^3/uL Red Blood Count 5.83 H 3.80-5.11 10^6/uL Hemoglobin 17.6 H 11.5-16.0 g/dL Hematocrit 52 35-52 % Mean Corpuscular Volume 88 80-99 fL Mean Corpuscular Hemoglobin 30 25-34 pg Mean Corpuscular Hemoglobin Concent 34 32-36 g/dL Red Cell Distribution Width 12.7 10.0-14.5 % Platelet Count 271 130-400 10^3/uL Mean Platelet Volume 9.8 9.0-12.2 fL Immature Granulocyte % (Auto) 0 % Neutrophils (%) (Auto) 66 42-75 % Lymphocytes (%) (Auto) 26 12-44 % Monocytes (%) (Auto) 7 0-12 % Eosinophils (%) (Auto) 1 0-10 % Basophils (%) (Auto) 0 0-10 % Neutrophils # (Auto) 7.4 1.8-7.8 10^3/uL Lymphocytes # (Auto) 2.9 1.0-4.0 10^3/uL Monocytes # (Auto) 0.7 0.0-1.0 10^3/uL Eosinophils # (Auto) 0.1 0.0-0.3 10^3/uL Basophils # (Auto) 0.0 0.0-0.1 10^3/uL Immature Granulocyte # (Auto) 0.0 0.0-0.1 10^3/uL Erythrocyte Sedimentation Rate 1 0-30 MM/HR Sodium Level 133 L 135-145 MMOL/L Potassium Level 4.5 3.6-5.0 MMOL/L Chloride Level 101 98-107 MMOL/L Carbon Dioxide Level 21 21-32 MMOL/L Anion Gap 11 5-14 MMOL/L Blood Urea Nitrogen 11 7-18 MG/DL Creatinine 1.05 0.60-1.30 MG/DL Estimat Glomerular Filtration Rate 61 BUN/Creatinine Ratio 10 Glucose Level 575 *H 70-105 MG/DL Calcium Level 9.2 8.5-10.1 MG/DL Corrected Calcium 9.2 8.5-10.1 MG/DL Magnesium Level 1.9 1.6-2.4 MG/DL Total Bilirubin < 0.1 L 0.1-1.0 MG/DL Aspartate Amino Transf (AST/SGOT) 13 5-34 U/L Alanine Aminotransferase (ALT/SGPT) 19 0-55 U/L Alkaline Phosphatase 142 H 40-136 U/L Total Creatine Kinase 28 L 29-168 U/L C-Reactive Protein High Sensitivity 0.39 0.00-0.50 MG/DL Total Protein 7.4 6.4-8.2 GM/DL Albumin 4.0 3.2-4.5 GM/DL TSH Combes Testing 0.65 0.35-4.94 UIU/ML Glucometer 338 H 70-110 MG/DL My Orders Orders - MONICA OLIVEIRA MD Cbc And Automated Diff (09/06/23 16:50) Comprehensive Metabolic Panel (09/06/23 16:50) Creatine Kinase (09/06/23 16:50) Hs C Reactive Protein (09/06/23 16:50) Erythrocyte Sedimentation Rate (09/06/23 16:50) Magnesium (09/06/23 16:50) Thyroid Analyzer (09/06/23 16:50) Ed Iv/Invasive Line Start (09/06/23 16:50) Gabapentin Capsule (Gabapentin Capsule) (09/06/23 17:00) Insulin (Regular) Per Unit (Insulin (Reg (09/06/23 18:00) Ns Iv 1000 Ml (Ns Iv 1000 Ml) (09/06/23 18:00) Ct Lumbar Spine Wo (09/06/23 17:58) Accucheck Stat ONCE (09/06/23 18:56) Medications Given in ED Current Medications Medications Dose Ordered Sig/Virgil Route Start Time Stop Time Status Last Admin Dose Admin Gabapentin 300 mg ONCE ONCE PO 09/06/23 17:00 09/06/23 17:01 DC 09/06/23 16:59 300 MG Insulin Human Regular 5 unit ONCE ONCE SC 09/06/23 18:00 09/06/23 18:01 DC 09/06/23 18:20 5 UNIT Vital Signs/I&O 09/06/23 15:44 Temp 37.0 Pulse 106 Resp 20 B/P (MAP) 145/98 (114) Pulse Ox 97 Capillary Refill : Less Than 3 Seconds Blood Pressure Mean: 114 Departure Impression Primary Impression: Lower extremity pain Qualified Codes: M79.604 - Pain in right leg; M79.605 - Pain in left leg Additional Impressions: Uncontrolled diabetes mellitus Qualified Codes: E11.65 - Type 2 diabetes mellitus with hyperglycemia Has run out of medications Disposition: HOME, SELF-CARE Condition: Improved Departure-Patient Inst. Decision time for Depature: 19:23 Referrals: [facility] [place] (PCP/Family) Primary Care Physician Patient Instructions: Diabetic Neuropathy, Type 2 diabetes Add. Discharge Instructions: Please be sure to call the clinic tomorrow morning and inquire about the type of ultrasound being performed. You should have an arterial ultrasound of both legs to ensure good blood flow. Decreased blood flow to your legs from blockages in the arteries could be causing your pain which is also called claudication. Resume your medications as prescribed. Be very cautious with your insulin to avoid low blood sugars. You may wish to start at a lower dose such as 20 or 30 units of Levemir and monitor your blood sugars before taking the full 40 unit dose. Follow-up with your primary care provider soon as possible to renew these medications. Check your blood sugars often, preferably fasting in the morning and 2 hours after each meal. 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 If you smoke, work toward quitting smoking as rapidly as possible. Enlist the help of your doctor if needed. Return to the emergency room if you have worsening symptoms despite following these instructions. All discharge instructions reviewed with patient and/or family. Voiced understanding. Scripts Gabapentin (Neurontin) 300 Mg Capsule 300 MG PO TID PRN for PAIN-MODERATE TO SEVERE, #30 CAP Prov: MONICA OLIVEIRA MD 09/06/23 Metformin HCl (Metformin HCl) 1,000 Mg Tablet 1000 MG PO BID, #60 TAB Prov: MONICA OLIVEIRA MD 09/06/23 Citalopram Hydrobromide (Celexa) 20 Mg Tablet 20 MG PO DAILY, #30 TAB Prov: MONICA OLIVEIRA MD 09/06/23 Insulin Detemir (Levemir Flexpen) 100 Unit/Ml (3 Ml) Insuln.pen 40 UNIT SQ BID, #1 EA Prov: MONICA OLIVEIRA MD 09/06/23 Lisinopril (Lisinopril) 5 Mg Tablet 5 MG PO DAILY, #30 TAB Prov: MONICA OLIVEIRA MD 09/06/23 Work/School Note: Work Release Form Date Seen in the Emergency Department: Sep 06, 2023 Return to Work: Sep 09, 2023 Restrictions: No Restrictions MONICA OLIVEIRA MD Sep 06, 2023 16:53
[2023-09-06] MEDS ORDERED: GABAPENTIN 300 MG CAPSULE PO ONE (17:00)
[2023-09-06 17:02] LABS: BASOPHILS % (AUTO) 0 % (0-10); EOSINOPHILS # (AUTO) 0.1 10^3/uL (0.0-0.3); EOSINOPHILS % (AUTO) 1 % (0-10); HEMATOCRIT 52 % (35-52); HEMOGLOBIN 17.6 g/dL (11.5-16.0); LYMPHOCYTES # (AUTO) 2.9 10^3/uL (1.0-4.0); LYMPHOCYTES % (AUTO) 26 % (12-44); MEAN CORPUSCULAR HEMOGLOBIN 30 pg (25-34); MEAN CORPUSCULAR HGB CONC 34 g/dL (32-36); MEAN CORPUSCULAR VOLUME 88 fL (80-99); MEAN PLATELET VOLUME 9.8 fL (9.0-12.2); MONOCYTES # (AUTO) 0.7 10^3/uL (0.0-1.0); MONOCYTES % (AUTO) 7 % (0-12); NEUTROPHILS # (AUTO) 7.4 10^3/uL (1.8-7.8); NEUTROPHILS % (AUTO) 66 % (42-75); PLATELET COUNT 271 10^3/uL (130-400); WHITE BLOOD COUNT 11.1 10^3/uL (4.3-11.0)
[2023-09-06 17:21] LABS: CHLORIDE 101 MMOL/L (98-107); POTASSIUM 4.5 MMOL/L (3.6-5.0); SODIUM 133 MMOL/L (135-145)
[2023-09-06 17:22] LABS: CALCIUM 9.2 MG/DL (8.5-10.1)
[2023-09-06 17:23] LABS: TOTAL PROTEIN 7.4 GM/DL (6.4-8.2)
[2023-09-06 17:24] LABS: CARBON DIOXIDE 21 MMOL/L (21-32)
[2023-09-06 17:25] LABS: BILIRUBIN,TOTAL < 0.1 MG/DL (0.1-1.0)
[2023-09-06 17:27] LABS: ALKALINE PHOSPHATASE 142 U/L (40-136); CREATININE SERUM 1.05 MG/DL (0.60-1.30); GFR ESTIMATED 61
[2023-09-06 17:28] LABS: BUN/CREATININE RATIO 10
[2023-09-06 17:30] LABS: ALANINE AMINOTRANSFERASE 19 U/L (0-55); CREATINE KINASE 28 U/L (29-168); MAGNESIUM 1.9 MG/DL (1.6-2.4)
[2023-09-06 17:31] LABS: ERYTHROCYTE SEDIMENTATION RATE 1 MM/HR (0-30)
[2023-09-06 17:44] LABS: GLUCOSE 575 MG/DL (70-105)
[2023-09-06 17:50] LABS: TSH (THYROID ANALYZER) 0.65 UIU/ML (0.35-4.94)
[2023-09-06] MEDS ORDERED: inSUlin (REGULAR) HUMAN 1 UNIT/0.01 ML (CHARGE PER UNIT) SC ONE (18:00)
[2023-09-06] MEDS ORDERED: NS IV 1000 ML 1,000 ML IV SCH (18:00)
--- NOTE | 2023-09-06 19:09 | Diagnostic Imaging Report ---
EXAMINATION: CT lumbar spine without contrast. TECHNIQUE: Multiple contiguous axial images were obtained through the lumbar spine without the use of intravenous contrast. Sagittal and coronal reformations were then performed. All CT scans use one or more of the following dose optimizing techniques: automated exposure control, MA and/or KvP adjustment based on patient size and exam type or iterative reconstruction. HISTORY: Low back pain, Bilateral LE pain with ambulation. COMPARISON: None available. FINDINGS: The alignment of the lumbar spine is normal. Vertebral body heights are normal and no fracture is seen. There is mild lower lumbar facet hypertrophy. Disk heights are normal. There may be mild central canal stenosis at L4-L5 and L5-S1. Limited views of the abdomen and pelvis show no soft tissue abnormality. There are vascular calcifications of the aorta without aneurysm. IMPRESSION: Minimal degenerative changes of the lumbar spine without acute osseous abnormality. Dictated by: Dictated on workstation # [id number]
[2023-09-06] MEDS ORDERED: GABA300C PO (19:29)
[2023-09-06] MEDS ORDERED: LISI5TAB20 PO (19:29)
[2023-09-06] MEDS ORDERED: CITA20TA12 PO (19:29)
[2023-09-06] MEDS ORDERED: INSU100I88 SQ (19:29)
[2023-09-06] MEDS ORDERED: METF-399 PO (19:29)
[2023-09-06 19:40] VITALS: BP 154/85
== END 2023-09-06 19:45 | disposition home or self-care (01) ==
LOC: EDUNIT# 15:30 → ER 15:32
DX: M79.604 Pain in right leg (principal); M79.605 Pain in left leg; E11.65 Type 2 diabetes mellitus with hyperglycemia; Z91.148 Patient's other noncompliance with medication regimen for other reason
CPT/HCPCS: 36415; 72131; 80053; 82550; 82947; 83735; 84443; 85025; 85652; 86141; 96360; 96372